=== PATIENT | male | born 1950 | race African-American/Black ===

== ENCOUNTER 2019-01-26 19:21 | Inpatient (IN) | payer MEDICARE, OTHER ==
[2019-01-26 19:41] LABS: #Lymphocytes 1.1 thou/uL (1.20-3.40); #Monocytes 0.4 thou/uL (0.11-0.59); %Basophils 0.1 % (0.0-1.0); %Eosinophils 0.3 % (0.0-10.0); %Lymphocytes 16.3 % (21.0-51.0); %Monocytes 6.5 % (0.0-10.0); %Neutrophils 76.8 % (42.0-75.0); Hemoglobin 11.3 g/dL (14.0-18.0); Mean Corpuscular HGB CONC 32.3 g/dL (32.0-36.0); Mean Corpuscular Hemoglobin 29.1 pg (27.0-31.0); Mean Corpuscular Volume 89.9 fL (78.0-98.0); Mean Platelet Volume 6.9 fL (7.4-10.4); Platelet Count 237 thou/uL (130-400); RBC Distribution Width 13.8 % (11.5-14.5); Red Blood Cell (RBC) Count 3.88 mill/uL (4.70-6.10); White Blood Cell (WBC) Count 6.4 thou/uL (4.8-10.8)
[2019-01-26 20:02] LABS: ALT (SGPT) 7 U/L (8-55); AST (SGOT) 16 U/L (5-34); Albumin 4.1 g/dL (3.4-4.8); Alkaline Phosphatase 545 U/L (40-150); Anion Gap 16 mmol/L (10-20); BUN (Urea Nitrogen) 41 mg/dL (8.4-25.7); Bilirubin, Total 0.5 mg/dL (0.2-1.2); Calc. Creatinine Clearance 0 mL/min (70-130); Calcium 9.9 mg/dL (7.8-10.44); Carbon Dioxide 22 mmol/L (23-31); Chloride 104 mmol/L (98-107); Estimated GFR-MDRD 33; Globulin 3.9 g/dL (2.4-3.5); Glucose 192 mg/dL (80-115); Phosphorus 4.8 mg/dL (2.3-4.7); Potassium 5.5 mmol/L (3.5-5.1); Sodium 136 mmol/L (136-145)
--- NOTE | 2019-01-26 20:30 | CT ---
NONCONTRAST ENHANCED CT CHEST: 01/26/19 HISTORY: Weakness. Nausea and vomiting. Noncontrast enhanced CT images of the brain obtained. There is ossification seen along the falx. The brain is unremarkable. No evidence of intracranial mas ses, hemorrhages, strokes, or contusions seen. Ventricles are of normal size. IMPRESSION: Normal CT brain. POS: [facility]
[2019-01-26 22:27] LABS: Troponin I Less than 0.010 ng/mL (< 0.028)
[2019-01-26 22:32] LABS: Bilirubin Negative (Negative); Blood, Urine Small (Negative); Clarity CLEAR (Clear); Glucose, Urine (Dipstick) 100 mg/dL (Negative); Leukocyte Negative (Negative); Nitrite Negative (Negative); Protein, Urine (Dipstick) 300 mg/dL (Neg-Trace); Specific Gravity, Urine 1.014 (1.002-1.036)
[2019-01-26] MEDS ORDERED: Sodium Chloride 0.9% 1,000 ML IV SCH (23:59)
[2019-01-27] MEDS ORDERED: cloNIDine 0.1 MG TAB PO PRN (00:09)
[2019-01-27] MEDS ORDERED: Sodium Chloride 0.9% 1,000 ML IV SCH (00:15)
[2019-01-27] MEDS ORDERED: Amlodipine 5 MG TAB PO SCH (00:45)
[2019-01-27] MEDS ORDERED: Tamsulosin HCl 0.4 MG CAP PO SCH (00:45)
[2019-01-27] MEDS: Sodium Chloride 0.9% 1,000 ML IV SCH ×2 (00:56→15:46)
[2019-01-27] MEDS ORDERED: Dextrose 5% in Water 1,000 ML IV PRN (01:07)
[2019-01-27] MEDS ORDERED: Dextrose 50% Abboject 50 ML SYRINGE SLOW IVP PRN (01:07)
[2019-01-27] MEDS ORDERED: Calcium Carbonate 500 MG ChewTAB PO PRN (01:07)
[2019-01-27] MEDS ORDERED: Insulin Regular 300 UNITS/3 ML VIAL SC PRN (01:07)
[2019-01-27] MEDS ORDERED: Ondansetron ODT 4 MG TAB PO PRN (01:07)
[2019-01-27] MEDS ORDERED: Ondansetron PF 4 MG/2 ML Vial IVP PRN (01:07)
--- NOTE | 2019-01-27 01:27 | HP ---
The patient was seen and examined on 01/26/2019. PRIMARY CARE PHYSICIAN: Dr. Bojorquez at [facility]. CHIEF COMPLAINT: Generalized weakness. HISTORY OF PRESENT ILLNESS: The patient is a 68-year-old male with recently diagnosed diabetes mellitus type 2, presented to the emergency room with generalized weakness. Over the last 1 week or so, the patient has not been eating or drinking well. He feels generally weak and fatigued. He has chronic visual issues and is followed by his adjunct psychology faculty member and has an appointment with the retina specialist next week. He denies any abdominal pain, chest pain, palpitations, lightheadedness, dizziness, fever, or chills. He denies urinary issues. However, at times, he has frequency and mild urgency. No dysuria, hematuria, or flank pain reported. In the emergency room, his workup was consistent with acute kidney injury with creatinine of 2.4 with potassium of 5.5. He received IV fluids in the emergency room. PAST MEDICAL HISTORY: 1. Diabetes mellitus type 2 with recent A1c of 8.9. 2. Hyperlipidemia. 3. Chronic visual issues, followed by his adjunct psychology faculty member. PAST SURGICAL HISTORY: Reviewed with the patient and none. ALLERGIES: NO KNOWN DRUG ALLERGIES. CURRENT HOME MEDICATIONS: Reviewed with the patient and none. SOCIAL HISTORY: The patient currently lives at home with his family. The daughter, Cayla is at the bedside and is a DPOA. No smoking, alcohol, or drug use reported. He is independent of activities of daily living. FAMILY HISTORY: Positive for diabetes mellitus type 2. REVIEW OF SYSTEMS: All other review of systems were reviewed and were found negative. PHYSICAL EXAMINATION: VITAL SIGNS: In the emergency room showed temperature 98.8, respirations of 18, pulse rate of 130 with a blood pressure of 166/93 on ER arrival. His current pulse rate is 118 with a blood pressure of 185/110. GENERAL: A 68-year-old male, thin built, frail appearing, in no apparent distress. HEENT: Head; atraumatic, normocephalic. Sclerae anicteric. Dry mucous membranes. No oral lesion. NECK: Supple. No JVD. No carotid bruit. LUNGS: Clear to auscultation bilaterally. No wheezing, rales, or rhonchi. HEART: S1, S2 present. Regular rate and rhythm. No rubs or gallops appreciated. 2/6 systolic murmur over the mitral area. ABDOMEN: Soft, nontender. Bowel sounds present. EXTREMITIES: No edema or calf tenderness. NEUROLOGIC: Exam was limited due to chronic hearing issues as well as visual difficulty. Power was 5/5 in all extremities. PSYCHIATRY: Alert, awake, oriented x3. SKIN: Warm and dry. LYMPH NODE: No palpable lymph nodes in the neck. PERIPHERAL VASCULAR: Radial pulses palpable bilaterally. MUSCULOSKELETAL: No joint swelling or tenderness. LABORATORY DATA: EKG by my review showed sinus tachycardia with left axis deviation. Alkaline phosphatase 545 with normal total bilirubin and AST, ALT. Troponins were negative. Lipase was 12. Creatinine 2.4 with BUN 41, potassium 5.5. WBC 6.4 with hemoglobin 11.3. Urinalysis was negative for wbc or bacteria. Ketones 0.5. CT scan of the brain by my review was negative for acute findings. EKG by my review as discussed above. IMPRESSION: 1. Acute kidney injury with hyperkalemia secondary to dehydration. 2. Suspected chronic kidney disease. Baseline creatinine unavailable. 3. Diabetes mellitus type 2, recently diagnosed with A1c of 8.9 earlier this month. 4. Elevated ketones, probably secondary to starvation ketosis. 5. Chronic anemia. 6. Elevated alkaline phosphatase of unclear etiology. 7. Suspected benign prostatic hypertrophy. 8. Hypertension. PLAN: The patient will be monitored on the telemetry unit. Continue IV hydration. We will add Flomax as well as low dose of amlodipine. We will get a renal ultrasound. For elevated alkaline phosphatase, we will check a GGT to rule out hepatic source. We will recheck labs in a.m. Insulin sliding scale. Plan of care was discussed with the patient and the family at the bedside. They stated understanding. DISPOSITION: The patient may benefit from home health care. Job ID: [id number]
[2019-01-27 05:33] LABS: #Lymphocytes 0.8 thou/uL (1.20-3.40); #Monocytes 0.6 thou/uL (0.11-0.59); #Neutrophils 4.6 thou/uL (1.40-6.50); %Basophils 0.1 % (0.0-1.0); %Eosinophils 0.6 % (0.0-10.0); %Monocytes 9.3 % (0.0-10.0); %Neutrophils 76.9 % (42.0-75.0); Hemoglobin 10.1 g/dL (14.0-18.0); INR-International Normal Ratio 1.1; Mean Corpuscular HGB CONC 32.8 g/dL (32.0-36.0); Mean Corpuscular Hemoglobin 29.2 pg (27.0-31.0); Mean Corpuscular Volume 89.1 fL (78.0-98.0); Mean Platelet Volume 7.3 fL (7.4-10.4); PTT 24.6 SEC (22.9-36.1); Platelet Count 213 thou/uL (130-400); Prothrombin Time 14.4 SEC (12.0-14.7); RBC Distribution Width 13.7 % (11.5-14.5); Red Blood Cell (RBC) Count 3.47 mill/uL (4.70-6.10)
[2019-01-27 06:02] LABS: ALT (SGPT) Less than 7 U/L (8-55); AST (SGOT) 16 U/L (5-34); Albumin 3.5 g/dL (3.4-4.8); Alkaline Phosphatase 460 U/L (40-150); Anion Gap 13 mmol/L (10-20); BUN (Urea Nitrogen) 35 mg/dL (8.4-25.7); Bilirubin, Total 0.4 mg/dL (0.2-1.2); Calc. Creatinine Clearance 26 mL/min (70-130); Calcium 9.1 mg/dL (7.8-10.44); Carbon Dioxide 19 mmol/L (23-31); Chloride 108 mmol/L (98-107); Estimated GFR-MDRD 46; Globulin 3.3 g/dL (2.4-3.5); Glucose 142 mg/dL (80-115); Protein, Total 6.8 g/dL (5.8-8.1); Sodium 135 mmol/L (136-145)
[2019-01-27] MEDS: Acetaminophen 325 MG TAB PO PRN ×2 (06:17→23:28)
[2019-01-27] MEDS: Multivit, Therapeutic 1 TAB PO SCH (09:32)
[2019-01-27] MEDS: Senokot S 8.6-50 MG TAB PO SCH ×2 (09:32→20:54)
[2019-01-27] MEDS: Cyanocobalamin (Vitamin B-12) 1,000 MCG TAB PO SCH (09:33)
[2019-01-27] MEDS: Amlodipine 5 MG TAB PO SCH ×2 (09:33→20:54)
[2019-01-27] MEDS: Folic Acid 1 MG TAB PO SCH (09:34)
[2019-01-27] MEDS: Heparin 5,000 UNITS/ML VIAL SC SCH ×2 (09:34→20:55)
--- NOTE | 2019-01-27 10:51 | ULT ---
BILATERAL RENAL ULTRASOUND: Date: 01/27/19 HISTORY: Acute kidney insufficiency. FINDINGS: Both kidneys measure approximately 10.0 cm in length. There is no evidence of hydronephrosis. There i s mild increased cortical echogenicity consistent with history of medical renal disease. No evidence of mass. The urinary bladder is mildly distended. There is evidence of urinary bladder wall thickening. There may be a small amount of fluid in Morison's pouch. The prostate appears enlarged and indents the floor of the bladder. IMPRESSION: 1. Mild increased cortical echogenicity consistent with medical renal disease. 2. Prostatic hypertrophy. Mild bladder wall thickening. 3. Small amount of free fluid in Morison's pouch. POS: [facility]
[2019-01-27] MEDS: Insulin Regular 300 UNITS/3 ML VIAL SC PRN (15:45)
--- NOTE | 2019-01-27 18:38 | PRG ---
DATE OF SERVICE: 01/27/2019 SUBJECTIVE: Mr. Erich Wren is a pleasant 68-year-old male with past medical history significant for type 2 diabetes mellitus, diabetic retinopathy, and recent bout of nausea and vomiting, who presented to the emergency room with complaints of overall generalized weakness. He has been admitted with an acute kidney injury and dehydration. The patient' s family is at bedside. The patient and the family state that he was actually diagnosed with diabetes mellitus many years ago, however, quit taking his medications on his own. He did see his primary care physician recently, and had some blood work with a recent A1c of 8.9%. The patient today states that he remains very weak. He is unable to ambulate very well. He has no complaints of chest pain or shortness of breath. No N/V or abdominal pain at this time. He does remain significantly orthostatic, with supine blood pressure of 162/91, and standing 113/69. The patient reported dizziness with standing. Otherwise, he has no specific complaints at this time. OBJECTIVE: VITAL SIGNS: Blood pressure 143/76, O2 saturation 98% on room air, pulse is 106, temperature is afebrile at 98.3. GENERAL: The patient is a thin male, resting comfortably in bed, eating his lunch. HEENT: Atraumatic and normocephalic. Mucous membranes do appear moist. NECK: Supple. No lymphadenopathy. No JVD. Trachea is midline. RESPIRATORY: Regular respiratory rate and pattern. Clear to auscultation bilaterally. No rhonchi, wheezes, or rales. CARDIOVASCULAR: S1 and S2. Regular rate and rhythm. No appreciable murmurs, rubs, or gallops, mildly tachycardic. GI: Soft and nontender. Positive bowel sounds. PERIPHERAL VASCULAR: He has no edema. +2 DP pulses bilaterally. MUSCULOSKELETAL: No joint effusion or swelling. NEUROLOGIC: He is awake and alert. Cranial nerves 2 through 12 grossly intact. No focal deficit. LABORATORY DATA: Hemoglobin 10.1, hematocrit 30.9. PT 14.4, INR 1.1. APTT 24.6. Sodium 135, potassium is trending down to at 5, previously was 5.5, chloride 108 , creatinine 1.79, previously was 2.4, alkaline phosphatase is elevated at 460, however, this is down from 545. ASSESSMENT: 1. Generalized weakness and electrolyte abnormalities in the setting of dehydration. 2. Acute kidney injury, improving. Creatinine 1.79. 3. Orthostatic hypotension, symptomatic, likely secondary to volume depletion with reactive tachycardia 4. Type 2 diabetes mellitus, uncontrolled. 5. Chronic kidney disease, likely secondary to diabetic nephropathy. 6. Diabetic retinopathy. 7. Elevated alkaline phosphatase with recent episode of N/V prior to admission. 8. HTN PLAN: The patient will need to continue IV fluid resuscitation, as he remains significantly orthostatic. He will need PT as well. The patient has an elev ALP, and will obtain a RUQ ultrasound to assess gallbladder / cholelithiasis. He shows no Joshi sign, but did have vomiting several days ago, which likely precipitated his dehydration. Renal ultrasound does show a small amount of free fluid in Morison pouch. The patient will need continued supportive care and physical therapy. We will also consult dietitian. We will need to continue to monitor his electrolytes closely. Continue sliding scale insulin. Regarding BP, will continue to monitor and if remains elev, consider adding CCB/amlodipine. Further recommendations based on hospital course. Care discussed with Dr. Palomares. Job ID: [id number] [facility]
[2019-01-27] MEDS: Tamsulosin HCl 0.4 MG CAP PO SCH (20:53)
[2019-01-28] MEDS: Sodium Chloride 0.9% 1,000 ML IV SCH ×2 (00:57→16:40)
[2019-01-28 06:00] LABS: #Eosinphils 0.1 thou/uL (0.0-0.7); #Lymphocytes 1.2 thou/uL (1.20-3.40); #Monocytes 0.5 thou/uL (0.11-0.59); #Neutrophils 5.1 thou/uL (1.40-6.50); %Basophils 0.2 % (0.0-1.0); %Eosinophils 0.9 % (0.0-10.0); %Monocytes 6.8 % (0.0-10.0); Hemoglobin 9.8 g/dL (14.0-18.0); Mean Corpuscular HGB CONC 32.7 g/dL (32.0-36.0); Mean Corpuscular Hemoglobin 29.7 pg (27.0-31.0); Mean Corpuscular Volume 90.8 fL (78.0-98.0); Mean Platelet Volume 7.5 fL (7.4-10.4); Platelet Count 199 thou/uL (130-400); RBC Distribution Width 13.6 % (11.5-14.5); Red Blood Cell (RBC) Count 3.32 mill/uL (4.70-6.10); White Blood Cell (WBC) Count 6.9 thou/uL (4.8-10.8)
[2019-01-28 06:19] LABS: ALT (SGPT) Less than 7 U/L (8-55); AST (SGOT) 18 U/L (5-34); Albumin 3.4 g/dL (3.4-4.8); Alkaline Phosphatase 426 U/L (40-150); Anion Gap 13 mmol/L (10-20); BUN (Urea Nitrogen) 30 mg/dL (8.4-25.7); Bilirubin, Direct 0.2 mg/dL (0.1-0.3); Bilirubin, Total 0.4 mg/dL (0.2-1.2); Calc. Creatinine Clearance 27 mL/min (70-130); Calcium 8.9 mg/dL (7.8-10.44); Carbon Dioxide 18 mmol/L (23-31); Chloride 109 mmol/L (98-107); Estimated GFR-MDRD 50; Glucose 139 mg/dL (80-115); Potassium 4.5 mmol/L (3.5-5.1); Protein, Total 6.6 g/dL (5.8-8.1); Sodium 135 mmol/L (136-145)
--- NOTE | 2019-01-28 08:11 | ULT ---
GALLBLADDER ULTRASOUND: HISTORY: Increased liver function tests. FINDINGS: The gallbladder has an unremarkable sonographic appearance. No evidence of gallstones identified. T he common duct is normal caliber. Pancreas is partially imaged and appears unremarkable as visualize d. The right kidney appears unremarkable. The liver is unremarkable. IMPRESSION: Unremarkable gallbladder ultrasound. POS: [facility]
[2019-01-28] MEDS ORDERED: Iopamidol 370 76% 100 ML VIAL ONE (08:14)
[2019-01-28] MEDS: Cyanocobalamin (Vitamin B-12) 1,000 MCG TAB PO SCH (10:28)
[2019-01-28] MEDS: Amlodipine 5 MG TAB PO SCH ×2 (10:28→20:20)
[2019-01-28] MEDS: Folic Acid 1 MG TAB PO SCH (10:29)
[2019-01-28] MEDS: Senokot S 8.6-50 MG TAB PO SCH ×2 (10:29→20:20)
[2019-01-28] MEDS: Multivit, Therapeutic 1 TAB PO SCH (10:29)
[2019-01-28] MEDS: Heparin 5,000 UNITS/ML VIAL SC SCH ×2 (10:31→20:20)
--- NOTE | 2019-01-28 12:20 | PDOC.PN ---
- Subjective Encounter Start Date: 01/28/19 Encounter Start Time: 11:48 Subjective: Patient complaining of left eye pain and loss of vision. Started 2 days ago -: with irritation. He has been rubbing his eye. Was having blurred vision and -: now loss of vision in left eye with constant watering of eye. Reports throbbing discomfort but unable to gauge who severe. No purulent discharge. Denies any headache or dizziness. Otherwise reports feeling much stronger than when he came in. - Objective Resuscitation Status - Order Detail: 01/27/19 01:07 Resuscitation Status Routine Resuscitation Status: FULL: Full Resuscitation Vital Signs & Weight: Vital Signs (12 hours) Temp Pulse Resp BP BP Pulse Ox 01/28/19 11:25 98.3 F 112 H 16 139/77 100 01/28/19 10:28 119 H 01/28/19 08:00 97.9 F 119 H 15 179/100 H 99 01/28/19 04:15 99 18 163/95 H 99 Weight Weight 101 lb 3.2 oz I&O: 01/27/19 01/28/19 01/29/19 06:59 06:59 06:59 Intake Total 1430 Output Total 175 675 Balance -175 755 Result Diagrams: 01/28/19 04:56 01/28/19 04:56 Additional Labs: Accuchecks 01/28/19 01/27/19 01/27/19 10:39 20:38 16:17 POC Glucose 149 H 140 H 204 H Phys Exam - Physical Examination Constitutional: NAD HEENT: moist MMs, oral pharynx no lesions Left conjunctivitis (erythema with clear discharge) Loss of vision in left eye Neck: supple, full ROM Respiratory: clear to auscultation bilateral Cardiovascular: RRR Gastrointestinal: soft, non-tender, no distention, positive bowel sounds Musculoskeletal: no edema, pulses present Neurological: normal sensation, moves all 4 limbs Psychiatric: normal affect, A&O x 3 Skin: no rash Dx/Plan (1) Weakness generalized Code(s): R53.1 - WEAKNESS Status: Acute (2) Dehydration Code(s): E86.0 - DEHYDRATION Status: Acute (3) KASSIDY (acute kidney injury) Code(s): N17.9 - ACUTE KIDNEY FAILURE, UNSPECIFIED Status: Acute (4) Hypertension Code(s): I10 - ESSENTIAL (PRIMARY) HYPERTENSION Status: Chronic (5) Conjunctivitis, left eye Code(s): H10.9 - UNSPECIFIED CONJUNCTIVITIS Status: Acute (6) Tachycardia Code(s): R00.0 - TACHYCARDIA, UNSPECIFIED Status: Acute - Plan cont current plan of care, PT/OT, social media analyst Continue IVF, renal function improving. Continue to trend. Repeat Ortho BPs -: Remains tachycardic. Check Mg+, TSH, and d-dimer. No CP at present. CXR. -: Concern for self-neglect and lack of support at home. -: Would benefit from placement given inability to care for himself. -: Conjunctivitis, loss of vision perhaps due to corneal ulcer. Opthalmology consult. Cipro drops to left eye q2 hrs x 2 days, then q4h x 5 days. Further management as per Opthalmology. Discussed with Dr. Palomares who agrees with plan as above. Review of Systems - Review of Systems Constitutional: weakness (improving. ). negative: fever, chills, sweats, malaise Eyes: Pain (left eye), Vision Change, Redness (left eye) ENT: negative: Ear Pain, Ear Discharge, Nose Pain, Nose Discharge, Nose Congestion, Mouth Pain, Mouth Swelling, Throat Pain, Throat Swelling, Other Respiratory: negative: Cough, Dry, Shortness of Breath, Hemoptysis, SOB with Excertion, Pleuritic Pain, Sputum, Wheezing Cardiovascular: negative: chest pain, palpitations, orthopnea, paroxysmal nocturnal dyspnea, edema, light headedness, other Gastrointestinal: negative: Nausea, Vomiting, Abdominal Pain, Diarrhea, Constipation, Melena, Hematochezia Genitourinary: negative: Dysuria, Frequency, Incontinence, Hematuria, Retention Musculoskeletal: negative: Neck Pain, Shoulder Pain, Arm Pain, Back Pain, Hand Pain, Leg Pain, Foot Pain Skin: negative: Rash, Lesions, Kennedy, Bruising Neurological: Weakness (generalized weakness, improving. ). negative: Numbness , Incoordination, Change in Speech, Confusion, Seizures, Other - Medications/Allergies Allergies/Adverse Reactions: Allergies Allergy/AdvReac Type Severity Reaction Status Date / Time No Known Drug Allergies Allergy Verified 01/27/19 00:09 Medications: Current Medications Acetaminophen (Tylenol) 650 mg PO Q4H PRN PRN Reason: Headache/Fever/Mild Pain (1-3) Last Admin: 01/27/19 23:28 Dose: 650 mg Amlodipine Besylate (Norvasc) 2.5 mg PO BID PENDING SALE TO [facility] Last Admin: 01/28/19 10:28 Dose: 2.5 mg Calcium Carbonate (Tums) 1,000 mg PO Q4H PRN PRN Reason: Heartburn or Indigestion Ciprofloxacin (Ciloxan 0.3% Ophth Soln) 1 drop L EYE Q2HR PENDING SALE TO [facility] Clonidine (Catapres) 0.1 mg PO Q4H PRN PRN Reason: Systolic BP > 180 Cyanocobalamin (Vitamin B-12) 1,000 mcg PO DAILY PENDING SALE TO [facility] Last Admin: 01/28/19 10:28 Dose: 1,000 mcg Dextrose/Water (Dextrose 50%) 25 gm SLOW IVP PRN PRN PRN Reason: Hypoglycemia Folic Acid (Folvite) 1 mg PO DAILY PENDING SALE TO [facility] Last Admin: 01/28/19 10:29 Dose: 1 mg Glucagon (Glucagon) 1 mg IM PRN PRN PRN Reason: Hypoglycemia Heparin Sodium (Porcine) (Heparin) 5,000 units SC BID PENDING SALE TO [facility] Last Admin: 01/28/19 10:31 Dose: 5,000 units Sodium Chloride (Normal Saline 0.9%) 1,000 mls @ 100 mls/hr IV .Q10H PENDING SALE TO [facility] Last Admin: 01/28/19 00:57 Dose: 1,000 mls Dextrose/Water (D5w) 1,000 mls @ 0 mls/hr IV .Q0M PRN PRN Reason: Hypoglycemia Insulin Human Regular (Humulin R) 0 units SC .MILD SLIDING SCALE PRN PRN Reason: Mild Correctional Scale Last Admin: 01/27/19 15:45 Dose: 3 unit Insulin Human Regular (Humulin R) 0 units SC .BEDTIME SLIDING SC PRN PRN Reason: Bedtime Correctional Scale Multivitamins (Theragran) 1 tab PO DAILY PENDING SALE TO [facility] Last Admin: 01/28/19 10:29 Dose: 1 tab Ondansetron HCl (Zofran Odt) 4 mg PO Q6H PRN PRN Reason: Nausea/Vomiting Ondansetron HCl (Zofran) 4 mg IVP Q6H PRN PRN Reason: Nausea/Vomiting Senna/Docusate Sodium (Senokot S) 1 tab PO BID PENDING SALE TO [facility] Last Admin: 01/28/19 10:29 Dose: 1 tab Tamsulosin HCl (Flomax) 0.[address] [facility] Last Admin: 01/27/19 20:53 Dose: 0.4 mg
--- NOTE | 2019-01-28 14:55 | RAD ---
CHEST TWO VIEWS: 01/28/2019 HISTORY: Shortness of breath. Tachycardia. FINDINGS: There is reticulonodular density in both upper lobes and in the bilateral perihilar regions. There i s no pneumothorax or lobar consolidation. There are numerous areas of abnormal increased sclerotic density within the osseous structures, suspi cious for possible underlying metastatic disease. This includes a conspicuous area of sclerosis with in T12, on the lateral view. IMPRESSION: Reticulonodular densities in the perihilar regions and upper lobes, which may signify infectious pneu monitis, chronic change, granulomatous disease, and/or metastatic disease. There is also suggestion of numerous sclerotic osseous lesions, which may signify osseous metastatic disease. Recommend further assessment via CT examination of the chest. CODE T POS: [facility]
[2019-01-28] MEDS: Ciprofloxacin 0.3% Ophth Drops 2.5 ml Bottle L EYE SCH ×4 (16:41→22:30)
--- NOTE | 2019-01-28 16:46 | CT ---
CT CHEST WITH CONTRAST WITH 3D VOLUME RENDERING: Date: 01/28/19 CLINICAL HISTORY: Tachycardia, shortness of breath. Elevation of D-Dimer. FINDINGS: There is limited evaluation of the pulmonary arteries due to reduced contrast density. There is also surrounding opacification of each perihilar region which limits assessment. There are numerous ground -glass and noncalcified bilateral pulmonary nodules. There is tortuosity of the aorta. Soft tissue de nsity of the mediastinum with associated calcifications is present, nonspecific. There is interstitia l prominence of each lung, as well as bronchiectasis. Extensive blastic osseous metastasis is present . Within the visualized upper abdomen, there is nonspecific fullness of the adrenal glands. IMPRESSION: 1. Diffuse osseous metastatic disease. 2. Abnormal reticulonodular opacities of the lungs bilaterally, predominantly in a perihilar distrib ution, which may be related to atypical infection versus infiltrating neoplasm, given additional ill- defined mediastinal soft tissue density. 3. Limited evaluation of the pulmonary arterial system. No definite large central pulmonary embolus identified. 4. Numerous, multifocal bilateral noncalcified pulmonary nodules, compatible with metastatic disease . POS: [facility]
[2019-01-28] MEDS: Tamsulosin HCl 0.4 MG CAP PO SCH (20:22)
[2019-01-29] MEDS: Ciprofloxacin 0.3% Ophth Drops 2.5 ml Bottle L EYE SCH ×5 (00:23→08:46)
[2019-01-29] MEDS: Sodium Chloride 0.9% 1,000 ML IV SCH ×3 (01:58→16:46)
[2019-01-29] MEDS ORDERED: ISOVUE-370 76%-LOCM 1 ML ONE (08:00)
[2019-01-29 08:10] LABS: #Eosinphils 0.1 thou/uL (0.0-0.7); #Lymphocytes 0.9 thou/uL (1.20-3.40); #Monocytes 0.4 thou/uL (0.11-0.59); #Neutrophils 3.6 thou/uL (1.40-6.50); %Basophils 0.4 % (0.0-1.0); %Eosinophils 1.2 % (0.0-10.0); %Lymphocytes 17.3 % (21.0-51.0); %Monocytes 8.7 % (0.0-10.0); %Neutrophils 72.4 % (42.0-75.0); Hemoglobin 8.6 g/dL (14.0-18.0); Mean Corpuscular HGB CONC 33.2 g/dL (32.0-36.0); Mean Corpuscular Hemoglobin 29.6 pg (27.0-31.0); Mean Corpuscular Volume 89.2 fL (78.0-98.0); Mean Platelet Volume 6.9 fL (7.4-10.4); Platelet Count 183 thou/uL (130-400); RBC Distribution Width 13.3 % (11.5-14.5); Red Blood Cell (RBC) Count 2.89 mill/uL (4.70-6.10); White Blood Cell (WBC) Count 4.9 thou/uL (4.8-10.8)
[2019-01-29] MEDS: Folic Acid 1 MG TAB PO SCH (08:33)
[2019-01-29] MEDS: Amlodipine 5 MG TAB PO SCH ×2 (08:34→21:18)
[2019-01-29] MEDS: Heparin 5,000 UNITS/ML VIAL SC SCH ×2 (08:35→21:20)
[2019-01-29] MEDS: Multivit, Therapeutic 1 TAB PO SCH (08:35)
[2019-01-29] MEDS: Cyanocobalamin (Vitamin B-12) 1,000 MCG TAB PO SCH (08:36)
[2019-01-29] MEDS: Senokot S 8.6-50 MG TAB PO SCH ×2 (08:36→21:20)
[2019-01-29 08:39] LABS: Anion Gap 11 mmol/L (10-20); BUN (Urea Nitrogen) 22 mg/dL (8.4-25.7); Calc. Creatinine Clearance 32 mL/min (70-130); Calcium 8.6 mg/dL (7.8-10.44); Carbon Dioxide 17 mmol/L (23-31); Chloride 110 mmol/L (98-107); Estimated GFR-MDRD 57; Glucose 112 mg/dL (80-115); Sodium 134 mmol/L (136-145)
--- NOTE | 2019-01-29 09:36 | PDOC.PN ---
- Subjective Encounter Start Date: 01/29/19 Encounter Start Time: 09:33 Subjective: Patient has felt well overnight, improved discomfort in left eye with less -: clear discharge. Tolerating oral intake. Has remained afebrile. -: No chest pain, SOB. No n/v or abdo pain. Loose stools last pm. Senna held. He denies having any changes with his bowels or noting any melena or bright red blood in his stools. Denies any abdominal pain. No back pain. No headaches or dizziness. States he was only feeling weak on his feet. Has been up and to the bathroom but still slightly unsteady on his feet. Additional investigations obtained due to persistent tachycardia despite symptomatic improvement and improved renal function. D-Dimer elevated. CXR done showing abnormal findings: bone and lung lesions concerning for metastasis. CTA: Diffuse osseous mets with multiple lung nodules. No definite evidence of PE. Soft tissue mediastinal density seen. I have explained above findings to patient, and daughter. They are understandably emotional at this present time but they do not have any questions at the moment. They are agreeable to be seen by palliative care for support in coping issues. They are aware of plans for further imaging with CT A/P and Oncology consult. - Objective Resuscitation Status - Order Detail: 01/27/19 01:07 Resuscitation Status Routine Resuscitation Status: FULL: Full Resuscitation Vital Signs & Weight: Vital Signs (12 hours) Temp Pulse Resp BP BP BP BP 01/29/19 08:34 107 H 01/29/19 07:49 98.6 F 107 H 16 01/29/19 07:48 110/56 L 83/51 L 135/74 01/29/19 04:30 98.9 F 108 H 19 131/77 01/29/19 03:26 01/29/19 00:19 98.7 F 103 H 12 141/84 H Pulse Ox 01/29/19 08:34 01/29/19 07:49 98 01/29/19 07:48 01/29/19 04:30 100 01/29/19 03:26 98 01/29/19 00:19 98 Weight Admit Weight 101 lb 3.2 oz Weight 105 lb 1.6 oz I&O: 01/28/19 01/29/19 01/30/19 06:59 06:59 06:59 Intake Total 1430 1320 Output Total 675 Balance 755 1320 Result Diagrams: 01/29/19 07:37 01/29/19 07:37 Additional Labs: Accuchecks 01/29/19 01/28/19 01/28/19 06:01 21:33 16:59 POC Glucose 126 H 204 H 180 H 01/28/19 10:39 POC Glucose 149 H Phys Exam - Physical Examination Constitutional: NAD Well-developed but very thin HEENT: moist MMs, oral pharynx no lesions Slight improvement in left eye erythema, less drainage Neck: full ROM Respiratory: clear to auscultation bilateral Cardiovascular: RRR Gastrointestinal: soft, non-tender, no distention, positive bowel sounds Musculoskeletal: no edema, pulses present Neurological: normal sensation, moves all 4 limbs Psychiatric: normal affect, A&O x 3 Skin: no rash Dx/Plan (1) Weakness generalized Code(s): R53.1 - WEAKNESS Status: Acute (2) Dehydration Code(s): E86.0 - DEHYDRATION Status: Resolved (3) KASSIDY (acute kidney injury) Code(s): N17.9 - ACUTE KIDNEY FAILURE, UNSPECIFIED Status: Acute (4) Hypertension Code(s): I10 - ESSENTIAL (PRIMARY) HYPERTENSION Status: Chronic (5) Conjunctivitis, left eye Code(s): H10.9 - UNSPECIFIED CONJUNCTIVITIS Status: Acute (6) Tachycardia Code(s): R00.0 - TACHYCARDIA, UNSPECIFIED Status: Acute - Plan cont current plan of care Awaiting Oncology review. -: CT A/P this afternoon. -: Awaiting Opthalmology. -: Lorazepam 0.25 mg PO x 1 now. -: Palliative Care consult requested. Discussed with Dr. Palomares who agrees with plan of care as above. Discussed clinical situation with Thuy and the likelihood of diffuse metastatic process given osseous and pulmonary lesions. Consult Oncology service regarding disposition and outpt planning and strategy for obtaining tissue dx. Palliative care consult placed for custodial planning and goals of care discussion.
[2019-01-29] MEDS: Lorazepam 0.5 MG TAB PO PRN (10:30)
--- NOTE | 2019-01-29 16:56 | CT ---
ABDOMEN CT WITH CONTRAST PELVIC CT WITH CONTRAST: HISTORY: Possible metastatic disease noted on CT angiogram of the chest. COMPARISON: None. CORRELATION: CT angiogram of the chest 01/28/2019. FINDINGS: ABDOMEN CT: Lung bases are clear. Heart size is within normal limits. No significant pericardial fluid. Portal vein is patent. Liver , spleen, pancreas have appropriate enhancement and attenuation. There is mild dilatation of the parrish creatic duct with a diameter of 0.2 cm. No masses in the head of the pancreas. Symmetric attenuatio n of the adrenal glands. Limited evaluation for masses and lymphadenopathy due to decreased intraabdominal fat. No gastrohepa tic, retrocrural, or periportal lymphadenopathy. No mesenteric mass, lymphadenopathy, free air, or free fluid. Symmetric enhancement of the kidneys. No obstructive uropathy. Moderately distended stomach with contrast and ingested material. No evidence of small bowel obstruc tion. Ileocecal junction is normal. Possible normal-caliber appendix. Limited evaluation of the co noy due to the lack of oral contrast opacification. There is mucosal thickening of the left hemicolo n which is presumed to be due to inadequate distention. There does appear to be intraluminal soft ti ssue mass in the sigmoid colon measuring 3.7 x 2.9 cm with associated intussusception. The mass is f elt to be a lead point. No associated obstruction. CT PELVIS: Enlarged heterogeneous prostate gland, worrisome for prostate metastases. There is also evidence of mucosal thickening and irregularity involving the distal sigmoid colon and rectum. Diffuse osseous sclerotic metastatic deposits. IMPRESSION: 1. Diffuse osseous metastases. 2. Abnormal mucosa involving the distal sigmoid colon and rectum with possible intraluminal polypoid mass at the level of the mid sigmoid colon with associated intussusception. Colonoscopy is recommen ded. 3. Heterogeneously enlarged prostate gland. Correlate for prostate specific antigen level to assess for possible prostate cancer. CODE T POS: [facility]
--- NOTE | 2019-01-29 19:49 | CON ---
DATE OF CONSULTATION: REASON FOR CONSULT: Bone lesions. HISTORY OF PRESENT ILLNESS: Mr. Wren is a pleasant 68-year-old gentleman, who was recently diagnosed with diabetes mellitus type 2. Over the weekend, he began to feel poorly and out of sorts. He had mild shortness of breath with weakness. His daughter brought him to the emergency room for evaluation. Brain CT was negative. CBC showed hemoglobin of 11.3. His creatinine was elevated at 1.79 with potassium of 5. He underwent an abdominal ultrasound, which was unremarkable. D-dimer was checked, which was slightly elevated. He underwent a CT angio of the chest, which showed diffuse osseous metastatic disease. There were abnormal reticulonodular opacities of the lungs bilaterally. Numerous multifocal bilateral noncalcified pulmonary nodules are worrisome for metastatic disease. There was no pulmonary emboli. He had a CEA that was normal at 0.68. The patient has no history of smoking or drinking. No history of liver disease. No difficulty with urination. No new bone pain. He has been given IV fluids and states he is feeling better since arrival. We were helped to assist with diagnosis of the bone lesions. PAST MEDICAL HISTORY: 1. Newly diagnosed diabetes mellitus 2. 2. Hypertension. 3. Chronic visual changes. PAST SURGICAL HISTORY: None. ALLERGIES: NO KNOWN DRUG ALLERGIES. HOME MEDICATIONS: None. FAMILY HISTORY: Denies any history of prostate or multiple myeloma. SOCIAL HISTORY: , lives alone. Has 2 daughters. No alcohol, tobacco, or illicit drug use. REVIEW OF SYSTEMS: A 10-point review of systems is negative except for noted in HPI. PHYSICAL EXAMINATION: VITAL SIGNS: Temperature is 99.3, pulse is 107, respiratory rate is 12, and BP is 148/81. He is 100% on room air. GENERAL: This is a thin male, in no acute distress. HEENT: Normocephalic and atraumatic. Pupils are equal and reactive to light. NECK: Supple. CV: Regular rate and rhythm. LUNGS: Clear. ABDOMEN: Soft and nontender. Bowel sounds are positive. There is no organomegaly. EXTREMITIES: No clubbing, cyanosis, or edema. SKIN: No rash. HEMATOLOGIC: No petechiae or purpura. NEUROLOGIC: Nonfocal. PSYCH: The patient is alert, oriented, and appropriate. PERTINENT LABS AND X-RAYS: Current WBCs 4.9, hemoglobin 8.6, hematocrit 25.8, platelet count 183,000, 73% neutrophils, and 17% lymphocytes. Sodium 134, potassium 4.0, chloride 110, CO2 of 17, BUN is 22, creatinine 1.49, lipase is 12, total bilirubin is 0.4, AST is 24, ALT is 18, and his alkaline phosphatase is 426. Troponin is negative. Serum total protein 6.6, albumin 3.4, and globulin 3.3. Urine shows protein with trace ketones. ASSESSMENT: Diffuse osseous lesions on CT scan. DISCUSSION: The patient is having a CT of his abdomen and pelvis today. His CEA is negative and his PSA is currently pending, although his protein is normal. He does have protein in his urine. We will check a serum protein electrophoresis and quantitative immunoglobulins to rule out multiple myeloma. If his CT scan shows no obvious primary mass, we will perform a skeletal survey and have a biopsy of 1 of his bone lesions. Further recommendations will be based on those results. Thank you for the consult. Job ID: [id number] [facility]ITALRaymon
[2019-01-29] MEDS: Tamsulosin HCl 0.4 MG CAP PO SCH (21:20)
[2019-01-29] MEDS: Acetaminophen 325 MG TAB PO PRN (21:22)
--- NOTE | 2019-01-30 02:00 | CON ---
DATE OF CONSULTATION: 01/29/2019 REASON FOR CONSULT: Abnormal CAT scan with questionable mass in the sigmoid colon. HISTORY OF PRESENT ILLNESS: Mr. Wren is a 68-year-old -[place] male, who came in, brought in by his family on the for basically failure of thrive, poor p.o. intake, weight loss, and general weakness. He thought that possibly his diabetes was flaring up. He had not been eating or drinking well for the past week or two. His daughter in the past three or four weeks. Here, he had a dehydration with creatinine of 2.4 and potassium 5.5. Apparently, he started seeing Dr. Bojorquez at [facility] recently, his new physician and had a hemoglobin A1c of 8.9. He had CAT scan of brain, which was negative. He was found to have mild anemia and elevated alkaline phosphatase of unclear etiology. He was brought in for IV fluids and evaluation. He had a renal ultrasound that was normal. Normal gallbladder. He had normal GGT as well. Ultimately, he had a chest x-ray performed today around noon that showed reticulonodular densities in the perihilar regions of upper lung lobes. There are numerous sclerotic osseous lesions in the bone. A CAT scan was then performed on 01/28/2019. There was diffuse osseous metastatic disease. On the CAT scan, there was perihilar reticulonodular adenopathy and he had numerous noncalcified pulmonary nodules consistent with metastatic disease. There was a limited evaluation of pulmonary artery system, but no central large embolus was seen. Today, the patient had a CAT scan of the abdomen and pelvis and that showed possible mass in the sigmoid colon. No evidence of liver metastasis. Patent portal vein. No overt adenopathy. Mildly distended stomach with contrast material, but no evidence of bowel obstruction. In the sigmoid colon, I felt there was a mass, 3.7 x 2.9 cm with associated intussusception. The prostate gland was enlarged. Presently, the patient denies any overt abdominal pain, shortness of breath, or chest pain. The shortness of breath he had yesterday is now resolved. PAST MEDICAL HISTORY: Notable for diabetes. PAST SURGICAL HISTORY: Negative. ALLERGIES: NONE KNOWN. HOME MEDICATIONS: None. SOCIAL HISTORY: The patient lives with family members. He does not smoke, drink, or use drugs. He does have history of type 2 diabetes. PRESENT MEDICATIONS: 1. Tylenol. 2. Norvasc. 3. Cipro. 4. Vitamin B12. 5. Heparin subcu b.i.d. 5000 units. 6. Ativan p.r.n. 7. Theragran-M. 8. Zofran. 9. Normal saline. PHYSICAL EXAMINATION: GENERAL: He is resting comfortably in bed. He is in no distress. VITAL SIGNS: Pulse 107, temperature 98, blood pressure 165/83, respiratory rate 16, and O2 saturation 97%. LUNGS: Clear. HEART: Regular rate and rhythm. No clicks or murmurs. ABDOMEN: Soft and nontender. There is no palpable hepatosplenomegaly. There is no evidence of adenopathy in the supraclavicular, axillary, inguinal, or umbilical areas. MUSCULOSKELETAL: He has diffuse muscle wasting. SKIN: There are no skin rashes or lesions. He has mild erythema of the left conjunctiva. LABORATORY STUDIES: White count 9.4, hemoglobin 8.6, and platelet count 183. INR 1.1. BUN and creatinine of 22 and 1.4. Sodium 134, chloride 110, and bicarb 17. CEA is 0.68. Alpha-fetoprotein is 2. PSA is pending. ASSESSMENT: This is a 68-year-old gentleman, who came with failure to thrive and weight loss. He has osseous bone lesions and some lung lesions, which were concerning for either infectious or neoplastic etiology. He also has a sigmoid colon mass without obstruction with some signs of intussusception but no symptoms of pain or change in bowel function. His really only GI symptom is that he has no appetite and he is not able to eat. I have been asked to see him with regard to his colonoscopy. At this time, I do not think he can undergo a colonoscopy as he cannot drink bowel prep. He was unable to drink two cups of his oral contrast but I think we can perform a sigmoidoscopy with some enemas and evaluate the finding on the CAT scan and see if he has a malignancy in the sigmoid colon. I have offered this to the patient and family, and they wished to proceed with that. We will arrange for that for tomorrow. Job ID: [id number]
[2019-01-30] MEDS: Sodium Chloride 0.9% 1,000 ML IV SCH ×3 (02:20→18:16)
[2019-01-30] MEDS ORDERED: Fleet Enema 133 ML BOT FS SCH ×2 (07:00→08:00)
[2019-01-30] MEDS: Amlodipine 5 MG TAB PO SCH ×2 (09:20→21:24)
[2019-01-30 09:23] LABS: % Free PSA Greater than 9.2 % (.); Total PSA 545.6 ng/mL (0.0-4.0)
[2019-01-30] MEDS ORDERED: PROPOFOL 200 MG/20 ML VIAL ONE (10:37)
[2019-01-30] MEDS: Folic Acid 1 MG TAB PO SCH (11:26)
[2019-01-30] MEDS: Cyanocobalamin (Vitamin B-12) 1,000 MCG TAB PO SCH (11:26)
[2019-01-30] MEDS: Multivit, Therapeutic 1 TAB PO SCH (11:27)
[2019-01-30] MEDS: Heparin 5,000 UNITS/ML VIAL SC SCH ×2 (11:27→21:27)
[2019-01-30] MEDS: Senokot S 8.6-50 MG TAB PO SCH ×2 (11:28→21:27)
--- NOTE | 2019-01-30 12:19 | OP ---
DATE OF PROCEDURE: 01/30/2019 PROCEDURE PERFORMED: Flexible sigmoidoscopy. PREMEDICATION: Given by Anesthesiology Department. PREPROCEDURE DIAGNOSIS: Abnormal CT suggestive of sigmoid lesion. POSTPROCEDURE DIAGNOSIS: One large 20 cm plus sigmoid polyp, pedunculated, not amenable to endoscopic removal. DESCRIPTION OF PROCEDURE: Written consents were obtained prior to procedure. After adequate sedation, rectal exam was performed and was normal. The endoscope was advanced into the rectum, advanced to approximately 40 cm. At 25 cm from the anal verge, a large pedunculated polyp with villous appearing surface was encountered. The polyp was large, multilobulated, pedunculated fillings in most of the entire lumen. There was no feature of malignancy usually. A total of 7 mL of epinephrine solution was injected into the stalk in the hope to shrink the polyp, however, this was unsuccessful. The polyp was too large for endoscopic removal given the lack of good position to place a snare. The instruments were then fully removed. The patient tolerated the procedure well. ASSESSMENT: 1. Large 20 cm plus pedunculated sigmoid polyp, unable to shrink with epinephrine injection to the stalk. RECOMMENDATION: Proceed with further evaluation and treatment for his metastatic prostate cancer. Job ID: [id number]
[2019-01-30 13:00] LABS: #Lymphocytes 0.6 thou/uL (1.20-3.40); #Monocytes 0.3 thou/uL (0.11-0.59); #Neutrophils 4.5 thou/uL (1.40-6.50); %Basophils 0.3 % (0.0-1.0); %Eosinophils 0.5 % (0.0-10.0); %Lymphocytes 11.6 % (21.0-51.0); %Monocytes 4.9 % (0.0-10.0); %Neutrophils 82.7 % (42.0-75.0); Hemoglobin 9.1 g/dL (14.0-18.0); Mean Corpuscular HGB CONC 32.8 g/dL (32.0-36.0); Mean Corpuscular Hemoglobin 29.6 pg (27.0-31.0); Mean Platelet Volume 6.8 fL (7.4-10.4); Platelet Count 189 thou/uL (130-400); RBC Distribution Width 13.6 % (11.5-14.5); Red Blood Cell (RBC) Count 3.07 mill/uL (4.70-6.10); White Blood Cell (WBC) Count 5.4 thou/uL (4.8-10.8)
[2019-01-30 13:08] LABS: Anion Gap 11 mmol/L (10-20); BUN (Urea Nitrogen) 19 mg/dL (8.4-25.7); Calc. Creatinine Clearance 33 mL/min (70-130); Calcium 8.6 mg/dL (7.8-10.44); Carbon Dioxide 19 mmol/L (23-31); Chloride 109 mmol/L (98-107); Estimated GFR-MDRD 56; Glucose 185 mg/dL (80-115); Potassium 3.5 mmol/L (3.5-5.1); Sodium 135 mmol/L (136-145)
[2019-01-30] MEDS: Insulin Regular 300 UNITS/3 ML VIAL SC PRN (18:15)
--- NOTE | 2019-01-30 18:22 | PDOC.PN ---
- Subjective Encounter Start Date: 01/30/19 Encounter Start Time: 18:20 Subjective: Patient is feeling well and in good spirits today. -: Denies having any issues overnight. No complaints of pain. -: Tolerating oral intake. No n/v. No cp or sob. No headaches/dizziness. Status post flex sig notable for large sigmoid colon polyp, too large to be removed. - Objective Resuscitation Status - Order Detail: 01/27/19 01:07 Resuscitation Status Routine Resuscitation Status: FULL: Full Resuscitation Vital Signs & Weight: Vital Signs (12 hours) Temp Pulse Resp BP Pulse Ox 01/30/19 15:53 98.3 F 103 H 16 162/84 H 100 01/30/19 11:47 97.7 F 112 H 14 146/71 H 100 01/30/19 09:20 117 H 01/30/19 07:45 97.8 F 117 H 14 157/87 H 99 Weight Admit Weight 101 lb 3.2 oz Weight 108 lb 4.8 oz I&O: 01/29/19 01/30/19 01/31/19 06:59 06:59 06:59 Intake Total 1320 1240 Output Total 400 Balance 1320 840 Result Diagrams: 01/30/19 12:36 01/30/19 12:36 Additional Labs: Accuchecks 01/30/19 01/30/19 01/30/19 16:57 12:19 06:06 POC Glucose 202 H 198 H 136 H 01/29/19 21:09 POC Glucose 217 H Phys Exam - Physical Examination Constitutional: NAD HEENT: PERRLA, sclera anicteric, oral pharynx no lesions continued improved with redness to left eye. Neck: full ROM Respiratory: no wheezing, no rales, no rhonchi, clear to auscultation bilateral Cardiovascular: RRR Gastrointestinal: soft, non-tender, no distention, positive bowel sounds Musculoskeletal: no edema Neurological: normal sensation, moves all 4 limbs Psychiatric: normal affect, A&O x 3 Skin: no rash Dx/Plan (1) Weakness generalized Code(s): R53.1 - WEAKNESS Status: Acute Plan: Improving. PT/OT eval. (2) KASSIDY (acute kidney injury) Code(s): N17.9 - ACUTE KIDNEY FAILURE, UNSPECIFIED Status: Resolved (3) Hypertension Code(s): I10 - ESSENTIAL (PRIMARY) HYPERTENSION Status: Chronic Qualifiers: Hypertension type: essential hypertension Qualified Code(s): I10 - Essential (primary) hypertension Plan: Continue to monitor BP. Continue meds. (4) Conjunctivitis, left eye Code(s): H10.9 - UNSPECIFIED CONJUNCTIVITIS Status: Acute Plan: continue topical abx. Will need follow-up with Opthalmology, was scheduled to see Retina specialist as outpatient. (5) Tachycardia Code(s): R00.0 - TACHYCARDIA, UNSPECIFIED Status: Acute Plan: Improving. Continue to monitor. - Plan cont current plan of care Elevated PSA, felt to have metastatic prostate cancer. -: Further management as per Oncology service. -: Patient for PT/OT, likely to be discharged to SNF. * .
[2019-01-30] MEDS: Tamsulosin HCl 0.4 MG CAP PO SCH (21:26)
[2019-01-30] MEDS: Acetaminophen 325 MG TAB PO PRN (21:26)
[2019-01-31] MEDS: Sodium Chloride 0.9% 1,000 ML IV SCH (03:52)
[2019-01-31 05:42] LABS: #Eosinphils 0.1 thou/uL (0.0-0.7); #Lymphocytes 0.8 thou/uL (1.20-3.40); #Monocytes 0.3 thou/uL (0.11-0.59); #Neutrophils 3.1 thou/uL (1.40-6.50); %Basophils 0.2 % (0.0-1.0); %Eosinophils 2.1 % (0.0-10.0); %Lymphocytes 18.2 % (21.0-51.0); %Monocytes 7.7 % (0.0-10.0); %Neutrophils 71.8 % (42.0-75.0); Hemoglobin 8.4 g/dL (14.0-18.0); Mean Corpuscular HGB CONC 33.7 g/dL (32.0-36.0); Mean Corpuscular Hemoglobin 29.8 pg (27.0-31.0); Mean Corpuscular Volume 88.5 fL (78.0-98.0); Platelet Count 186 thou/uL (130-400); RBC Distribution Width 13.4 % (11.5-14.5); White Blood Cell (WBC) Count 4.3 thou/uL (4.8-10.8)
[2019-01-31 05:54] LABS: Anion Gap 10 mmol/L (10-20); BUN (Urea Nitrogen) 15 mg/dL (8.4-25.7); Calc. Creatinine Clearance 35 mL/min (70-130); Calcium 8.4 mg/dL (7.8-10.44); Carbon Dioxide 20 mmol/L (23-31); Chloride 111 mmol/L (98-107); Estimated GFR-MDRD 62; Glucose 114 mg/dL (80-115); Potassium 3.8 mmol/L (3.5-5.1); Sodium 137 mmol/L (136-145)
[2019-01-31 06:21] LABS: Beta-2-Microglobulin 2.3 mg/L (0.6-2.4)
--- NOTE | 2019-01-31 08:14 | PDOC.PN ---
- Subjective Encounter Start Date: 01/31/19 Encounter Start Time: 08:13 Subjective: alert, cheerful - Objective Resuscitation Status - Order Detail: 01/27/19 01:07 Resuscitation Status Routine Resuscitation Status: FULL: Full Resuscitation MAR Reviewed: Yes Vital Signs & Weight: Vital Signs (12 hours) Temp Pulse Resp BP BP Pulse Ox 01/31/19 03:58 99.2 F 100 17 159/80 H 99 01/30/19 21:24 104 H 187/87 H Weight Admit Weight 101 lb 3.2 oz Weight 107 lb 6.4 oz I&O: 01/30/19 01/31/19 02/01/19 06:59 06:59 06:59 Intake Total 1240 3160 Output Total 400 1100 Balance 840 2060 Result Diagrams: 01/31/19 05:00 01/31/19 05:00 Additional Labs: Accuchecks 01/31/19 01/30/19 01/30/19 05:37 21:25 16:57 POC Glucose 132 H 129 H 202 H 01/30/19 12:19 POC Glucose 198 H Phys Exam - Physical Examination Neck: no JVD Respiratory: clear to auscultation bilateral Cardiovascular: RRR, no significant murmur Gastrointestinal: soft, positive bowel sounds Musculoskeletal: no edema Dx/Plan (1) CKD (chronic kidney disease) stage 3, GFR 30-59 ml/min Code(s): N18.3 - CHRONIC KIDNEY DISEASE, STAGE 3 (MODERATE) Status: Chronic (2) DM type 2 causing CKD stage 3 Code(s): E11.22 - TYPE 2 DIABETES MELLITUS W DIABETIC CHRONIC KIDNEY DISEASE; N18.3 - CHRONIC KIDNEY DISEASE, STAGE 3 (MODERATE) Status: Chronic Qualifiers: Diabetes mellitus oil heaterman insulin use: without oil heaterman use Qualified Code(s): E11.22 - Type 2 diabetes mellitus with diabetic chronic kidney disease ; N18.3 - Chronic kidney disease, stage 3 (moderate) (3) Conjunctivitis, left eye Code(s): H10.9 - UNSPECIFIED CONJUNCTIVITIS Status: Acute Qualifiers: Conjunctivitis type: acute Acute conjunctivitis type: bacterial Qualified Code(s): H10.32 - Unspecified acute conjunctivitis, left eye (4) Metastatic adenocarcinoma to prostate Code(s): C79.82 - SECONDARY MALIGNANT NEOPLASM OF GENITAL ORGANS Status: Acute (5) Hypertension Code(s): I10 - ESSENTIAL (PRIMARY) HYPERTENSION Status: Chronic Qualifiers: Hypertension type: essential hypertension Qualified Code(s): I10 - Essential (primary) hypertension (6) Dehydration Code(s): E86.0 - DEHYDRATION Status: Resolved - Plan DC iv fluids -: cont accu/ss, start po glipizide -: cont amlodipine * .
[2019-01-31] MEDS: Multivit, Therapeutic 1 TAB PO SCH (08:33)
[2019-01-31] MEDS: Cyanocobalamin (Vitamin B-12) 1,000 MCG TAB PO SCH (08:33)
[2019-01-31] MEDS: Folic Acid 1 MG TAB PO SCH (08:33)
[2019-01-31] MEDS: Amlodipine 5 MG TAB PO SCH ×2 (08:33→21:11)
[2019-01-31] MEDS: Heparin 5,000 UNITS/ML VIAL SC SCH ×2 (08:34→21:12)
[2019-01-31] MEDS: Senokot S 8.6-50 MG TAB PO SCH ×2 (08:34→21:11)
[2019-01-31] MEDS: Insulin Regular 300 UNITS/3 ML VIAL SC PRN (13:35)
--- NOTE | 2019-01-31 13:54 | PRG ---
DATE OF SERVICE: 01/31/2019 SUBJECTIVE: Mr. Wren is resting in bed. He is eating. He has been seen by Oncology. He is going to start treatment for his metastatic prostate cancer. OBJECTIVE: VITAL SIGNS: Temperature 98, pulse 108, blood pressure 167/89. ABDOMEN: Nontender. LABORATORY DATA: His hemoglobin is 8.4, platelets 189, white count 4.3. Chemistries are notable for BUN and creatinine of 15 and 1.38. PSA came back at 545. ASSESSMENT AND PLAN: 1. Metastatic prostate cancer to the bone. 2. He has a large polyp in the lower sigmoid colon noted on flexible sigmoidoscopy yesterday. The patient could not do a full prep. The polyp was noted to be over 20 mm in size, pedunculated, and it was unable to be shrunk with epinephrine to the point that it was felt to be high risk to remove endoscopically at this time, and with his metastatic cancer, decision was made to let that get treated first, get a response, and then consider bringing him back at a later date for removal of the polyp endoscopically or surgically. I talked with him and his family about these issues, and they will need to follow up with us within a couple of months in the office. He is apparently going to go to rehab soon. Job ID: [id number]
[2019-01-31 14:18] VITALS: BMI 19.6
[2019-01-31] MEDS: Lorazepam 0.5 MG TAB PO PRN (21:10)
[2019-01-31] MEDS: Tamsulosin HCl 0.4 MG CAP PO SCH (21:11)
[2019-01-31] MEDS: Acetaminophen 325 MG TAB PO PRN (21:12)
[2019-02-01] MEDS: Heparin 5,000 UNITS/ML VIAL SC SCH (08:26)
[2019-02-01] MEDS: Multivit, Therapeutic 1 TAB PO SCH (08:27)
[2019-02-01] MEDS: Cyanocobalamin (Vitamin B-12) 1,000 MCG TAB PO SCH (08:27)
[2019-02-01] MEDS: Senokot S 8.6-50 MG TAB PO SCH (08:27)
[2019-02-01] MEDS: Amlodipine 5 MG TAB PO SCH (08:27)
[2019-02-01] MEDS: Folic Acid 1 MG TAB PO SCH (08:30)
[2019-02-01] MEDS ORDERED: Bicalutamide 50 MG TAB PO SCH (09:00)
[2019-02-01 12:14] LABS: Albumin 2.9 g/dL (2.9-4.4); Alpha 1 0.2 g/dL (0.0-0.4); Alpha 2 1.1 g/dL (0.4-1.0); Beta 0.6 g/dL (0.7-1.3); M-Spike Not Observed g/dL (Not Observed)
[2019-02-01] MEDS: Insulin Regular 300 UNITS/3 ML VIAL SC PRN (12:39)
--- NOTE | 2019-02-01 14:11 | NM ---
WHOLE BODY BONE SCAN: HISTORY: Prostate cancer. RADIOPHARMACEUTICAL: Technetium 99m MDP 32 millicuries injected intravenously. COMPARISON: None. FINDINGS: There is intense uptake in the vertebral body of T12, left 7th rib, right sacral ala, and left ischia l bone. Foci of mildly increased uptake are also seen in the posteromedial aspects of the right 4th and 6th ribs. Tracer excretion through the kidneys is within normal limits. Degenerative changes ar e present in the shoulders, elbows, wrists, knees, ankles, and feet. IMPRESSION: Osseous metastatic disease. POS: C
--- NOTE | 2019-02-01 16:30 | PDOC.PN ---
- Subjective Encounter Start Date: 02/01/19 Encounter Start Time: 16:29 Mr. Wren was seen today in follow-up of generalized weakness and prostate cancer. He does not have any complaints today . He denies back pain, he denies any focal leg weakness. - Objective Resuscitation Status - Order Detail: 01/27/19 01:07 Resuscitation Status Routine Resuscitation Status: FULL: Full Resuscitation MAR Reviewed: Yes Vital Signs & Weight: Vital Signs (12 hours) Temp Pulse Pulse Resp BP BP BP 02/01/19 14:51 106 H 154/85 H 02/01/19 12:00 98.2 F 96 16 167/88 H 02/01/19 08:27 108 H 157/84 H 02/01/19 08:00 02/01/19 07:39 98.4 F 115 H 16 159/77 H Pulse Ox 02/01/19 14:51 02/01/19 12:00 100 02/01/19 08:27 02/01/19 08:00 98 02/01/19 07:39 98 Weight Admit Weight 101 lb 3.2 oz Weight 107 lb 2 oz I&O: 01/31/19 02/01/19 02/02/19 06:59 06:59 06:59 Intake Total 3160 120 Output Total 1100 80 Balance 2060 40 Result Diagrams: 01/31/19 05:00 01/31/19 05:00 Additional Labs: Accuchecks 02/01/19 02/01/19 01/31/19 10:54 05:46 19:20 POC Glucose 204 H 152 H 184 H 01/31/19 16:48 POC Glucose 146 H Phys Exam - Physical Examination HEENT: PERRLA Respiratory: no wheezing, no rales, no rhonchi, clear to auscultation bilateral Cardiovascular: RRR, no significant murmur, no rub Gastrointestinal: soft, non-tender, no distention, positive bowel sounds Musculoskeletal: no edema, pulses present Neurological: non-focal muscle strength is intact in both lower extremities good doriflexion ankle, and large toe bilaterally Dx/Plan (1) Metastatic adenocarcinoma to prostate Code(s): C79.82 - SECONDARY MALIGNANT NEOPLASM OF GENITAL ORGANS Status: Acute (2) CKD (chronic kidney disease) stage 3, GFR 30-59 ml/min Code(s): N18.3 - CHRONIC KIDNEY DISEASE, STAGE 3 (MODERATE) Status: Chronic (3) DM type 2 causing CKD stage 3 Code(s): E11.22 - TYPE 2 DIABETES MELLITUS W DIABETIC CHRONIC KIDNEY DISEASE; N18.3 - CHRONIC KIDNEY DISEASE, STAGE 3 (MODERATE) Status: Chronic Qualifiers: Diabetes mellitus nursing home insulin use: without nursing home use Qualified Code(s): E11.22 - Type 2 diabetes mellitus with diabetic chronic kidney disease ; N18.3 - Chronic kidney disease, stage 3 (moderate) (4) Hypertension Code(s): I10 - ESSENTIAL (PRIMARY) HYPERTENSION Status: Chronic Qualifiers: Hypertension type: essential hypertension Qualified Code(s): I10 - Essential (primary) hypertension - Plan * Metastatic Prostate cancer with generalized weakness * Bone scan results noted- Discussed with Oncology- he does not have any alarming findings such as lower extremity weakness, back pain, or bowel or bladder dysfunction. Will send him to Rehab with Spinal precautions, and warning signs were discussed with the patient and family ( and daughter ) who were at bedside * HTN- blood pressure is borderline elevated- will continue the current dose of Amlodipine, consider titrating if this continues * DM- blood glucose is a bit elevated- continue glypizide with a sliding scale * Continue PT/OT
[2019-02-01 20:20] VITALS: BP 145/73; TEMP 97.4
--- NOTE | 2019-02-01 21:46 | DIS ---
DATE OF ADMISSION: 01/28/2019 DATE OF DISCHARGE: 02/01/2019 PRIMARY CARE PHYSICIAN: Dr. Maximilian Bojorquez. DISCHARGE DIAGNOSES: 1. Metastatic prostate cancer. 2. Generalized weakness likely secondary to #1. 3. Diabetes mellitus type 2. 4. Hyperlipidemia. DISCHARGE MEDICATIONS: 1. Amlodipine 2.5 mg twice daily. 2. Casodex 50 mg daily. 3. Vitamin B12 1000 mcg p.o. daily. 4. Glipizide 2.5 mg daily. 5. Flomax 0.4 mg at bedtime. 6. Multivitamin once a day. PROCEDURES DONE DURING THE ADMISSION: The patient had a CT scan of the brain, which was negative for any acute intracranial process. The patient also had a CT angiogram of the chest showing diffuse osseous metastatic disease. There was an abnormal reticulonodular opacities of the lungs bilaterally. There was limited evaluation of the pulmonary artery system and numerous bilateral calcified pulmonary nodules consistent with metastatic disease. The patient had a CT scan of the abdomen and pelvis. The major findings were diffuse osseous metastasis. There was abnormal mucosa involving the sigmoid colon and rectum with intraluminal polypoid mass at the level of the sigmoid colon associated with some intussusception. There was an enlarged prostate gland and the patient also had a nuclear bone scan, in which there was diffuse metastatic disease. There was some intense uptake in the T12 vertebra as well as the left 7th rib in the sacral ala in the left ischial bone. CODE STATUS: Full code. ALLERGIES: NO KNOWN DRUG ALLERGIES. HOSPITAL COURSE: Mr. Wren is a 68-year-old gentleman who presented to the emergency room complaining of generalized weakness and essentially failure to thrive. He was chronically fatigued and having difficulty with ambulation. When he was evaluated in the ER, he was initially found to have acute kidney injury with a creatinine of 2.4, which improved with hydration. In the course of his evaluation, he was found to have metastatic prostate cancer. The initial findings were discovered on a CT scan of the chest. It was originally thought to possibly be due to colon cancer; however, he did undergo a flexible sigmoidoscopy, in which it was demonstrated that he had a large polyp; however, the cancer is actually thought to be originating from the prostate. He had an elevated PSA and an enlarged prostate seen on CT scan. He was seen by Oncology and was placed on Casodex. Bone scan was done for further staging. It was noted that he had an intense lesion on the T10 vertebra. However, he did not have any alarming symptoms like lower extremity weakness. There was no bowel or bladder dysfunction and no significant back pain. For this reason, it was felt he was still able to go to inpatient rehab with spinal precautions. He also was started on medication for blood pressure and diabetes during this hospital stay. Job ID: [id number]
--- NOTE | 2019-02-02 17:14 | EKG ---
Test Reason : WEAKNESS Blood Pressure : / mmHG Vent. Rate : 130 BPM Atrial Rate : 130 BPM P-R Int : 150 ms QRS Dur : 076 ms QT Int : 300 ms P-R-T Axes : 092 -67 079 degrees QTc Int : 441 ms Sinus tachycardia Right atrial enlargement Left axis deviation Pulmonary disease pattern Abnormal ECG Confirmed by LOLY CALLES ([id number]), news videotape editor GBARIEL CAMPOS ([id number]) on 02/02/2019 5:14:42 PM Referred By: Confirmed By:LOLY CALLES
--- NOTE | 2019-02-04 04:23 | PQF ---
SAP Roller Engraver Crystal Reports Winform Viewer TRISTIN COURTNEY CHARLES DO [id number] [id number] CLINICAL DOCUMENTATION CLARIFICATION FORM: POST DISCHARGE Please direct the query to either Azul Brice as they saw this patient during the hospital stay. Thanks, Dr. Palomares Addendum to original discharge summary date: ____ Late entry note date: __ Date: 02/04/2019 ATTN: Dr. Palomares Please exercise your independent, professional judgment in responding to the clarification form. Clinical indicators are provided on the bottom of this form for your review Can the patient's nutritional status be further specify as? Please check appropriate box(s): [ ] Protein Calorie Malnutrition: [ ] Mild [ ] Moderate [ ] Severe [ ] Other Malnutrition (please specify) __ [ ] Underweight without malnutrition [ ] Cachexia [ ] Other diagnosis [ ] Unable to determine In addition, please specify: Present on Admission (POA): [ ] Yes [ ] No [ ] Unable to determine CLINICAL INDICATORS - BMI of 19.6 Admit Weight: 101 lb 3.2 oz Hospitalist Progress note 02/01 H and P pg. 1, 01/26 by - "Patient has not been eating or drinking for the past 1 week" Consult pg.2 01/26 - "found to have mild anemia and elevated alkaline phosphatase of unclear etiology" Consult pg.2 01/[address] Bryant - "He has diffuse muscle wasting." DS 02/01/[address] Christian- "Discharge diagnosis: Generalize Weakness secondary to Metastatic Prostate Cancer" DS 02/01/[address] Gino-Presented in emergency room complaining of generalized weakness and essentially failure to thrive. He was chronically fatigued and having difficulty ambulation. RISK FACTORS No appetite and cannot able to eat- Consult pg.2-3, 01/[address] Bryant failure to thrive, poor p.o. intake- Consult pg.1,01/[address] Bryant Metastatic Prostate Cancer to the bone - PN 01/[address] Bryant DM in fdc use of Insulin - DS 02/01/[address] Christian Hypertension -DS 02/01/[address] Christian CKD 3 - Hospitalist PN 02/[address] Christian Chronic Anemia- H&P by Dr. Liang TREATMENT: Medication: Cyanocobalamin 1000mg PO Daily Medication: Folic Acid 1mg PO daily Medication: : Theragran 1 Tab PO Daily Moderate Malnutrition (in acute illness) Energy Intake: <75% of estimated energy requirement for > 7 days Weight Loss: 1-2%/1 week; 5%/ 1 month; 7.5%/3 months Other: mild body fat loss; mild muscle mass loss; mild fluid accumulation; Severe Malnutrition (in acute illness) Energy Intake: < 50% of estimated energy requirement for > 5 days Weight Loss: >1-2%/1 week; >5%/1 month; >7.5%/3 months Other: moderate body fat loss; moderate muscle mass loss; moderate- severe fluid accumulation; measurably reduced brownfield redevelopment site manager strength Moderate Malnutrition (in chronic illness) Energy Intake: <75% of estimated energy requirement for >1 month Weight Loss: 5%/1 month; 7.5%/3 months; 10%/6 months; 20%/1 year Other: mild body fat loss; mild muscle mass loss; mild fluid accumulation Severe Malnutrition (in chronic illness) Energy Intake: <75% of estimated energy requirement for >1 month Weight Loss: >5%/1 month; >7.5%/3 months; >10%/6 months; >20%/1 year Other: severe body fat loss; severe muscle mass loss; severe fluid accumulation ; measurably reduced brownfield redevelopment site manager strength (This form is maintained as a part of the permanent medical record) 2014 [employer]. All Rights Reserved Anthony [email or web address] [not provided] MTDD
--- NOTE | 2019-02-07 21:16 | PQF ---
SAP Senior Manager Mmcoe Crystal Reports Winform ViewerWIMERYL,DONOVAN BARROSO MD [id number] [address] [place] [address] [id number] CLINICAL DOCUMENTATION CLARIFICATION FORM: POST DISCHARGE Addendum to original discharge summary date: ____ Late entry note date: __ Date: 02/08/2019 ATTN: Donovan Brice Please exercise your independent, professional judgment in responding to the clarification form. Clinical indicators are provided on the bottom of this form for your review Please check appropriate box(s): [X ] Protein Calorie Malnutrition: [ ] Mild [ X ] Moderate [ ] Severe [ ] Other Malnutrition (please specify) __ [ ] Underweight without malnutrition [ ] Cachexia [ ] Other diagnosis [ ] Unable to determine In addition, please specify: Present on Admission (POA): [ X] Yes [ ] No [ ] Unable to determine CLINICAL INDICATORS - SIGNS / SYMPTOMS / LABS BMI of 19.6 H and P pg. 1, 01/26 by - "CC: Generalized Weakness" H and P pg.2, 01/26 by - "68yo male, thin build, frail appearing" H and P pg.2, 01/26 by -"elevated ketones, probably 2/2 starvation ketosis" H and P pg.2, 01/26 by - " acute kidney injury with hyperkalemia 2/2 dehydration" H and P pg. 1, 01/26 by - "Patient has not been eating or drinking for the past 1 week" Consult pg.2 01/26 - "found to have mild anemia and elevated alkaline phosphatase of unclear etiology" Consult pg.2 01/26 by : "He has diffuse muscle wasting." DS 02/01/[address] Christian- "CT angiogram shows diffuse osseous metastatic disease" RISK FACTORS No appetite and cannot able to eat- Consult pg.2-3, 01/[address] Bryant failure to thrive, poor p.o. intake and weight loss- Consult pg.1,01/[address] Bryant Metastatic Prostate - DS 02/01/[address] Christian TREATMENT: Medication: Cyanocobalamin 1000mg PO Daily Medication: Folic Acid 1mg PO daily Medication: : Theragran 1 Tab PO Daily SAP Senior Manager Mmcoe Crystal Reports Winform ViewerModerate Malnutrition (in acute illness) Energy Intake: <75% of estimated energy requirement for > 7 days Weight Loss: 1-2%/1 week; 5%/ 1 month; 7.5%/3 months Other: mild body fat loss; mild muscle mass loss; mild fluid accumulation; Severe Malnutrition (in acute illness) Energy Intake: < 50% of estimated energy requirement for > 5 days Weight Loss: >1-2%/1 week; >5%/1 month; >7.5%/3 months Other: moderate body fat loss; moderate muscle mass loss; moderate- severe fluid accumulation; measurably reduced wheelman strength Moderate Malnutrition (in chronic illness) Energy Intake: <75% of estimated energy requirement for >1 month Weight Loss: 5%/1 month; 7.5%/3 months; 10%/6 months; 20%/1 year Other: mild body fat loss; mild muscle mass loss; mild fluid accumulation Severe Malnutrition (in chronic illness) Energy Intake: <75% of estimated energy requirement for >1 month Weight Loss: >5%/1 month; >7.5%/3 months; >10%/6 months; >20%/1 year Other: severe body fat loss; severe muscle mass loss; severe fluid accumulation ; measurably reduced wheelman strength (This form is maintained as a part of the permanent medical record) 2014 [employer]. All Rights Reserved Anthony [email or web address] [not provided] MTDD
== END 2019-02-01 20:45 | DRG 723 ==
LOC: ERS 19:21 → 2SW 21:07 → OBSVTOIN 01-28 15:13 → 2SE 01-31 14:57
PROVIDERS: ADMIT Family Medicine; ATTEND Family Medicine
PROC: 0DJD8ZZ Inspection of Lower Intestinal Tract, Via Natural or Artificial Opening Endoscopic (ICD-10-PCS; principal; 2019-01-30)
DX: C61 Malignant neoplasm of prostate (principal); N17.9 Acute kidney failure, unspecified; C79.51 Secondary malignant neoplasm of bone; K56.1 Intussusception; E44.0 Moderate protein-calorie malnutrition; Z68.1 Body mass index [BMI] 19.9 or less, adult; E11.22 Type 2 diabetes mellitus with diabetic chronic kidney disease; N18.3 Chronic kidney disease, stage 3 (moderate); I12.9 Hypertensive chronic kidney disease with stage 1 through stage 4 chronic kidney disease, or unspecified chronic kidney disease; E78.5 Hyperlipidemia, unspecified; E87.5 Hyperkalemia; E86.0 Dehydration; D63.1 Anemia in chronic kidney disease; E11.319 Type 2 diabetes mellitus with unspecified diabetic retinopathy without macular edema; R00.0 Tachycardia, unspecified; H10.32 Unspecified acute conjunctivitis, left eye; I95.1 Orthostatic hypotension; K63.5 Polyp of colon
CPT/HCPCS: 36415; 36416; 70450; 71046; 71275; 74177; 76705; 76770; 78306; 80048; 80053; 80076; 81003; 81015; 82010; 82105; 82232; 82378; 82977; 83615; 83690; 83735; 83880; 84100; 84153; 84154; 84165; 84443; 84484; 85025; 85379; 85610; 85730; 93005; 96360; 96361; A9503; J1644; J1815; J2405; J2704; Q0162; Q9966; Q9967

== ENCOUNTER 2019-02-14 11:57 | Outpatient (CLI) | payer MEDICARE ==
--- NOTE | 2019-02-14 13:50 | MRI ---
FExam: Brain MRI with and without contrast HISTORY: Prostate cancer COMPARISON: None FINDINGS: Gradient echo sequence: No hemorrhage. Calvarium: Appropriate T1 marrow signal intensity Heterogeneous T1 marrow signal intensity in the upp er cervical spine. Correlate for osseous metastasis Midline brain parenchyma: Unremarkable Cerebrum:No parenchymal mass, mass effect or midline shift. Age-appropriate brain volume. Cortical gr ay-white matter differentiation is preserved. T2 and FLAIR white matter hyperintensities, compatible with chronic small vessel ischemic change. Ventricles: No evidence of hydrocephalus. Sinuses and mastoid air cells: Minimal mucosal thickening of the paranasal sinuses Diffusion: Central arterial flow is maintained. Absent restricted diffusion. Postcontrast images: No pathologic enhancement of the brain parenchyma. Right parafalcine dural based areas of enhancement compatible with en plaque meningiomas. No significant associated mass effect. IMPRESSION: 1. Probable metastases involving the upper cervical spine. 2. No pathologic enhancement in the brain parenchyma. 3. Absent restricted diffusion. No acute infarct.
== END 2019-02-14 11:58 | disposition home or self-care (01) ==
LOC: BICMRI 11:57
PROVIDERS: ATTEND Internal Medicine Hematology & Oncology
DX: C61 Malignant neoplasm of prostate (principal); C79.51 Secondary malignant neoplasm of bone; R51 Headache
CPT/HCPCS: 36415; 70553; 80053; 82248; 82607; 82728; 82746; 83540; 83550; 83615; 84100; 84153; 84443; 84550

== ENCOUNTER 2019-03-25 10:58 | Day surgery (SDC) | payer MEDICARE ==
[2019-03-25 12:12] VITALS: BP 183/94; TEMP 97.8
== END 2019-03-25 12:13 | disposition home or self-care (01) ==
LOC: ONC/OP 10:58
PROVIDERS: ATTEND Internal Medicine Hematology & Oncology
DX: Z51.11 Encounter for antineoplastic chemotherapy (principal); C61 Malignant neoplasm of prostate; C79.51 Secondary malignant neoplasm of bone
CPT/HCPCS: 36415; 80053; 82248; 83615; 84100; 84153; 84550; 96372; J0897

== ENCOUNTER 2019-04-22 09:51 | Day surgery (SDC) | payer MEDICARE ==
[2019-04-22 12:55] VITALS: BP 174/88; TEMP 97.4
== END 2019-04-22 12:57 | disposition home or self-care (01) ==
LOC: ONC/OP 09:51
PROVIDERS: ATTEND Internal Medicine Hematology & Oncology
DX: Z51.11 Encounter for antineoplastic chemotherapy (principal); C61 Malignant neoplasm of prostate
CPT/HCPCS: 36415; 80053; 82248; 83615; 84100; 84153; 84550; 96372; J0897

== ENCOUNTER → 2019-05-01 | Emergency (ER) | payer MEDICARE ==
[~2019-05-01] MED LIST: cloNIDine 0.1 MG TAB ONE
[2019-05-01 19:30] LABS: #Lymphocytes 0.8 thou/uL (1.20-3.40); #Monocytes 0.4 thou/uL (0.11-0.59); #Neutrophils 4.6 thou/uL (1.40-6.50); %Eosinophils 0.4 % (0.0-10.0); %Lymphocytes 13.6 % (21.0-51.0); %Monocytes 6.2 % (0.0-10.0); %Neutrophils 79.7 % (42.0-75.0); Hemoglobin 9.5 g/dL (14.0-18.0); Mean Corpuscular Hemoglobin 31.2 pg (27.0-31.0); Mean Corpuscular Volume 94.4 fL (78.0-98.0); Mean Platelet Volume 7.1 fL (7.4-10.4); Platelet Count 197 thou/uL (130-400); RBC Distribution Width 13.8 % (11.5-14.5); Red Blood Cell (RBC) Count 3.05 mill/uL (4.70-6.10); White Blood Cell (WBC) Count 5.7 thou/uL (4.8-10.8)
[2019-05-01 19:51] LABS: ALT (SGPT) 10 U/L (8-55); AST (SGOT) 13 U/L (5-34); Albumin 3.6 g/dL (3.4-4.8); Alkaline Phosphatase 180 U/L (40-150); Anion Gap 13 mmol/L (10-20); BUN (Urea Nitrogen) 45 mg/dL (8.4-25.7); Bilirubin, Total 0.4 mg/dL (0.2-1.2); CK (CPK) 97 U/L (30-200); Calc. Creatinine Clearance 0 mL/min (70-130); Calcium 9.5 mg/dL (7.8-10.44); Carbon Dioxide 24 mmol/L (23-31); Chloride 99 mmol/L (98-107); Estimated GFR-MDRD 36; Globulin 2.8 g/dL (2.4-3.5); Glucose 536 mg/dL (80-115); Potassium 5.5 mmol/L (3.5-5.1); Protein, Total 6.4 g/dL (5.8-8.1); Sodium 130 mmol/L (136-145)
--- NOTE | 2019-05-01 20:28 | RAD ---
PORTABLE AP CHEST X-RAY: 05/01/19 HISTORY: Elevated blood pressure. COMPARISON: 01/28/19. FINDINGS: Reticulonodular densities are again seen in the upper lung zones bilaterally, similar to the prior ex am. The findings may be related to persistent atypical infectious or inflammatory process. There is a more discrete nodular density now seen overlying the left mid lung zone measuring 14 mm. No consolid ation or pleural fluid is seen. There is evidence of prior granulomatous disease with calcified mediastinal and hilar lymph nodes aga in seen. Prior CTA chest on 01/28/19 demonstrated multifocal bilateral noncalcified pulmonary nodules suggestin g metastatic disease. There are innumerable subcentimeter sclerotic densities involving the scapula bilaterally as well as bilateral ribs. There is also increased density within multiple thoracic vertebral bodies. Findings are most compatible with osseous metastatic disease. IMPRESSION: 1. Diffuse osseous blastic metastatic disease. 2. Persistent reticulonodular densities within the lungs bilaterally with additional scattered n odular densities which could be related to metastatic disease. Reticulonodular densities could be rel ated to superimposed chronic infectious or inflammatory process. POS: JOHNNY
[2019-05-02 16:38] LABS: Bilirubin Negative (Negative); Blood, Urine Small (Negative); Clarity Clear (Clear); Glucose, Urine (Dipstick) >=1000 mg/dL (Negative); Leukocyte Negative (Negative); Nitrite Negative (Negative); Protein, Urine (Dipstick) 300 mg/dL (Neg-Trace); Urobilinogen 0.2 mg/dL (0.2-1.0)
[2019-05-02 16:39] LABS: Bacteria/HPF None Seen HPF (None Seen); RBC/HPF 0-3 HPF (0-3); Squamous Epithelial 0-3 HPF (0-3); WBC/HPF 0-3 HPF (0-3)
--- NOTE | 2019-05-04 09:35 | EKG ---
Test Reason : Blood Pressure : / mmHG Vent. Rate : 093 BPM Atrial Rate : 093 BPM P-R Int : 168 ms QRS Dur : 090 ms QT Int : 364 ms P-R-T Axes : 091 -52 053 degrees QTc Int : 452 ms Normal sinus rhythm Left anterior fascicular block Abnormal ECG Confirmed by FABIOLA RENDON D.O. ([id number]), associate editor CORAL GONG ([id number]) on 05/04/2019 9:35:01 AM Referred By: Confirmed By:FABIOLA RENDON D.O.
[2019-05-06 11:26] LABS: Hyaline Casts/LPF 0-3 HYALINE CAST LPF (0-3 Hyaline)
== END ==
LOC: ERS 18:31
DX: E11.22 Type 2 diabetes mellitus with diabetic chronic kidney disease (principal); I12.9 Hypertensive chronic kidney disease with stage 1 through stage 4 chronic kidney disease, or unspecified chronic kidney disease; N18.3 Chronic kidney disease, stage 3 (moderate); Z79.52 Long term (current) use of systemic steroids; Z79.899 Other long term (current) drug therapy; Z79.84 Long term (current) use of oral hypoglycemic drugs
CPT/HCPCS: 36415; 71045; 80053; 81003; 81015; 82550; 84484; 85025; 93005

== ENCOUNTER 2019-05-02 12:49 | Emergency (ER) | payer MEDICARE ==
[2019-05-02] MEDS ORDERED: cloNIDine 0.1 MG TAB ONE (13:37)
== END 2019-05-02 15:49 | disposition home or self-care (01) ==
LOC: ERS 12:49
DX: I12.9 Hypertensive chronic kidney disease with stage 1 through stage 4 chronic kidney disease, or unspecified chronic kidney disease (principal); N18.3 Chronic kidney disease, stage 3 (moderate); E11.22 Type 2 diabetes mellitus with diabetic chronic kidney disease; Z85.46 Personal history of malignant neoplasm of prostate; Z85.830 Personal history of malignant neoplasm of bone; Z85.118 Personal history of other malignant neoplasm of bronchus and lung; Z79.899 Other long term (current) drug therapy
CPT/HCPCS: 99282

== ENCOUNTER 2019-05-08 10:40 | Outpatient (CLI) | payer MEDICARE ==
--- NOTE | 2019-05-08 11:15 | ULT ---
ULTRASOUND RENAL: DATE: 05/08/2019 HISTORY: 69-year-old male with chronic kidney disease. FINDINGS: Right kidney: 10.5 x 5 x 4.5 cm. Left kidney: 10.5 x 5 x 4.5 cm. No hydronephrosis bilaterally. Bilateral renal parenchymal echogenicity is diffusely mildly increased, consistent with medical renal disease. No moderate sized or large renal cystic or solid mass. Bladder volume 55 mL at time of scan. IMPRESSION: 1) no hydronephrosis. 2) evidence for medical renal disease.
== END 2019-05-08 10:41 | disposition home or self-care (01) ==
LOC: ULT 10:40
PROVIDERS: ATTEND Internal Medicine Nephrology
DX: N18.3 Chronic kidney disease, stage 3 (moderate) (principal)
CPT/HCPCS: 36415; 76770; 80069; 82570; 84156

== ENCOUNTER 2019-05-09 11:00 | Inpatient (IN) | payer MEDICARE ==
[2019-05-09 12:16] LABS: #Lymphocytes 0.6 thou/uL (1.20-3.40); #Monocytes 0.2 thou/uL (0.11-0.59); #Neutrophils 4.4 thou/uL (1.40-6.50); %Eosinophils 0.2 % (0.0-10.0); %Monocytes 4.6 % (0.0-10.0); %Neutrophils 83.3 % (42.0-75.0); Hemoglobin 9.2 g/dL (14.0-18.0); Mean Corpuscular HGB CONC 34.5 g/dL (32.0-36.0); Mean Corpuscular Hemoglobin 31.9 pg (27.0-31.0); Mean Corpuscular Volume 92.4 fL (78.0-98.0); Mean Platelet Volume 7.9 fL (7.4-10.4); Platelet Count 184 thou/uL (130-400); RBC Distribution Width 13.4 % (11.5-14.5); Red Blood Cell (RBC) Count 2.89 mill/uL (4.70-6.10); White Blood Cell (WBC) Count 5.3 thou/uL (4.8-10.8)
[2019-05-09 12:42] LABS: CK (CPK) 85 U/L (30-200); Lipase 42 U/L (8-78)
[2019-05-09 12:43] LABS: ALT (SGPT) 11 U/L (8-55); AST (SGOT) 12 U/L (5-34); Albumin 3.3 g/dL (3.4-4.8); Alkaline Phosphatase 176 U/L (40-150); Anion Gap 15 mmol/L (10-20); BUN (Urea Nitrogen) 50 mg/dL (8.4-25.7); Bilirubin, Total 0.4 mg/dL (0.2-1.2); Calc. Creatinine Clearance 0 mL/min (70-130); Calcium 8.6 mg/dL (7.8-10.44); Carbon Dioxide 16 mmol/L (23-31); Chloride 99 mmol/L (98-107); Estimated GFR-MDRD 30; Globulin 3.1 g/dL (2.4-3.5); Protein, Total 6.4 g/dL (5.8-8.1); Sodium 125 mmol/L (136-145)
[2019-05-09 12:48] LABS: Glucose 737 mg/dL (80-115)
--- NOTE | 2019-05-09 12:53 | RAD ---
EXAM: CHEST ONE VIEW HISTORY: Dyspnea. COMPARISON: 05/01/2019 . FINDINGS: The cardiac silhouette and pulmonary vasculature is within normal limits. Again noted are persistent reticulonodular densities within the upper lung zones bilaterally not significantly changed from prior study with a more dominant nodular density again seen in the left midlung zone. No consolidatio n or pleural fluid is seen. There are diffuse increased sclerotic density seen throughout the thoracic spine as well as involving bilateral shoulders and ribs likely due to extensive osseous meta static disease. IMPRESSION: 1. Extensive osseous sclerotic metastatic disease. 2. Reticulonodularand scattered nodular densities within the upper lung zones bilaterally similar to prior study. Findings could be related to metastatic disease or possibly atypical infectious process.
[2019-05-09 13:08] LABS: Base Excess-Venous -4.8 mmol/L (-2.0 to 3.0); Bicarbonate (HCO3v) 19.7 mmol/L (22.0-28.0); Calcium, Ionized 1.13 mmol/L (See Comments:); Chloride 102 mmol/L (98-107); Hemoglobin - Calc 8.5 g/dL (14.0-18.0); Potassium 5.1 mmol/L (3.5-5.1); Sodium 131 mmol/L (138-145); T. Carbon Dioxide 20.7 mmol/L (22.0-28.0); vO2 Saturation-calc 92.1 % (60.0-85.0)
[2019-05-09] MEDS ORDERED: Insulin Regular 300 UNITS/3 ML VIAL ONE (13:11)
[2019-05-09] MEDS ORDERED: Acetaminophen 325 MG TAB PO PRN (14:13)
[2019-05-09] MEDS ORDERED: Dextrose 5% in Water 1,000 ML IV PRN (14:13)
[2019-05-09] MEDS ORDERED: Guaifenesin DM 100-10/5 ML UDCUP PO PRN (14:13)
[2019-05-09] MEDS ORDERED: HYDROcodone/Acetaminophen 5/325 mg Tablet PO PRN (14:13)
[2019-05-09] MEDS ORDERED: Senokot S 8.6-50 MG TAB PO PRN (14:13)
[2019-05-09] MEDS ORDERED: Dextrose 50% Abboject 50 ML SYRINGE SLOW IVP PRN (14:13)
[2019-05-09] MEDS ORDERED: Ondansetron PF 4 MG/2 ML Vial IVP PRN (14:13)
[2019-05-09] MEDS ORDERED: Bisacodyl 10 MG SUPP PR PRN (14:13)
[2019-05-09] MEDS ORDERED: HYDROcodone/Acetaminophen 10/325 mg Tablet PO PRN (14:13)
[2019-05-09] MEDS ORDERED: Sodium Chloride 0.9% 1,000 ML IV SCH (14:15)
--- NOTE | 2019-05-09 17:10 | HP ---
REASON FOR ADMISSION: Acute kidney injury, severe hyperglycemia with serum sugars of 737, and metabolic acidosis. HISTORY OF PRESENTING ILLNESS: Please note majority of this history is obtained by talking to the patient's power of securities attorney, . Cayla Hutchinson and the patient 's girlfriend at bedside as the patient is not fully oriented. They apparently had gone to see Dr. Schaeffer this morning. His potassium was elevated yesterday and Dr. Santiago, his barrel finisher, had told him to start on a potassium restricted diet. The patient is a new patient for Dr. Schaeffer and had gone there to establish care. He was found to have had a fingerstick more than 600 at the clinic. The patient was referred to the emergency room for hospitalization. Mr. Wren has known history of stage 4 prostate cancer with widespread metastasis. He sees Dr. Maximilian Dumont, oncologist. No complaints of cough or expectoration. No complaints of urinary urgency, but has had increased frequency from yesterday. PAST MEDICAL AND SURGICAL HISTORY: History of prostate cancer stage 4 with widespread metastasis, CKD stage 3, colon polyp, diabetes mellitus type 2, dyslipidemia, and history of weight loss likely due to cancer. CURRENT MEDICATIONS: The patient is on; 1. Lupron shots. 2. He is also on Zytiga 500 mg two tablets daily. 3. The patient also gets the infusion likely chemotherapy infusion for his widespread stage 4 prostate cancer. 4. Flomax 0.4 mg daily. 5. Coreg 6.25 mg twice daily. 6. Prednisone 5 mg twice daily, which was started two months back to help with his depression and to stimulate appetite per the patient. 7. Glipizide extended release 2.5 mg daily. 8. Bicalutamide 50 mg p.o. daily. 9. Vitamin B12 of 1000 mcg p.o. daily. 10. Calcium 600 mg p.o. twice daily. 11. The patient was taken off metformin 1 g twice daily, p.o. glipizide, and glimepiride were discontinued along with Vytorin. ALLERGIES: NO KNOWN DRUG ALLERGIES. PERSONAL HISTORY: Does not abuse alcohol or drugs. No history of smoking. FAMILY HISTORY: Both parents are . Mother lived up to 92 years and has had history of diabetes. Father had history of diabetes and of unknown cause. He has four brothers and two daughters. CODE STATUS: Do not attempt to resuscitate. This was confirmed with the patient and his power of securities attorney and daughter, Ms. Cayla Hutchinson, number to reach her is [phone]. REVIEW OF SYSTEMS: CONSTITUTIONAL: Negative for weight loss or gain, ability to conduct usual activities. SKIN: Negative for rash, itching. EYES: Negative for double vision, pain. ENT/MOUTH: Negative for nose bleeding, neck stiffness, pain, tenderness. CARDIOVASCULAR: Negative for palpitations, dyspnea on exertion, orthopnea. RESPIRATORY: Negative for shortness of breath, wheezing, cough, hemoptysis, fever or night sweats. GASTROINTESTINAL: Negative for poor appetite, abdominal pain, heartburn, nausea , vomiting, constipation, or diarrhea. GENITOURINARY: Negative for urgency, frequency, dysuria, nocturia. MUSCULOSKELETAL: Negative for pain, swelling. NEUROLOGIC/PSYCHIATRIC: Negative for anxiety, depression. ALLERGY/IMMUNOLOGIC: Negative for skin rash, bleeding tendency. PHYSICAL EXAMINATION: GENERAL: The patient is a 69-year-old male, who is currently not in any acute distress. VITAL SIGNS: Blood pressure 160/76, pulse 90 per minute, respiratory rate 16 per minute, temperature 97.8 degrees Fahrenheit, and saturating 100% on room air. NECK: Supple. No elevated JVD. HEENT: Eyes, extraocular muscles intact. Pupils are reacting to light. Oral cavity, mucous membranes are dry. No exudates or congestion. CARDIOVASCULAR SYSTEM: S1 and S2 heard. Regular rhythm. RESPIRATORY SYSTEM: Air entry 1+ bilateral. Scattered rhonchi plus bilateral. ABDOMEN: Soft. Bowel sounds heard. No tenderness, rigidity, or guarding. EXTREMITIES: There is mild pedal edema in the lower extremities. Peripheral pulses are 1+ bilateral. No ischemic ulcerations or gangrene. CENTRAL NERVOUS SYSTEM: No gross focal deficits noted. The patient is not fully oriented, but responds to verbal questions. PSYCHIATRIC SYSTEM: No obvious hallucinations or delusions. LABORATORY DATA: Chest x-ray done shows extensive osseous sclerotic metastatic disease. There is a reticulonodular scattered nodular densities within both upper lung zones. Serum glucose was 737, BUN 50, creatinine 2.6, serum bicarb 16, alkaline phosphatase is 176, and AST and ALT within normal limits. First set of cardiac enzymes are negative. CK level is 85 and BNP 96. Albumin is 3.3 and lipase is 42. H and H 9 and 26, platelet count is 184, white count of 5.3, and MCV is 92. EKG done shows normal sinus rhythm at 95 beats per minute. CLINICAL IMPRESSION AND PLAN: The patient will be admitted to medical floor for diabetes mellitus type 2, uncontrolled with severe hyperglycemia, acute kidney injury, and metabolic acidosis. The plan is to gently hydrate him with normal saline. He has received 2 L of normal saline in the ER and will continue at a lower dose at 50 mL per hour in view of the patient being cachectic and not to volume overload. He will be placed on Lantus 10 units subcu twice daily and will continue glipizide extended release 2.5 mg daily. Please note, the patient is on prednisone twice daily 5 mg apparently to stimulate his appetite and to help with his depression , he has been on it for last 2 months. We will try to bring the dose of prednisone to 5 mg daily in view of uncontrolled and severe hyperglycemia at present. We will continue his Flomax at home dose along with folic acid, Coreg, Casodex, and B12 as before. He will be on [place] p.r.n. for pain. The patient has advanced directives, which clearly mentioned that if he has advanced incurable disease, he would not like to be resuscitated. This was confirmed with the patient and his daughter and power of securities attorney, Ms. Cayla Hutchinson. The number to reach her is [phone]. We will closely monitor his fingerstick glucose before meals and at bedtime. The patient normally ambulates with a rolling walker and we will obtain PT evaluation to keep him mobilized during his stay here. Job ID: [id number] [facility]
[2019-05-09 17:56] VITALS: BMI 16.8
[2019-05-09] MEDS: HumaLOG 300 UNITS/3 ML VIAL SC PRN ×2 (18:30→22:08)
[2019-05-09] MEDS: Carvedilol 6.25 MG TAB PO SCH (18:31)
[2019-05-09] MEDS: Famotidine 20 MG TAB PO SCH (20:41)
[2019-05-09] MEDS: cloNIDine 0.1 MG TAB PO PRN (20:41)
[2019-05-09] MEDS ORDERED: Tamsulosin HCl 0.4 MG CAP PO SCH (21:00)
[2019-05-09] MEDS: Insulin Glargine 10 UNITS in Pre-Filled Syringe 1 EACH SC SCH (22:08)
[2019-05-10 04:52] LABS: #Eosinphils 0.1 thou/uL (0.0-0.7); #Monocytes 0.4 thou/uL (0.11-0.59); #Neutrophils 3.7 thou/uL (1.40-6.50); %Basophils 0.2 % (0.0-1.0); %Eosinophils 2.2 % (0.0-10.0); %Lymphocytes 18.6 % (21.0-51.0); %Monocytes 7.6 % (0.0-10.0); %Neutrophils 71.4 % (42.0-75.0); Hemoglobin 7.7 g/dL (14.0-18.0); Mean Corpuscular HGB CONC 34.7 g/dL (32.0-36.0); Mean Corpuscular Hemoglobin 32.8 pg (27.0-31.0); Mean Corpuscular Volume 94.5 fL (78.0-98.0); Mean Platelet Volume 7.6 fL (7.4-10.4); Platelet Count 160 thou/uL (130-400); RBC Distribution Width 13.4 % (11.5-14.5); Red Blood Cell (RBC) Count 2.33 mill/uL (4.70-6.10); White Blood Cell (WBC) Count 5.1 thou/uL (4.8-10.8)
[2019-05-10 05:14] LABS: Anion Gap 9 mmol/L (10-20); BUN (Urea Nitrogen) 44 mg/dL (8.4-25.7); Calc. Creatinine Clearance 25 mL/min (70-130); Calcium 7.8 mg/dL (7.8-10.44); Carbon Dioxide 20 mmol/L (23-31); Chloride 111 mmol/L (98-107); Estimated GFR-MDRD 42; Glucose 151 mg/dL (80-115); Potassium 4.1 mmol/L (3.5-5.1); Sodium 136 mmol/L (136-145)
[2019-05-10] MEDS: HumaLOG 300 UNITS/3 ML VIAL SC PRN (05:50)
[2019-05-10] MEDS: Carvedilol 6.25 MG TAB PO SCH ×2 (08:04→16:32)
[2019-05-10] MEDS: predniSONE 5 MG TAB PO SCH (08:05)
[2019-05-10] MEDS: Folic Acid 1 MG TAB PO SCH (08:06)
[2019-05-10] MEDS: Multivit, Therapeutic 1 TAB PO SCH (08:06)
[2019-05-10] MEDS: Enoxaparin Sodium 30 MG/0.3 ML SYRINGE SC SCH (08:06)
[2019-05-10] MEDS: Famotidine 20 MG TAB PO SCH (08:06)
[2019-05-10] MEDS ORDERED: Tamsulosin HCl 0.4 MG CAP PO SCH (09:00)
[2019-05-10] MEDS ORDERED: Cyanocobalamin (Vitamin B-12) 1,000 MCG TAB PO SCH (09:00)
[2019-05-10] MEDS: Bicalutamide 50 MG TAB PO SCH (09:14)
[2019-05-10] MEDS: Insulin Glargine 10 UNITS in Pre-Filled Syringe 1 EACH SC SCH (09:15)
[2019-05-10] MEDS: ZYTIGA 1000 MG PO SCH (10:23)
--- NOTE | 2019-05-10 12:56 | EKG ---
Test Reason : Blood Pressure : / mmHG Vent. Rate : 095 BPM Atrial Rate : 095 BPM P-R Int : 196 ms QRS Dur : 086 ms QT Int : 362 ms P-R-T Axes : 080 -60 065 degrees QTc Int : 454 ms Normal sinus rhythm Pulmonary disease pattern Left anterior fascicular block Abnormal ECG Confirmed by PENNY ALFREDO, YOLIE ([id number]), multimedia editor CORAL GONG ([id number]) on 05/10/2019 12:56:22 PM Referred By: Confirmed By:YOLIE FRANCIS MD
--- NOTE | 2019-05-10 13:48 | PDOC.PN ---
- Subjective Encounter Start Date: 05/10/19 Encounter Start Time: 13:47 Subjective: feels slightly better -: no CP/SOB/Abd pain or difficulty urination - Objective Resuscitation Status - Order Detail: 05/09/19 14:08 Resuscitation Status Routine Resuscitation Status: DNAR: NO Resuscitation Discussed with: d/w patient and POA: Cayla Hutchinson [id number] MAR Reviewed: Yes Vital Signs & Weight: Vital Signs (12 hours) Temp Pulse Resp BP BP BP Pulse Ox 05/10/19 11:18 98.1 F 84 18 148/76 H 98 05/10/19 08:04 115/62 05/10/19 08:00 100 05/10/19 07:33 98.4 F 86 16 115/62 100 05/10/19 07:07 98.4 F 86 16 115/62 100 05/10/19 04:22 99.1 F 84 16 121/68 100 Weight Admit Weight 107 lb 9.6 oz Weight 107 lb 9.6 oz I&O: 05/09/19 05/10/19 05/11/19 06:59 06:59 06:59 Intake Total 860 Balance 860 Result Diagrams: 05/10/19 04:22 05/10/19 04:22 Additional Labs: Accuchecks 05/10/19 05/10/19 05/09/19 11:18 05:45 21:55 POC Glucose 97 152 H 212 H 05/09/19 05/09/19 05/09/19 19:35 17:46 15:15 POC Glucose 305 H 369 H 376 H Laboratory Tests 04/22/19 05/01/19 05/08/19 10:15 19:13 11:26 Sodium Chloride Carbon Dioxide 25 Creatinine 2.08 H 2.23 H 2.25 H 05/09/19 05/10/19 12:00 04:22 Sodium 125 L 136 Chloride 99 111 H Carbon Dioxide 16 L 20 L Creatinine 2.60 H 1.94 H Phys Exam - Physical Examination Constitutional: NAD HEENT: PERRLA, moist MMs, sclera anicteric, oral pharynx no lesions, 2+ tonsils Neck: no nodes, no JVD, supple, full ROM Respiratory: no wheezing, no rales, no rhonchi, clear to auscultation bilateral Cardiovascular: RRR, no significant murmur, no rub Gastrointestinal: soft, non-tender, no distention, positive bowel sounds Musculoskeletal: no edema, pulses present Neurological: non-focal, normal sensation, moves all 4 limbs Psychiatric: normal affect, A&O x 3 Skin: no rash Dx/Plan (1) KASSIDY (acute kidney injury) Code(s): N17.9 - ACUTE KIDNEY FAILURE, UNSPECIFIED Status: Acute (2) Hyperglycemia Code(s): R73.9 - HYPERGLYCEMIA, UNSPECIFIED Status: Acute (3) Metabolic acidosis Code(s): E87.2 - ACIDOSIS Status: Acute Comment: Due to KASSIDY.Improving (4) Hyperosmolality Code(s): E87.0 - HYPEROSMOLALITY AND HYPERNATREMIA Status: Acute Comment: Due to hyperglycemia (5) Metastatic adenocarcinoma to prostate Code(s): C79.82 - SECONDARY MALIGNANT NEOPLASM OF GENITAL ORGANS Status: Chronic Comment: on PO [email or web address] Casodex (6) CKD (chronic kidney disease) stage 3, GFR 30-59 ml/min Code(s): N18.3 - CHRONIC KIDNEY DISEASE, STAGE 3 (MODERATE) Status: Chronic (7) DM type 2 causing CKD stage 3 Code(s): E11.22 - TYPE 2 DIABETES MELLITUS W DIABETIC CHRONIC KIDNEY DISEASE; N18.3 - CHRONIC KIDNEY DISEASE, STAGE 3 (MODERATE) Status: Chronic Qualifiers: Diabetes mellitus superintendent marine oil terminal insulin use: without residential use Qualified Code(s): E11.22 - Type 2 diabetes mellitus with diabetic chronic kidney disease ; N18.3 - Chronic kidney disease, stage 3 (moderate) Comment: Uncontrolled. Pt will benefit from starting Once a day long acting Insulin (8) Hypertension Code(s): I10 - ESSENTIAL (PRIMARY) HYPERTENSION Status: Chronic Qualifiers: Hypertension type: essential hypertension Qualified Code(s): I10 - Essential (primary) hypertension - Plan plan discussed w/ family, out of bed/ambulate, DVT proph w/SCDs Hold NS for now given hyperosmolality.renal Fx improving -: will consult his school examiner.may need more IVF without NaCl -: Lantus for DC.change to OD for administration ease and monitor Overnight -: am labs. -: restart sanchez emeds except Lisinopril-held due to KASSIDY * . Review of Systems - Review of Systems Constitutional: weakness, malaise. negative: fever, chills, sweats, other ENT: negative: Ear Pain, Ear Discharge, Nose Pain, Nose Discharge, Nose Congestion, Mouth Pain, Mouth Swelling, Throat Pain, Throat Swelling, Other Respiratory: negative: Cough, Dry, Shortness of Breath, Hemoptysis, SOB with Excertion, Pleuritic Pain, Sputum, Wheezing Cardiovascular: negative: chest pain, palpitations, orthopnea, paroxysmal nocturnal dyspnea, edema, light headedness, other Gastrointestinal: negative: Nausea, Vomiting, Abdominal Pain, Diarrhea, Constipation, Melena, Hematochezia, Other Genitourinary: negative: Dysuria, Frequency, Incontinence, Hematuria, Retention , Other Musculoskeletal: negative: Neck Pain, Shoulder Pain, Arm Pain, Back Pain, Hand Pain, Leg Pain, Foot Pain, Other Neurological: negative: Weakness, Numbness, Incoordination, Change in Speech, Confusion, Seizures, Other - Medications/Allergies Allergies/Adverse Reactions: Allergies Allergy/AdvReac Type Severity Reaction Status Date / Time No Known Drug Allergies Allergy Verified 01/27/19 00:09 Medications: Current Medications Acetaminophen (Tylenol) 650 mg PO Q4H PRN PRN Reason: Headache/Fever/Mild Pain (1-3) Hydrocodone Bitart/Acetaminophen (Quilcene 10/325) 1 tab PO Q4H PRN PRN Reason: Moderate Pain (4-6) Hydrocodone Bitart/Acetaminophen (Quilcene 5/325) 1 tab PO Q4H PRN PRN Reason: Mild Pain (1-3) Bicalutamide (Casodex) 50 mg PO DAILY [facility] Last Admin: 05/10/19 09:14 Dose: 50 mg Bisacodyl (Dulcolax) 10 mg [place] DAILYPRN PRN PRN Reason: Constipation Carvedilol (Coreg) 6.25 mg PO BID-[facility] Last Admin: 05/10/19 08:04 Dose: 6.25 mg Clonidine (Catapres) 0.1 mg PO Q4H PRN PRN Reason: SBP Greater Than 170 Last Admin: 05/09/19 20:41 Dose: 0.1 mg Cyanocobalamin (Vitamin B-12) 1,000 mcg PO DAILY [facility] Last Admin: 05/10/19 08:05 Dose: 1,000 mcg Dextrose/Water (Dextrose 50%) 25 gm SLOW IVP PRN PRN PRN Reason: Hypoglycemia Enoxaparin Sodium (Lovenox) 30 mg SC 0900 [facility] Last Admin: 05/10/19 08:06 Dose: 30 mg Famotidine (Pepcid) 20 mg PO BID [facility] Last Admin: 05/10/19 08:06 Dose: 20 mg Folic Acid (Folvite) 1 mg PO DAILY [facility] Last Admin: 05/10/19 08:06 Dose: 1 mg Glipizide (Glucotrol Xl) 2.5 mg PO QAM-[facility] Last Admin: 05/10/19 08:04 Dose: 2.5 mg Glucagon (Glucagon) 1 mg IM PRN PRN PRN Reason: Hypoglycemia Guaifenesin/Dextromethorphan (Robitussin Dm) 15 ml PO Q4H PRN PRN Reason: Cough Dextrose/Water (D5w) 1,000 mls @ 0 mls/hr IV .Q0M PRN PRN Reason: Hypoglycemia Insulin Glargine 10 units/ (Miscellaneous Medication) 0.1 mls @ 0 mls/hr SC BID [facility] Last Admin: 05/10/19 09:15 Dose: 0.1 mls Insulin Human Lispro (Humalog) 0 units SC .MODERATE SLIDING SC PRN PRN Reason: Moderate Correctional Scale Last Admin: 05/10/19 05:50 Dose: 2 unit Insulin Human Lispro (Humalog) 0 units SC .BEDTIME SLIDING SC PRN PRN Reason: Bedtime Correctional Scale Last Admin: 05/09/19 22:08 Dose: 2 unit Multivitamins (Theragran) 1 tab PO DAILY [facility] Last Admin: 05/10/19 08:06 Dose: 1 tab Non-Formulary Medication (Calcium Carbonate/Vitamin D3 [Calcium 600 + Vitamin D] ) 1 tab PO DAILY [facility] Non-Formulary Medication (Cyanocobalamin (Vitamin B-12) [Vitamin B-12]) 500 mcg PO DAILY [facility] Ondansetron HCl (Zofran) 4 mg IVP Q6H PRN PRN Reason: Nausea/Vomiting Zytiga 1000 Mg 0 each PO DAILY-AC [facility] Last Admin: 05/10/19 10:23 Dose: 1 each Pneumococcal 13-Valent Conj Vacc (Prevnar) 0.5 ml IM .ONCE ONE Stop: 05/10/19 18:16 Prednisone (Prednisone) 5 mg PO QAM-WM [facility] Last Admin: 05/10/19 08:05 Dose: 5 mg Senna/Docusate Sodium (Senokot S) 2 tab PO BID PRN PRN Reason: Constipation Sodium Chloride (Flush - Normal Saline) 10 ml IVF Q12HR [facility] Last Admin: 05/10/19 09:15 Dose: 10 ml Sodium Chloride (Flush - Normal Saline) 10 ml IVF PRN PRN PRN Reason: Saline Flush Tamsulosin HCl (Flomax) 0.4 mg PO DAILY [facility] Last Admin: 05/10/19 09:14 Dose: 0.4 mg Tamsulosin HCl (Flomax) 0.4 mg PO DAILY [facility]
[2019-05-10] MEDS: Calcium Carbonate + Vit D 1 TAB PO SCH ×2 (14:20→14:26)
[2019-05-10] MEDS ORDERED: Prevnar 13-Val Conj/PF 0.5 ML SYRINGE IM ONE (18:15)
[2019-05-10] MEDS: cloNIDine 0.1 MG TAB PO PRN (20:13)
[2019-05-10] MEDS: Insulin Glargine 10 UNITS in Pre-Filled Syringe SC SCH (20:14)
--- NOTE | 2019-05-10 21:05 | CON ---
DATE OF CONSULTATION: 05/10/2019 CONSULTING PHYSICIAN: REASON FOR CONSULT: Elevated osmolality. REASON FOR ADMISSION: Acute kidney injury. HISTORY OF PRESENT ILLNESS: This is a 69-year-old male with history of prostate cancer, CKD disease, stage 3, type 2 diabetes, came to the hospital with above complaints and was found to have elevated serum osmolality and nephrology was consulted. The patient was having hyperglycemia. No chest pain or palpitation. No nausea, vomiting. PAST MEDICAL HISTORY: Positive for prostate cancer, CKD stage 3, colon polyp with type 2 diabetes, hyperlipidemia. HOME MEDICATIONS: Reviewed. ALLERGIES: NO KNOWN DRUG ALLERGIES. SOCIAL HISTORY: No smoking, alcohol or illicit drug abuse. FAMILY HISTORY: Positive for diabetes. REVIEW OF SYSTEMS: CONSTITUTIONAL: Negative for weight loss or gain, ability to conduct usual activities. SKIN: Negative for rash, itching. EYES: Negative for double vision, pain. ENT/MOUTH: Negative for nose bleeding, neck stiffness, pain, tenderness. CARDIOVASCULAR: Negative for palpitations, dyspnea on exertion, orthopnea. RESPIRATORY: Negative for shortness of breath, wheezing, cough, hemoptysis, fever or night sweats. GASTROINTESTINAL: Negative for poor appetite, abdominal pain, heartburn, nausea, vomiting, constipation, or diarrhea. GENITOURINARY: Negative for urgency, frequency, dysuria, nocturia. MUSCULOSKELETAL: Negative for pain, swelling. NEUROLOGIC/PSYCHIATRIC: Negative for anxiety, depression. ALLERGY/IMMUNOLOGIC: Negative for skin rash, bleeding tendency. Rest are negative review of systems. PHYSICAL EXAMINATION: GENERAL: This is a well-built male, in no apparent distress. VITAL SIGNS: Temperature 97.9, pulse 83, respiratory rate 18, blood pressure 170/90. HEENT: Atraumatic, normocephalic. Oral mucosa is moist. NECK: Supple. CV: S1, S2 heard. Rate and rhythm regular. RESPIRATORY: Clear. GASTROINTESTINAL: Abdomen is soft. MUSCULOSKELETAL: 1+ edema. DERMATOLOGIC: No skin rash. LABORATORY DATA: Potassium 4.1, BUN is 44, creatinine is 1.9 from 2.6 and also osmolality was 327, down to 300. ASSESSMENT AND PLAN: 1. Acute kidney injury, getting better. 2. Hyperglycemia, better. 3. Hyperosmolality, most likely from hyperglycemia and azotemia. We will monitor. 4. Anemia. Rule out any bleed. 5. Hypertension, stable. Titrate medication. We will monitor labs, avoid nephrotoxins, continue hydration as tolerated. Job ID: [id number]
[2019-05-11 04:22] LABS: %Basophils 0.2 % (0.0-1.0); %Eosinophils 0.8 % (0.0-10.0); %Lymphocytes 16.8 % (21.0-51.0); %Monocytes 7.9 % (0.0-10.0); %Neutrophils 74.2 % (42.0-75.0); Hemoglobin 7.4 g/dL (14.0-18.0); Mean Corpuscular HGB CONC 34.1 g/dL (32.0-36.0); Mean Corpuscular Hemoglobin 32.1 pg (27.0-31.0); Mean Corpuscular Volume 94.2 fL (78.0-98.0); Mean Platelet Volume 7.3 fL (7.4-10.4); Platelet Count 156 thou/uL (130-400); RBC Distribution Width 13.7 % (11.5-14.5); White Blood Cell (WBC) Count 5.8 thou/uL (4.8-10.8)
[2019-05-11 04:23] LABS: #Monocytes 0.5 thou/uL (0.11-0.59); #Neutrophils 4.3 thou/uL (1.40-6.50)
[2019-05-11 04:44] LABS: ALT (SGPT) 9 U/L (8-55); AST (SGOT) 15 U/L (5-34); Albumin 2.5 g/dL (3.4-4.8); Alkaline Phosphatase 121 U/L (40-150); Anion Gap 10 mmol/L (10-20); BUN (Urea Nitrogen) 39 mg/dL (8.4-25.7); Bilirubin, Total 0.2 mg/dL (0.2-1.2); Calc. Creatinine Clearance 25 mL/min (70-130); Carbon Dioxide 20 mmol/L (23-31); Chloride 112 mmol/L (98-107); Estimated GFR-MDRD 42; Globulin 2.4 g/dL (2.4-3.5); Glucose 117 mg/dL (80-115); Potassium 3.9 mmol/L (3.5-5.1); Protein, Total 4.9 g/dL (5.8-8.1); Sodium 138 mmol/L (136-145)
[2019-05-11] MEDS: Calcium Carbonate + Vit D 1 TAB PO SCH (08:19)
[2019-05-11] MEDS: Cyanocobalamin (Vitamin B-12) 1,000 MCG TAB PO SCH (08:19)
[2019-05-11] MEDS: Multivit, Therapeutic 1 TAB PO SCH (08:19)
[2019-05-11] MEDS: predniSONE 5 MG TAB PO SCH (08:19)
[2019-05-11] MEDS: Famotidine 20 MG TAB PO SCH (08:20)
[2019-05-11] MEDS: Carvedilol 6.25 MG TAB PO SCH ×2 (08:20→17:39)
[2019-05-11] MEDS: Tamsulosin HCl 0.4 MG CAP PO SCH (08:20)
[2019-05-11] MEDS: Enoxaparin Sodium 30 MG/0.3 ML SYRINGE SC SCH (08:20)
[2019-05-11] MEDS: Folic Acid 1 MG TAB PO SCH (08:20)
[2019-05-11] MEDS: ZYTIGA 1000 MG PO SCH (08:22)
--- NOTE | 2019-05-11 08:38 | PDOC.PN ---
- Subjective Encounter Start Date: 05/11/19 Encounter Start Time: 08:37 Patient seen and examined - Objective Resuscitation Status - Order Detail: 05/09/19 14:08 Resuscitation Status Routine Resuscitation Status: DNAR: NO Resuscitation Discussed with: d/w patient and POA: Cayla Hutchinson [phone] Vital Signs & Weight: Vital Signs (12 hours) Temp Pulse Resp BP BP Pulse Ox 05/11/19 08:20 132/75 05/11/19 08:00 98.5 F 91 16 132/75 100 05/11/19 04:20 98.2 F 83 16 132/76 100 05/11/19 00:00 98.7 F 88 16 168/88 H 100 Weight Admit Weight 107 lb 9.6 oz Weight 107 lb 9.6 oz I&O: 05/10/19 05/11/19 05/12/19 06:59 06:59 06:59 Intake Total 860 812 Balance 860 812 Result Diagrams: 05/11/19 04:08 05/11/19 04:08 Additional Labs: Accuchecks 05/10/19 05/10/19 05/10/19 19:19 16:29 11:18 POC Glucose 200 H 116 H 97 Phys Exam - Physical Examination Constitutional: NAD HEENT: PERRLA, moist MMs Neck: no nodes, no JVD, supple Respiratory: no wheezing, no rales, no rhonchi Cardiovascular: RRR, no significant murmur, no rub Gastrointestinal: soft, non-tender, no distention Musculoskeletal: no edema, pulses present Dx/Plan (1) Anemia Code(s): D64.9 - ANEMIA, UNSPECIFIED Status: Acute (2) KASSIDY (acute kidney injury) Code(s): N17.9 - ACUTE KIDNEY FAILURE, UNSPECIFIED Status: Acute (3) CKD (chronic kidney disease) stage 3, GFR 30-59 ml/min Code(s): N18.3 - CHRONIC KIDNEY DISEASE, STAGE 3 (MODERATE) Status: Chronic (4) DM type 2 causing CKD stage 3 Code(s): E11.22 - TYPE 2 DIABETES MELLITUS W DIABETIC CHRONIC KIDNEY DISEASE; N18.3 - CHRONIC KIDNEY DISEASE, STAGE 3 (MODERATE) Status: Chronic Qualifiers: Diabetes mellitus equipment operator intermodal yard insulin use: without equipment operator intermodal yard use Qualified Code(s): E11.22 - Type 2 diabetes mellitus with diabetic chronic kidney disease ; N18.3 - Chronic kidney disease, stage 3 (moderate) Comment: Uncontrolled. Pt will benefit from starting Once a day long acting Insulin (5) Hypertension Code(s): I10 - ESSENTIAL (PRIMARY) HYPERTENSION Status: Chronic Qualifiers: Hypertension type: essential hypertension Qualified Code(s): I10 - Essential (primary) hypertension (6) Metastatic adenocarcinoma to prostate Code(s): C79.82 - SECONDARY MALIGNANT NEOPLASM OF GENITAL ORGANS Status: Chronic Comment: on PO [email or web address].cont Casodex - Plan * Hgb trending down, will check hemoccult * will also check iron/ferritin, repeat CBC in AM * if iron low will likely need IV iron prior to discharge, if iron normal and guiac negative patient may need some EPO prior to discharge * will decide once lab resutls available * no other changes in plan of care for now
[2019-05-11] MEDS ORDERED: Tamsulosin HCl 0.4 MG CAP PO SCH (09:00)
[2019-05-11] MEDS: Bicalutamide 50 MG TAB PO SCH (10:11)
--- NOTE | 2019-05-11 11:41 | PRG ---
DATE OF SERVICE: 05/11/2019 SUBJECTIVE: Patient was seen and examined at bedside and overnight events noted. Patient denies any shortness of breath or chest pain or palpitation. No history of nausea or vomiting or diarrhea or fever or chills or cramps. OBJECTIVE: GENERAL: This is a well-built male, in no apparent distress. VITAL SIGNS: Temperature 98.5. Heart rate 91. Respiratory rate 16. Blood pressure 132/75. HEENT: Atraumatic, normocephalic. Oral mucosa is moist NECK: Supple. CARDIOVASCULAR: S1, S2 heard. Rate and rhythm regular. RESPIRATORY: Clear to auscultation. GASTROINTESTINAL: Abdomen is soft. MUSCULOSKELETAL: No tenderness. No edema. DERMATOLOGIC: No skin rash. NEUROLOGIC: Alert and awake and oriented X3. No focal neurologic deficits. Moving all the extremities. PSYCHIATRIC: Mood and affect normal. LABORATORY DATA: Potassium 3.9, BUN is 39, creatinine is 1.9. ASSESSMENT AND PLAN: 1. Acute kidney injury, stable. 2. Edema, controlled. 3. Hyperosmolality, repeat labs. 4. Hypertension. 5. Anemia, of chronic disease most likely. Renal function is stable. Avoid nephrotoxins. We will follow. Job ID: [id number]
[2019-05-11] MEDS: Insulin Glargine 10 UNITS in Pre-Filled Syringe SC SCH (20:11)
[2019-05-11] MEDS: cloNIDine 0.1 MG TAB PO PRN (20:11)
[2019-05-11] MEDS: HumaLOG 300 UNITS/3 ML VIAL SC PRN (20:12)
[2019-05-12 08:11] LABS: #Eosinphils 0.1 thou/uL (0.0-0.7); #Lymphocytes 1.2 thou/uL (1.20-3.40); #Monocytes 0.6 thou/uL (0.11-0.59); %Basophils 0.2 % (0.0-1.0); %Eosinophils 1.9 % (0.0-10.0); %Lymphocytes 19.6 % (21.0-51.0); %Monocytes 9.7 % (0.0-10.0); %Neutrophils 68.7 % (42.0-75.0); Mean Corpuscular HGB CONC 34.5 g/dL (32.0-36.0); Mean Corpuscular Hemoglobin 32.7 pg (27.0-31.0); Mean Corpuscular Volume 94.7 fL (78.0-98.0); Mean Platelet Volume 8.1 fL (7.4-10.4); Platelet Count 160 thou/uL (130-400); RBC Distribution Width 13.8 % (11.5-14.5); Red Blood Cell (RBC) Count 2.44 mill/uL (4.70-6.10); White Blood Cell (WBC) Count 5.9 thou/uL (4.8-10.8)
[2019-05-12] MEDS: ZYTIGA 1000 MG PO SCH (08:34)
[2019-05-12] MEDS: Calcium Carbonate + Vit D 1 TAB PO SCH (08:38)
[2019-05-12] MEDS: predniSONE 5 MG TAB PO SCH (08:39)
[2019-05-12] MEDS: Famotidine 20 MG TAB PO SCH (08:39)
[2019-05-12] MEDS: Carvedilol 6.25 MG TAB PO SCH ×2 (08:41→16:36)
[2019-05-12] MEDS: Folic Acid 1 MG TAB PO SCH (08:41)
[2019-05-12] MEDS: Tamsulosin HCl 0.4 MG CAP PO SCH (08:41)
[2019-05-12] MEDS: Multivit, Therapeutic 1 TAB PO SCH (08:41)
[2019-05-12] MEDS: Bicalutamide 50 MG TAB PO SCH (08:43)
[2019-05-12] MEDS: Cyanocobalamin (Vitamin B-12) 1,000 MCG TAB PO SCH (08:43)
[2019-05-12] MEDS: Enoxaparin Sodium 30 MG/0.3 ML SYRINGE SC SCH (08:44)
[2019-05-12 08:48] LABS: Anion Gap 10 mmol/L (10-20); BUN (Urea Nitrogen) 43 mg/dL (8.4-25.7); Calc. Creatinine Clearance 24 mL/min (70-130); Calcium 7.7 mg/dL (7.8-10.44); Carbon Dioxide 20 mmol/L (23-31); Chloride 110 mmol/L (98-107); Estimated GFR-MDRD 40; Glucose 77 mg/dL (80-115); Iron 36 ug/dL (65-175); Iron Binding Capacity, Total 218 mcg/dL (261-462); Potassium 4.5 mmol/L (3.5-5.1); Sodium 135 mmol/L (136-145)
--- NOTE | 2019-05-12 11:42 | PRG ---
DATE OF SERVICE: 05/12/2019 SUBJECTIVE: Patient was seen and examined at bedside and overnight events noted. Patient denies any shortness of breath or chest pain or palpitation. No history of nausea or vomiting or diarrhea or fever or chills or cramps. OBJECTIVE: GENERAL: This is a well-built male in no apparent distress. VITAL SIGNS: Temperature 98.6. Heart rate 80. Respiratory rate 18. Blood pressure 132/78. HEENT: Atraumatic, normocephalic. Oral mucosa is moist NECK: Supple. CARDIOVASCULAR: S1, S2 heard. Rate and rhythm regular. RESPIRATORY: Clear to auscultation. GASTROINTESTINAL: Abdomen is soft. MUSCULOSKELETAL: No tenderness. No edema. DERMATOLOGIC: No skin rash. NEUROLOGIC: Alert and awake and oriented X3. No focal neurologic deficits. Moving all the extremities. PSYCHIATRIC: Mood and affect normal. LABORATORY DATA: Potassium 4.5, BUN is 43, creatinine is 2.7. ASSESSMENT AND PLAN: 1. Acute kidney injury on chronic kidney disease stage 3, stable labs. 2. Edema, controlled. 3. Hyperosmolality, better. 4. Hypertension. 5. Anemia. Labs are stable. Job ID: [id number]
[2019-05-12] MEDS ORDERED: IRON SUCROSE COMPLEX 100 MG/5 ML SLOW IVP SCH (12:30)
[2019-05-12] MEDS ORDERED: Bisacodyl 5 MG TAB PO PRN (12:41)
[2019-05-12] MEDS ORDERED: Iron, Sodium Ferric Gluconate 125 MG in Sodium Chloride 0.9% 100 ML IVPB SCH (13:00)
[2019-05-12 13:02] LABS: #Eosinphils 0.1 thou/uL (0.0-0.7); #Lymphocytes 0.9 thou/uL (1.20-3.40); #Monocytes 0.5 thou/uL (0.11-0.59); #Neutrophils 5.2 thou/uL (1.40-6.50); %Basophils 0.1 % (0.0-1.0); %Eosinophils 1.5 % (0.0-10.0); %Monocytes 6.9 % (0.0-10.0); %Neutrophils 78.5 % (42.0-75.0); Hemoglobin 9.3 g/dL (14.0-18.0); Mean Corpuscular HGB CONC 33.9 g/dL (32.0-36.0); Mean Corpuscular Hemoglobin 32.3 pg (27.0-31.0); Mean Corpuscular Volume 95.2 fL (78.0-98.0); Mean Platelet Volume 7.5 fL (7.4-10.4); Platelet Count 176 thou/uL (130-400); RBC Distribution Width 13.9 % (11.5-14.5); Red Blood Cell (RBC) Count 2.86 mill/uL (4.70-6.10); White Blood Cell (WBC) Count 6.7 thou/uL (4.8-10.8)
--- NOTE | 2019-05-12 13:19 | PRG ---
DATE OF SERVICE: 05/12/2019 SUBJECTIVE: The patient is seen and examined at the bedside. There were 2 family members in the room during my visit, his and his daughter. The patient is eating his lunch. He does not have much complaints to offer. He feels better. OBJECTIVE: VITAL SIGNS: Blood pressure is 132/71, pulse is 80, temperature is 98.6, respirations 18, O2 saturation is 100% on room air. HEENT: His eyes are PERRLA. Sclerae are nonicteric. Oral mucosa is moist. NECK: Supple. LUNGS: Slightly diminished breath sounds at both bases. HEART: S1 and S2 normal. No S3. No S4. ABDOMEN: Soft, nontender. EXTREMITIES: No clubbing, cyanosis, or edema. NEUROLOGIC: He follows my commands. He moves his all 4 extremities. There are no any motor deficits. LABORATORY DATA: None today. IMPRESSION: 1. Acute renal failure. 2. Chronic renal failure, stage 3. 3. Diabetes mellitus type 2, uncontrolled, better. 4. Uncontrolled hypertension, better. 5. Anemia. CBC and comp ordered for today. The patient is going to have Dulcolax to move bowels to check his stool for fecal occult blood test. Also, he will have dose of Venofer, IV iron today. 6. Hypertension. 7. Metastatic adenocarcinoma of the prostate. PLAN: As mentioned above. I had a long discussion with the patient's family. Apparently, his blood sugar and blood pressure are not well controlled at home, but now in the hospital, we controlled environment and his glucose and blood pressure are running fine. They will review some other possible causes of different nutritional factors he is exposed to at home. We will transfuse him with iron IV and check his guaiac stool today. He should be able to go home within next 24 hours most likely. Job ID: [id number]
[2019-05-12 13:22] LABS: ALT (SGPT) 11 U/L (8-55); AST (SGOT) 17 U/L (5-34); Albumin 3.1 g/dL (3.4-4.8); Alkaline Phosphatase 132 U/L (40-150); Anion Gap 11 mmol/L (10-20); BUN (Urea Nitrogen) 41 mg/dL (8.4-25.7); Bilirubin, Total 0.3 mg/dL (0.2-1.2); Calc. Creatinine Clearance 23 mL/min (70-130); Calcium 8.2 mg/dL (7.8-10.44); Carbon Dioxide 20 mmol/L (23-31); Chloride 108 mmol/L (98-107); Estimated GFR-MDRD 38; Glucose 140 mg/dL (80-115); Potassium 4.1 mmol/L (3.5-5.1); Protein, Total 6.1 g/dL (5.8-8.1); Sodium 135 mmol/L (136-145)
[2019-05-12] MEDS: HumaLOG 300 UNITS/3 ML VIAL SC PRN ×2 (13:36→20:42)
[2019-05-12] MEDS: cloNIDine 0.1 MG TAB PO PRN (16:36)
[2019-05-12] MEDS: Insulin Glargine 10 UNITS in Pre-Filled Syringe SC SCH (20:39)
[2019-05-13] MEDS: HumaLOG 300 UNITS/3 ML VIAL SC PRN ×2 (05:42→21:18)
[2019-05-13] MEDS: Carvedilol 6.25 MG TAB PO SCH ×2 (08:15→17:03)
[2019-05-13] MEDS: Cyanocobalamin (Vitamin B-12) 1,000 MCG TAB PO SCH (08:15)
[2019-05-13] MEDS: Famotidine 20 MG TAB PO SCH (08:15)
[2019-05-13] MEDS: Tamsulosin HCl 0.4 MG CAP PO SCH (08:15)
[2019-05-13] MEDS: predniSONE 5 MG TAB PO SCH (08:15)
[2019-05-13] MEDS: Calcium Carbonate + Vit D 1 TAB PO SCH (08:15)
[2019-05-13] MEDS: ZYTIGA 1000 MG PO SCH (08:16)
[2019-05-13] MEDS: Multivit, Therapeutic 1 TAB PO SCH (08:16)
[2019-05-13] MEDS: Enoxaparin Sodium 30 MG/0.3 ML SYRINGE SC SCH (08:16)
[2019-05-13] MEDS: Folic Acid 1 MG TAB PO SCH (08:16)
[2019-05-13] MEDS: Bicalutamide 50 MG TAB PO SCH (10:04)
--- NOTE | 2019-05-13 12:22 | PRG ---
DATE OF SERVICE: 05/13/2019 SUBJECTIVE: A 69-year-old gentleman, being seen for acute kidney injury. The patient denied any nausea, vomiting, or chest pain. PHYSICAL EXAMINATION: CONSTITUTIONAL: The patient is awake, alert. VITAL SIGNS: Pulse 98, breathing 16, blood pressure 120/60. GENERAL APPEARANCE AND MENTAL STATUS: Fair. HEAD/NECK: Normocephalic. Atraumatic. EYES: EOMI. No deformity. EARS: Clear. No ulcers. NOSE: Intact. No lesions. MOUTH: Clear. No discharge. THROAT: Clear. No exudate. LUNGS: Clear. No crackles. CARDIAC: S1, S2. No rub. ABDOMEN: Benign. Bowel sounds positive. GENITALIA/RECTUM: Dean absent. BACK/EXTREMITIES: Edema 0+. NEUROLOGICAL: Alert and motor intact. SKIN: LYMPHATICS: LABORATORY DATA: Labs reviewed. ASSESSMENT AND PLAN: 1. Acute kidney injury with chronic kidney disease stage 3, stable. 2. Hypertension, stable. 3. Anemia, stable. 4. Medication based on GFR appropriate. Job ID: [id number]
--- NOTE | 2019-05-13 12:24 | PQF ---
TRISTIN COURTNEY ZBIGNIEW A MD [id number] CLINICAL DOCUMENTATION IMPROVEMENT CLARIFICATION FORM: ICD-10 Updated PLEASE DO AN ADDENDUM TO THE PROGRESS NOTE WITH ANY DOCUMENTATION UPDATES OR ADDITIONS AND CARRY THROUGH TO DC SUMMARY. THANK YOU. Date: 05/13 ATTN: DR. Jewell BAZAN Please exercise your independent, professional judgment in responding to the clarification form. Clinical indicators are provided on the bottom of this form for your review. Please check appropriate box(s): [ ] Protein Calorie Malnutrition: [ ] Mild [ ] Moderate [ ] Severe [ ] Other Malnutrition (please specify) __ [ x ] Underweight without malnutrition [ ] Cachexia [ ] Other diagnosis [ ] Unable to determine In addition, please specify: Present on Admission (POA): [ ] Yes [ ] No [ ] Unable to determine CLINICAL INDICATORS - SIGNS / SYMPTOMS / LABS BMI: 16.8 H&P DOCUMENTATION 05/10 (GUADALUPE): ...WE WILL CONTINUE NS AT A LOWER DOSE OF 50 ML PER HR IN VIEW OF THE PATIENT BEING CACHECTIC & NOT TO VOLUME OVERLOAD. ...PLEASE NOTE THE PT IS ON PREDNISONE TWICE DAILY 5 MG APPARENTLY TO STIMULATE HIS APPETITE DIETARY ASSESSMENT 05/10: TRIGGERED FOR LOW BMI (16.8). SUBJECTIVE ASSESSMENT: FAMILY AT REPORT HE WEIGHED 114 LB 2 WEEKS AGO AND IS NOW 107 LBS. 5.6% WEIGHT CHANGE IN PAST 2 WKS NUTRITION DIAGNOSIS: UNDERWEIGHT R/T PROSTATE CX W/WIDESPREAD METS, EVIDENCED BY BMI 16.8, RECENT BMI OF 15.4, 3 MONTHS AGO RISK: STAGE IV METASTATIC PROSTATE CANCER TO BONES & LUNGS TREATMENT: NUTRITION SUPPLEMENT (GLUCERNA SHAKE BID, 05/10-PRESENT) NUTRITION ASSESSMENT (05/10) Moderate Malnutrition (in acute illness) Energy Intake: <75% of estimated energy requirement for > 7 days Weight Loss: 1-2%/1 week; 5%/ 1 month; 7.5%/3 months Other: mild body fat loss; mild muscle mass loss; mild fluid accumulation; Severe Malnutrition (in acute illness) Energy Intake: < 50% of estimated energy requirement for > 5 days Weight Loss: >1-2%/1 week; >5%/1 month; >7.5%/3 months Other: moderate body fat loss; moderate muscle mass loss; moderate- severe fluid accumulation; 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 Taisha (This form is maintained as a part of the permanent medical record) 2014 [employer]. All Rights Reserved Taisha Peres RN, BSN [email or web address] Office: [phone] [facility] MEM[facility]IAL HOSPITALRaymon
--- NOTE | 2019-05-13 12:26 | PRG ---
DATE OF SERVICE: 05/13/2019 SUBJECTIVE: The patient is seen and examined at the bedside. He is feeling better. He does not have much complaints to offer. His and his daughter are present in the room during my visit. They would like me to send him to intermediate, where he can get more care regarding his blood pressure and blood sugar issues. OBJECTIVE: VITAL SIGNS: Blood pressure is 160/72, pulse is 98, temperature is 98.5, respirations 16, and O2 saturation is 98% on room air. HEENT: His head is atraumatic and normocephalic. Eyes are PERRLA. Sclerae are nonicteric. Oral mucosa is moist. NECK: Supple. LUNGS: Clear. HEART: S1 and S2 normal. ABDOMEN: Soft and nontender. EXTREMITIES: No clubbing, cyanosis, or edema. NEUROLOGIC: He is alert and oriented x3. There are no any motor deficits. SKIN: No breakdowns. LABORATORY DATA: Showed glycemia is up to 302. IMPRESSION: 1. Acute renal failure. 2. Chronic renal failure, stage 3. 3. Diabetes mellitus, not well controlled yet. 4. Uncontrolled hypertension, labile. 5. Anemia with fecal occult blood test negative, status post iron IV transfusion x1. 6. Hypertension. 7. Metastatic adenocarcinoma of the prostate. DISCUSSION: The case was discussed with Dr. Bright, his tung nut grower, who recommends to use a small dose of an antidiabetic agents instead of using insulin and close followup on his GFR and creatinine levels, so the patient is started on sitagliptin 25 mg once a day and metformin 500 mg at bedtime along with his glipizide 5 mg every morning. Also, we are going to double the dose on his Coreg to 12.5 mg twice a day and I hope that this is going to be enough to control his blood pressure and blood glucose. The patient will continue to stay in the hospital until we have more stable condition with his diabetes and hypertension. Job ID: [id number]
[2019-05-13] MEDS ORDERED: glipiZIDE 5 MG TAB PO SCH (16:30)
[2019-05-13] MEDS: metFORMIN 500 MG TAB PO SCH (20:04)
[2019-05-14] MEDS: Carvedilol 6.25 MG TAB PO SCH ×2 (08:11→16:49)
[2019-05-14] MEDS: Tamsulosin HCl 0.4 MG CAP PO SCH (08:11)
[2019-05-14] MEDS: Famotidine 20 MG TAB PO SCH (08:11)
[2019-05-14] MEDS: Calcium Carbonate + Vit D 1 TAB PO SCH (08:11)
[2019-05-14] MEDS: Multivit, Therapeutic 1 TAB PO SCH (08:11)
[2019-05-14] MEDS: predniSONE 5 MG TAB PO SCH (08:11)
[2019-05-14] MEDS: Folic Acid 1 MG TAB PO SCH (08:11)
[2019-05-14] MEDS: Enoxaparin Sodium 30 MG/0.3 ML SYRINGE SC SCH (08:12)
[2019-05-14] MEDS: glipiZIDE 5 MG TAB PO SCH (08:12)
[2019-05-14] MEDS: Cyanocobalamin (Vitamin B-12) 1,000 MCG TAB PO SCH (08:12)
[2019-05-14] MEDS: ZYTIGA 1000 MG PO SCH (08:13)
[2019-05-14 10:30] LABS: Hemoglobin 7.3 g/dL (14.0-18.0)
[2019-05-14 10:42] LABS: Anion Gap 11 mmol/L (10-20); BUN (Urea Nitrogen) 38 mg/dL (8.4-25.7); Calc. Creatinine Clearance 25 mL/min (70-130); Calcium 8.1 mg/dL (7.8-10.44); Carbon Dioxide 20 mmol/L (23-31); Chloride 110 mmol/L (98-107); Estimated GFR-MDRD 42; Glucose 198 mg/dL (80-115); Potassium 4.4 mmol/L (3.5-5.1); Sodium 137 mmol/L (136-145)
--- NOTE | 2019-05-14 11:11 | PRG ---
DATE OF SERVICE: 05/14/2019 SUBJECTIVE: A 69-year-old gentleman, being seen for acute kidney injury. The patient denied nausea, vomiting, or chest pain. OBJECTIVE: CONSTITUTIONAL: The patient awake and alert. VITAL SIGNS: Afebrile. Pulse 89, breathing 16, blood pressure 173/86. GENERAL APPEARANCE AND MENTAL STATUS: Fair. HEAD/NECK: Normocephalic. Atraumatic. EYES: EOMI. No deformity. EARS: Clear. No ulcers. NOSE: Intact. No lesions. MOUTH: Clear. No discharge. THROAT: Clear. No exudate. LUNGS: Clear. No crackles. CARDIAC: S1, S2. No rub. ABDOMEN: Benign. Bowel sounds positive. GENITALIA/RECTUM: Dean absent. BACK/EXTREMITIES: Edema 0+. NEUROLOGICAL: Alert and motor intact. SKIN: LYMPHATICS: LABORATORY DATA: Labs show hemoglobin 7.3, creatinine 1.9. ASSESSMENT AND PLAN: 1. Acute kidney injury, improved. 2. Metabolic acidosis, stable. 3. Hypertension, stable. 4. Anemia. We would recommend transfusion as well as Epogen therapy. 5. Medications based on GFR are appropriate. Job ID: [id number]
[2019-05-14] MEDS: Bicalutamide 50 MG TAB PO SCH (11:35)
[2019-05-14] MEDS: Alogliptin 6.25 MG TAB PO SCH (11:35)
[2019-05-14] MEDS: HumaLOG 300 UNITS/3 ML VIAL SC PRN ×2 (11:44→16:43)
--- NOTE | 2019-05-14 13:25 | ULT ---
RENAL ULTRASOUND: DATE: 05/14/2019. PROVIDED CLINICAL HISTORY: Acute kidney injury. FINDINGS: Comparison 05/08/2019. The right kidney measures about 10.3 x 5.4 x 4.8 cm and demonstrates no evidence for hydronephrosis o r mass. The left kidney measures about 10.7 x 4.8 x 4.5 cm and demonstrates no evidence for hydronephrosis or mass. The urinary bladder appears sonographically unremarkable. The prostate gland appears enlarged. IMPRESSION: No evidence for hydronephrosis. POS: OFF
--- NOTE | 2019-05-14 14:18 | PRG ---
DATE OF SERVICE: 05/14/2019 SUBJECTIVE: The patient is seen and examined at bedside. He is able to ambulate in the hallway with a walker. His appetite is fair. OBJECTIVE: VITAL SIGNS: Blood pressure is 178/90, pulse is 92, temperature is 98.3, respiratory rate is 16, and O2 saturation is 99% on room air. HEENT: His head is atraumatic and normocephalic. Sclerae are nonicteric. Oral mucosa is moist. Conjunctivae are palish. NECK: Supple. LUNGS: Clear. HEART: S1, S2 normal. No S3. No S4. ABDOMEN: Soft, nontender. Bowel sounds present. EXTREMITIES: No clubbing, cyanosis, or edema. NEUROLOGICAL EXAMINATION: He follows my commands. He moves his all 4 extremities. There are no any motor or sensory deficits. LABORATORY DATA: Showed hemoglobin of 7.3, hematocrit 21.5. Sodium of 137, potassium 4.4, chloride 110, CO2 of 20, BUN 38, creatinine 1.95. Glycemia is ranging from 118 to 313, and calcium is 8.1. Ultrasound of the kidneys showed no evidence of hydronephrosis. Otherwise, ultrasound is unremarkable. IMPRESSION: 1. Acute renal failure, improving. 2. Chronic renal failure, stage 3. 3. Diabetes mellitus, not controlled. The patient was started on three different antidiabetic agents and the insulin was stopped yesterday. We will still wait until we have more idea whether this regimen is going to work on not. 4. Uncontrolled hypertension. I will again increase the dose on his Coreg. 5. Anemia with negative fecal occult blood test, status post iron IV transfusion x1. His hemoglobin dropped by 2 g since yesterday, so we will obtain H and H x2 today. We do not see any signs of bleeding at this point. 6. Hypertension. 7. Metastatic adenocarcinoma of the prostate. Job ID: [id number]
[2019-05-14 16:41] LABS: Hemoglobin 8.1 g/dL (14.0-18.0)
[2019-05-14] MEDS: metFORMIN 500 MG TAB PO SCH (21:11)
[2019-05-14] MEDS ORDERED: Lorazepam 0.5 MG TAB PO PRN (21:41)
[2019-05-14 22:13] LABS: Hemoglobin 7.4 g/dL (14.0-18.0)
[2019-05-15 07:20] VITALS: TEMP 98.6
[2019-05-15] MEDS: ZYTIGA 1000 MG PO SCH (10:39)
[2019-05-15] MEDS: Alogliptin 6.25 MG TAB PO SCH (10:40)
[2019-05-15] MEDS: Carvedilol 6.25 MG TAB PO SCH (10:41)
[2019-05-15] MEDS: Famotidine 20 MG TAB PO SCH (10:42)
[2019-05-15] MEDS: Folic Acid 1 MG TAB PO SCH (10:42)
[2019-05-15] MEDS: Bicalutamide 50 MG TAB PO SCH (10:42)
[2019-05-15] MEDS: Cyanocobalamin (Vitamin B-12) 1,000 MCG TAB PO SCH (10:43)
[2019-05-15] MEDS: Enoxaparin Sodium 30 MG/0.3 ML SYRINGE SC SCH (10:45)
[2019-05-15] MEDS: predniSONE 5 MG TAB PO SCH (10:45)
[2019-05-15] MEDS: Calcium Carbonate + Vit D 1 TAB PO SCH (10:45)
[2019-05-15] MEDS: Multivit, Therapeutic 1 TAB PO SCH (10:45)
[2019-05-15 10:46] VITALS: BP 159/79
[2019-05-15] MEDS: Tamsulosin HCl 0.4 MG CAP PO SCH (10:47)
[2019-05-15] MEDS: glipiZIDE 5 MG TAB PO SCH (10:52)
[2019-05-15] MEDS ORDERED: Epoetin (ESRD) 10,000 UNITS/ML VIAL SC SCH (11:15)
--- NOTE | 2019-05-15 11:25 | PRG ---
DATE OF SERVICE: 05/15/2019 SUBJECTIVE: A 69-year-old gentleman, being seen for acute kidney injury. The patient denies nausea, vomiting, or chest pain. OBJECTIVE: See above. CONSTITUTIONAL: The patient is awake, alert. VITAL SIGNS: Pulse 75, breathing 16, and blood pressure 125/65. GENERAL APPEARANCE AND MENTAL STATUS: Fair. HEAD/NECK: Normocephalic. Atraumatic. EYES: EOMI. No deformity. EARS: Clear. No ulcers. NOSE: Intact. No lesions. MOUTH: Clear. No discharge. THROAT: Clear. No exudate. LUNGS: Clear. No crackles. CARDIAC: S1, S2. No rub. ABDOMEN: Benign. Bowel sounds positive. GENITALIA/RECTUM: Dean absent. BACK/EXTREMITIES: Edema 0+. NEUROLOGICAL: Alert and motor intact. SKIN: LYMPHATICS: LABORATORY DATA: Labs today show creatinine 1.95 yesterday. ASSESSMENT AND PLAN: 1. Chronic kidney disease. Continue hemodialysis. 2. Hypertension, stable. 3. Anemia, stable. 4. Medication based on GFR. I would avoid metformin. We will give Epogen 10,000 units. The patient will need 1 unit of packed red blood cell transfusion. Job ID: [id number]
[2019-05-15] MEDS: HumaLOG 300 UNITS/3 ML VIAL SC PRN (12:40)
[2019-05-15] MEDS ORDERED: EPOETIN ALFA-EPBX (ESRD) 10,000 UNIT/ML VIAL SC SCH (12:45)
--- NOTE | 2019-05-15 13:54 | DIS ---
DATE OF ADMISSION: 05/09/2019 DATE OF DISCHARGE: 05/15/2019 CONSULTANTS: Dr. Santiago, Nephrology Service. FINAL DIAGNOSES: 1. Acute on chronic renal failure, improved. 2. Diabetes mellitus, non-controlled, improved. 3. Uncontrolled hypertension, improved. 4. Anemia with fecal occult blood test negative, status post one dose of IV iron transfusion. 5. Hypertension. 6. Metastatic adenocarcinoma of the prostate. IMAGES: 1. Chest x-ray showed extensive osseous sclerotic metastatic disease. Also, there is some chronic appearing reticulonodular densities within the upper lung zones bilaterally similar to prior studies. 2. Ultrasound of the kidneys. No evidence for hydronephrosis. HOSPITAL COURSE: The patient is a 69-year-old male, who was admitted to the hospital with acute kidney injury, severe hyperglycemia with severe sugars of 737, and metabolic acidosis. Apparently, he went to see his doctor and his Accu-Chek fingerstick showed blood glucose more than 600 and he was sent to the emergency room for further evaluation and possible admission. He has established with Dr. Maximilian Dumont for his metastatic prostate cancer. He did not have any complaints of cough or expectoration. There was no urinary urgency or increased frequency. At the time of emergency room visit, his glucose was 737 as stated above, BUN was 50, creatinine 2.6, serum bicarb was 16, alkaline phosphatase was 176. Liver function tests were within normal limits. First set of cardiac enzymes came back negative. BNP was 96, lipase was 42. Hemoglobin was 9, hematocrit 26, white cell count was 5.3. EKG showed normal sinus rhythm with 95 beats per minute of ventricular rate. The patient was in metabolic acidosis. He was given IV fluids in the emergency room. He was given 10 units of insulin Lantus and he got admitted to the Oncology floor. He was continued on his glipizide by die attacher, Dr. Bright, who was covering for Dr. Santiago, who recommended to continue hydration on his hyperosmolality and hyperglycemia and azotemia gradually improved. He was giving insulin. Subsequently, his regimen was switched to oral medications plus sliding scale, trying to avoid long-acting insulin use at home. The family was not very comfortable with using this regimen, so after discussion with die attacher, the patient was placed on small doses of metformin and sitagliptin. He did well. His glycemia is ranging from 148 to 252. It is too early to receive full effect of this regimen, so this needs to be followed and adjusted on outpatient basis. His creatinine is down to 1.95. He is able to ambulate with walker. He is doing significantly better. He is seen and examined before he was discharged. PHYSICAL EXAMINATION: VITAL SIGNS: His blood pressure is 159/79, pulse is 99, temperature is 98.6, respirations 18, O2 saturation is 99% on room air. DISPOSITION: Home. ACTIVITIES: As tolerated. DIET: 2000 calories ADA. HOME MEDICATIONS: 1. Zytiga 1000 mg daily. 2. Vitamin B12 of 500 mcg daily. 3. Flomax 0.4 mg daily. 4. Calcium carbonate one tablet once a day with vitamin D3. 5. Prednisone 5 mg twice a day. 6. Glipizide 5 mg daily. 7. Casodex 50 mg daily. 8. Glucophage 500 mg q.p.m. 9. Multivitamin one tablet once a day. 10. Carvedilol 12.5 mg twice a day. 11. Alogliptin 6.25 mg once a day, so his carvedilol dose was doubled and that this will need some adjustment later. He was advised to check his blood pressure twice a day and check his Accu-Cheks twice a day and bring the documents to his primary care physician for further management of his diabetes and hypertension. Also, he needs to follow up with Dr. Santiago his die attacher to close monitor his kidney function. TIME SPENT: Time spent on this discharge is less than 30 minutes. Job ID: [id number]
== END 2019-05-15 14:55 | disposition home health service (06) | DRG 683 ==
LOC: ERS 11:00 → ONC 13:26
PROVIDERS: ADMIT Internal Medicine; ATTEND Internal Medicine
DX: N17.9 Acute kidney failure, unspecified (principal); E87.2 Acidosis; C79.51 Secondary malignant neoplasm of bone; C78.00 Secondary malignant neoplasm of unspecified lung; E87.0 Hyperosmolality and hypernatremia; Z68.1 Body mass index [BMI] 19.9 or less, adult; E11.65 Type 2 diabetes mellitus with hyperglycemia; D64.9 Anemia, unspecified; C61 Malignant neoplasm of prostate; N18.3 Chronic kidney disease, stage 3 (moderate); I12.9 Hypertensive chronic kidney disease with stage 1 through stage 4 chronic kidney disease, or unspecified chronic kidney disease; D63.1 Anemia in chronic kidney disease; R63.6 Underweight; E11.22 Type 2 diabetes mellitus with diabetic chronic kidney disease; K63.5 Polyp of colon; Z79.4 Long term (current) use of insulin
CPT/HCPCS: 36415; 36416; 71045; 76770; 80048; 80053; 80069; 82274; 82330; 82550; 82570; 82728; 82803; 83540; 83550; 83690; 83880; 83930; 84156; 84484; 85014; 85018; 85025; 90471; 90670; 93005; 96374; G0009; J1650; J1815; J2405; J2916; J3490; J7512

== ENCOUNTER 2019-05-18 00:13 | Emergency (ER) | payer MEDICARE ==
[2019-05-18 00:36] LABS: #Eosinphils 0.1 thou/uL (0.0-0.7); #Lymphocytes 0.8 thou/uL (1.20-3.40); #Monocytes 0.5 thou/uL (0.11-0.59); #Neutrophils 5.1 thou/uL (1.40-6.50); %Basophils 0.3 % (0.0-1.0); %Eosinophils 0.9 % (0.0-10.0); %Lymphocytes 12.8 % (21.0-51.0); Hemoglobin 8.6 g/dL (14.0-18.0); Mean Corpuscular HGB CONC 33.6 g/dL (32.0-36.0); Mean Corpuscular Hemoglobin 32.3 pg (27.0-31.0); Mean Corpuscular Volume 96.1 fL (78.0-98.0); Mean Platelet Volume 7.1 fL (7.4-10.4); Platelet Count 201 thou/uL (130-400); RBC Distribution Width 14.1 % (11.5-14.5); Red Blood Cell (RBC) Count 2.65 mill/uL (4.70-6.10); White Blood Cell (WBC) Count 6.5 thou/uL (4.8-10.8)
[2019-05-18 00:48] LABS: Phosphorus 2.1 mg/dL (2.3-4.7)
[2019-05-18 00:59] LABS: Albumin 3.1 g/dL (3.4-4.8)
[2019-05-18 01:00] LABS: Chloride 106 mmol/L (98-107); Potassium 5.3 mmol/L (3.5-5.1); Sodium 134 mmol/L (136-145)
[2019-05-18 01:01] LABS: Calcium 8.5 mg/dL (7.8-10.44); Magnesium 2.1 mg/dL (1.6-2.6)
[2019-05-18 01:02] LABS: Globulin 2.6 g/dL (2.4-3.5); Glucose 361 mg/dL (80-115); Protein, Total 5.7 g/dL (5.8-8.1)
[2019-05-18 01:03] LABS: Carbon Dioxide 23 mmol/L (23-31)
[2019-05-18 01:04] LABS: Bilirubin, Total 0.3 mg/dL (0.2-1.2)
[2019-05-18 01:05] LABS: Alkaline Phosphatase 130 U/L (40-150); Calc. Creatinine Clearance 0 mL/min (70-130); Estimated GFR-MDRD 39
[2019-05-18 01:06] LABS: BUN (Urea Nitrogen) 44 mg/dL (8.4-25.7)
[2019-05-18 01:07] LABS: AST (SGOT) 34 U/L (5-34)
[2019-05-18 01:08] LABS: ALT (SGPT) 23 U/L (8-55)
[2019-05-18 01:35] LABS: Anion Gap 10 mmol/L (10-20)
== END 2019-05-18 04:41 | disposition home or self-care (01) ==
LOC: ERS 00:13
DX: E11.65 Type 2 diabetes mellitus with hyperglycemia (principal); E11.22 Type 2 diabetes mellitus with diabetic chronic kidney disease; I12.9 Hypertensive chronic kidney disease with stage 1 through stage 4 chronic kidney disease, or unspecified chronic kidney disease; Z79.84 Long term (current) use of oral hypoglycemic drugs; Z79.891 Long term (current) use of opiate analgesic; Z79.899 Other long term (current) drug therapy
CPT/HCPCS: 36415; 36416; 80053; 82010; 83735; 84100; 85025; 96360; 96361

== ENCOUNTER 2019-05-20 11:14 | Day surgery (SDC) | payer MEDICARE ==
[2019-05-20 13:02] VITALS: BP 108/62; TEMP 98.1
== END 2019-05-20 13:11 | disposition home or self-care (01) ==
LOC: ONC/OP 11:14
PROVIDERS: ATTEND Internal Medicine Hematology & Oncology
DX: Z51.12 Encounter for antineoplastic immunotherapy (principal); C61 Malignant neoplasm of prostate; C79.51 Secondary malignant neoplasm of bone
CPT/HCPCS: 80053; 82248; 83615; 84100; 84153; 84550; 96372; J0897

== ENCOUNTER 2019-05-21 14:46 | Outpatient (CLI) | payer MEDICARE ==
--- NOTE | 2019-05-21 15:13 | ULT ---
ULTRASOUND DOPPLER DUPLEX VENOUS LEFT LOWER EXTREMITY: DATE: 05/21/2019 HISTORY: 69-year-old male with recurrent left lower extremity edema. TECHNIQUE: Grayscale, color-flow, and spectral analysis, of major veins of left lower extremity. FINDINGS: There is demonstration of blood flow with normal compressibility, of the left common femoral, profund a femoral, greater saphenous, femoral, popliteal, and posterior tibial, veins. IMPRESSION: Negative. No deep venous thrombosis of left lower extremity.
== END 2019-05-21 14:47 | disposition home or self-care (01) ==
LOC: SCSULT 14:46
PROVIDERS: ATTEND Family Medicine
DX: R60.9 Edema, unspecified (principal)
CPT/HCPCS: 36415; 80053; 85025; 85362

== ENCOUNTER 2019-05-22 18:56 | Emergency (ER) | payer MEDICARE ==
[2019-05-22 20:08] LABS: Anion Gap 11 mmol/L (10-20); BUN (Urea Nitrogen) 37 mg/dL (8.4-25.7); Calc. Creatinine Clearance 0 mL/min (70-130); Carbon Dioxide 22 mmol/L (23-31); Chloride 103 mmol/L (98-107); Estimated GFR-MDRD 41; Glucose 466 mg/dL (80-115); Potassium 5.3 mmol/L (3.5-5.1); Sodium 131 mmol/L (136-145)
--- NOTE | 2019-05-25 13:30 | EKG ---
Test Reason : Blood Pressure : / mmHG Vent. Rate : 088 BPM Atrial Rate : 088 BPM P-R Int : 186 ms QRS Dur : 086 ms QT Int : 360 ms P-R-T Axes : 063 -53 012 degrees QTc Int : 435 ms Normal sinus rhythm Left axis deviation Abnormal ECG Confirmed by AUBREY TELLES DO ([id number]), publication editor CORAL GONG ([id number]) on 05/25/2019 1:30:06 PM Referred By: Confirmed By:AUBREY TELLES DO
--- NOTE | 2019-05-25 13:30 | EKG ---
Test Reason : Blood Pressure : / mmHG Vent. Rate : 093 BPM Atrial Rate : 093 BPM P-R Int : 162 ms QRS Dur : 086 ms QT Int : 346 ms P-R-T Axes : 148 -29 -46 degrees QTc Int : 430 ms Unusual P axis, possible ectopic atrial rhythm Nonspecific T wave abnormality Abnormal ECG Confirmed by AUBREY TELLES DO ([id number]), supervising editor trailer CORAL GONG ([id number]) on 05/25/2019 1:30:05 PM Referred By: Confirmed By:AUBREY TELLES DO
== END 2019-05-22 22:22 | disposition home or self-care (01) ==
LOC: ERS 18:56
DX: E11.65 Type 2 diabetes mellitus with hyperglycemia (principal); E87.5 Hyperkalemia; I12.0 Hypertensive chronic kidney disease with stage 5 chronic kidney disease or end stage renal disease; N18.3 Chronic kidney disease, stage 3 (moderate); E11.22 Type 2 diabetes mellitus with diabetic chronic kidney disease; Z79.899 Other long term (current) drug therapy; Z79.82 Long term (current) use of aspirin; Z79.84 Long term (current) use of oral hypoglycemic drugs
CPT/HCPCS: 36415; 36416; 80048; 82010; 93005

== ENCOUNTER 2019-06-13 08:30 | Outpatient (CLI) | payer MEDICARE ==
--- NOTE | 2019-06-13 11:12 | CT ---
Exam: Chest, abdomen, and pelvic CT scan without IV contrast: HISTORY: Neoplasm of prostate gland. COMPARISON: 01/28/2019 and 01/29/2019 FINDINGS: Very extensive but overall stable bone metastasis throughout the visualized bony skeleton. Extensive bilateral perihilar linear and nodular parenchymal changes with extensive old granulomatous calcification changes and some associated bilateral upper lobe volume loss, stable. No evidence for n ew pulmonary metastasis. Very small left pleural effusion. Small hiatal hernia. No evidence for liver metastasis. Visualized pancreas spleen adrenal glands are unremarkable. Probable very tiny nono bstructing left lower pole renal calculus. Moderate solid fecal material throughout the colon and rectum. No evidence for overt adenopathy. Small fat-containing right inguinal hernia. IMPRESSION: Very extensive but overall stable bone metastasis. Extensive parenchymal changes in the perihilar regions and upper lung zones with some volume loss, st able. Very tiny nonobstructing left renal calculus. No evidence for adenopathy within the abdomen or pelvis or other evidence for new metastasis.
--- NOTE | 2019-06-13 12:17 | NM ---
Exam: Nuclear medicine bone scan: HISTORY: Malignant neoplasm of prostate gland COMPARISON: 02/01/2019 FINDINGS: Previous noted areas of abnormal increased activity involving the left seventh rib, T12 vertebral bod y, right SI joint, and left pubis are all again redemonstrated but much less intense in abnormal activity than on the prior study. Bilateral renal and bladder activity. No scan evidence for new focu s of increased activity. IMPRESSION: Evidence for bone metastasis with amount of abnormal activity appearing to be definitely less than on the prior study. No evidence for new metastasis.
== END 2019-06-13 08:31 | disposition home or self-care (01) ==
LOC: CT 08:30
PROVIDERS: ATTEND Internal Medicine Hematology & Oncology
DX: C61 Malignant neoplasm of prostate (principal); C79.51 Secondary malignant neoplasm of bone; N20.0 Calculus of kidney
CPT/HCPCS: 71250; 74177; 78306; A9503

== ENCOUNTER 2019-06-17 11:35 | Emergency (ER) | payer MEDICARE ==
--- NOTE | 2019-06-17 12:56 | RAD ---
Left knee 4 views HISTORY: Fall. Knee injury. FINDINGS: Joint spaces are preserved. Very mild osteophytosis. No acute fracture or dislocation. Subt le curvilinear calcification inferior to the patella may be related to the synovium. No fluid distention of the suprapatellar bursa. IMPRESSION: No acute osseous abnormalities are demonstrated.
--- NOTE | 2019-06-17 12:57 | RAD ---
Right knee 4 views HISTORY: Fall. Knee injury. FINDINGS: Joint spaces are preserved. No acute fracture, dislocation, or fluid distention of the supr apatellar bursa. Calcification within small vascular structures. IMPRESSION: No acute osseous abnormalities are demonstrated.
== END 2019-06-17 13:24 | disposition home or self-care (01) ==
LOC: ERS 11:35
DX: M25.562 Pain in left knee (principal); M25.561 Pain in right knee; I12.9 Hypertensive chronic kidney disease with stage 1 through stage 4 chronic kidney disease, or unspecified chronic kidney disease; E11.22 Type 2 diabetes mellitus with diabetic chronic kidney disease; N18.3 Chronic kidney disease, stage 3 (moderate); Z79.899 Other long term (current) drug therapy; Z79.82 Long term (current) use of aspirin; Z85.46 Personal history of malignant neoplasm of prostate; Z79.84 Long term (current) use of oral hypoglycemic drugs; W01.0XXA Fall on same level from slipping, tripping and stumbling without subsequent striking against object, initial encounter

== ENCOUNTER 2019-06-17 13:30 | Day surgery (SDC) | payer MEDICARE | END 2019-06-17 15:05 | disposition home or self-care (01) | LOC: ONC/OP 13:30 | PROVIDERS: ATTEND Internal Medicine Hematology & Oncology | DX: Z51.12 Encounter for antineoplastic immunotherapy (principal); C79.51 Secondary malignant neoplasm of bone; C61 Malignant neoplasm of prostate; D50.0 Iron deficiency anemia secondary to blood loss (chronic) | CPT/HCPCS: 36415; 80053; 82248; 83615; 84100; 84153; 84550; 96372; J0897 ==

== ENCOUNTER 2019-06-21 18:49 | Emergency (ER) | payer MEDICARE ==
[2019-06-21] MEDS ORDERED: Dextrose 50% Abboject 50 ML SYRINGE ONE ×2 (19:51→19:52)
[2019-06-21 20:07] LABS: Anion Gap 12 mmol/L (10-20); BUN (Urea Nitrogen) 62 mg/dL (8.4-25.7); Calc. Creatinine Clearance 0 mL/min (70-130); Calcium 9.3 mg/dL (7.8-10.44); Carbon Dioxide 18 mmol/L (23-31); Chloride 110 mmol/L (98-107); Estimated GFR-MDRD 35; Potassium 5.2 mmol/L (3.5-5.1); Sodium 135 mmol/L (136-145)
[2019-06-21 20:18] LABS: Glucose 52 mg/dL (80-115)
[2019-06-21 20:40] LABS: Potassium 5.1 mmol/L (3.5-5.1)
== END 2019-06-21 21:42 | disposition home or self-care (01) ==
LOC: ERS 18:49
DX: E87.5 Hyperkalemia (principal); E11.22 Type 2 diabetes mellitus with diabetic chronic kidney disease; N18.3 Chronic kidney disease, stage 3 (moderate); D50.9 Iron deficiency anemia, unspecified; Z85.46 Personal history of malignant neoplasm of prostate; Z85.118 Personal history of other malignant neoplasm of bronchus and lung; Z79.899 Other long term (current) drug therapy; Z79.82 Long term (current) use of aspirin; Z79.84 Long term (current) use of oral hypoglycemic drugs; Z79.52 Long term (current) use of systemic steroids
CPT/HCPCS: 36415; 36416; 80053; 83036; 85025; 93005; 96361; 96374

== ENCOUNTER 2019-07-04 07:40 | Day surgery (SDC) | payer MEDICARE ==
[2019-07-03 14:27] VITALS: BMI 21.4
--- NOTE | 2019-07-04 14:48 | OP ---
DATE OF PROCEDURE: 07/04/2019 PROCEDURE PERFORMED: Colonoscopy with piecemeal resection of 5 cm pedunculated polyp with hemoclip placement, tattooing, and epinephrine injection in the stalk to prevent bleeding. RECOMMENDATIONS: Await his pathology. If this is benign, we would follow up a flex sig in 3 to 6 months to ensure it is completely removed. If there is malignancy near the stalk, he will have to have a sigmoid resection. ANESTHESIA: TIVA. PROCEDURE IN DETAIL: The patient was informed of the risks, benefits, and possible complications of endoscopy including perforation, reaction to medication, aspiration as well as the risk to may not be able to remove the polyp endoscopically and that he could have complications of bleeding or perforation. Informed consent was obtained. The patient was brought to the endoscopy suite, where he was sedated in a gradual fashion. Once he was comfortable, rectal exam was performed. The endoscope was inserted into the anal canal through the colon. The cecum was identified by the ileocecal valve and appendiceal orifice. The scope was then brought back. There was a large pedunculated polyp obscuring the lumen of the colon in the sigmoid colon at about 40 cm. This appeared to have a long stalk, which appeared benign. This polyp was soft with no malignant features. To take this large polyp off first, the stalk was injected with about 7 mL of epinephrine and the polyp itself was injected with epinephrine to shrink it. A large hexagonal snare was then used to start removing the polyp piecemeal. About six large pieces were taken from the surface, which were about a centimeter to two in size a piece and submitted as superficial aspect of the polyp. As we got down to the base, the polyp stalk was injected again and then a hemoclip was placed over one-half of the base. The remainder of the base was taken off in three segments and submitted to pathology in its own jar. There was mild bleeding, which was controlled with injection of epinephrine 1:10,000 and a 10-Sami heater probe, and then a second clip was placed over the area. Finally, a tattoo was placed about 3 cm proximal to the site. There was good hemostasis. No signs of residual polyp and no evidence of bleeding or perforation. The scope was removed. The patient tolerated the procedure well. No complications. Job ID: [id number]
== END 2019-07-04 14:00 | disposition home or self-care (01) ==
LOC: SDC 07:40
PROVIDERS: ATTEND Internal Medicine Gastroenterology
PROC: 3E0H8GC Introduction of Other Therapeutic Substance into Lower GI, Via Natural or Artificial Opening Endoscopic (ICD-10-PCS; principal; 2019-07-04)
PROC: 0DBN8ZX Excision of Sigmoid Colon, Via Natural or Artificial Opening Endoscopic, Diagnostic (ICD-10-PCS; 2019-07-04)
DX: D12.5 Benign neoplasm of sigmoid colon (principal); C61 Malignant neoplasm of prostate; C79.51 Secondary malignant neoplasm of bone; C78.00 Secondary malignant neoplasm of unspecified lung; E78.00 Pure hypercholesterolemia, unspecified; E11.22 Type 2 diabetes mellitus with diabetic chronic kidney disease; N18.9 Chronic kidney disease, unspecified; Z79.4 Long term (current) use of insulin; Z79.899 Other long term (current) drug therapy
CPT/HCPCS: 88305

== ENCOUNTER 2019-07-16 10:48 | Day surgery (SDC) | payer MEDICARE ==
[2019-07-16 10:56] VITALS: BP 123/96; TEMP 97.7
== END 2019-07-16 12:51 | disposition home or self-care (01) ==
LOC: ONC/OP 10:48
PROVIDERS: ATTEND Internal Medicine Hematology & Oncology
DX: Z51.12 Encounter for antineoplastic immunotherapy (principal); C61 Malignant neoplasm of prostate; C79.51 Secondary malignant neoplasm of bone; D50.0 Iron deficiency anemia secondary to blood loss (chronic)
CPT/HCPCS: 36415; 80053; 82248; 83615; 84100; 84153; 84550; 96372; J0897

== ENCOUNTER 2019-08-19 10:47 | Day surgery (SDC) | payer MEDICARE ==
[2019-08-19 11:03] VITALS: BP 182/92; TEMP 97.7
== END 2019-08-19 11:07 | disposition home or self-care (01) ==
LOC: ONC/OP 10:47
PROVIDERS: ATTEND Internal Medicine Hematology & Oncology
DX: Z51.11 Encounter for antineoplastic chemotherapy (principal); C61 Malignant neoplasm of prostate; C79.51 Secondary malignant neoplasm of bone; D50.0 Iron deficiency anemia secondary to blood loss (chronic)
CPT/HCPCS: 36415; 80053; 82248; 82668; 82728; 83540; 83550; 83615; 84100; 84153; 84550; 96372; J0897

== ENCOUNTER 2019-08-30 13:06 | Day surgery (SDC) | payer MEDICARE ==
[2019-08-30] MEDS ORDERED: EPOETIN ALFA-EPBX (ESRD) 40,000 UNIT/ML VIAL ONE (13:17)
[2019-08-30 13:21] VITALS: BP 174/84; TEMP 97.5
[2019-08-30] MEDS ORDERED: EPOETIN ALFA-EPBX (ESRD) 40,000 UNIT/ML VIAL SC SCH (13:30)
== END 2019-08-30 13:31 | disposition home or self-care (01) ==
LOC: ONC/OP 13:06
PROVIDERS: ATTEND Internal Medicine Hematology & Oncology
DX: N18.4 Chronic kidney disease, stage 4 (severe) (principal); D63.1 Anemia in chronic kidney disease; D50.0 Iron deficiency anemia secondary to blood loss (chronic); C61 Malignant neoplasm of prostate; C79.51 Secondary malignant neoplasm of bone
CPT/HCPCS: 96372; Q5105

== ENCOUNTER 2019-09-12 14:52 | Emergency (ER) | payer MEDICARE ==
[2019-09-12 16:24] LABS: Anion Gap 14 mmol/L (10-20); BUN (Urea Nitrogen) 43 mg/dL (8.4-25.7); Calc. Creatinine Clearance 0 mL/min (70-130); Calcium 9.4 mg/dL (7.8-10.44); Carbon Dioxide 21 mmol/L (23-31); Chloride 109 mmol/L (98-107); Estimated GFR-MDRD 37; Glucose 140 mg/dL (80-115); Potassium 4.7 mmol/L (3.5-5.1); Sodium 139 mmol/L (136-145)
[2019-09-12] MEDS ORDERED: Carvedilol 25 MG TAB PO SCH (17:00)
== END 2019-09-12 18:53 | disposition home or self-care (01) ==
LOC: ERS 14:52
DX: I10 Essential (primary) hypertension (principal); E11.9 Type 2 diabetes mellitus without complications; E11.22 Type 2 diabetes mellitus with diabetic chronic kidney disease; N18.3 Chronic kidney disease, stage 3 (moderate); D50.9 Iron deficiency anemia, unspecified; Z79.82 Long term (current) use of aspirin; Z79.84 Long term (current) use of oral hypoglycemic drugs; Z79.52 Long term (current) use of systemic steroids; Z79.899 Other long term (current) drug therapy
CPT/HCPCS: 36415; 80048; 93005

== ENCOUNTER 2019-09-16 11:08 | Day surgery (SDC) | payer MEDICARE ==
[~2019-09-16 11:08] MED LIST changes: +EPOETIN ALFA-EPBX (ESRD) 40,000 UNIT/ML VIAL SC SCH; -cloNIDine 0.1 MG TAB ONE
[2019-09-16 11:47] VITALS: BP 190/100; TEMP 98.1
== END 2019-09-16 15:19 | disposition home or self-care (01) ==
LOC: ONC/OP 11:08
PROVIDERS: ATTEND Internal Medicine Hematology & Oncology
DX: C61 Malignant neoplasm of prostate (principal); C79.51 Secondary malignant neoplasm of bone; D50.0 Iron deficiency anemia secondary to blood loss (chronic); D63.1 Anemia in chronic kidney disease; N18.4 Chronic kidney disease, stage 4 (severe)
CPT/HCPCS: 36415; 80053; 82248; 83615; 84100; 84153; 84550; 96372; 96402; J0897; Q5105

== ENCOUNTER 2019-10-11 18:50 | Emergency (ER) | payer MEDICARE ==
[2019-10-11] MEDS ORDERED: Insulin Regular 300 UNITS/3 ML VIAL ONE (19:20)
[2019-10-11] MEDS ORDERED: Labetalol HCl 100 MG/20 ML VIAL ONE (19:27)
[2019-10-11 19:34] LABS: #Lymphocytes 0.7 thou/uL (1.20-3.40); #Monocytes 0.4 thou/uL (0.11-0.59); #Neutrophils 3.9 thou/uL (1.40-6.50); %Eosinophils 0.8 % (0.0-10.0); %Lymphocytes 14.4 % (21.0-51.0); %Monocytes 7.9 % (0.0-10.0); Hemoglobin 13.1 g/dL (14.0-18.0); Mean Corpuscular HGB CONC 33.3 g/dL (32.0-36.0); Mean Corpuscular Hemoglobin 34.3 pg (27.0-31.0); Mean Platelet Volume 8.2 fL (7.4-10.4); Platelet Count 132 thou/uL (130-400); RBC Distribution Width 16.3 % (11.5-14.5); Red Blood Cell (RBC) Count 3.82 mill/uL (4.70-6.10); White Blood Cell (WBC) Count 5.1 thou/uL (4.8-10.8)
[2019-10-11 19:53] LABS: ALT (SGPT) 15 U/L (8-55); AST (SGOT) 21 U/L (5-34); Albumin 3.4 g/dL (3.4-4.8); Alkaline Phosphatase 87 U/L (40-110); Anion Gap 12 mmol/L (10-20); BUN (Urea Nitrogen) 52 mg/dL (8.4-25.7); Bilirubin, Total 0.5 mg/dL (0.2-1.2); Calc. Creatinine Clearance 0 mL/min (70-130); Calcium 9.1 mg/dL (7.8-10.44); Carbon Dioxide 21 mmol/L (23-31); Chloride 107 mmol/L (98-107); Estimated GFR-MDRD 25; Globulin 2.9 g/dL (2.4-3.5); Glucose 344 mg/dL (80-115); Protein, Total 6.3 g/dL (5.8-8.1); Sodium 135 mmol/L (136-145)
--- NOTE | 2019-10-11 20:23 | RAD ---
RADIOGRAPH CHEST 1 VIEW: DATE: 10/11/2019 HISTORY: 69-year-old male with hypertension and hyperglycemia. FINDINGS: There are no airspace densities, pulmonary edema, pneumothorax, or cardiomegaly. The lateral costophr enic angles are sharp. Large number of osteoblastic skeletal lesions at bilateral ribs, scapula, and thoracic spine. Irregularly-shaped right hilar lesion, unchanged since 05/09/2019. IMPRESSION: 1. No acute cardiopulmonary findings. 2. Diffuse diffuse osteoblastic skeletal metastatic disease from prostate cancer. 3. Chronic right hilar lesion.
[2019-10-11 20:43] LABS: Bacteria/HPF None Seen HPF (None Seen); Bilirubin Negative (Negative); Blood, Urine 2+ (Negative); Clarity Clear (Clear); Glucose, Urine (Dipstick) Greater than 1000 mg/dL (Negative); Leukocyte Negative Leu/uL (Negative); Nitrite Negative (Negative); Protein, Urine (Dipstick) 300 mg/dL (Neg-Trace); Squamous Epithelial None Seen HPF (0-3); Urobilinogen Normal mg/dL (Less than 2); WBC/HPF 0-3 HPF (0-3)
== END 2019-10-11 21:08 | disposition home or self-care (01) ==
LOC: ERS 18:50
DX: E11.65 Type 2 diabetes mellitus with hyperglycemia (principal); I12.9 Hypertensive chronic kidney disease with stage 1 through stage 4 chronic kidney disease, or unspecified chronic kidney disease; N18.3 Chronic kidney disease, stage 3 (moderate); E11.22 Type 2 diabetes mellitus with diabetic chronic kidney disease; D50.9 Iron deficiency anemia, unspecified; Z79.4 Long term (current) use of insulin; Z79.82 Long term (current) use of aspirin; Z79.899 Other long term (current) drug therapy
CPT/HCPCS: 36415; 36416; 71045; 80053; 81003; 81015; 82010; 85025; 96374; J1815

== ENCOUNTER 2019-10-14 11:12 | Day surgery (SDC) | payer MEDICARE ==
[2019-10-14 11:24] VITALS: BP 164/92; TEMP 97.4
== END 2019-10-14 12:31 | disposition home or self-care (01) ==
LOC: ONC/OP 11:12
PROVIDERS: ATTEND Internal Medicine Hematology & Oncology
DX: Z51.12 Encounter for antineoplastic immunotherapy (principal); C79.51 Secondary malignant neoplasm of bone; C61 Malignant neoplasm of prostate; N18.4 Chronic kidney disease, stage 4 (severe); D63.1 Anemia in chronic kidney disease
CPT/HCPCS: 80053; 82043; 82248; 83615; 84100; 84153; 84550; 96372; J0897

== ENCOUNTER 2019-11-01 06:41 | Inpatient (IN) | payer MEDICARE ==
--- NOTE | 2019-11-01 07:42 | RAD ---
XR Chest 1 View Portable History: Cough Comparison: Radiograph October 11, 2019 Findings: Diffuse osteoblastic metastasis is seen. Small left effusion is new. Left lower lobe parenc hymal opacity is new. No pneumothorax. Impression: New left lower lobe opacity and small effusion concerning for infection. Follow-up after treatment recommended.
--- NOTE | 2019-11-01 07:47 | CT ---
CT Brain WO Con History: Left-sided weakness Comparison: MRI brain February 2019. CT brain January 26, 2019. Findings: No acute hemorrhage or infarct. No midline shift or mass effect. Ventricular size and extra axial CSF spaces are normal. 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 Metastatic disease of the foramen magnum and clivus has increased. There are also metastatic foci of the occipital condyles. Impression: 1. No acute intracranial abnormality. 2. Osseous metastatic disease has progressed.
[2019-11-01 08:25] LABS: #Eosinphils 0.1 thou/uL (0.0-0.7); #Lymphocytes 0.6 thou/uL (1.20-3.40); #Monocytes 0.6 thou/uL (0.11-0.59); #Neutrophils 6.3 thou/uL (1.40-6.50); %Basophils 0.1 % (0.0-1.0); %Eosinophils 1.4 % (0.0-10.0); %Lymphocytes 8.4 % (21.0-51.0); %Monocytes 7.7 % (0.0-10.0); %Neutrophils 82.4 % (42.0-75.0); Hemoglobin 13.3 g/dL (14.0-18.0); Mean Corpuscular HGB CONC 33.6 g/dL (32.0-36.0); Mean Corpuscular Hemoglobin 33.5 pg (27.0-31.0); Mean Corpuscular Volume 99.8 fL (78.0-98.0); Mean Platelet Volume 8.4 fL (7.4-10.4); Platelet Count 161 thou/uL (130-400); RBC Distribution Width 14.8 % (11.5-14.5); Red Blood Cell (RBC) Count 3.97 mill/uL (4.70-6.10); White Blood Cell (WBC) Count 7.7 thou/uL (4.8-10.8)
[2019-11-01 08:35] LABS: ALT (SGPT) 15 U/L (8-55); AST (SGOT) 29 U/L (5-34); Albumin 3.2 g/dL (3.4-4.8); Alkaline Phosphatase 72 U/L (40-110); Anion Gap 12 mmol/L (10-20); BUN (Urea Nitrogen) 49 mg/dL (8.4-25.7); Bilirubin, Total 0.4 mg/dL (0.2-1.2); Calc. Creatinine Clearance 0 mL/min (70-130); Calcium 8.9 mg/dL (7.8-10.44); Carbon Dioxide 20 mmol/L (23-31); Chloride 113 mmol/L (98-107); Estimated GFR-MDRD 27; Globulin 2.6 g/dL (2.4-3.5); Glucose 92 mg/dL (80-115); Potassium 4.6 mmol/L (3.5-5.1); Protein, Total 5.8 g/dL (5.8-8.1); Sodium 140 mmol/L (136-145)
[2019-11-01] MEDS ORDERED: cefTRIAXone\\ROCEPHIN 2 GM VIAL ONE (09:00)
[2019-11-01] MEDS ORDERED: Sodium Chloride 0.9% 100 ML ONE (09:00)
[2019-11-01] MEDS ORDERED: Azithromycin 500 MG VIAL ONE (09:43)
[2019-11-01] MEDS ORDERED: Aspirin Chewable 81 MG TAB ONE (11:18)
[2019-11-01] MEDS ORDERED: Calcium Carbonate 500 MG ChewTAB PO PRN (11:19)
[2019-11-01] MEDS ORDERED: Loperamide HCl 2 MG CAP PO PRN (11:19)
[2019-11-01] MEDS ORDERED: hydrALAZINE 20 MG/ML VIAL SLOW IVP PRN ×2 (11:19)
[2019-11-01] MEDS ORDERED: Diabetic Tussin 200 MG/10 ML UDCUP PO PRN (11:19)
[2019-11-01] MEDS ORDERED: Ondansetron ODT 4 MG TAB PO PRN (11:19)
[2019-11-01] MEDS ORDERED: Bisacodyl 10 MG SUPP PR PRN (11:19)
[2019-11-01] MEDS ORDERED: Zolpidem Tartrate 5 MG TAB PO PRN (11:19)
[2019-11-01] MEDS ORDERED: Ondansetron PF 4 MG/2 ML Vial IVP PRN (11:19)
[2019-11-01] MEDS ORDERED: Loratadine 10 MG TAB PO PRN (11:19)
[2019-11-01] MEDS ORDERED: Sodium Chloride 0.65% Nasal 44 ML BOT EA NARE PRN (11:19)
[2019-11-01] MEDS ORDERED: Artificial Tears 18 DROP/0.9 ML EA EYE PRN (11:19)
[2019-11-01] MEDS ORDERED: Cepastat Lozenges 1 LOZ PO PRN (11:19)
[2019-11-01] MEDS ORDERED: Senokot S 8.6-50 MG TAB PO PRN (11:19)
[2019-11-01] MEDS ORDERED: Dextrose 50% Abboject 50 ML SYRINGE SLOW IVP PRN (11:20)
[2019-11-01] MEDS ORDERED: Dextrose 5% in Water 1,000 ML IV PRN (11:20)
[2019-11-01 12:41] VITALS: BMI 21.2
--- NOTE | 2019-11-01 15:33 | HP ---
PRIMARY CARE PHYSICIAN: Dr. Hernán Schaeffer. REASON FOR ADMISSION: Hypoglycemia, left-sided motor weakness, pneumonia. HISTORY OF PRESENT ILLNESS: A 69-year-old male, who has underlying history of metastatic prostate cancer with metastasis to bone and he is following Dr. Dumont and getting outpatient chemotherapy. The patient was brought to emergency room by Paramedics. This morning, the patient woke up around 5 o'clock and his who woke up around 5:15 a.m. The patient was found in his living room and he was disoriented and not responsive well and that is why patient's daughter was called and subsequently paramedics was also called and paramedics brought him to emergency room. When paramedics reached to his house at that time, the patient's blood sugar was 28. The patient was given D50 and after that his blood sugar improved, but on the way to the ER, the patient's blood sugar dropped to again in 60s and that is why the patient was given oral food and the patient's blood sugar was in 90s and it was still fluctuating. The patient was also found with left lower extremity weakness and his left hand health management consultant was also weak and that is why CT brain was done which was unremarkable other than osseous metastasis. The patient does have chronic low back pain. The patient's family member was not aware of this motor weakness. When I told them he has skull metastasis, family member was not aware of skull metastasis as well. Family member reported that he had recently bone scan which per family member was okay. The patient does not have any incontinence of urine or stool. The patient does not have any sensory symptoms. He did not have any headache. For last one week, the patient was having increasing cough, but no fever, no chills, no upper respiratory symptoms. In the emergency room, the patient was evaluated and found with left lower lobe pneumonia and skull metastasis as well as bony metastasis. The patient is being admitted for further evaluation and treatment. PAST MEDICAL HISTORY: Metastatic prostate cancer, diabetes type 2, chronic kidney disease stage 3, history of large colon polyp, iron deficiency anemia. PAST SURGICAL HISTORY: Polyp removal. PAST PSYCHIATRIC HISTORY: Reviewed and negative. SOCIAL HISTORY: The patient lives at home with family. No history of tobacco, alcohol, or illicit drug abuse. FAMILY HISTORY: No strong family history of premature coronary artery disease, stroke, or cancer. ALLERGIES: NO KNOWN DRUG ALLERGY. CURRENT HOME MEDICATIONS: 1. Lantus subcu daily. 2. Bicalutamide 50 mg daily. 3. Glipizide 2.5 mg daily. 4. Flomax 0.4 mg daily. 5. Prednisone 5 mg twice daily. 6. Aspirin 81 mg daily. 7. Coreg 25 mg twice daily. 8. Zytiga 500 mg p.o. daily. 9. Calcium 1 tablet daily. 10. Vitamin B12 one tablet daily. 11. Amlodipine 2.5 mg daily. 12. Hydralazine 10 mg twice daily. EMERGENCY ROOM COURSE: The patient received aspirin, Rocephin, azithromycin. REVIEW OF SYSTEMS: CONSTITUTIONAL: Negative for weight loss or gain, ability to conduct usual activities. SKIN: Negative for rash, itching. EYES: Negative for double vision, pain. ENT/MOUTH: Negative for nose bleeding, neck stiffness, pain, tenderness. CARDIOVASCULAR: Negative for palpitations, dyspnea on exertion, orthopnea. RESPIRATORY: Negative for shortness of breath, wheezing, cough, hemoptysis, fever or night sweats. GASTROINTESTINAL: Negative for poor appetite, abdominal pain, heartburn, nausea, vomiting, constipation, or diarrhea. GENITOURINARY: Negative for urgency, frequency, dysuria, nocturia. MUSCULOSKELETAL: Negative for pain, swelling. NEUROLOGIC/PSYCHIATRIC: Negative for anxiety, depression. ALLERGY/IMMUNOLOGIC: Negative for skin rash, bleeding tendency. Please see my HPI for pertinent positives and negatives. All other review of systems reviewed and negative except as mentioned in HPI. PHYSICAL EXAMINATION: VITAL SIGNS: Currently, blood pressure 146/92, pulse 99, respiratory rate 20, temperature 97.6, saturation 99% on room air. Weight 54.4 kg. GENERAL: The patient is currently alert and awake, no obvious acute distress. HEENT: Head; normocephalic, atraumatic. Eyes; pupils round, reactive to light. Extraocular muscle intact. ENT, oropharynx within normal limits. Moist mucous membranes. No oral lesion. No pharyngeal erythema. No exudate. NECK: Supple. No JVD. No meningeal signs of irritation. LUNGS: Clear to auscultation without any rhonchi or rales. CARDIAC: S1 and S2 regular without any murmur. No gallop. No rub. ABDOMEN: Soft. Bowel sounds present. Nontender. Nondistended. No organomegaly. No mass. EXTREMITIES: No edema. Good distal pulsation. NEUROLOGIC: The patient is alert and oriented x3. Cranial nerves 2 through 12 intact. The patient does have motor weakness on the left arm with health management consultant power is decreased on the left side. Motor power on the left lower extremity is more reduced than left upper extremity. No cerebellar sign. Speech normal. Sensation intact. SKIN: No skin rash. HEMATOLOGIC: No lymphadenopathy. PSYCHIATRIC: Normal affect. SIGNIFICANT LABORATORY DATA: EKG showing left axis deviation, nonspecific ST-T changes. CT brain reported as no acute intracranial process. Osseous metastasis. Chest x-ray reported as left lower lobe infiltration, small effusion, metastasis. CBC; WBC 7.7, hemoglobin 13.3, MCV 99.8, platelet 161. Sodium 140, potassium 4.6, chloride 113, carbon dioxide 20, BUN 49, creatinine 2.85, glucose 92, calcium 8.9. LFT; AST 29, ALT 15, alkaline phosphatase 72, albumin 3.2. Troponin 0.010. ASSESSMENT: 1. Hypoglycemia associated with type 2 diabetes. 2. Left-sided upper and lower extremity weakness, predominantly left lower extremity, rule out cerebrovascular accident. 3. Left lower lobe community-acquired pneumonia. 4. Metastatic adenocarcinoma of prostate with bone, lung metastasis. 5. Chronic kidney disease, stage 4. 6. Macrocytic anemia. 7. Diabetes type 2. 8. Hypertension. PLAN: Admission to stroke floor. MRI brain. Neurology consultation. Start aspirin 81 mg daily, Lipitor 40 mg p.o. at bedtime. Resume patient's home medication after confirming dose. We will hold on insulin and oral diabetic medication to prevent recurrent hypoglycemia. We will continue with the Rocephin and azithromycin antibiotic while in the hospital for pneumonia. Hypoglycemia precautions. The patient's left lower extremity weakness could be related with spine metastasis, but we will defer further investigation to Neurology. Lovenox 30 mg subcu daily for DVT prophylaxis. Pepcid 20 mg p.o. daily for GI prophylaxis. Code status discussed with the family member and patient is chemical code only. The patient's daughter is surrogate decision maker. Plan of care extensively discussed with the family member at bedside in the emergency room. Job ID: [id number]
--- NOTE | 2019-11-01 16:53 | MRI ---
EXAM: MRI Brain WO Con PROVIDED CLINICAL HISTORY: Left-sided weakness COMPARISON: Brain CT 11/01/2019 FINDINGS: The ventricular system appears normal in size and morphology. There is no evidence for intracranial h emorrhage or mass effect. There is no evidence for restricted diffusion to suggest recent infarction. Chronic microvascular ischemic changes are seen involving the periventricular white matte r and centrum semiovale. The extracranial soft tissues and calvarial marrow signal appear normal. There is preservation of the normal flow voids within the major intracranial vessels. IMPRESSION: No evidence for an acute intracranial abnormality.
[2019-11-01] MEDS: Famotidine 20 MG TAB PO SCH (21:13)
[2019-11-01] MEDS: Atorvastatin Calcium 40 MG TAB PO SCH (21:13)
[2019-11-02] MEDS: Acetaminophen 325 MG TAB PO PRN (03:03)
[2019-11-02 04:50] LABS: #Eosinphils 0.1 thou/uL (0.0-0.7); #Lymphocytes 0.8 thou/uL (1.20-3.40); #Monocytes 0.8 thou/uL (0.11-0.59); %Basophils 0.2 % (0.0-1.0); %Eosinophils 1.4 % (0.0-10.0); %Lymphocytes 12.4 % (21.0-51.0); %Monocytes 11.3 % (0.0-10.0); %Neutrophils 74.8 % (42.0-75.0); Mean Corpuscular HGB CONC 33.7 g/dL (32.0-36.0); Mean Corpuscular Hemoglobin 33.4 pg (27.0-31.0); Mean Corpuscular Volume 99.2 fL (78.0-98.0); Mean Platelet Volume 8.1 fL (7.4-10.4); Platelet Count 136 thou/uL (130-400); RBC Distribution Width 14.8 % (11.5-14.5); White Blood Cell (WBC) Count 6.7 thou/uL (4.8-10.8)
[2019-11-02 05:24] LABS: Anion Gap 11 mmol/L (10-20); BUN (Urea Nitrogen) 50 mg/dL (8.4-25.7); Calc. Creatinine Clearance 23 mL/min (70-130); Calcium 8.1 mg/dL (7.8-10.44); Carbon Dioxide 20 mmol/L (23-31); Cardiac Risk 8.4 (Less than 4.5); Chloride 114 mmol/L (98-107); Cholesterol 295 mg/dl (< 200 Desired); Estimated GFR-MDRD 29; Glucose 66 mg/dL (80-115); HDL Cholesterol 35 mg/dL (>60 Neg Risk); LDL Cholesterol, Calculated 221 mg/dL; Potassium 4.2 mmol/L (3.5-5.1); Sodium 141 mmol/L (136-145); Triglycerides 197 mg/dL (Less than 150)
[2019-11-02] MEDS: Dextrose 5 % And 0.9 % NaCl 1,000 ML IV SCH ×2 (06:13→20:35)
[2019-11-02] MEDS: Enoxaparin Sodium 30 MG/0.3 ML SYRINGE SC SCH (08:42)
[2019-11-02] MEDS: Cyanocobalamin (Vitamin B-12) 1,000 MCG TAB PO SCH (08:42)
[2019-11-02] MEDS: cefTRIAXone\\ROCEPHIN 1 GM in Sodium Chloride 0.9% 100 ML IVPB SCH (08:42)
[2019-11-02] MEDS: Aspirin 81 mg Enteric Coated Tablet PO SCH (08:43)
[2019-11-02] MEDS: Folic Acid 1 MG TAB PO SCH (08:43)
--- NOTE | 2019-11-02 10:02 | MRI ---
EXAM: MRI Lumbar Spine WO Con PROVIDED CLINICAL HISTORY: Left lower extremity weakness, history of prostate cancer COMPARISON: None FINDINGS: Evaluation is limited by patient motion. 5 lumbar vertebral bodies are assumed. Lumbar alignment appe ars normal. Vertebral body heights appear preserved. Widespread foci of diminished T1 and T2 signal are noted throughout the visualized marrow, compatible with metastatic disease. The conus medullaris is normal in signal and terminates at an appropriate level. At L1-2, there is no significant central canal or foraminal narrowing apparent. At L2-3, there is no significant central canal stenosis apparent. There is mild right foraminal narro wing on the basis of an eccentric disc bulge. At L3-4, there is a broad-based disc bulge and bilateral facet arthritis. No significant central temo l stenosis apparent. There is moderate-severe left foraminal narrowing. This is likely on the basis of a combination of disc bulge and facet arthritis. Lack of IV contrast material limits assessment fo r neoplastic causes. At L4-5, there is a broad-based disc bulge and bilateral facet arthritis. There is mild effacement of the left lateral thecal sac due to facet arthritis with mild displacement of the traversing left L5 nerve root. There is moderate-severe left foraminal narrowing on the basis of the centrum semioval e of the disc bulge. At L5-S1, there is a broad-based disc bulge with a superimposed small central disc protrusion. There is mild central canal stenosis. There is moderate bilateral foraminal narrowing. IMPRESSION: 1. Diffuse osseous metastatic disease. 2. Multilevel lumbar disc and facet degenerative change with canal and foraminal narrowing as describ ed
--- NOTE | 2019-11-02 10:02 | CON ---
DATE OF CONSULTATION: 11/02/2019 CONSULTING PHYSICIAN: Hospitalist Service. IMPRESSION: 1. Hypoglycemia with transient left upper extremity weakness. 2. History of prostate cancer with ongoing left leg pain suggestive of a possible metastatic-related radiculopathy. PLAN: 1. Continue aspirin. 2. Glucose management. 3. Review MRI of the lumbar spine. 4. Consider radiation therapy or neurosurgical consultation depending on the findings. HISTORY OF PRESENT ILLNESS: Mr. Wren is a 69-year-old male with a past history of prostate cancer, diabetes, and hypertension. He was at home when he suddenly became unresponsive. EMS was called. He was found to have a blood sugar of 28. He was administered D50. He seemed to regain consciousness after that. He had a CT of the brain done that was unremarkable. In the emergency room, he was thought to have a bit of left hand phy therapist weakness as well as left leg weakness. His family reports he had been complaining of radicular pain in the left leg for the last few days. He is usually very stoic and does not relay information to the family very accurately. They had not noted any significant problems with his gait despite these complaints. He has been followed by Dr. Dumont for his cancer. He has no metastasis to the spine. He had an MRI of the brain since admission, which was normal. His echocardiogram shows a normal ejection fraction of 55% to 60%. His lab work was unremarkable other than a poor lipid ratio of 8.2. PAST MEDICAL HISTORY: As listed above. PAST SURGICAL HISTORY: Polyp removal. ALLERGIES: NONE REPORTED. SOCIAL HISTORY: No tobacco or alcohol use. FAMILY HISTORY: Coronary artery disease, stroke, and cancer. MEDICATIONS: Medication list was reviewed. REVIEW OF SYSTEMS: Ten-system review of systems is otherwise negative. PHYSICAL EXAMINATION: GENERAL: He is a well-nourished elderly man, in no distress. VITAL SIGNS: Blood pressure 146/92, pulse 99, respirations 20, temperature 97.6, and saturations 99%. HEENT: Pupils are equal and reactive. Oropharynx is clear. NECK: Supple. EXTREMITIES: No edema. NEUROLOGIC: He is alert and oriented x3. His cranial nerves are intact. Motor exam was unremarkable. Sensation was intact. There is no tremor or dysmetria. The patient had a hypoglycemic event that resulted in some increased weakness on the left side, hypoglycemic hemiparesis is the likely underlying etiology. We are awaiting his MRI of the lumbar spine to see if there is any evidence of lumbar radiculopathy secondary to his cancer. I agree with your current management of aspirin and starting a statin. Job ID: [id number]
[2019-11-02] MEDS: ZYTIGA 500 MG PO SCH (10:30)
[2019-11-02] MEDS: Azithromycin 500 MG in Sodium Chloride 0.9% 250 ML 250 ML IVPB SCH (11:28)
--- NOTE | 2019-11-02 11:52 | PDOC.HOSPP ---
- Subjective Encounter Date: 11/02/19 Encounter Time: 12:10 Subjective: Patient seen and examined. No new complaints. No overnight events - Objective Vital Signs & Weight: Vital Signs (12 hours) Temp Pulse Resp BP Pulse Ox 11/02/19 11:43 99.6 F 99 16 176/88 H 95 11/02/19 07:53 98.7 F 98 18 144/73 H 95 11/02/19 04:00 99.5 F 99 16 134/77 97 11/02/19 00:00 100.7 F H 103 H 16 156/86 H 96 Weight Weight 135 lb 5.76 oz I&O: 11/01/19 11/02/19 11/03/19 06:59 06:59 06:59 Intake Total 940 Output Total 100 Balance 840 Result Diagrams: 11/02/19 04:26 11/02/19 04:26 Additional Labs: Accuchecks 11/02/19 11/02/19 11/02/19 10:26 05:59 05:33 POC Glucose 151 H 123 H 92 11/02/19 11/02/19 11/01/19 05:20 05:05 17:12 POC Glucose 68 L 59 L* 162 H Radiology Reviewed by me: Yes EKG Reviewed by me: Yes Hospitalist ROS - Review of Systems ENT: denies: ear pain, ear discharge, nose pain, nose discharge, nose congestion , mouth pain, mouth swelling, throat pain, throat swelling, other Respiratory: denies: cough, dry, shortness of breath, hemoptysis, SOB with excertion, pleuritic pain, sputum, wheezing, other Cardiovascular: denies: chest pain, palpitations, orthopnea, paroxysmal noc. dyspnea, edema, light headedness, other Gastrointestinal: denies: nausea, vomiting, abdominal pain, diarrhea, constipation, melena, hematochezia, other Genitourinary: denies: dysuria, frequency, incontinence, hematuria, retention, other Musculoskeletal: denies: neck pain, shoulder pain, arm pain, back pain, hand pain, leg pain, foot pain, other - Medication Medications: Active Medications Generic Name Dose Route Start Last Admin Trade Name Freq PRN Reason Stop Dose Admin Acetaminophen 650 mg 11/01/19 11:19 11/02/19 03:03 Tylenol PO 650 mg Q4H PRN Administration Headache/Fever/Mild Pain (1-3) Aspirin 81 mg 11/02/19 09:00 11/02/19 08:43 Ecotrin PO 81 mg DAILY NEMO Administration Atorvastatin Calcium 40 mg 11/01/19 21:00 11/01/19 21:13 Lipitor PO 40 mg HS NEMO Administration Cyanocobalamin 1,000 mcg 11/02/19 09:00 11/02/19 08:42 Vitamin B-12 PO 1,000 mcg DAILY NEMO Administration Enoxaparin Sodium 30 mg 11/02/19 09:00 11/02/19 08:42 Lovenox SC 30 mg 0900 NEMO Administration Famotidine 20 mg 11/01/19 21:00 11/01/19 21:13 Pepcid PO 20 mg 2100 NEMO Administration Folic Acid 1 mg 11/02/19 09:00 11/02/19 08:43 Folvite PO 1 mg DAILY NEMO Administration Azithromycin 500 mg/ Sodium 250 mls @ 250 mls/hr 11/02/19 10:00 11/02/19 11: 28 Chloride IVPB 250 mls 1000 NEMO Administration Ceftriaxone Sodium 1 gm/ 100 mls @ 200 mls/hr 11/02/19 09:00 11/02/19 08:42 Sodium Chloride IVPB 100 mls 0900 NEMO Administration Dextrose/Sodium Chloride 1,000 mls @ 75 mls/hr 11/02/19 06:00 11/02/19 06:13 D5 0.9% Ns IV 1,000 mls .[id number] NEMO Administration Zytiga (Abiraterone) 2 each 11/02/19 07:30 11/02/19 10:30 500 Mg Tab PO 2 each DAILY-AC NEMO Administration - Exam General Appearance: NAD, awake alert Eye: PERRL, anicteric sclera ENT: normocephalic atraumatic, no oropharyngeal lesions Neck: supple, symmetric, no JVD Heart: RRR, no murmur, no gallops Respiratory: CTAB, no wheezes, no rales Gastrointestinal: soft, non-tender, non-distended Extremities: no clubbing Skin: normal turgor, no lesions Musculoskeletal: normal tone, normal strength Psychiatric: normal affect, normal behavior Hosp A/P (1) Hypoglycemia associated with type 2 diabetes mellitus Code(s): E11.649 - TYPE 2 DIABETES MELLITUS WITH HYPOGLYCEMIA WITHOUT COMA Status: Acute (2) Pneumonia Code(s): J18.9 - PNEUMONIA, UNSPECIFIED ORGANISM Status: Acute (3) Left-sided weakness Code(s): R53.1 - WEAKNESS Status: Acute (4) Weakness generalized Code(s): R53.1 - WEAKNESS Status: Acute (5) CKD (chronic kidney disease) stage 3, GFR 30-59 ml/min Code(s): N18.3 - CHRONIC KIDNEY DISEASE, STAGE 3 (MODERATE) Status: Chronic (6) DM type 2 causing CKD stage 3 Code(s): E11.22 - TYPE 2 DIABETES MELLITUS W DIABETIC CHRONIC KIDNEY DISEASE; N18.3 - CHRONIC KIDNEY DISEASE, STAGE 3 (MODERATE) Status: Chronic Qualifiers: (7) Hypertension Code(s): I10 - ESSENTIAL (PRIMARY) HYPERTENSION Status: Chronic Qualifiers: (8) Metastatic adenocarcinoma to prostate Code(s): C79.82 - SECONDARY MALIGNANT NEOPLASM OF GENITAL ORGANS Status: Chronic - Plan old records reviewed/req, continue antibiotics, PT/OT, marriage and family social worker 11/02/19- mri BRAIN AND ls SPINE REVIEWED, continue empiric antibiotic, PT/.OT, monitor, add solumderol, test result discussed with family
[2019-11-02] MEDS: Atorvastatin Calcium 40 MG TAB PO SCH (20:35)
[2019-11-02] MEDS: Famotidine 20 MG TAB PO SCH (20:35)
[2019-11-03] MEDS: Dextrose 5 % And 0.9 % NaCl 1,000 ML IV SCH ×2 (00:45→21:09)
[2019-11-03] MEDS: Acetaminophen 325 MG TAB PO PRN ×2 (02:48→12:23)
[2019-11-03] MEDS: Aspirin 81 mg Enteric Coated Tablet PO SCH (09:20)
[2019-11-03] MEDS: Folic Acid 1 MG TAB PO SCH (09:20)
[2019-11-03] MEDS: Enoxaparin Sodium 30 MG/0.3 ML SYRINGE SC SCH (09:20)
[2019-11-03] MEDS: cefTRIAXone\\ROCEPHIN 1 GM in Sodium Chloride 0.9% 100 ML IVPB SCH (09:20)
[2019-11-03] MEDS: Cyanocobalamin (Vitamin B-12) 1,000 MCG TAB PO SCH (09:20)
--- NOTE | 2019-11-03 10:19 | PDOC.HOSPP ---
- Subjective Encounter Date: 11/03/19 Encounter Time: 07:40 Subjective: pt had fever last night, still has left leg weakness - Objective Vital Signs & Weight: Vital Signs (12 hours) Temp Pulse Resp BP Pulse Ox 11/03/19 07:00 99 F 104 H 16 157/87 H 93 L 11/03/19 04:15 98.9 F 107 H 18 136/77 93 L 11/02/19 23:33 101.5 F H 108 H 18 158/84 H 97 Weight Weight 135 lb 5.76 oz I&O: 11/02/19 11/03/19 11/04/19 06:59 06:59 06:59 Intake Total 940 1130 Output Total 100 412 Balance 840 718 Result Diagrams: 11/02/19 04:26 11/02/19 04:26 Additional Labs: Accuchecks 11/03/19 11/03/19 11/03/19 05:57 02:41 00:58 POC Glucose 98 138 H 171 H 11/02/19 11/02/19 11/02/19 20:35 16:43 10:26 POC Glucose 127 H 106 151 H Hospitalist ROS - Review of Systems Constitutional: reports: fever, weakness. denies: chills, sweats, malaise, other Respiratory: denies: cough, dry, shortness of breath, hemoptysis, SOB with excertion, pleuritic pain, sputum, wheezing, other Cardiovascular: denies: chest pain, palpitations, orthopnea, paroxysmal noc. dyspnea, edema, light headedness, other Gastrointestinal: denies: nausea, vomiting, abdominal pain, diarrhea, constipation, melena, hematochezia, other Genitourinary: denies: dysuria, frequency, incontinence, hematuria, retention, other Musculoskeletal: denies: neck pain, shoulder pain, arm pain, back pain, hand pain, leg pain, foot pain, other - Medication Medications: Active Medications Generic Name Dose Route Start Last Admin Trade Name Freq PRN Reason Stop Dose Admin Acetaminophen 650 mg 11/01/19 11:19 11/03/19 02:48 Tylenol PO 650 mg Q4H PRN Administration Headache/Fever/Mild Pain (1-3) Aspirin 81 mg 11/02/19 09:00 11/03/19 09:20 Ecotrin PO 81 mg DAILY NEMO Administration Atorvastatin Calcium 40 mg 11/01/19 21:00 11/02/19 20:35 Lipitor PO 40 mg HS NEMO Administration Cyanocobalamin 1,000 mcg 11/02/19 09:00 11/03/19 09:20 Vitamin B-12 PO 1,000 mcg DAILY NEMO Administration Enoxaparin Sodium 30 mg 11/02/19 09:00 11/03/19 09:20 Lovenox SC 30 mg 0900 NEMO Administration Famotidine 20 mg 11/01/19 21:00 11/02/19 20:35 Pepcid PO 20 mg 2100 NEMO Administration Folic Acid 1 mg 11/02/19 09:00 11/03/19 09:20 Folvite PO 1 mg DAILY NEMO Administration Azithromycin 500 mg/ Sodium 250 mls @ 250 mls/hr 11/02/19 10:00 11/02/19 11: 28 Chloride IVPB 250 mls 1000 NEMO Administration Ceftriaxone Sodium 1 gm/ 100 mls @ 200 mls/hr 11/02/19 09:00 11/03/19 09:20 Sodium Chloride IVPB 100 mls 0900 NEMO Administration Dextrose/Sodium Chloride 1,000 mls @ 75 mls/hr 11/02/19 06:00 11/03/19 00:45 D5 0.9% Ns IV 1,000 mls .[id number] NEMO Administration Zytiga (Abiraterone) 2 each 11/02/19 07:30 11/02/19 10:30 500 Mg Tab PO 2 each DAILY-AC NEMO Administration - Exam General Appearance: NAD, awake alert Eye: PERRL, anicteric sclera ENT: normocephalic atraumatic, no oropharyngeal lesions Neck: supple, symmetric, no JVD Heart: RRR, no murmur, no gallops Respiratory: CTAB, no wheezes, no rales Gastrointestinal: soft, non-tender, non-distended Extremities: no cyanosis, no clubbing Skin: normal turgor, no lesions Neurological - other findings: left leg weakness Musculoskeletal: normal tone, normal strength Psychiatric: normal affect, normal behavior Hosp A/P (1) Hypoglycemia associated with type 2 diabetes mellitus Code(s): E11.649 - TYPE 2 DIABETES MELLITUS WITH HYPOGLYCEMIA WITHOUT COMA Status: Acute (2) Pneumonia Code(s): J18.9 - PNEUMONIA, UNSPECIFIED ORGANISM Status: Acute (3) Left-sided weakness Code(s): R53.1 - WEAKNESS Status: Acute (4) Weakness generalized Code(s): R53.1 - WEAKNESS Status: Acute (5) CKD (chronic kidney disease) stage 3, GFR 30-59 ml/min Code(s): N18.3 - CHRONIC KIDNEY DISEASE, STAGE 3 (MODERATE) Status: Chronic (6) DM type 2 causing CKD stage 3 Code(s): E11.22 - TYPE 2 DIABETES MELLITUS W DIABETIC CHRONIC KIDNEY DISEASE; N18.3 - CHRONIC KIDNEY DISEASE, STAGE 3 (MODERATE) Status: Chronic Qualifiers: (7) Hypertension Code(s): I10 - ESSENTIAL (PRIMARY) HYPERTENSION Status: Chronic Qualifiers: (8) Metastatic adenocarcinoma to prostate Code(s): C79.82 - SECONDARY MALIGNANT NEOPLASM OF GENITAL ORGANS Status: Chronic - Plan old records reviewed/req, plan discussed w/ family, continue antibiotics, PT/OT 11/02/19- mri BRAIN AND ls SPINE REVIEWED, continue empiric antibiotic, PT/.OT, monitor, add solumderol, test result discussed with family 11/03/19- oncology consult for weakness and prostate cancer, continue antibiotics, add solumedrol, medication reviewed and continue to provide symptomatic treatment
[2019-11-03] MEDS: Azithromycin 500 MG in Sodium Chloride 0.9% 250 ML 250 ML IVPB SCH (11:20)
[2019-11-03] MEDS: ZYTIGA 500 MG PO SCH (11:20)
[2019-11-03 12:48] LABS: Bacteria/HPF None Seen HPF (None Seen); Squamous Epithelial None Seen HPF (0-3); WBC/HPF 0-3 HPF (0-3)
--- NOTE | 2019-11-03 14:48 | PRG ---
DATE OF SERVICE: 11/03/2019 Mr. Wren still reports some left lower extremity weakness. His MRI of the lumbar spine shows some bony abnormalities, but no evidence of malignant invasion of the nerve roots. He does have a bulging disk at L4-L5 level with secondary foraminal stenosis. This would appear clinically consistent with his complaints of left leg pain and weakness. He appears stable. Otherwise, I think he has had some transient fever and will likely need neurosurgical consultation as an outpatient. Job ID: [id number]
[2019-11-03] MEDS: methylPREDNISolone Sod Succ 40 MG VIAL IVP SCH ×2 (14:58→22:07)
[2019-11-03] MEDS: Famotidine 20 MG TAB PO SCH (21:06)
[2019-11-03] MEDS: Atorvastatin Calcium 40 MG TAB PO SCH (21:06)
[2019-11-04] MEDS: methylPREDNISolone Sod Succ 40 MG VIAL IVP SCH (06:38)
[2019-11-04] MEDS: cefTRIAXone\\ROCEPHIN 1 GM in Sodium Chloride 0.9% 100 ML IVPB SCH (09:09)
[2019-11-04] MEDS: Enoxaparin Sodium 30 MG/0.3 ML SYRINGE SC SCH (09:09)
[2019-11-04] MEDS: Cyanocobalamin (Vitamin B-12) 1,000 MCG TAB PO SCH (09:09)
[2019-11-04] MEDS: Folic Acid 1 MG TAB PO SCH (09:09)
[2019-11-04] MEDS: Aspirin 81 mg Enteric Coated Tablet PO SCH (09:09)
[2019-11-04] MEDS: ZYTIGA 500 MG PO SCH (10:34)
[2019-11-04] MEDS: HumaLOG 300 UNITS/3 ML VIAL SC PRN ×2 (11:07→17:00)
[2019-11-04] MEDS: Azithromycin 500 MG in Sodium Chloride 0.9% 250 ML 250 ML IVPB SCH (11:11)
[2019-11-04] MEDS ORDERED: Acetaminophen/Codeine 30-300mg Tablet PO PRN (11:19)
--- NOTE | 2019-11-04 11:22 | PDOC.HOSPP ---
- Subjective Encounter Date: 11/04/19 Encounter Time: 07:10 Subjective: Patient seen and examined. No new complaints. No overnight events - Objective Vital Signs & Weight: Vital Signs (12 hours) Temp Pulse Resp BP Pulse Ox 11/04/19 07:36 99.9 F H 97 16 165/89 H 97 11/04/19 03:12 97.9 F 106 H 20 176/102 H 98 11/03/19 23:38 98.7 F 97 20 152/86 H 93 L Weight Weight 135 lb 5.76 oz I&O: 11/03/19 11/04/19 11/05/19 06:59 06:59 06:59 Intake Total 1130 420 Output Total 412 120 Balance 718 300 Result Diagrams: 11/02/19 04:26 11/02/19 04:26 Additional Labs: Accuchecks 11/04/19 11/04/19 11/03/19 10:19 05:35 20:19 POC Glucose 328 H 259 H 160 H 11/03/19 17:02 POC Glucose 95 EKG Reviewed by me: Yes Hospitalist ROS - Review of Systems ENT: denies: ear pain, ear discharge, nose pain, nose discharge, nose congestion , mouth pain, mouth swelling, throat pain, throat swelling, other Respiratory: denies: cough, dry, shortness of breath, hemoptysis, SOB with excertion, pleuritic pain, sputum, wheezing, other Cardiovascular: denies: chest pain, palpitations, orthopnea, paroxysmal noc. dyspnea, edema, light headedness, other Gastrointestinal: denies: nausea, vomiting, abdominal pain, diarrhea, constipation, melena, hematochezia, other Genitourinary: denies: dysuria, frequency, incontinence, hematuria, retention, other Musculoskeletal: denies: neck pain, shoulder pain, arm pain, back pain, hand pain, leg pain, foot pain, other - Medication Medications: Active Medications Generic Name Dose Route Start Last Admin Trade Name Freq PRN Reason Stop Dose Admin Acetaminophen 650 mg 11/01/19 11:19 11/03/19 12:23 Tylenol PO 650 mg Q4H PRN Administration Headache/Fever/Mild Pain (1-3) Aspirin 81 mg 11/02/19 09:00 11/04/19 09:09 Ecotrin PO 81 mg DAILY NEMO Administration Atorvastatin Calcium 40 mg 11/01/19 21:00 11/03/19 21:06 Lipitor PO 40 mg HS NEMO Administration Cyanocobalamin 1,000 mcg 11/02/19 09:00 11/04/19 09:09 Vitamin B-12 PO 1,000 mcg DAILY NEMO Administration Enoxaparin Sodium 30 mg 11/02/19 09:00 11/04/19 09:09 Lovenox SC 30 mg 0900 NEMO Administration Famotidine 20 mg 11/01/19 21:00 11/03/19 21:06 Pepcid PO 20 mg 2100 NEMO Administration Folic Acid 1 mg 11/02/19 09:00 11/04/19 09:09 Folvite PO 1 mg DAILY NEMO Administration Azithromycin 500 mg/ Sodium 250 mls @ 250 mls/hr 11/02/19 10:00 11/04/19 11: 11 Chloride IVPB 250 mls 1000 NEMO Administration Ceftriaxone Sodium 1 gm/ 100 mls @ 200 mls/hr 11/02/19 09:00 11/04/19 09:09 Sodium Chloride IVPB 100 mls 0900 NEMO Administration Dextrose/Sodium Chloride 1,000 mls @ 75 mls/hr 11/02/19 06:00 11/03/19 21:09 D5 0.9% Ns IV 1,000 mls .[id number] NEMO Administration Insulin Human Lispro 0 units 11/01/19 11:20 11/04/19 11:07 Humalog SC 5 unit .MILD SLIDING SCALE PRN Administration Mild Correctional Scale Methylprednisolone Sodium Succinate 20 mg 11/03/19 14:00 11/04/19 06:38 Solu-Medrol IVP 20 mg Q8HR NEMO Administration Zytiga (Abiraterone) 2 each 11/02/19 07:30 11/04/19 10:34 500 Mg Tab PO 2 each DAILY-AC NEMO Administration - Exam General Appearance: NAD, awake alert Eye: PERRL, anicteric sclera ENT: normocephalic atraumatic, no oropharyngeal lesions Neck: supple, symmetric, no JVD, no thyromegaly Heart: RRR, no murmur, no gallops, no rubs Respiratory: CTAB, no wheezes, no rales, no ronchi Gastrointestinal: soft, non-tender, non-distended, normal bowel sounds Extremities: no cyanosis, no clubbing Skin: normal turgor, no lesions Neurological - other findings: left side weakness Musculoskeletal: normal tone, normal strength Psychiatric: normal affect, normal behavior, A&O x 3 Hosp A/P (1) Hypoglycemia associated with type 2 diabetes mellitus Code(s): E11.649 - TYPE 2 DIABETES MELLITUS WITH HYPOGLYCEMIA WITHOUT COMA Status: Acute (2) Pneumonia Code(s): J18.9 - PNEUMONIA, UNSPECIFIED ORGANISM Status: Acute (3) Left-sided weakness Code(s): R53.1 - WEAKNESS Status: Acute (4) Weakness generalized Code(s): R53.1 - WEAKNESS Status: Acute (5) CKD (chronic kidney disease) stage 3, GFR 30-59 ml/min Code(s): N18.3 - CHRONIC KIDNEY DISEASE, STAGE 3 (MODERATE) Status: Chronic (6) DM type 2 causing CKD stage 3 Code(s): E11.22 - TYPE 2 DIABETES MELLITUS W DIABETIC CHRONIC KIDNEY DISEASE; N18.3 - CHRONIC KIDNEY DISEASE, STAGE 3 (MODERATE) Status: Chronic Qualifiers: (7) Hypertension Code(s): I10 - ESSENTIAL (PRIMARY) HYPERTENSION Status: Chronic Qualifiers: (8) Metastatic adenocarcinoma to prostate Code(s): C79.82 - SECONDARY MALIGNANT NEOPLASM OF GENITAL ORGANS Status: Chronic - Plan old records reviewed/req, plan discussed w/ family, PT/OT, bilingual social worker 11/02/19- mri BRAIN AND ls SPINE REVIEWED, continue empiric antibiotic, PT/.OT, monitor, add solumderol, test result discussed with family 11/03/19- oncology consult for weakness and prostate cancer, continue antibiotics, add solumedrol, medication reviewed and continue to provide symptomatic treatment 11/04/19- family requesting SNU, consult neurosurgeon as per oncology, continue antibiotics, DC IVF and DC solumedrol, resume home medication,medication reviewed and continue to provide symptomatic treatment
[2019-11-04] MEDS ORDERED: LEUPROLIDE ACETATE IM SCH (11:30)
--- NOTE | 2019-11-04 12:36 | PQF ---
TRISTIN COURTNEY SALIM NOORJIBHAI MD [phone] [facility] [id number] [id number] CLINICAL DOCUMENTATION IMPROVEMENT CLARIFICATION FORM: ICD-10 Updated PLEASE DO AN ADDENDUM TO THE PROGRESS NOTE WITH ANY DOCUMENTATION UPDATES OR ADDITIONS AND CARRY THROUGH TO DC SUMMARY. THANK YOU. DATE: 11/04/2019 ATTN:DR. Cornelio AG Please exercise your independent, professional judgment in responding to the clarification form. Clinical indicators are provided on the bottom of this form for your review. Please check appropriate box(s): [ x ] Encephalopathy: Type: [ ] Acute [ ] Subacute [ ] Chronic Etiology: [ ] Hypertensive [ x ] Metabolic [ ] Toxic [ ] Hepatic with Coma [ ] Hepatic w/o Coma [ ] Hypoxic [ ] Septic [ ] Wernickes [ ] Drug induced: [ ] Unspecified [ ] in the setting of underlying dementia [ ] Other (please specify) [ ] Other diagnosis [ ] Unable to determine In addition, please specify: Present on Admission (POA): [x ] Yes [ ] No [ ] Unable to determine For continuity of documentation, please document condition throughout progress notes and discharge summary. Thank You. CLINICAL INDICATORS - SIGNS / SYMPTOMS / LABS / RESULTS AND LOCATION IN EMR 11/01 GLUCOSE 28 11/02 GLUCOSE 59 11/01 ED REPORT LETHARGIC THIS MORNING WHEN FAMILY WENT TO [place] PT, INITIAL GLUCOSE, (28). PT'S STATES HE WAS "MORE LETHARGIC" THIS MORNING AND WAS NOT RESPONSIVE. FINAL ED PHYSICIAN DX: HYPOGLYCEMIA, LT SIDED WEAKNESS, PNA 11/01 BRAIN MRI IMPRESSION: NO EVIDENCE OF ACUTE INTRACRANIAL ABNORMALITY 11/01 H &P ( [facility]BER[facility]) THE PT WAS FOUND IN HIS LIVING ROOM AND HE WAS DISORIENTED AND NOT RESPONSIVE. RISK: PROSTATE CA W/ SKULL METASTASIS , HYPOGLYCEMIA (KIMBERLI/H&P) 11/02 TREATMENTS: BRAIN MRI 11/01 NEUROLOGY CONSULT 11/02 THANK YOU! JYOTI (This form is maintained as a part of the permanent medical record) 2014 [employer]. All Rights Reserved [email or web address] [phone] [facility]ALTH[facility]
--- NOTE | 2019-11-04 13:36 | PRG ---
DATE OF SERVICE: 11/04/2019 I provided no cost opinion and did not charge the patient for my visit. The reason I did so was that he does not need spine surgery nor is he a candidate for it now or in the future. Briefly, Erich Wren is a 69-year-old gentleman with metastatic prostate cancer. He came in with weakness in the left lower extremity. Imaging of the brain and lumbar spine has been done. On examination, there is proximal more than distal weakness of the left lower extremity. This is in the hip flexors, more so than the anterior tib or the EHL. The MRI scan shows a spine riddled with metastatic disease. A previous bone scan shows some of the skeletal abnormality is metabolically active, which is a bit unusual for prostate cancer and demonstrates its aggressiveness. The burden of disease is so high that he is not a spinal surgery candidate. He is not a brain operation candidate. I recommend physical therapy to treat his weakness, injections in the spine for pain control and a thorough search for any pelvic lesions that could be affecting the peripheral portion of the lumbar nerve roots of the hip flexors or perhaps even some remodeling of the bone around the acetabulum that makes hip flexion difficult. Mr. Wren does not need now nor in the future any neurosurgical consultation. Job ID: [id number]
[2019-11-04] MEDS: hydrALAZINE 10 MG TAB PO SCH (16:42)
[2019-11-04] MEDS: Famotidine 20 MG TAB PO SCH (20:22)
[2019-11-04] MEDS: Carvedilol 6.25 MG TAB PO SCH (20:22)
[2019-11-04] MEDS: predniSONE 5 MG TAB PO SCH (20:22)
[2019-11-04] MEDS: Atorvastatin Calcium 40 MG TAB PO SCH (20:22)
--- NOTE | 2019-11-04 23:10 | CON ---
DATE OF CONSULTATION: REASON FOR CONSULTATION: Metastatic prostate cancer. HISTORY OF PRESENT ILLNESS: A 69-year-old male with metastatic prostate cancer with multiple bone mets, presenting to the hospital with left-sided weakness, altered mental status, and severe hypoglycemia. The patient had been weak and wobbly on walking in the last few days prior to admission and on the day of admission, his found him very altered with limited consciousness and he was found have a blood sugar of 28. He was given D50 and blood sugar improved and dropped again into the 60s while in transit to the ER. He was found to have decreased ergonomics consultant strength in the left hand and weakness in his lower extremity, and had a CT that was negative for any involvement of his brain, any bleeds or strokes, but did show osseous metastatic disease. The patient does not have any incontinence of urine or stool. In regard to his prostate cancer, he was started on treatment in January of this year and is currently on Lupron, Zytiga, and Xgeva with a tremendous response in his PSA from an initial 545 to less than 3 currently. The patient had been started on steroids in the hospital and had an MRI of the lumbar spine, showed diffuse osseous metastatic disease along with multilevel arthritis with moderate to severe left foraminal narrowing at L3-L4 with a broad-based disk bulge with similar findings at L4-L5. The patient was evaluated by Dr. Villarreal in the hospital. Dr. Villarreal mentioned potential Neurosurgery consult. REVIEW OF SYSTEMS: Ten-point review of systems negative except as per HPI. PAST MEDICAL HISTORY: 1. Metastatic prostate cancer. 2. CKD. 3. Anemia. 4. Type 2 diabetes. PAST SURGICAL HISTORY: Polyp removal. SOCIAL HISTORY: Lives at home with his family. No tobacco or alcohol. FAMILY HISTORY: No cancer. ALLERGIES: NO KNOWN DRUG ALLERGIES. CURRENT MEDICATIONS: Reviewed. PHYSICAL EXAMINATION: VITAL SIGNS: Temperature 98.5, pulse 100, saturating 95% on room air, blood pressure 183/106, respirations 16. GENERAL APPEARANCE: The patient is lying in bed, in no acute distress. Respirations are nonlabored and clear. CARDIOVASCULAR: Regular rhythm and rate. MUSCULOSKELETAL: Moves all extremities. NEUROLOGIC: Cranial nerves 2 through 12 are grossly intact. Upper extremity strength is 5/5. Lower extremity strength is 5/5 in the right leg, 5/5 distally in the left leg with approximately 3 to 4/5 proximal strength, mostly decreased strength in the hip flexors. LABORATORY DATA: White blood cells 6.7, hemoglobin 11.0, platelets 136. Sodium 141, potassium 4.2, BUN 50, creatinine 2.67. ASSESSMENT AND PLAN: A 69-year-old male with metastatic prostate cancer, currently on Lupron and Zytiga with good response to treatment. The patient is now presenting with lower extremity weakness, which is mostly proximal on exam with some difficulty walking. His symptoms have improved since starting steroids and his MRI is suggestive of arthritis with some disk bulging and potential need for nerve surgery as per Dr. Villarreal. He requested neurosurgical evaluation and Dr. Prieto reviewed the scans and talked to the family and said no intervention is necessary, though he may require some injections for pain in the future with pain management, but nothing is indicated surgically at this time or likely in the future given extensive metastatic disease to the bone. Recommend continuing the patient's Zytiga in the hospital and can likely titrate down his high-dose steroids and he can continue on his regular dose of prednisone when he is discharged home. He may require outpatient physical therapy at home versus inpatient rehab. We will follow along with you. Job ID: [id number]
[2019-11-05] MEDS: HumaLOG 300 UNITS/3 ML VIAL SC PRN ×4 (01:07→17:52)
[2019-11-05] MEDS ORDERED: Cyanocobalamin (Vitamin B-12) 1,000 MCG TAB PO SCH (09:00)
[2019-11-05] MEDS: hydrALAZINE 10 MG TAB PO SCH ×2 (09:04→17:52)
[2019-11-05] MEDS: Tamsulosin HCl 0.4 MG CAP PO SCH (09:04)
[2019-11-05] MEDS: Enoxaparin Sodium 30 MG/0.3 ML SYRINGE SC SCH (09:04)
[2019-11-05] MEDS: Carvedilol 6.25 MG TAB PO SCH ×2 (09:05→20:20)
[2019-11-05] MEDS: Aspirin 81 mg Enteric Coated Tablet PO SCH (09:05)
[2019-11-05] MEDS: Cyanocobalamin (Vitamin B-12) 1,000 MCG TAB PO SCH (09:05)
[2019-11-05] MEDS: Calcium Carbonate 600 MG TAB PO SCH (09:05)
[2019-11-05] MEDS: predniSONE 5 MG TAB PO SCH ×2 (09:06→20:20)
[2019-11-05] MEDS: cefTRIAXone\\ROCEPHIN 1 GM in Sodium Chloride 0.9% 100 ML IVPB SCH (09:06)
[2019-11-05] MEDS: Folic Acid 1 MG TAB PO SCH (09:06)
[2019-11-05] MEDS: Bicalutamide 50 MG TAB PO SCH (09:06)
[2019-11-05] MEDS: ZYTIGA 500 MG PO SCH (10:27)
[2019-11-05] MEDS: Azithromycin 500 MG in Sodium Chloride 0.9% 250 ML 250 ML IVPB SCH (10:34)
--- NOTE | 2019-11-05 10:35 | PDOC.HOSPP ---
- Subjective Encounter Date: 11/05/19 Encounter Time: 07:00 Subjective: pt is doing well overall, no new complaints, no fever, - Objective Vital Signs & Weight: Vital Signs (12 hours) Temp Pulse Resp BP Pulse Ox 11/05/19 09:04 95 11/05/19 07:47 98.9 F 95 18 147/85 H 93 L 11/05/19 04:20 98.6 F 64 14 134/76 96 11/05/19 00:00 98.3 F 89 14 123/74 98 Weight Weight 135 lb 5.76 oz I&O: 11/04/19 11/05/19 11/06/19 06:59 06:59 06:59 Intake Total 420 Output Total 120 Balance 300 Result Diagrams: 11/02/19 04:26 11/02/19 04:26 Additional Labs: Accuchecks 11/05/19 11/05/19 11/04/19 05:12 01:10 21:04 POC Glucose 190 H 274 H 323 H 11/04/19 11/04/19 16:37 10:19 POC Glucose 309 H 328 H EKG Reviewed by me: Yes Hospitalist ROS - Review of Systems Constitutional: denies: fever, chills, sweats, weakness, malaise, other ENT: denies: ear pain, ear discharge, nose pain, nose discharge, nose congestion , mouth pain, mouth swelling, throat pain, throat swelling, other Respiratory: denies: cough, dry, shortness of breath, hemoptysis, SOB with excertion, pleuritic pain, sputum, wheezing, other Cardiovascular: denies: chest pain, palpitations, orthopnea, paroxysmal noc. dyspnea, edema, light headedness, other Gastrointestinal: denies: nausea, vomiting, abdominal pain, diarrhea, constipation, melena, hematochezia, other Genitourinary: denies: dysuria, frequency, incontinence, hematuria, retention, other Musculoskeletal: denies: neck pain, shoulder pain, arm pain, back pain, hand pain, leg pain, foot pain, other - Medication Medications: Active Medications Generic Name Dose Route Start Last Admin Trade Name Freq PRN Reason Stop Dose Admin Acetaminophen 650 mg 11/01/19 11:19 11/03/19 12:23 Tylenol PO 650 mg Q4H PRN Administration Headache/Fever/Mild Pain (1-3) Aspirin 81 mg 12/21/19 09:00 11/05/19 09:05 Ecotrin PO 81 mg DAILY NEMO Administration Atorvastatin Calcium 40 mg 11/01/19 21:00 11/04/19 20:22 Lipitor PO 40 mg HS NEMO Administration Bicalutamide 50 mg 11/05/19 09:00 11/05/19 09:06 Casodex PO 50 mg DAILY NEMO Administration Calcium Carbonate 1,200 mg 11/05/19 09:00 11/05/19 09:05 Caltrate PO 1,200 mg DAILY NEMO Administration Carvedilol 25 mg 11/04/19 21:00 11/05/19 09:05 Coreg PO 25 mg BID NEMO Administration Cyanocobalamin 1,000 mcg 11/02/19 09:00 11/05/19 09:05 Vitamin B-12 PO 1,000 mcg DAILY NEMO Administration Cyanocobalamin 1,000 mcg 11/05/19 09:00 11/05/19 09:07 Vitamin B-12 PO Not Given DAILY [facility] Enoxaparin Sodium 30 mg 11/02/19 09:00 11/05/19 09:04 Lovenox SC 30 mg 0900 NEMO Administration Famotidine 20 mg 11/01/19 21:00 11/04/19 20:22 Pepcid PO 20 mg 2100 NEMO Administration Folic Acid 1 mg 11/02/19 09:00 11/05/19 09:06 Folvite PO 1 mg DAILY NEMO Administration Hydralazine HCl 10 mg 11/01/19 11:19 11/04/19 13:51 Apresoline SLOW IVP 10 mg Q4H PRN Administration SBP > 180 and HR < 70 Hydralazine HCl 10 mg 11/04/19 17:00 11/05/19 09:04 Apresoline PO 10 mg BID-WM NEMO Administration Azithromycin 500 mg/ Sodium 250 mls @ 250 mls/hr 11/02/19 10:00 11/04/19 11: 11 Chloride IVPB 250 mls 1000 NEMO Administration Ceftriaxone Sodium 1 gm/ 100 mls @ 200 mls/hr 11/02/19 09:00 11/05/19 09:06 Sodium Chloride IVPB 100 mls 0900 NEMO Administration Insulin Human Lispro 0 units 11/01/19 11:20 11/05/19 05:31 Humalog SC 2 unit .MILD SLIDING SCALE PRN Administration Mild Correctional Scale Insulin Human Lispro 0 units 11/01/19 11:20 11/05/19 01:07 Humalog SC 3 unit .BEDTIME SLIDING SC PRN Administration Bedtime Correctional Scale Zytiga (Abiraterone) 2 each 11/02/19 07:30 11/04/19 10:34 500 Mg Tab PO 2 each DAILY-AC NEMO Administration Prednisone 5 mg 11/04/19 21:00 11/05/19 09:06 Prednisone PO 5 mg BID NEMO Administration Tamsulosin HCl 0.4 mg 11/05/19 09:00 11/05/19 09:04 Flomax PO 0.4 mg DAILY NEMO Administration - Exam General Appearance: NAD, awake alert Eye: PERRL, anicteric sclera ENT: normocephalic atraumatic, no oropharyngeal lesions Neck: supple, symmetric, no JVD, no thyromegaly Heart: RRR, no murmur, no gallops, no rubs Respiratory: CTAB, no wheezes, no rales, no ronchi Gastrointestinal: soft, non-tender, non-distended, normal bowel sounds Extremities: no cyanosis, no clubbing, no edema Skin: normal turgor, no lesions Neurological - other findings: mild left leg weakness Musculoskeletal: normal tone, normal strength Psychiatric: normal affect, normal behavior Hosp A/P (1) Hypoglycemia associated with type 2 diabetes mellitus Code(s): E11.649 - TYPE 2 DIABETES MELLITUS WITH HYPOGLYCEMIA WITHOUT COMA Status: Resolved (2) Pneumonia Code(s): J18.9 - PNEUMONIA, UNSPECIFIED ORGANISM Status: Acute (3) Left-sided weakness Code(s): R53.1 - WEAKNESS Status: Acute (4) Weakness generalized Code(s): R53.1 - WEAKNESS Status: Acute (5) CKD (chronic kidney disease) stage 3, GFR 30-59 ml/min Code(s): N18.3 - CHRONIC KIDNEY DISEASE, STAGE 3 (MODERATE) Status: Chronic (6) DM type 2 causing CKD stage 3 Code(s): E11.22 - TYPE 2 DIABETES MELLITUS W DIABETIC CHRONIC KIDNEY DISEASE; N18.3 - CHRONIC KIDNEY DISEASE, STAGE 3 (MODERATE) Status: Chronic Qualifiers: (7) Hypertension Code(s): I10 - ESSENTIAL (PRIMARY) HYPERTENSION Status: Chronic Qualifiers: (8) Metastatic adenocarcinoma to prostate Code(s): C79.82 - SECONDARY MALIGNANT NEOPLASM OF GENITAL ORGANS Status: Chronic - Plan old records reviewed/req, plan discussed w/ family, continue antibiotics, PT/OT , psychiatric social worker supervisor 11/02/19- mri BRAIN AND ls SPINE REVIEWED, continue empiric antibiotic, PT/.OT, monitor, add solumderol, test result discussed with family 11/03/19- oncology consult for weakness and prostate cancer, continue antibiotics, add solumedrol, medication reviewed and continue to provide symptomatic treatment 11/04/19- family requesting SNU, consult neurosurgeon as per oncology, continue antibiotics, DC IVF and DC solumedrol, resume home medication,medication reviewed and continue to provide symptomatic treatment 11/05/19- today pt and family to decide about snu or home with home health, family inclined toward snu, but chemotherapy is problem, if pt can take his own chemo pills at snu, then possible ok to go to snu if bed available, holidays may delay this, otherwise pt is stable for discharge on oral meds, oncology and neurosurgery recommendation noted, discussed with family bedside.
--- NOTE | 2019-11-05 14:28 | EKG ---
Test Reason : Blood Pressure : / mmHG Vent. Rate : 095 BPM Atrial Rate : 095 BPM P-R Int : 154 ms QRS Dur : 076 ms QT Int : 374 ms P-R-T Axes : 070 -62 063 degrees QTc Int : 469 ms Normal sinus rhythm Possible Left atrial enlargement Left axis deviation Possible Lateral infarct , age undetermined Inferior infarct , age undetermined Abnormal ECG Confirmed by ELIZABETH WINTERS MD ([id number]), mapping editor CORAL GONG ([id number]) on 11/05/2019 2:28:40 PM Referred By: Confirmed By:ELIZABETH WINTERS MD
[2019-11-05] MEDS: Famotidine 20 MG TAB PO SCH (20:20)
[2019-11-05] MEDS: Atorvastatin Calcium 40 MG TAB PO SCH (20:20)
[2019-11-06] MEDS: Abiraterone Acetate [Zytiga] 1,000 MG PO SCH ×2 (04:00→10:31)
--- NOTE | 2019-11-06 08:44 | PDOC.HOSPP ---
- Subjective Encounter Date: 11/06/19 Encounter Time: 08:42 Subjective: Patient reports feeling well. No cough, wheezing, CP, SOB. Reports pain is well controlled. He had a BM this morning. No N/V/D/C. No lightheadedness. - Objective Vital Signs & Weight: Vital Signs (12 hours) Temp Pulse Resp BP Pulse Ox 11/06/19 07:46 98.9 F 97 16 179/95 H 94 L 11/06/19 04:05 98.8 F 95 16 157/87 H 97 11/06/19 00:22 99.5 F 94 18 146/81 H 95 Weight Weight 135 lb 5.76 oz I&O: 11/05/19 11/06/19 11/07/19 06:59 06:59 06:59 Intake Total 1800 Output Total 450 Balance 1350 Result Diagrams: 11/02/19 04:26 11/02/19 04:26 Additional Labs: Accuchecks 11/06/19 11/05/19 11/05/19 06:13 21:20 16:56 POC Glucose 153 H 161 H 182 H 11/05/19 10:39 POC Glucose 161 H Hospitalist ROS - Medication Medications: Active Medications Generic Name Dose Route Start Last Admin Trade Name Freq PRN Reason Stop Dose Admin Acetaminophen 650 mg 11/01/19 11:19 11/03/19 12:23 Tylenol PO 650 mg Q4H PRN Administration Headache/Fever/Mild Pain (1-3) Aspirin 81 mg 11/02/19 09:00 11/05/19 09:05 Ecotrin PO 81 mg DAILY NEMO Administration Atorvastatin Calcium 40 mg 11/01/19 21:00 11/05/19 20:20 Lipitor PO 40 mg HS NEMO Administration Bicalutamide 50 mg 11/05/19 09:00 11/05/19 09:06 Casodex PO 50 mg DAILY NEMO Administration Calcium Carbonate 1,200 mg 11/05/19 09:00 11/05/19 09:05 Caltrate PO 1,200 mg DAILY NEMO Administration Carvedilol 25 mg 11/04/19 21:00 11/05/19 20:20 Coreg PO 25 mg BID NEMO Administration Cyanocobalamin 1,000 mcg 11/02/19 09:00 11/05/19 09:05 Vitamin B-12 PO 1,000 mcg DAILY NEMO Administration Famotidine 20 mg 11/01/19 21:00 11/05/19 20:20 Pepcid PO 20 mg 2100 NEMO Administration Folic Acid 1 mg 11/02/19 09:00 11/05/19 09:06 Folvite PO 1 mg DAILY NEMO Administration Hydralazine HCl 10 mg 11/04/19 17:00 11/05/19 17:52 Apresoline PO 10 mg BID-WM NEMO Administration Ceftriaxone Sodium 1 gm/ 100 mls @ 200 mls/hr 11/02/19 09:00 11/05/19 09:06 Sodium Chloride IVPB 100 mls 0900 NEMO Administration Insulin Human Lispro 0 units 11/01/19 11:20 11/05/19 17:52 Humalog SC 2 unit .MILD SLIDING SCALE PRN Administration Mild Correctional Scale Insulin Human Lispro 0 units 11/01/19 11:20 11/05/19 01:07 Humalog SC 3 unit .BEDTIME SLIDING SC PRN Administration Bedtime Correctional Scale Abiraterone Acetate 1 each 11/05/19 09:00 11/06/19 04:00 [Zytiga] 1,000 Mg PO Not Given QAM NEMO Prednisone 5 mg 11/04/19 21:00 11/05/19 20:20 Prednisone PO 5 mg BID NEMO Administration Tamsulosin HCl 0.4 mg 11/05/19 09:00 11/05/19 09:04 Flomax PO 0.4 mg DAILY NEMO Administration - Exam General Appearance: NAD, awake alert ENT: normocephalic atraumatic, no oropharyngeal lesions, moist mucosa Heart: RRR, no murmur, no gallops, no rubs, normal peripheral pulses Respiratory: CTAB, no wheezes, no rales, no ronchi, normal chest expansion, no tachypnea, normal percussion Respiratory - other findings: not using accessory muscles of respiration Gastrointestinal: soft, non-tender, non-distended, normal bowel sounds, no palpable masses Hosp A/P (1) Pneumonia Code(s): J18.9 - PNEUMONIA, UNSPECIFIED ORGANISM Status: Acute Qualifiers: Pneumonia type: due to unspecified organism Laterality: left Lung location: lower lobe of lung Qualified Code(s): J18.9 - Pneumonia, unspecified organism Plan: Continue ceftriaxone Switch azithromycin to PO route Moderate risk due to need for SNF for rehab and risk of falls due to left leg weakness from spinal stenosis and foramen narrowing DC telemetry (2) Spinal stenosis of lumbar region at multiple levels Code(s): M48.061 - SPINAL STENOSIS, LUMBAR REGION WITHOUT NEUROGENIC MARCELO Status: Chronic Plan: Seen by neurology and neurosurgery No surgical intervention SNF for rehab Out patient Neurosurgery follow up (3) DM type 2 causing CKD stage 3 Code(s): E11.22 - TYPE 2 DIABETES MELLITUS W DIABETIC CHRONIC KIDNEY DISEASE; N18.3 - CHRONIC KIDNEY DISEASE, STAGE 3 (MODERATE) Status: Chronic Qualifiers: Diabetes mellitus assisted insulin use: with assisted use Qualified Code( s): E11.22 - Type 2 diabetes mellitus with diabetic chronic kidney disease; N18.3 - Chronic kidney disease, stage 3 (moderate); Z79.4 - computer terminal operator (current) use of insulin Plan: Resume basal insulin at a lower dose Diabetic diet and SSI Renal function stable and at baseline Check RFTs Avoid nephrotoxic meds and hypotension (4) Hypertension Code(s): I10 - ESSENTIAL (PRIMARY) HYPERTENSION Status: Chronic Qualifiers: Hypertension type: essential hypertension Plan: Elevated BP On hydralazine BID Add nifedipine XL today (5) Metastatic adenocarcinoma to prostate Code(s): C79.82 - SECONDARY MALIGNANT NEOPLASM OF GENITAL ORGANS Status: Chronic Plan: Oncology on board - Plan continue antibiotics, out of bed/ambulate, DVT proph w/heparin, dc tele
[2019-11-06 09:08] LABS: #Eosinphils 0.1 thou/uL (0.0-0.7); #Lymphocytes 0.6 thou/uL (1.20-3.40); #Monocytes 0.6 thou/uL (0.11-0.59); #Neutrophils 6.4 thou/uL (1.40-6.50); %Basophils 0.2 % (0.0-1.0); %Lymphocytes 8.2 % (21.0-51.0); %Monocytes 7.6 % (0.0-10.0); %Neutrophils 82.9 % (42.0-75.0); Hemoglobin 11.8 g/dL (14.0-18.0); Mean Corpuscular HGB CONC 33.5 g/dL (32.0-36.0); Mean Corpuscular Hemoglobin 32.9 pg (27.0-31.0); Mean Corpuscular Volume 98.4 fL (78.0-98.0); Mean Platelet Volume 8.3 fL (7.4-10.4); Platelet Count 152 thou/uL (130-400); RBC Distribution Width 14.7 % (11.5-14.5); Red Blood Cell (RBC) Count 3.58 mill/uL (4.70-6.10); White Blood Cell (WBC) Count 7.7 thou/uL (4.8-10.8)
[2019-11-06] MEDS: Calcium Carbonate 600 MG TAB PO SCH (09:15)
[2019-11-06] MEDS: hydrALAZINE 10 MG TAB PO SCH ×2 (09:15→17:49)
[2019-11-06] MEDS: predniSONE 5 MG TAB PO SCH ×2 (09:15→22:03)
[2019-11-06] MEDS: Aspirin 81 mg Enteric Coated Tablet PO SCH (09:15)
[2019-11-06] MEDS: Folic Acid 1 MG TAB PO SCH (09:16)
[2019-11-06] MEDS: Tamsulosin HCl 0.4 MG CAP PO SCH (09:16)
[2019-11-06] MEDS: Cyanocobalamin (Vitamin B-12) 1,000 MCG TAB PO SCH (09:16)
[2019-11-06] MEDS: Carvedilol 6.25 MG TAB PO SCH ×2 (09:16→22:02)
[2019-11-06 09:21] LABS: ALT (SGPT) 15 U/L (8-55); AST (SGOT) 36 U/L (5-34); Albumin 2.8 g/dL (3.4-4.8); Alkaline Phosphatase 80 U/L (40-110); Anion Gap 14 mmol/L (10-20); BUN (Urea Nitrogen) 49 mg/dL (8.4-25.7); Bilirubin, Total 0.5 mg/dL (0.2-1.2); Calc. Creatinine Clearance 19 mL/min (70-130); Calcium 7.4 mg/dL (7.8-10.44); Carbon Dioxide 16 mmol/L (23-31); Chloride 114 mmol/L (98-107); Estimated GFR-MDRD 24; Globulin 2.7 g/dL (2.4-3.5); Glucose 150 mg/dL (80-115); Potassium 4.3 mmol/L (3.5-5.1); Protein, Total 5.5 g/dL (5.8-8.1); Sodium 140 mmol/L (136-145)
[2019-11-06] MEDS: Heparin 5,000 UNITS/ML VIAL SC SCH ×2 (10:28→22:03)
[2019-11-06] MEDS: cefTRIAXone\\ROCEPHIN 1 GM in Sodium Chloride 0.9% 100 ML IVPB SCH (10:28)
[2019-11-06] MEDS: NIFEdipine XL 30 MG TAB PO SCH (10:28)
[2019-11-06] MEDS: Azithromycin 250 MG TAB PO SCH (10:30)
[2019-11-06] MEDS: HumaLOG 300 UNITS/3 ML VIAL SC PRN ×3 (11:49→22:04)
[2019-11-06] MEDS: Bicalutamide 50 MG TAB PO SCH (11:49)
[2019-11-06] MEDS: Famotidine 20 MG TAB PO SCH (22:03)
[2019-11-06] MEDS: Atorvastatin Calcium 40 MG TAB PO SCH (22:03)
[2019-11-07 05:18] LABS: #Lymphocytes 0.5 thou/uL (1.20-3.40); #Monocytes 0.4 thou/uL (0.11-0.59); #Neutrophils 5.5 thou/uL (1.40-6.50); %Basophils 0.1 % (0.0-1.0); %Eosinophils 0.7 % (0.0-10.0); %Lymphocytes 7.6 % (21.0-51.0); %Neutrophils 85.6 % (42.0-75.0); Hemoglobin 10.8 g/dL (14.0-18.0); Mean Corpuscular HGB CONC 33.6 g/dL (32.0-36.0); Mean Corpuscular Volume 98.4 fL (78.0-98.0); Mean Platelet Volume 8.4 fL (7.4-10.4); Platelet Count 152 thou/uL (130-400); RBC Distribution Width 14.7 % (11.5-14.5); Red Blood Cell (RBC) Count 3.28 mill/uL (4.70-6.10); White Blood Cell (WBC) Count 6.4 thou/uL (4.8-10.8)
[2019-11-07 05:45] LABS: Anion Gap 11 mmol/L (10-20); BUN (Urea Nitrogen) 52 mg/dL (8.4-25.7); Calc. Creatinine Clearance 19 mL/min (70-130); Calcium 6.9 mg/dL (7.8-10.44); Carbon Dioxide 17 mmol/L (23-31); Chloride 115 mmol/L (98-107); Estimated GFR-MDRD 23; Glucose 154 mg/dL (80-115); Potassium 4.2 mmol/L (3.5-5.1); Sodium 139 mmol/L (136-145)
[2019-11-07] MEDS ORDERED: Sodium Bicarbonate Tab 325 MG TAB PO SCH (09:00)
[2019-11-07] MEDS: NIFEdipine XL 30 MG TAB PO SCH (09:03)
[2019-11-07] MEDS: Aspirin 81 mg Enteric Coated Tablet PO SCH (09:03)
[2019-11-07] MEDS: Azithromycin 250 MG TAB PO SCH (09:04)
[2019-11-07] MEDS: Calcium Carbonate 600 MG TAB PO SCH (09:04)
[2019-11-07] MEDS: Tamsulosin HCl 0.4 MG CAP PO SCH (09:04)
[2019-11-07] MEDS: Cyanocobalamin (Vitamin B-12) 1,000 MCG TAB PO SCH (09:05)
[2019-11-07] MEDS: hydrALAZINE 10 MG TAB PO SCH ×2 (09:05→16:57)
[2019-11-07] MEDS: Folic Acid 1 MG TAB PO SCH (09:05)
[2019-11-07] MEDS: Carvedilol 6.25 MG TAB PO SCH ×2 (09:05→20:50)
[2019-11-07] MEDS: Bicalutamide 50 MG TAB PO SCH (09:06)
[2019-11-07] MEDS: Heparin 5,000 UNITS/ML VIAL SC SCH ×2 (09:06→20:51)
[2019-11-07] MEDS: predniSONE 5 MG TAB PO SCH ×2 (09:06→21:06)
--- NOTE | 2019-11-07 09:30 | PDOC.HOSPP ---
- Subjective Encounter Date: 11/07/19 Encounter Time: 09:30 Subjective: Patient accompanied by family at bedside. Reports diarrhea with loose bowel movements but no watery diarrhea. No N/V or abdominal pain. No CP, SOB. No fever , chills. Reports pain in back and leg is better. He is ambulating to bathroom with assistance. - Objective Vital Signs & Weight: Vital Signs (12 hours) Temp Pulse Resp BP BP Pulse Ox 11/07/19 09:05 86 143/79 H 11/07/19 09:03 86 143/79 H 11/07/19 08:09 96 11/07/19 08:00 98.8 F 86 16 143/79 H 96 11/07/19 04:00 99.5 F 85 16 139/79 96 11/06/19 23:58 98.9 F 94 20 127/76 93 L 11/06/19 22:02 117/72 Weight Weight 135 lb 5.76 oz I&O: 11/06/19 11/07/19 11/08/19 06:59 06:59 06:59 Intake Total 1800 480 Output Total 450 350 Balance 1350 130 Result Diagrams: 11/07/19 04:52 11/07/19 04:52 Additional Labs: Accuchecks 11/07/19 11/06/19 11/06/19 06:11 21:33 16:59 POC Glucose 154 H 214 H 169 H 11/06/19 10:51 POC Glucose 225 H Hospitalist ROS - Medication Medications: Active Medications Generic Name Dose Route Start Last Admin Trade Name Freq PRN Reason Stop Dose Admin Acetaminophen 650 mg 11/01/19 11:19 11/03/19 12:23 Tylenol PO 650 mg Q4H PRN Administration Headache/Fever/Mild Pain (1-3) Aspirin 81 mg 11/02/19 09:00 11/07/19 09:03 Ecotrin PO 81 mg DAILY NEMO Administration Atorvastatin Calcium 40 mg 11/01/19 21:00 11/06/19 22:03 Lipitor PO 40 mg HS NEMO Administration Azithromycin 500 mg 11/06/19 09:00 11/07/19 09:04 Zithromax PO 500 mg DAILY NEMO Administration Bicalutamide 50 mg 11/05/19 09:00 11/07/19 09:06 Casodex PO 50 mg DAILY NEMO Administration Calcium Carbonate 1,200 mg 11/05/19 09:00 11/07/19 09:04 Caltrate PO 1,200 mg DAILY NEMO Administration Carvedilol 25 mg 11/04/19 21:00 11/07/19 09:05 Coreg PO 25 mg BID NEMO Administration Cyanocobalamin 1,000 mcg 11/02/19 09:00 11/07/19 09:05 Vitamin B-12 PO 1,000 mcg DAILY NEMO Administration Folic Acid 1 mg 11/02/19 09:00 11/07/19 09:05 Folvite PO 1 mg DAILY NEMO Administration Heparin Sodium (Porcine) 5,000 units 11/06/19 09:00 11/07/19 09:06 Heparin SC 5,000 units BID NEMO Administration Hydralazine HCl 10 mg 11/04/19 17:00 11/07/19 09:05 Apresoline PO 10 mg BID-WM NEMO Administration Ceftriaxone Sodium 1 gm/ 100 mls @ 200 mls/hr 11/02/19 09:00 11/06/19 10:28 Sodium Chloride IVPB 100 mls 0900 NEMO Administration Insulin Human Lispro 0 units 11/01/19 11:20 11/06/19 17:49 Humalog SC 2 unit .MILD SLIDING SCALE PRN Administration Mild Correctional Scale Insulin Human Lispro 0 units 11/01/19 11:20 11/06/19 22:04 Humalog SC 2 unit .BEDTIME SLIDING SC PRN Administration Bedtime Correctional Scale Nifedipine 30 mg 11/06/19 09:00 11/07/19 09:03 Procardia Xl PO 30 mg DAILY NEMO Administration Abiraterone Acetate 1 each 11/05/19 09:00 11/06/19 10:31 [Zytiga] 1,000 Mg PO 1 each QAM NEMO Administration Prednisone 5 mg 11/04/19 21:00 11/07/19 09:06 Prednisone PO 5 mg BID NEMO Administration Sodium Chloride 10 ml 11/01/19 11:19 11/06/19 09:18 Flush - Normal Saline IVF 10 ml PRN PRN Administration Saline Flush Tamsulosin HCl 0.4 mg 11/05/19 09:00 11/07/19 09:04 Flomax PO 0.4 mg DAILY NEMO Administration - Exam General Appearance: NAD, awake alert ENT: normocephalic atraumatic, no oropharyngeal lesions Neck: supple, no thyromegaly Heart: RRR, no murmur, no rubs Respiratory: CTAB, no wheezes, normal chest expansion Gastrointestinal: soft, non-tender, non-distended, normal bowel sounds Hosp A/P (1) Pneumonia Code(s): J18.9 - PNEUMONIA, UNSPECIFIED ORGANISM Status: Acute Qualifiers: Pneumonia type: due to unspecified organism Laterality: left Lung location: lower lobe of lung Qualified Code(s): J18.9 - Pneumonia, unspecified organism (2) Spinal stenosis of lumbar region at multiple levels Code(s): M48.061 - SPINAL STENOSIS, LUMBAR REGION WITHOUT NEUROGENIC MARCELO Status: Chronic (3) DM type 2 causing CKD stage 3 Code(s): E11.22 - TYPE 2 DIABETES MELLITUS W DIABETIC CHRONIC KIDNEY DISEASE; N18.3 - CHRONIC KIDNEY DISEASE, STAGE 3 (MODERATE) Status: Chronic Qualifiers: Diabetes mellitus intermediate project manager insulin use: with mcc use Qualified Code( s): E11.22 - Type 2 diabetes mellitus with diabetic chronic kidney disease; N18.3 - Chronic kidney disease, stage 3 (moderate); Z79.4 - intermediate project manager (current) use of insulin (4) Hypertension Code(s): I10 - ESSENTIAL (PRIMARY) HYPERTENSION Status: Chronic Qualifiers: Hypertension type: essential hypertension Qualified Code(s): I10 - Essential (primary) hypertension (5) Metastatic adenocarcinoma to prostate Code(s): C79.82 - SECONDARY MALIGNANT NEOPLASM OF GENITAL ORGANS Status: Chronic - Plan plan discussed w/ family, DVT proph w/heparin Hosp A/P (1) Pneumonia Code(s): J18.9 - PNEUMONIA, UNSPECIFIED ORGANISM Status: Acute Qualifiers: Pneumonia type: due to unspecified organism Laterality: left Lung location: lower lobe of lung Qualified Code(s): J18.9 - Pneumonia, unspecified organism Plan: Continue ceftriaxone and azithromycin Moderate risk due to need for SNF for rehab and risk of falls due to left leg weakness from spinal stenosis and foramen narrowing Awaiting clarification on whether he can get chemo meds at SNF/rehab (2) Spinal stenosis of lumbar region at multiple levels Code(s): M48.061 - SPINAL STENOSIS, LUMBAR REGION WITHOUT NEUROGENIC MARCELO Status: Chronic Plan: Seen by neurology and neurosurgery No surgical intervention SNF for rehab Out patient Neurosurgery follow up after discharge (3) DM type 2 causing CKD stage 4 Code(s): E11.22 - TYPE 2 DIABETES MELLITUS W DIABETIC CHRONIC KIDNEY DISEASE; N18.3 - CHRONIC KIDNEY DISEASE, STAGE 3 (MODERATE) Status: Chronic Qualifiers: Diabetes mellitus intermediate project manager insulin use: with mcc use Qualified Code( s): E11.22 - Type 2 diabetes mellitus with diabetic chronic kidney disease; N18.3 - Chronic kidney disease, stage 3 (moderate); Z79.4 - intermediate project manager (current) use of insulin Plan: Continue basal insulin, Diabetic diet and SSI Renal function stable and at baseline Renal consulted. Case DW Dr. Bright. Patient has some acidosis I've started bicarbonate supplementation Will await further recommendations from nephrology Avoid nephrotoxic meds and hypotension (4) Hypertension Code(s): I10 - ESSENTIAL (PRIMARY) HYPERTENSION Status: Chronic Qualifiers: Hypertension type: essential hypertension Plan: Elevated BP On hydralazine BID Continue nifedipine XL Monitor BP and adjust meds as needed (5) Metastatic adenocarcinoma to prostate Code(s): C79.82 - SECONDARY MALIGNANT NEOPLASM OF GENITAL ORGANS Status: Chronic Plan: Oncology on board Continue current meds
[2019-11-07] MEDS: cefTRIAXone\\ROCEPHIN 1 GM in Sodium Chloride 0.9% 100 ML IVPB SCH (10:47)
[2019-11-07] MEDS: Abiraterone Acetate [Zytiga] 1,000 MG PO SCH (10:48)
[2019-11-07] MEDS: HumaLOG 300 UNITS/3 ML VIAL SC PRN ×3 (10:50→20:52)
[2019-11-07] MEDS ORDERED: Sodium Chloride 0.9% 500 ML IV SCH (13:15)
--- NOTE | 2019-11-07 13:37 | CON ---
DATE OF CONSULTATION: 11/07/2019 CONSULTING PHYSICIAN: Dr. Betts. REASON FOR CONSULTATION: Acute kidney injury, chronic kidney disease, and acidosis. REASON FOR ADMISSION: Hypoglycemia, weakness. HISTORY OF PRESENT ILLNESS: A 69-year-old male with history of prostate cancer, type 2 diabetes, CKD, came to the hospital with above complaints and was found to have acute kidney injury. His creatinine is slowly rising up. His baseline creatinine is around 2.4 and was found to be 3.2 today. The patient denies any nausea or vomiting. No chest pain or palpitation. PAST MEDICAL HISTORY: Positive for metastatic prostate cancer, type 2 diabetes, CKD, colon cancer, and iron-deficiency anemia. PAST SURGICAL HISTORY: Polyp removal. HOME MEDICATIONS: 1. Lantus. 2. Bicalutamide. 3. Glipizide. 4. Flomax. 5. Prednisone. 6. Aspirin. 7. Coreg. 8. Zytiga. 9. Calcium. 10. Vitamin B12. 11. Amlodipine. 12. Hydralazine. ALLERGIES: NO KNOWN DRUG ALLERGIES. SOCIAL HISTORY: No smoking, alcohol, or drugs. FAMILY HISTORY: No history of any kidney disease. REVIEW OF SYSTEMS: CONSTITUTIONAL: Negative for weight loss or gain, ability to conduct usual activities. SKIN: Negative for rash, itching. EYES: Negative for double vision, pain. ENT/MOUTH: Negative for nose bleeding, neck stiffness, pain, tenderness. CARDIOVASCULAR: Negative for palpitations, dyspnea on exertion, orthopnea. RESPIRATORY: Negative for shortness of breath, wheezing, cough, hemoptysis, fever or night sweats. GASTROINTESTINAL: Negative for poor appetite, abdominal pain, heartburn, nausea, vomiting, constipation, or diarrhea. GENITOURINARY: Negative for urgency, frequency, dysuria, nocturia. MUSCULOSKELETAL: Negative for pain, swelling. NEUROLOGIC/PSYCHIATRIC: Negative for anxiety, depression. ALLERGY/IMMUNOLOGIC: Negative for skin rash, bleeding tendency. Rest all negative review of systems. PHYSICAL EXAMINATION: GENERAL: This is a well-built male, in no apparent distress. VITAL SIGNS: Temperature 99.4, pulse 89, respiratory rate 16, and blood pressure 146/80. LABORATORY DATA: Potassium 4.2, BUN is 52, and creatinine is 3.2. ASSESSMENT AND PLAN: 1. Acute kidney injury on chronic kidney disease stage 3. We will check renal ultrasound. Medication list reviewed. No nephrotoxins identified. Avoid nephrotoxins. Renally dose the medications. We will follow. 2. Acidosis. We will increase sodium bicarb. 3. Anemia. 4. Edema, controlled. 5. History of hypertension, stable. 6. Hypocalcemia, on calcium supplements. We will check renal ultrasound and monitor the renal function. Job ID: [id number]
--- NOTE | 2019-11-07 14:33 | ULT ---
Renal ultrasound: 11/07/2019 COMPARISON: None HISTORY: Acute renal insufficiency, evaluate for hydronephrosis TECHNIQUE: Multiplanar grayscale sonographic imaging of the kidneys and urinary bladder obtained. FINDINGS: Right kidney measures 10.2 x 4.1 x 5.4 cm. Left kidney measures 11.4 x 5.3 x 5.8 cm. No renal mass, hydronephrosis, or renal stone noted on either side. Imaging of the urinary bladder appears grossly unremarkable. Incidental note is made of a incompletel y imaged right pleural effusion. IMPRESSION: No hydronephrosis.
[2019-11-07] MEDS: Sodium Bicarbonate Tab 325 MG TAB PO SCH ×2 (15:39→20:50)
[2019-11-07] MEDS: Atorvastatin Calcium 40 MG TAB PO SCH (20:50)
[2019-11-07] MEDS: HYDROcodone/Acetaminophen 5/325 mg Tablet PO PRN (23:17)
[2019-11-08 05:22] LABS: #Basophils 0.1 thou/uL (0.0-0.2); #Eosinphils 0.2 thou/uL (0.0-0.7); #Lymphocytes 0.8 thou/uL (1.20-3.40); #Monocytes 0.5 thou/uL (0.11-0.59); #Neutrophils 4.2 thou/uL (1.40-6.50); %Basophils 0.9 % (0.0-1.0); %Eosinophils 2.7 % (0.0-10.0); %Lymphocytes 14.1 % (21.0-51.0); %Monocytes 9.4 % (0.0-10.0); %Neutrophils 72.9 % (42.0-75.0); Hemoglobin 10.7 g/dL (14.0-18.0); Mean Corpuscular HGB CONC 34.5 g/dL (32.0-36.0); Mean Corpuscular Hemoglobin 33.8 pg (27.0-31.0); Mean Corpuscular Volume 98.1 fL (78.0-98.0); Mean Platelet Volume 8.7 fL (7.4-10.4); Platelet Count 155 thou/uL (130-400); RBC Distribution Width 14.6 % (11.5-14.5); Red Blood Cell (RBC) Count 3.18 mill/uL (4.70-6.10); White Blood Cell (WBC) Count 5.7 thou/uL (4.8-10.8)
[2019-11-08 05:44] LABS: Anion Gap 10 mmol/L (10-20); BUN (Urea Nitrogen) 47 mg/dL (8.4-25.7); Calc. Creatinine Clearance 18 mL/min (70-130); Calcium 6.8 mg/dL (7.8-10.44); Carbon Dioxide 19 mmol/L (23-31); Chloride 115 mmol/L (98-107); Estimated GFR-MDRD 22; Glucose 139 mg/dL (80-115); Potassium 3.7 mmol/L (3.5-5.1); Sodium 140 mmol/L (136-145)
[2019-11-08] MEDS: cefTRIAXone\\ROCEPHIN 1 GM in Sodium Chloride 0.9% 100 ML IVPB SCH (08:12)
[2019-11-08] MEDS: Cyanocobalamin (Vitamin B-12) 1,000 MCG TAB PO SCH (08:13)
[2019-11-08] MEDS: Sodium Bicarbonate Tab 325 MG TAB PO SCH ×3 (08:13→20:16)
[2019-11-08] MEDS: Carvedilol 6.25 MG TAB PO SCH ×2 (08:13→20:16)
[2019-11-08] MEDS: Azithromycin 250 MG TAB PO SCH (08:13)
[2019-11-08] MEDS: Aspirin 81 mg Enteric Coated Tablet PO SCH (08:13)
[2019-11-08] MEDS: NIFEdipine XL 30 MG TAB PO SCH (08:13)
[2019-11-08] MEDS: Folic Acid 1 MG TAB PO SCH (08:14)
[2019-11-08] MEDS: Tamsulosin HCl 0.4 MG CAP PO SCH (08:14)
[2019-11-08] MEDS: Heparin 5,000 UNITS/ML VIAL SC SCH ×2 (08:14→20:17)
[2019-11-08] MEDS: hydrALAZINE 10 MG TAB PO SCH (08:15)
[2019-11-08] MEDS: Bicalutamide 50 MG TAB PO SCH (08:15)
[2019-11-08] MEDS: Calcium Carbonate 600 MG TAB PO SCH (08:15)
[2019-11-08] MEDS: Abiraterone Acetate [Zytiga] 1,000 MG PO SCH (08:16)
[2019-11-08] MEDS: predniSONE 5 MG TAB PO SCH ×2 (08:35→21:31)
--- NOTE | 2019-11-08 11:04 | PDOC.HOSPP ---
- Subjective Encounter Date: 11/08/19 Encounter Time: 10:40 Subjective: Patient continues to report loose bowel movements but denies watery diarrhea. No abdominal pain, nausea or vomiting. No fever, chills, CP, SOB. - Objective Vital Signs & Weight: Vital Signs (12 hours) Temp Pulse Resp BP BP Pulse Ox 11/08/19 08:15 85 11/08/19 08:13 85 127/71 11/08/19 07:24 98.6 F 85 18 151/82 H 98 11/08/19 04:31 98.6 F 82 16 129/69 94 L 11/07/19 23:58 98.5 F 85 16 127/73 94 L Weight Weight 135 lb 5.76 oz I&O: 11/07/19 11/08/19 11/09/19 06:59 06:59 06:59 Intake Total 480 1300 Output Total 350 375 Balance 130 925 Result Diagrams: 11/08/19 04:39 11/08/19 04:39 Additional Labs: Accuchecks 11/08/19 11/08/19 11/07/19 10:49 05:27 20:20 POC Glucose 229 H 142 H 249 H 11/07/19 11/07/19 16:08 10:53 POC Glucose 240 H 243 H Hospitalist ROS - Medication Medications: Active Medications Generic Name Dose Route Start Last Admin Trade Name Freq PRN Reason Stop Dose Admin Acetaminophen 650 mg 11/01/19 11:19 11/03/19 12:23 Tylenol PO 650 mg Q4H PRN Administration Headache/Fever/Mild Pain (1-3) Hydrocodone Bitart/Acetaminophen 1 tab 11/01/19 11:19 11/07/19 23:17 [place] 5/325 PO 1 tab Q4H PRN Administration Moderate Pain (4-6) Aspirin 81 mg 11/02/19 09:00 11/08/19 08:13 Ecotrin PO 81 mg DAILY NEMO Administration Atorvastatin Calcium 40 mg 11/01/19 21:00 11/07/19 20:50 Lipitor PO 40 mg HS NEMO Administration Bicalutamide 50 mg 11/05/19 09:00 11/08/19 08:15 Casodex PO 50 mg DAILY NEMO Administration Calcium Carbonate 1,200 mg 11/05/19 09:00 11/08/19 08:15 Caltrate PO 1,200 mg DAILY NEMO Administration Carvedilol 25 mg 11/04/19 21:00 11/08/19 08:13 Coreg PO 25 mg BID NEMO Administration Cyanocobalamin 1,000 mcg 11/02/19 09:00 11/08/19 08:13 Vitamin B-12 PO 1,000 mcg DAILY NEMO Administration Folic Acid 1 mg 11/02/19 09:00 11/08/19 08:14 Folvite PO 1 mg DAILY NEMO Administration Heparin Sodium (Porcine) 5,000 units 11/06/19 09:00 11/08/19 08:14 Heparin SC 5,000 units BID NEMO Administration Insulin Human Lispro 0 units 11/01/19 11:20 11/07/19 16:35 Humalog SC 3 unit .MILD SLIDING SCALE PRN Administration Mild Correctional Scale Insulin Human Lispro 0 units 11/01/19 11:20 11/07/19 20:52 Humalog SC 2 unit .BEDTIME SLIDING SC PRN Administration Bedtime Correctional Scale Nifedipine 30 mg 11/06/19 09:00 11/08/19 08:13 Procardia Xl PO 30 mg DAILY NEMO Administration Abiraterone Acetate 1 each 11/05/19 09:00 11/08/19 08:16 [Zytiga] 1,000 Mg PO 1 each QAM NEMO Administration Prednisone 5 mg 11/04/19 21:00 11/08/19 08:35 Prednisone PO 5 mg BID NEMO Administration Sodium Bicarbonate 650 mg 11/07/19 15:00 11/08/19 08:13 Bicarbonate, Sodium PO 650 mg TID NEMO Administration Sodium Chloride 10 ml 11/01/19 11:19 11/06/19 09:18 Flush - Normal Saline IVF 10 ml PRN PRN Administration Saline Flush Tamsulosin HCl 0.4 mg 11/05/19 09:00 11/08/19 08:14 Flomax PO 0.4 mg DAILY NEMO Administration - Exam General Appearance: awake alert, ill appearing ENT: normocephalic atraumatic, moist mucosa Neck: supple, symmetric, no thyromegaly, no lymphadenopathy Heart: RRR, no murmur, no gallops, normal peripheral pulses Respiratory: CTAB, no wheezes, no rales, no ronchi, normal chest expansion Gastrointestinal: soft, non-tender, non-distended, normal bowel sounds Hosp A/P (1) Pneumonia Code(s): J18.9 - PNEUMONIA, UNSPECIFIED ORGANISM Status: Acute Qualifiers: Pneumonia type: due to unspecified organism Laterality: left Lung location: lower lobe of lung Qualified Code(s): J18.9 - Pneumonia, unspecified organism (2) Spinal stenosis of lumbar region at multiple levels Code(s): M48.061 - SPINAL STENOSIS, LUMBAR REGION WITHOUT NEUROGENIC MARCELO Status: Chronic (3) DM type 2 causing CKD stage 3 Code(s): E11.22 - TYPE 2 DIABETES MELLITUS W DIABETIC CHRONIC KIDNEY DISEASE; N18.3 - CHRONIC KIDNEY DISEASE, STAGE 3 (MODERATE) Status: Chronic Qualifiers: Diabetes mellitus intermediate insulin use: with breast trimmer use Qualified Code( s): E11.22 - Type 2 diabetes mellitus with diabetic chronic kidney disease; N18.3 - Chronic kidney disease, stage 3 (moderate); Z79.4 - MCFP (current) use of insulin (4) Hypertension Code(s): I10 - ESSENTIAL (PRIMARY) HYPERTENSION Status: Chronic Qualifiers: Hypertension type: essential hypertension Qualified Code(s): I10 - Essential (primary) hypertension (5) Metastatic adenocarcinoma to prostate Code(s): C79.82 - SECONDARY MALIGNANT NEOPLASM OF GENITAL ORGANS Status: Chronic - Plan Hosp A/P (1) Pneumonia Code(s): J18.9 - PNEUMONIA, UNSPECIFIED ORGANISM Status: Acute Qualifiers: Pneumonia type: due to unspecified organism Laterality: left Lung location: lower lobe of lung Qualified Code(s): J18.9 - Pneumonia, unspecified organism Plan: s/p 7 days of abx DC ABX today Awaiting clarification on whether he can get chemo meds at SNF/rehab (2) Spinal stenosis of lumbar region at multiple levels Code(s): M48.061 - SPINAL STENOSIS, LUMBAR REGION WITHOUT NEUROGENIC MARCELO Status: Chronic Plan: Seen by neurology and neurosurgery No surgical intervention SNF for rehab Out patient Neurosurgery follow up after discharge (3) DM type 2 causing CKD stage 4 Code(s): E11.22 - TYPE 2 DIABETES MELLITUS W DIABETIC CHRONIC KIDNEY DISEASE; N18.3 - CHRONIC KIDNEY DISEASE, STAGE 3 (MODERATE) Status: Chronic Qualifiers: Diabetes mellitus breast trimmer insulin use: with intermediate use Qualified Code( s): E11.22 - Type 2 diabetes mellitus with diabetic chronic kidney disease; N18.3 - Chronic kidney disease, stage 3 (moderate); Z79.4 - activity therapy specialist (current) use of insulin Plan: Continue basal insulin, Diabetic diet and SSI HA1C of 6.8 Monitor sugars Complicated by KASSIDY on CKD-4 Renal on board. Pt. started on IVF for KASSIDY Patient has acidosis. Bicarb dose increased by nephrology Avoid nephrotoxic meds and hypotension (4) Hypertension Code(s): I10 - ESSENTIAL (PRIMARY) HYPERTENSION Status: Chronic Qualifiers: Hypertension type: essential hypertension Plan: BP well controlled DC hydralazine BID Continue nifedipine XL Monitor BP and adjust meds as needed (5) Metastatic adenocarcinoma to prostate Code(s): C79.82 - SECONDARY MALIGNANT NEOPLASM OF GENITAL ORGANS Status: Chronic Plan: Oncology on board Continue current meds Palliative care consulted
[2019-11-08] MEDS: HumaLOG 300 UNITS/3 ML VIAL SC PRN ×3 (12:05→20:29)
--- NOTE | 2019-11-08 14:13 | PRG ---
DATE OF SERVICE: 11/08/2019 SUBJECTIVE: Patient was seen and examined at bedside and overnight events noted. Patient denies any shortness of breath or chest pain or palpitation. No history of nausea or vomiting or diarrhea or fever or chills or cramps. OBJECTIVE: GENERAL: This is a well-built male, in no apparent distress. VITAL SIGNS: Temperature 98.1. Heart rate 92. Respiratory rate 18. Blood pressure 105/65. HEENT: Atraumatic, normocephalic. Oral mucosa is moist NECK: Supple. CARDIOVASCULAR: S1, S2 heard. Rate and rhythm regular. RESPIRATORY: Clear to auscultation. GASTROINTESTINAL: Abdomen is soft. MUSCULOSKELETAL: No tenderness. No edema. DERMATOLOGIC: No skin rash. NEUROLOGIC: Alert and awake and oriented X3. No focal neurologic deficits. Moving all the extremities. PSYCHIATRIC: Mood and affect normal. LABORATORY DATA: Potassium 3.7, BUN is 47, and creatinine is 3.3. ASSESSMENT AND PLAN: 1. Acute kidney injury on chronic kidney disease, stage 4. Ultrasound was unremarkable. We will plan to have IV fluids. The patient is complaining of diarrhea. 2. Acidosis, most likely from diarrhea. 3. Anemia. 4. Edema, controlled. 5. Hypertension. 6. Hypocalcemia, on supplements. We will discuss to start on IV fluids and monitor. Job ID: [id number]
[2019-11-08] MEDS: Sodium Chloride 0.9% 1,000 ML IV SCH ×3 (15:12→23:15)
[2019-11-08] MEDS: Atorvastatin Calcium 40 MG TAB PO SCH (20:17)
[2019-11-08] MEDS: HYDROcodone/Acetaminophen 5/325 mg Tablet PO PRN (20:27)
[2019-11-09] MEDS: Sodium Chloride 0.9% 1,000 ML IV SCH ×3 (06:14→22:45)
[2019-11-09 06:51] LABS: #Eosinphils 0.1 thou/uL (0.0-0.7); #Lymphocytes 0.5 thou/uL (1.20-3.40); #Monocytes 0.4 thou/uL (0.11-0.59); #Neutrophils 6.7 thou/uL (1.40-6.50); %Basophils 0.6 % (0.0-1.0); %Eosinophils 0.7 % (0.0-10.0); %Lymphocytes 6.1 % (21.0-51.0); %Monocytes 5.7 % (0.0-10.0); Hemoglobin 11.5 g/dL (14.0-18.0); Mean Corpuscular HGB CONC 33.6 g/dL (32.0-36.0); Mean Corpuscular Volume 98.3 fL (78.0-98.0); Mean Platelet Volume 7.9 fL (7.4-10.4); Platelet Count 174 thou/uL (130-400); RBC Distribution Width 14.6 % (11.5-14.5); Red Blood Cell (RBC) Count 3.49 mill/uL (4.70-6.10); White Blood Cell (WBC) Count 7.7 thou/uL (4.8-10.8)
[2019-11-09 07:11] LABS: Anion Gap 12 mmol/L (10-20); BUN (Urea Nitrogen) 44 mg/dL (8.4-25.7); Calc. Creatinine Clearance 18 mL/min (70-130); Calcium 6.7 mg/dL (7.8-10.44); Carbon Dioxide 17 mmol/L (23-31); Chloride 114 mmol/L (98-107); Estimated GFR-MDRD 22; Glucose 210 mg/dL (80-115); Potassium 4.1 mmol/L (3.5-5.1); Sodium 139 mmol/L (136-145)
[2019-11-09] MEDS: Sodium Bicarbonate Tab 325 MG TAB PO SCH ×3 (09:29→21:41)
[2019-11-09] MEDS: Cyanocobalamin (Vitamin B-12) 1,000 MCG TAB PO SCH (09:31)
[2019-11-09] MEDS: Carvedilol 6.25 MG TAB PO SCH ×2 (09:31→21:39)
[2019-11-09] MEDS: NIFEdipine XL 30 MG TAB PO SCH (09:31)
[2019-11-09] MEDS: Aspirin 81 mg Enteric Coated Tablet PO SCH (09:31)
[2019-11-09] MEDS: Tamsulosin HCl 0.4 MG CAP PO SCH (09:32)
[2019-11-09] MEDS: Heparin 5,000 UNITS/ML VIAL SC SCH ×2 (09:32→21:41)
[2019-11-09] MEDS: Abiraterone Acetate [Zytiga] 1,000 MG PO SCH (09:32)
[2019-11-09] MEDS: Folic Acid 1 MG TAB PO SCH (09:32)
[2019-11-09] MEDS: predniSONE 5 MG TAB PO SCH ×2 (09:33→21:41)
[2019-11-09] MEDS: Bicalutamide 50 MG TAB PO SCH (09:34)
[2019-11-09] MEDS: HumaLOG 300 UNITS/3 ML VIAL SC PRN ×3 (11:35→21:48)
--- NOTE | 2019-11-09 11:36 | PDOC.HOSPP ---
- Subjective Encounter Date: 11/09/19 Encounter Time: 11:31 Subjective: Patient reports loose bowel movement this morning. He had 2-3 BMs yesterday. He reports incontinence of stool. No watery stools, abdominal pain, fever, chills. - Objective Vital Signs & Weight: Vital Signs (12 hours) Temp Pulse Resp BP BP Pulse Ox 11/09/19 09:31 95 127/71 11/09/19 07:49 98.3 F 95 18 167/88 H 98 Weight Weight 135 lb 5.76 oz I&O: 11/08/19 11/09/19 11/10/19 06:59 06:59 06:59 Intake Total 1300 1175 Output Total 375 550 Balance 925 625 Result Diagrams: 11/09/19 06:42 11/09/19 06:42 Additional Labs: Accuchecks 11/08/19 11/08/19 20:20 16:02 POC Glucose 241 H 255 H Hospitalist ROS - Medication Medications: Active Medications Generic Name Dose Route Start Last Admin Trade Name Freq PRN Reason Stop Dose Admin Acetaminophen 650 mg 11/01/19 11:19 11/03/19 12:23 Tylenol PO 650 mg Q4H PRN Administration Headache/Fever/Mild Pain (1-3) Hydrocodone Bitart/Acetaminophen 1 tab 11/01/19 11:19 11/08/19 20:27 [place] 5/325 PO 1 tab Q4H PRN Administration Moderate Pain (4-6) Aspirin 81 mg 11/02/19 09:00 11/09/19 09:31 Ecotrin PO 81 mg DAILY NEMO Administration Atorvastatin Calcium 40 mg 11/01/19 21:00 11/08/19 20:17 Lipitor PO 40 mg HS NEMO Administration Bicalutamide 50 mg 11/05/19 09:00 11/09/19 09:34 Casodex PO 50 mg DAILY NEMO Administration Carvedilol 25 mg 11/04/19 21:00 11/09/19 09:31 Coreg PO 25 mg BID NEMO Administration Cyanocobalamin 1,000 mcg 11/02/19 09:00 11/09/19 09:31 Vitamin B-12 PO 1,000 mcg DAILY NEMO Administration Folic Acid 1 mg 11/02/19 09:00 11/09/19 09:32 Folvite PO 1 mg DAILY NEMO Administration Heparin Sodium (Porcine) 5,000 units 11/06/19 09:00 11/09/19 09:32 Heparin SC 5,000 units BID NEMO Administration Sodium Chloride 1,000 mls @ 100 mls/hr 11/08/19 13:15 11/09/19 06:14 Normal Saline 0.9% IV 1,000 mls .Q10H NEMO Administration Insulin Human Lispro 0 units 11/01/19 11:20 11/08/19 16:13 Humalog SC 3 unit .MILD SLIDING SCALE PRN Administration Mild Correctional Scale Insulin Human Lispro 0 units 11/01/19 11:20 11/08/19 20:29 Humalog SC 2 unit .BEDTIME SLIDING SC PRN Administration Bedtime Correctional Scale Nifedipine 30 mg 11/06/19 09:00 11/09/19 09:31 Procardia Xl PO 30 mg DAILY NEMO Administration Abiraterone Acetate 1 each 11/05/19 09:00 11/09/19 09:32 [Zytiga] 1,000 Mg PO 1 each QAM NEMO Administration Prednisone 5 mg 11/04/19 21:00 11/09/19 09:33 Prednisone PO 5 mg BID NEMO Administration Sodium Bicarbonate 650 mg 11/07/19 15:00 11/09/19 09:29 Bicarbonate, Sodium PO 650 mg TID NEMO Administration Sodium Chloride 10 ml 11/01/19 11:19 11/06/19 09:18 Flush - Normal Saline IVF 10 ml PRN PRN Administration Saline Flush Tamsulosin HCl 0.4 mg 11/05/19 09:00 11/09/19 09:32 Flomax PO 0.4 mg DAILY NEMO Administration - Exam General Appearance: awake alert, ill appearing ENT: normocephalic atraumatic, no oropharyngeal lesions, moist mucosa Neck: supple, symmetric, no thyromegaly, no lymphadenopathy Heart: RRR, no murmur, no rubs, normal peripheral pulses Respiratory: CTAB, no wheezes, no ronchi Gastrointestinal: soft, non-tender, non-distended, normal bowel sounds, no palpable masses Hosp A/P (1) KASSIDY (acute kidney injury) Code(s): N17.9 - ACUTE KIDNEY FAILURE, UNSPECIFIED Status: Acute (2) Pneumonia Code(s): J18.9 - PNEUMONIA, UNSPECIFIED ORGANISM Status: Resolved Qualifiers: Pneumonia type: due to unspecified organism Laterality: left Lung location: lower lobe of lung Qualified Code(s): J18.9 - Pneumonia, unspecified organism (3) Spinal stenosis of lumbar region at multiple levels Code(s): M48.061 - SPINAL STENOSIS, LUMBAR REGION WITHOUT NEUROGENIC MARCELO Status: Chronic (4) DM type 2 causing CKD stage 3 Code(s): E11.22 - TYPE 2 DIABETES MELLITUS W DIABETIC CHRONIC KIDNEY DISEASE; N18.3 - CHRONIC KIDNEY DISEASE, STAGE 3 (MODERATE) Status: Chronic Qualifiers: Diabetes mellitus terminal clerk insulin use: with group home use Qualified Code( s): E11.22 - Type 2 diabetes mellitus with diabetic chronic kidney disease; N18.3 - Chronic kidney disease, stage 3 (moderate); Z79.4 - custodial (current) use of insulin (5) Hypertension Code(s): I10 - ESSENTIAL (PRIMARY) HYPERTENSION Status: Chronic Qualifiers: Hypertension type: essential hypertension Qualified Code(s): I10 - Essential (primary) hypertension (6) Metastatic adenocarcinoma to prostate Code(s): C79.82 - SECONDARY MALIGNANT NEOPLASM OF GENITAL ORGANS Status: Chronic (7) Metabolic acidosis Code(s): E87.2 - ACIDOSIS Status: Chronic - Plan PT/OT, DVT proph w/heparin Hosp A/P # KASSIDY On IV fluids Nephrology on board Maybe related to diarrhea Moderate risk due to risk of worsening renal function and need for IVF Also, at risk of falls # Pneumonia Code(s): J18.9 - PNEUMONIA, UNSPECIFIED ORGANISM Status: Acute Qualifiers: Pneumonia type: due to unspecified organism Laterality: left Lung location: lower lobe of lung Qualified Code(s): J18.9 - Pneumonia, unspecified organism Plan: s/p 7 days of abx # Spinal stenosis of lumbar region at multiple levels Code(s): M48.061 - SPINAL STENOSIS, LUMBAR REGION WITHOUT NEUROGENIC MARCELO Status: Chronic Plan: Seen by neurology and neurosurgery earlier this admission No surgical intervention SNF for rehab Out patient Neurosurgery follow up after discharge # DM type 2 causing CKD stage 4 Code(s): E11.22 - TYPE 2 DIABETES MELLITUS W DIABETIC CHRONIC KIDNEY DISEASE; N18.3 - CHRONIC KIDNEY DISEASE, STAGE 3 (MODERATE) Status: Chronic Qualifiers: Diabetes mellitus group home insulin use: with terminal clerk use Qualified Code( s): E11.22 - Type 2 diabetes mellitus with diabetic chronic kidney disease; N18.3 - Chronic kidney disease, stage 3 (moderate); Z79.4 - terminal press operator (current) use of insulin Plan: Continue current regimen, Diabetic diet and SSI HA1C of 6.8 Monitor sugars Patient has acidosis. On sodium bicarb. As per nephrology. Monitor urine output and renal function Avoid nephrotoxic meds and hypotension # Hypertension Code(s): I10 - ESSENTIAL (PRIMARY) HYPERTENSION Status: Chronic Qualifiers: Hypertension type: essential hypertension Plan: BP well controlled Continue nifedipine XL Monitor BP and adjust meds as needed # Metastatic adenocarcinoma to prostate Code(s): C79.82 - SECONDARY MALIGNANT NEOPLASM OF GENITAL ORGANS Status: Chronic Plan: Oncology on board Continue current meds Palliative care consulted Awaiting clarification on SNF/rehab and chemotherapy to determine next site of care and discharge
--- NOTE | 2019-11-09 12:13 | RAD ---
ABDOMEN 1 VIEW: HISTORY: Diarrhea. COMPARISON: None. FINDINGS: Relative paucity of bowel gas in the rectum and sigmoid colon. Severe osteoblastic metastatic diseas e. No dilated air-filled loops of large or small bowel. IMPRESSION: 1. No evidence for bowel obstruction. 2. Severe osteoblastic metastatic disease. POS: CET
--- NOTE | 2019-11-09 13:54 | PRG ---
DATE OF SERVICE: 11/09/2019 SUBJECTIVE: The patient was seen and examined at bedside and overnight events noted. The patient denies any shortness of breath or chest pain or palpitation. No history of nausea or vomiting or diarrhea or fever or chills or cramps. OBJECTIVE: GENERAL: This is a well-built male, in no apparent distress. VITAL SIGNS: Temperature 98.3, pulse 75, respiratory rate 18, and blood pressure 167/88. HEENT: Atraumatic, normocephalic. Oral mucosa is moist NECK: Supple. CARDIOVASCULAR: S1, S2 heard. Rate and rhythm regular. RESPIRATORY: Clear to auscultation. GASTROINTESTINAL: Abdomen is soft. MUSCULOSKELETAL: No tenderness. No edema. DERMATOLOGIC: No skin rash. NEUROLOGIC: Alert and awake and oriented X3. No focal neurologic deficits. Moving all the extremities. PSYCHIATRIC: Mood and affect normal. LABORATORY DATA: Potassium 4.9, BUN is 44, and creatinine is 3.3. ASSESSMENT AND PLAN: 1. Acute kidney injury on chronic kidney disease stage 4, stable. 2. Edema, controlled. 3. Acidosis, stable. 4. History of hypertension. 5. Hypercalcemia. Continue supplements. We will continue to monitor. Continue on IV fluids as tolerated. Job ID: [id number]
[2019-11-09] MEDS: Calcium Carbonate 600 MG TAB PO SCH ×3 (16:32→21:40)
[2019-11-09] MEDS: Atorvastatin Calcium 40 MG TAB PO SCH (21:39)
[2019-11-09] MEDS: HYDROcodone/Acetaminophen 5/325 mg Tablet PO PRN (21:40)
[2019-11-10] MEDS: Sodium Chloride 0.9% 1,000 ML IV SCH ×4 (02:44→21:04)
[2019-11-10 04:56] LABS: #Lymphocytes 0.5 thou/uL (1.20-3.40); #Monocytes 0.4 thou/uL (0.11-0.59); #Neutrophils 6.1 thou/uL (1.40-6.50); %Basophils 0.4 % (0.0-1.0); %Eosinophils 0.5 % (0.0-10.0); %Lymphocytes 6.4 % (21.0-51.0); %Monocytes 5.9 % (0.0-10.0); %Neutrophils 86.8 % (42.0-75.0); Hemoglobin 10.3 g/dL (14.0-18.0); Mean Corpuscular HGB CONC 33.8 g/dL (32.0-36.0); Mean Corpuscular Hemoglobin 33.1 pg (27.0-31.0); Mean Platelet Volume 8.4 fL (7.4-10.4); Platelet Count 173 thou/uL (130-400); RBC Distribution Width 14.5 % (11.5-14.5); Red Blood Cell (RBC) Count 3.12 mill/uL (4.70-6.10)
[2019-11-10 05:13] LABS: Anion Gap 12 mmol/L (10-20); BUN (Urea Nitrogen) 42 mg/dL (8.4-25.7); Calc. Creatinine Clearance 18 mL/min (70-130); Calcium 6.4 mg/dL (7.8-10.44); Carbon Dioxide 17 mmol/L (23-31); Chloride 117 mmol/L (98-107); Estimated GFR-MDRD 23; Glucose 194 mg/dL (80-115); Potassium 4.1 mmol/L (3.5-5.1); Sodium 142 mmol/L (136-145)
[2019-11-10] MEDS: HumaLOG 300 UNITS/3 ML VIAL SC PRN ×3 (05:48→21:17)
[2019-11-10] MEDS: Calcium Carbonate 600 MG TAB PO SCH ×3 (09:00→20:08)
[2019-11-10] MEDS: Cyanocobalamin (Vitamin B-12) 1,000 MCG TAB PO SCH (09:11)
[2019-11-10] MEDS: Sodium Bicarbonate Tab 325 MG TAB PO SCH ×3 (09:11→20:08)
[2019-11-10] MEDS: Aspirin 81 mg Enteric Coated Tablet PO SCH (09:11)
[2019-11-10] MEDS: predniSONE 5 MG TAB PO SCH ×2 (09:11→20:09)
[2019-11-10] MEDS: Carvedilol 6.25 MG TAB PO SCH ×2 (09:12→20:08)
[2019-11-10] MEDS: Folic Acid 1 MG TAB PO SCH (09:13)
[2019-11-10] MEDS: Heparin 5,000 UNITS/ML VIAL SC SCH ×2 (09:13→20:09)
[2019-11-10] MEDS: Tamsulosin HCl 0.4 MG CAP PO SCH (09:13)
[2019-11-10] MEDS: Abiraterone Acetate [Zytiga] 1,000 MG PO SCH (11:51)
[2019-11-10] MEDS: Bicalutamide 50 MG TAB PO SCH (11:56)
[2019-11-10] MEDS ORDERED: Loperamide HCl 1 MG/7.5 ML UDCUP PO PRN (15:16)
--- NOTE | 2019-11-10 15:18 | PDOC.HOSPP ---
- Subjective Encounter Date: 11/10/19 Encounter Time: 13:40 Subjective: Reports continued diarrhea. No abd. pain, N/V. No fever, chills. - Objective Vital Signs & Weight: Vital Signs (12 hours) Temp Pulse Resp BP BP Pulse Ox 11/10/19 09:12 151/79 H 11/10/19 07:57 98.3 F 88 18 151/79 H 95 11/10/19 07:50 95 Weight Weight 135 lb 5.76 oz I&O: 11/09/19 11/10/19 11/11/19 06:59 06:59 06:59 Intake Total 1175 3320 Output Total 550 1000 Balance 625 2320 Result Diagrams: 11/10/19 04:14 11/10/19 04:14 Additional Labs: Accuchecks 11/10/19 11/09/19 11/09/19 12:48 20:13 16:24 POC Glucose 164 H 294 H 271 H Hospitalist ROS - Medication Medications: Active Medications Generic Name Dose Route Start Last Admin Trade Name Freq PRN Reason Stop Dose Admin Acetaminophen 650 mg 11/01/19 11:19 11/03/19 12:23 Tylenol PO 650 mg Q4H PRN Administration Headache/Fever/Mild Pain (1-3) Hydrocodone Bitart/Acetaminophen 1 tab 11/01/19 11:19 11/09/19 21:40 [place] 5/325 PO 1 tab Q4H PRN Administration Moderate Pain (4-6) Aspirin 81 mg 11/02/19 09:00 11/10/19 09:11 Ecotrin PO 81 mg DAILY NEMO Administration Atorvastatin Calcium 40 mg 11/01/19 21:00 11/09/19 21:39 Lipitor PO 40 mg HS NEMO Administration Bicalutamide 50 mg 11/05/19 09:00 11/10/19 11:56 Casodex PO 50 mg DAILY NEMO Administration Calcium Carbonate 600 mg 11/09/19 15:00 11/10/19 14:21 Caltrate PO 600 mg TID NEMO Administration Carvedilol 25 mg 11/04/19 21:00 11/10/19 09:12 Coreg PO 25 mg BID NEMO Administration Cyanocobalamin 1,000 mcg 11/02/19 09:00 11/10/19 09:11 Vitamin B-12 PO 1,000 mcg DAILY NEMO Administration Folic Acid 1 mg 11/02/19 09:00 11/10/19 09:13 Folvite PO 1 mg DAILY NEMO Administration Heparin Sodium (Porcine) 5,000 units 11/06/19 09:00 11/10/19 09:13 Heparin SC 5,000 units BID NEMO Administration Sodium Chloride 1,000 mls @ 100 mls/hr 11/08/19 13:15 11/10/19 12:45 Normal Saline 0.9% IV 1,000 mls .Q10H NEMO Administration Insulin Human Lispro 0 units 11/01/19 11:20 11/10/19 05:48 Humalog SC 2 unit .MILD SLIDING SCALE PRN Administration Mild Correctional Scale Insulin Human Lispro 0 units 11/01/19 11:20 11/09/19 21:48 Humalog SC 3 unit .BEDTIME SLIDING SC PRN Administration Bedtime Correctional Scale Abiraterone Acetate 1 each 11/05/19 09:00 11/10/19 11:51 [Zytiga] 1,000 Mg PO 1 each QAM NEMO Administration Prednisone 5 mg 11/04/19 21:00 11/10/19 09:11 Prednisone PO 5 mg BID NEMO Administration Sodium Bicarbonate 650 mg 11/07/19 15:00 11/10/19 14:21 Bicarbonate, Sodium PO 650 mg TID NEMO Administration Sodium Chloride 10 ml 11/01/19 11:19 11/06/19 09:18 Flush - Normal Saline IVF 10 ml PRN PRN Administration Saline Flush Tamsulosin HCl 0.4 mg 11/05/19 09:00 11/10/19 09:13 Flomax PO 0.4 mg DAILY NEMO Administration - Exam General Appearance: awake alert, ill appearing Eye: PERRL, anicteric sclera ENT: normocephalic atraumatic, moist mucosa Neck: supple, no lymphadenopathy Heart: RRR, no rubs, normal peripheral pulses Respiratory: CTAB, no ronchi, normal chest expansion Gastrointestinal: soft, non-tender, non-distended, normal bowel sounds Hosp A/P (1) KASSIDY (acute kidney injury) Code(s): N17.9 - ACUTE KIDNEY FAILURE, UNSPECIFIED Status: Acute (2) Pneumonia Code(s): J18.9 - PNEUMONIA, UNSPECIFIED ORGANISM Status: Resolved Qualifiers: Pneumonia type: due to unspecified organism Laterality: left Lung location: lower lobe of lung Qualified Code(s): J18.9 - Pneumonia, unspecified organism (3) Spinal stenosis of lumbar region at multiple levels Code(s): M48.061 - SPINAL STENOSIS, LUMBAR REGION WITHOUT NEUROGENIC MARCELO Status: Chronic (4) DM type 2 causing CKD stage 3 Code(s): E11.22 - TYPE 2 DIABETES MELLITUS W DIABETIC CHRONIC KIDNEY DISEASE; N18.3 - CHRONIC KIDNEY DISEASE, STAGE 3 (MODERATE) Status: Chronic Qualifiers: Diabetes mellitus prison insulin use: with moth exterminator use Qualified Code( s): E11.22 - Type 2 diabetes mellitus with diabetic chronic kidney disease; N18.3 - Chronic kidney disease, stage 3 (moderate); Z79.4 - superintendent container terminal (current) use of insulin (5) Hypertension Code(s): I10 - ESSENTIAL (PRIMARY) HYPERTENSION Status: Chronic Qualifiers: Hypertension type: essential hypertension Qualified Code(s): I10 - Essential (primary) hypertension (6) Metastatic adenocarcinoma to prostate Code(s): C79.82 - SECONDARY MALIGNANT NEOPLASM OF GENITAL ORGANS Status: Chronic (7) Metabolic acidosis Code(s): E87.2 - ACIDOSIS Status: Chronic - Plan Hosp A/P # KASSIDY On IV fluids Nephrology on board Maybe related to diarrhea Moderate risk due to risk of worsening renal function and need for IVF Also, at risk of falls # Diarrhea Likely non infectious Start loperamide # Pneumonia Code(s): J18.9 - PNEUMONIA, UNSPECIFIED ORGANISM Status: Acute Qualifiers: Pneumonia type: due to unspecified organism Laterality: left Lung location: lower lobe of lung Qualified Code(s): J18.9 - Pneumonia, unspecified organism Plan: s/p 7 days of abx # Spinal stenosis of lumbar region at multiple levels Code(s): M48.061 - SPINAL STENOSIS, LUMBAR REGION WITHOUT NEUROGENIC MARCELO Status: Chronic Plan: Seen by neurology and neurosurgery earlier this admission No surgical intervention SNF for rehab Out patient Neurosurgery follow up after discharge # DM type 2 causing CKD stage 4 Code(s): E11.22 - TYPE 2 DIABETES MELLITUS W DIABETIC CHRONIC KIDNEY DISEASE; N18.3 - CHRONIC KIDNEY DISEASE, STAGE 3 (MODERATE) Status: Chronic Qualifiers: Diabetes mellitus moth exterminator insulin use: with prison use Qualified Code( s): E11.22 - Type 2 diabetes mellitus with diabetic chronic kidney disease; N18.3 - Chronic kidney disease, stage 3 (moderate); Z79.4 - superintendent container terminal (current) use of insulin Plan: Continue current regimen, Diabetic diet and SSI HA1C of 6.8 Monitor sugars Patient has acidosis. On sodium bicarb. As per nephrology. Monitor urine output and renal function Avoid nephrotoxic meds and hypotension # Hypertension Code(s): I10 - ESSENTIAL (PRIMARY) HYPERTENSION Status: Chronic Qualifiers: Hypertension type: essential hypertension Plan: BP well controlled Continue nifedipine XL Monitor BP and adjust meds as needed # Metastatic adenocarcinoma to prostate Code(s): C79.82 - SECONDARY MALIGNANT NEOPLASM OF GENITAL ORGANS Status: Chronic Plan: Oncology on board Continue current meds Palliative care consulted Awaiting clarification on SNF/rehab and chemotherapy to determine next site of care and discharge
[2019-11-10] MEDS: Labetalol HCl 100 MG/20 ML VIAL SLOW IVP PRN (20:07)
[2019-11-10] MEDS: Atorvastatin Calcium 40 MG TAB PO SCH (20:08)
[2019-11-11 04:54] LABS: ALT (SGPT) 21 U/L (8-55); AST (SGOT) 32 U/L (5-34); Albumin 2.5 g/dL (3.4-4.8); Alkaline Phosphatase 103 U/L (40-110); Anion Gap 11 mmol/L (10-20); BUN (Urea Nitrogen) 35 mg/dL (8.4-25.7); Bilirubin, Total 0.3 mg/dL (0.2-1.2); Calc. Creatinine Clearance 20 mL/min (70-130); Calcium 6.6 mg/dL (7.8-10.44); Carbon Dioxide 18 mmol/L (23-31); Chloride 116 mmol/L (98-107); Estimated GFR-MDRD 25; Globulin 2.6 g/dL (2.4-3.5); Glucose 121 mg/dL (80-115); Protein, Total 5.1 g/dL (5.8-8.1); Sodium 141 mmol/L (136-145)
[2019-11-11 04:55] LABS: Eosinophils 1 % (0-10); Hemoglobin 11.6 g/dL (14.0-18.0); Lymphocytes 9 % (21-51); MDiff Complete? YES; Mean Corpuscular HGB CONC 33.8 g/dL (32.0-36.0); Mean Corpuscular Hemoglobin 33.2 pg (27.0-31.0); Mean Corpuscular Volume 98.4 fL (78.0-98.0); Mean Platelet Volume 7.8 fL (7.4-10.4); Monocytes 3 % (0-10); Neutrophil 87 % (42-75); Platelet Count 198 thou/uL (130-400); Platelet Morphology Comment Appears Adequate; RBC Distribution Width 14.6 % (11.5-14.5); Red Blood Cell (RBC) Count 3.48 mill/uL (4.70-6.10); White Blood Cell (WBC) Count 8.1 thou/uL (4.8-10.8)
[2019-11-11] MEDS: Sodium Chloride 0.9% 1,000 ML IV SCH ×2 (06:20→10:31)
[2019-11-11] MEDS: Labetalol HCl 100 MG/20 ML VIAL SLOW IVP PRN (07:28)
--- NOTE | 2019-11-11 08:12 | PDOC.HOSPP ---
- Subjective Encounter Date: 11/11/19 Encounter Time: 08:11 Subjective: no specific complaints - Objective Vital Signs & Weight: Vital Signs (12 hours) Temp Pulse Resp BP BP BP BP 11/11/19 07:28 95 188/98 H 11/11/19 07:15 98.0 F 95 16 188/98 H 11/11/19 04:00 175/90 H 11/10/19 21:00 92 175/91 H Pulse Ox 11/11/19 07:28 11/11/19 07:15 96 11/11/19 04:00 11/10/19 21:00 Weight Weight 135 lb 5.76 oz I&O: 11/10/19 11/11/19 11/12/19 06:59 06:59 06:59 Intake Total 3320 1940 Output Total 1000 1750 Balance 2320 190 Result Diagrams: 11/11/19 04:15 11/11/19 04:15 Additional Labs: Accuchecks 11/10/19 11/10/19 11/10/19 21:18 17:12 12:48 POC Glucose 208 H 207 H 164 H Hospitalist ROS - Medication Medications: Active Medications Generic Name Dose Route Start Last Admin Trade Name Freq PRN Reason Stop Dose Admin Acetaminophen 650 mg 11/01/19 11:19 11/03/19 12:23 Tylenol PO 650 mg Q4H PRN Administration Headache/Fever/Mild Pain (1-3) Hydrocodone Bitart/Acetaminophen 1 tab 11/01/19 11:19 11/09/19 21:40 [place] 5/325 PO 1 tab Q4H PRN Administration Moderate Pain (4-6) Aspirin 81 mg 11/02/19 09:00 11/10/19 09:11 Ecotrin PO 81 mg DAILY NEMO Administration Atorvastatin Calcium 40 mg 11/01/19 21:00 11/10/19 20:08 Lipitor PO 40 mg HS NEMO Administration Bicalutamide 50 mg 11/05/19 09:00 11/10/19 11:56 Casodex PO 50 mg DAILY NEMO Administration Calcium Carbonate 600 mg 11/09/19 15:00 11/10/19 20:08 Caltrate PO 600 mg TID NEMO Administration Carvedilol 25 mg 11/04/19 21:00 11/10/19 20:08 Coreg PO 25 mg BID NEMO Administration Cyanocobalamin 1,000 mcg 11/02/19 09:00 11/10/19 09:11 Vitamin B-12 PO 1,000 mcg DAILY NEMO Administration Folic Acid 1 mg 11/02/19 09:00 11/10/19 09:13 Folvite PO 1 mg DAILY NEMO Administration Heparin Sodium (Porcine) 5,000 units 11/06/19 09:00 11/10/19 20:09 Heparin SC 5,000 units BID NEMO Administration Sodium Chloride 1,000 mls @ 100 mls/hr 11/08/19 13:15 11/11/19 06:20 Normal Saline 0.9% IV 1,000 mls .Q10H NEMO Administration Insulin Human Lispro 0 units 11/01/19 11:20 11/10/19 17:15 Humalog SC 3 unit .MILD SLIDING SCALE PRN Administration Mild Correctional Scale Insulin Human Lispro 0 units 11/01/19 11:20 11/10/19 21:17 Humalog SC 2 unit .BEDTIME SLIDING SC PRN Administration Bedtime Correctional Scale Labetalol HCl 20 mg 11/10/19 19:36 11/11/19 07:28 Normodyne SLOW IVP 20 mg Q4H PRN Administration Hypertension Abiraterone Acetate 1 each 11/05/19 09:00 11/10/19 11:51 [Zytiga] 1,000 Mg PO 1 each QAM NEMO Administration Prednisone 5 mg 11/04/19 21:00 11/10/19 20:09 Prednisone PO 5 mg BID NEMO Administration Sodium Bicarbonate 650 mg 11/07/19 15:00 11/10/19 20:08 Bicarbonate, Sodium PO 650 mg TID NEMO Administration Sodium Chloride 10 ml 11/01/19 11:19 11/06/19 09:18 Flush - Normal Saline IVF 10 ml PRN PRN Administration Saline Flush Tamsulosin HCl 0.4 mg 11/05/19 09:00 11/10/19 09:13 Flomax PO 0.4 mg DAILY NEMO Administration - Exam General Appearance: awake alert Neck: no JVD Heart: RRR, no murmur Respiratory: CTAB Gastrointestinal: soft, normal bowel sounds Extremities: no edema Hosp A/P (1) Pneumonia Code(s): J18.9 - PNEUMONIA, UNSPECIFIED ORGANISM Status: Resolved Qualifiers: Pneumonia type: due to unspecified organism Laterality: left Lung location: lower lobe of lung Qualified Code(s): J18.9 - Pneumonia, unspecified organism (2) Hypertension Code(s): I10 - ESSENTIAL (PRIMARY) HYPERTENSION Status: Chronic Qualifiers: Hypertension type: essential hypertension Qualified Code(s): I10 - Essential (primary) hypertension (3) Metastatic adenocarcinoma to prostate Code(s): C79.82 - SECONDARY MALIGNANT NEOPLASM OF GENITAL ORGANS Status: Chronic (4) DM type 2 causing CKD stage 4 Code(s): E11.22 - TYPE 2 DIABETES MELLITUS W DIABETIC CHRONIC KIDNEY DISEASE; N18.4 - CHRONIC KIDNEY DISEASE, STAGE 4 (SEVERE) Status: Acute - Plan add po apressoline for BP control FU PNA with CXR cont accu/ss/etc for DM
--- NOTE | 2019-11-11 08:23 | RAD ---
EXAM: Single view of the chest HISTORY: Pneumonia COMPARISON: 11/01/2019 FINDINGS: Single view of the chest shows a normal sized cardiomediastinal silhouette. Increased inte rstitial markings are present. There are diffuse scattered multifocal infiltrates in the lungs. These have not significant changed compared to the prior exam. The bones are unremarkable. IMPRESSION: Stable exam
[2019-11-11] MEDS: Heparin 5,000 UNITS/ML VIAL SC SCH ×2 (08:36→20:23)
[2019-11-11] MEDS: Sodium Bicarbonate Tab 325 MG TAB PO SCH (08:36)
[2019-11-11] MEDS: Carvedilol 6.25 MG TAB PO SCH ×2 (08:37→20:25)
[2019-11-11] MEDS: hydrALAZINE 25 MG TAB PO SCH ×4 (08:37→20:24)
[2019-11-11] MEDS: Folic Acid 1 MG TAB PO SCH (08:37)
[2019-11-11] MEDS: Aspirin 81 mg Enteric Coated Tablet PO SCH (08:37)
[2019-11-11] MEDS: Tamsulosin HCl 0.4 MG CAP PO SCH (08:37)
[2019-11-11] MEDS: predniSONE 5 MG TAB PO SCH ×2 (08:38→20:24)
[2019-11-11] MEDS: Calcium Carbonate 600 MG TAB PO SCH ×3 (08:54→20:24)
[2019-11-11] MEDS: Bicalutamide 50 MG TAB PO SCH (08:55)
[2019-11-11] MEDS: Cyanocobalamin (Vitamin B-12) 1,000 MCG TAB PO SCH (09:00)
[2019-11-11] MEDS: Abiraterone Acetate [Zytiga] 1,000 MG PO SCH (11:33)
[2019-11-11] MEDS: HumaLOG 300 UNITS/3 ML VIAL SC PRN ×3 (12:16→20:24)
--- NOTE | 2019-11-11 12:16 | PRG ---
DATE OF SERVICE: 11/11/2019 SUBJECTIVE: Patient was seen and examined at bedside and overnight events noted. Patient denies any shortness of breath or chest pain or palpitation. No history of nausea or vomiting or diarrhea or fever or chills or cramps. OBJECTIVE: GENERAL: This is a well-built male, in no apparent distress. VITAL SIGNS: Temperature 98.7. Heart rate 95. Respiratory rate 18. Blood pressure 188/98. HEENT: Atraumatic, normocephalic. Oral mucosa is moist NECK: Supple. CARDIOVASCULAR: S1, S2 heard. Rate and rhythm regular. RESPIRATORY: Clear to auscultation. GASTROINTESTINAL: Abdomen is soft. MUSCULOSKELETAL: No tenderness. No edema. DERMATOLOGIC: No skin rash. NEUROLOGIC: Alert and awake and oriented X3. No focal neurologic deficits. Moving all the extremities. PSYCHIATRIC: Mood and affect normal. LABORATORY DATA: Potassium 4.0, BUN is 35, creatinine is 2.9. ASSESSMENT AND PLAN: 1. Acute kidney injury on chronic kidney disease, stage 4, better. 2. History of hypertension. We will reduce IV fluids and we will adjust the medication. 3. Edema, controlled. 4. Acidosis. 5. Hypocalcemia, better. We will reduce IV fluids, given hypertension now, but renal function is stable. We will add Procardia for blood pressure as tolerated. Job ID: [id number]
[2019-11-11] MEDS: Acetaminophen 325 MG TAB PO PRN (16:56)
[2019-11-11] MEDS: Atorvastatin Calcium 40 MG TAB PO SCH (20:25)
[2019-11-11] MEDS: HYDROcodone/Acetaminophen 5/325 mg Tablet PO PRN (20:25)
[2019-11-12] MEDS: Sodium Chloride 0.9% 1,000 ML IV SCH (05:23)
[2019-11-12] MEDS: HumaLOG 300 UNITS/3 ML VIAL SC PRN ×4 (06:45→20:20)
--- NOTE | 2019-11-12 08:25 | PDOC.HOSPP ---
- Subjective Encounter Date: 11/12/19 Encounter Time: 08:19 Subjective: no specific complaints - Objective Vital Signs & Weight: Vital Signs (12 hours) Temp Pulse Resp BP BP Pulse Ox 11/12/19 07:40 98.8 F 91 18 173/87 H 95 11/12/19 00:00 99.0 F 11/11/19 20:25 125/66 11/11/19 20:24 92 125/66 Weight Weight 135 lb 5.76 oz I&O: 11/11/19 11/12/19 11/13/19 06:59 06:59 06:59 Intake Total 1940 1670 Output Total 1750 850 Balance 190 820 Result Diagrams: 11/11/19 04:15 11/11/19 04:15 Additional Labs: Accuchecks 11/12/19 11/11/19 11/11/19 05:26 19:25 16:29 POC Glucose 165 H 237 H 197 H 11/11/19 11:42 POC Glucose 174 H Hospitalist ROS - Medication Medications: Active Medications Generic Name Dose Route Start Last Admin Trade Name Freq PRN Reason Stop Dose Admin Acetaminophen 650 mg 11/01/19 11:19 11/11/19 16:56 Tylenol PO 650 mg Q4H PRN Administration Headache/Fever/Mild Pain (1-3) Hydrocodone Bitart/Acetaminophen 1 tab 11/01/19 11:19 11/11/19 20:25 [place] 5/325 PO 1 tab Q4H PRN Administration Moderate Pain (4-6) Aspirin 81 mg 11/02/19 09:00 11/11/19 08:37 Ecotrin PO 81 mg DAILY NEMO Administration Atorvastatin Calcium 40 mg 11/01/19 21:00 11/11/19 20:25 Lipitor PO 40 mg HS NEMO Administration Bicalutamide 50 mg 11/05/19 09:00 11/11/19 08:55 Casodex PO 50 mg DAILY NEMO Administration Calcium Carbonate 600 mg 11/09/19 15:00 11/11/19 20:24 Caltrate PO 600 mg TID NEMO Administration Carvedilol 25 mg 11/04/19 21:00 11/11/19 20:25 Coreg PO 25 mg BID NEMO Administration Cyanocobalamin 1,000 mcg 11/02/19 09:00 11/11/19 09:00 Vitamin B-12 PO Not Given DAILY NEMO Folic Acid 1 mg 11/02/19 09:00 11/11/19 08:37 Folvite PO 1 mg DAILY NEMO Administration Heparin Sodium (Porcine) 5,000 units 11/06/19 09:00 11/11/19 20:23 Heparin SC 5,000 units BID NEMO Administration Hydralazine HCl 25 mg 11/11/19 09:00 11/11/19 20:24 Apresoline PO 25 mg QID NEMO Administration Sodium Chloride 1,000 mls @ 50 mls/hr 11/11/19 10:31 11/12/19 05:23 Normal Saline 0.9% IV 1,000 mls .Q20H NEMO Administration Insulin Human Lispro 0 units 11/01/19 11:20 11/12/19 06:45 Humalog SC 2 unit .MILD SLIDING SCALE PRN Administration Mild Correctional Scale Insulin Human Lispro 0 units 11/01/19 11:20 11/11/19 20:24 Humalog SC 2 unit .BEDTIME SLIDING SC PRN Administration Bedtime Correctional Scale Labetalol HCl 20 mg 11/10/19 19:36 11/11/19 07:28 Normodyne SLOW IVP 20 mg Q4H PRN Administration Hypertension Abiraterone Acetate 1 each 11/05/19 09:00 11/11/19 11:33 [Zytiga] 1,000 Mg PO 1 each QAM NEMO Administration Prednisone 5 mg 11/04/19 21:00 11/11/19 20:24 Prednisone PO 5 mg BID NEMO Administration Sodium Chloride 10 ml 11/01/19 11:19 11/06/19 09:18 Flush - Normal Saline IVF 10 ml PRN PRN Administration Saline Flush Tamsulosin HCl 0.4 mg 11/05/19 09:00 11/11/19 08:37 Flomax PO 0.4 mg DAILY NEMO Administration - Exam General Appearance: awake alert Neck: no JVD Heart: RRR, no murmur Respiratory: CTAB Gastrointestinal: soft, normal bowel sounds Extremities: no edema Hosp A/P (1) Pneumonia Code(s): J18.9 - PNEUMONIA, UNSPECIFIED ORGANISM Status: Resolved Qualifiers: Pneumonia type: due to unspecified organism Laterality: left Lung location: lower lobe of lung Qualified Code(s): J18.9 - Pneumonia, unspecified organism (2) Hypertension Code(s): I10 - ESSENTIAL (PRIMARY) HYPERTENSION Status: Chronic Qualifiers: Hypertension type: essential hypertension Qualified Code(s): I10 - Essential (primary) hypertension (3) Metastatic adenocarcinoma to prostate Code(s): C79.82 - SECONDARY MALIGNANT NEOPLASM OF GENITAL ORGANS Status: Chronic (4) DM type 2 causing CKD stage 4 Code(s): E11.22 - TYPE 2 DIABETES MELLITUS W DIABETIC CHRONIC KIDNEY DISEASE; N18.4 - CHRONIC KIDNEY DISEASE, STAGE 4 (SEVERE) Status: Acute Qualifiers: Diabetes mellitus termite exterminator insulin use: with termite exterminator use Qualified Code( s): E11.22 - Type 2 diabetes mellitus with diabetic chronic kidney disease; N18.4 - Chronic kidney disease, stage 4 (severe); Z79.4 - tank terminal gauger (current) use of insulin - Plan BP < DM controlled, PNA resolved, placement in progress care delay on placement
[2019-11-12] MEDS: Aspirin 81 mg Enteric Coated Tablet PO SCH (09:16)
[2019-11-12] MEDS: Tamsulosin HCl 0.4 MG CAP PO SCH (09:16)
[2019-11-12] MEDS: Carvedilol 6.25 MG TAB PO SCH ×2 (09:17→20:21)
[2019-11-12] MEDS: NIFEdipine XL 30 MG TAB PO SCH (09:18)
[2019-11-12] MEDS: hydrALAZINE 25 MG TAB PO SCH ×4 (09:18→20:22)
[2019-11-12] MEDS: Cyanocobalamin (Vitamin B-12) 1,000 MCG TAB PO SCH (09:18)
[2019-11-12] MEDS: predniSONE 5 MG TAB PO SCH ×2 (09:19→20:21)
[2019-11-12] MEDS: Folic Acid 1 MG TAB PO SCH (09:19)
[2019-11-12] MEDS: Heparin 5,000 UNITS/ML VIAL SC SCH ×2 (09:19→20:22)
[2019-11-12] MEDS: Calcium Carbonate 600 MG TAB PO SCH ×3 (09:45→20:24)
[2019-11-12] MEDS: Bicalutamide 50 MG TAB PO SCH (09:45)
--- NOTE | 2019-11-12 11:10 | PRG ---
DATE OF SERVICE: 11/10/2019 SUBJECTIVE: Patient was seen and examined at bedside and overnight events noted. Patient denies any shortness of breath or chest pain or palpitation. No history of nausea or vomiting or diarrhea or fever or chills or cramps. OBJECTIVE: GENERAL: This is an elderly male in no apparent distress. VITAL SIGNS: Temperature heart rate . Respiratory rate . Blood pressure 151/79. HEENT: Atraumatic, normocephalic. Oral mucosa is moist NECK: Supple. CARDIOVASCULAR: S1, S2 heard. Rate and rhythm regular. RESPIRATORY: Clear to auscultation. GASTROINTESTINAL: Abdomen is soft. MUSCULOSKELETAL: No tenderness. No edema. DERMATOLOGIC: No skin rash. NEUROLOGIC: Alert and awake and oriented X3. No focal neurologic deficits. Moving all the extremities. PSYCHIATRIC: Mood and affect normal. LABORATORY DATA: Potassium 4.1, BUN is 42, and creatinine is 3.3. ASSESSMENT AND PLAN: 1. Acute kidney injury on chronic kidney stage 4, stable. 2. . 3. Hypocalcemia. Continue on calcium supplements. We will follow. 4. We will monitor renal function closely. Job ID: [id number]
[2019-11-12] MEDS: Abiraterone Acetate [Zytiga] 1,000 MG PO SCH ×2 (11:41→11:45)
--- NOTE | 2019-11-12 13:43 | PRG ---
DATE OF SERVICE: 11/12/2019 SUBJECTIVE: Patient was seen and examined at bedside and overnight events noted. Patient denies any shortness of breath or chest pain or palpitation. No history of nausea or vomiting or diarrhea or fever or chills or cramps. OBJECTIVE: GENERAL: This is a well-built male, in no apparent distress. VITAL SIGNS: Temperature 98. Heart rate 91. Respiratory rate 18. Blood pressure 173/87. HEENT: Atraumatic, normocephalic. Oral mucosa is moist NECK: Supple. CARDIOVASCULAR: S1, S2 heard. Rate and rhythm regular. RESPIRATORY: Clear to auscultation. GASTROINTESTINAL: Abdomen is soft. MUSCULOSKELETAL: No tenderness. No edema. DERMATOLOGIC: No skin rash. NEUROLOGIC: Alert and awake and oriented X3. No focal neurologic deficits. Moving all the extremities. PSYCHIATRIC: Mood and affect normal. LABORATORY DATA: Not done today. ASSESSMENT AND PLAN: 1. Acute kidney injury on chronic kidney disease stage 4. Monitor labs. 2. Hypertension, stable. 3. Edema, uncontrolled. 4. Acidosis. 5. Hypocalcemia. Monitor labs. We will follow. Job ID: [id number]
[2019-11-12] MEDS: HYDROcodone/Acetaminophen 5/325 mg Tablet PO PRN (20:20)
[2019-11-12] MEDS: Atorvastatin Calcium 40 MG TAB PO SCH (20:21)
[2019-11-13] MEDS: Sodium Chloride 0.9% 1,000 ML IV SCH (03:05)
[2019-11-13 04:30] LABS: Anion Gap 10 mmol/L (10-20); BUN (Urea Nitrogen) 40 mg/dL (8.4-25.7); Calc. Creatinine Clearance 18 mL/min (70-130); Calcium 6.7 mg/dL (7.8-10.44); Carbon Dioxide 18 mmol/L (23-31); Chloride 115 mmol/L (98-107); Estimated GFR-MDRD 22; Glucose 191 mg/dL (80-115); Potassium 4.1 mmol/L (3.5-5.1); Sodium 139 mmol/L (136-145)
[2019-11-13] MEDS: HumaLOG 300 UNITS/3 ML VIAL SC PRN ×4 (05:56→20:41)
[2019-11-13] MEDS: Aspirin 81 mg Enteric Coated Tablet PO SCH (09:29)
[2019-11-13] MEDS: Carvedilol 6.25 MG TAB PO SCH ×2 (09:29→20:41)
[2019-11-13] MEDS: hydrALAZINE 25 MG TAB PO SCH ×4 (09:31→20:41)
[2019-11-13] MEDS: NIFEdipine XL 30 MG TAB PO SCH (09:31)
[2019-11-13] MEDS: Folic Acid 1 MG TAB PO SCH (09:32)
[2019-11-13] MEDS: Tamsulosin HCl 0.4 MG CAP PO SCH (09:32)
[2019-11-13] MEDS: Cyanocobalamin (Vitamin B-12) 1,000 MCG TAB PO SCH (09:32)
[2019-11-13] MEDS: predniSONE 5 MG TAB PO SCH ×2 (09:32→20:41)
[2019-11-13] MEDS: Heparin 5,000 UNITS/ML VIAL SC SCH ×2 (09:33→20:41)
[2019-11-13] MEDS: Calcium Carbonate 600 MG TAB PO SCH ×3 (09:42→20:41)
[2019-11-13] MEDS: Bicalutamide 50 MG TAB PO SCH (09:42)
[2019-11-13] MEDS: Abiraterone Acetate [Zytiga] 1,000 MG PO SCH (10:59)
--- NOTE | 2019-11-13 14:03 | PRG ---
DATE OF SERVICE: 11/13/2019 SUBJECTIVE: Patient was seen and examined at bedside and overnight events noted. Patient denies any shortness of breath or chest pain or palpitation. No history of nausea or vomiting or diarrhea or fever or chills or cramps. OBJECTIVE: GENERAL: This is a well-built male, in no apparent distress. VITAL SIGNS: Temperature 98.4. Heart rate 90. Respiratory rate 16. Blood pressure 143/78. HEENT: Atraumatic, normocephalic. Oral mucosa is moist NECK: Supple. CARDIOVASCULAR: S1, S2 heard. Rate and rhythm regular. RESPIRATORY: Clear to auscultation. GASTROINTESTINAL: Abdomen is soft. MUSCULOSKELETAL: No tenderness. No edema. DERMATOLOGIC: No skin rash. NEUROLOGIC: Alert and awake and oriented X3. No focal neurologic deficits. Moving all the extremities. PSYCHIATRIC: Mood and affect normal. LABORATORY DATA: Potassium is 4.1, BUN is 40, and creatinine is 3.3. ASSESSMENT AND PLAN: 1. Acute kidney injury on chronic kidney disease, stage 4, stable. 2. Hypertension. 3. Edema. 4. Acidosis. 5. Hypocalcemia. Continue on calcium supplements. We will continue to monitor labs. Job ID: [id number]
--- NOTE | 2019-11-13 16:11 | PDOC.HOSPP ---
- Subjective Subjective: Seen and examined on oncology floor. Patient breathing comfortably on room air. Patient with renal insufficiency has maintained IV fluids, will discontinue at this time. Patient with worsening left lower extremity edema that is extending up to the thigh and torso. Recommend elevation, compression stockings/david wrap bandages and monitoring fluid intake. Will order an ultrasound rule out DVT. Patient on heparin for DVT prophylaxis. Pending rehab placement. All questions answered in detail. Patient happy with plan of care. - Objective Vital Signs & Weight: Vital Signs (12 hours) Temp Pulse Pulse Pulse Resp BP BP 11/13/19 14:48 101 H 99 94/56 L 11/13/19 13:57 94 122/62 11/13/19 09:31 98 143/78 H 11/13/19 09:29 143/78 H 11/13/19 08:42 98.4 F 98 16 11/13/19 08:00 BP BP Pulse Ox Pulse Ox 11/13/19 14:48 105/58 L 92 L 11/13/19 13:57 11/13/19 09:31 11/13/19 09:29 11/13/19 08:42 143/78 H 96 11/13/19 08:00 96 Weight Admit Weight 135 lb 5.76 oz Weight 135 lb 5.76 oz I&O: 11/12/19 11/13/19 11/14/19 06:59 06:59 06:59 Intake Total 1670 1440 240 Output Total 850 350 Balance 820 1090 240 Result Diagrams: 11/11/19 04:15 11/13/19 03:37 Additional Labs: Accuchecks 11/13/19 11/12/19 11/12/19 11:30 20:06 16:55 POC Glucose 166 H 294 H 239 H Radiology Reviewed by me: Yes Hospitalist ROS - Review of Systems All other systems reviewed; all pertinent +/- noted in HPI/Subj - Medication Medications: Active Medications Generic Name Dose Route Start Last Admin Trade Name Freq PRN Reason Stop Dose Admin Acetaminophen 650 mg 11/01/19 11:19 11/11/19 16:56 Tylenol PO 650 mg Q4H PRN Administration Headache/Fever/Mild Pain (1-3) Hydrocodone Bitart/Acetaminophen 1 tab 11/01/19 11:19 11/12/19 20:20 [place] 5/325 PO 1 tab Q4H PRN Administration Moderate Pain (4-6) Aspirin 81 mg 11/02/19 09:00 11/13/19 09:29 Ecotrin PO 81 mg DAILY NEMO Administration Atorvastatin Calcium 40 mg 11/01/19 21:00 11/12/19 20:21 Lipitor PO 40 mg HS NEMO Administration Bicalutamide 50 mg 11/05/19 09:00 11/13/19 09:42 Casodex PO 50 mg DAILY NEMO Administration Calcium Carbonate 600 mg 11/09/19 15:00 11/13/19 13:58 Caltrate PO 600 mg TID NEMO Administration Carvedilol 25 mg 11/04/19 21:00 11/13/19 09:29 Coreg PO 25 mg BID NEMO Administration Cyanocobalamin 1,000 mcg 11/02/19 09:00 11/13/19 09:32 Vitamin B-12 PO 1,000 mcg DAILY NEMO Administration Folic Acid 1 mg 11/02/19 09:00 11/13/19 09:32 Folvite PO 1 mg DAILY NEMO Administration Heparin Sodium (Porcine) 5,000 units 11/06/19 09:00 11/13/19 09:33 Heparin SC 5,000 units BID NEMO Administration Hydralazine HCl 25 mg 11/11/19 09:00 11/13/19 13:57 Apresoline PO 25 mg QID NEMO Administration Insulin Human Lispro 0 units 11/01/19 11:20 11/13/19 11:51 Humalog SC 2 unit .MILD SLIDING SCALE PRN Administration Mild Correctional Scale Insulin Human Lispro 0 units 11/01/19 11:20 11/12/19 20:20 Humalog SC 3 unit .BEDTIME SLIDING SC PRN Administration Bedtime Correctional Scale Labetalol HCl 20 mg 11/10/19 19:36 11/11/19 07:28 Normodyne SLOW IVP 20 mg Q4H PRN Administration Hypertension Nifedipine 30 mg 11/12/19 09:00 11/13/19 09:31 Procardia Xl PO 30 mg DAILY NEMO Administration Abiraterone Acetate 0 each 11/12/19 11:00 11/13/19 10:59 [Zytiga] 1,000 Mg PO 1 each 1100 NEMO Administration Prednisone 5 mg 11/04/19 21:00 11/13/19 09:32 Prednisone PO 5 mg BID NEMO Administration Sodium Chloride 10 ml 12/20/19 11:19 11/06/19 09:18 Flush - Normal Saline IVF 10 ml PRN PRN Administration Saline Flush Tamsulosin HCl 0.4 mg 11/05/19 09:00 11/13/19 09:32 Flomax PO 0.4 mg DAILY NEOM Administration - Exam General Appearance: NAD, awake alert Eye: PERRL ENT: no oropharyngeal lesions, moist mucosa Neck: supple, symmetric, no lymphadenopathy Heart: no murmur, no gallops, no rubs Respiratory: CTAB, no wheezes, no rales, no ronchi Gastrointestinal: soft, non-tender, non-distended, normal bowel sounds, no palpable masses, no hepatomegaly, no splenomegaly, no bruit Extremities: 2+ LE edema (left leg) Skin: no lesions, no rashes Neurological: cranial nerve grossly intact, no focal deficits Musculoskeletal: generalized weakness Psychiatric: normal affect, normal behavior, A&O x 3 Hosp A/P (1) DM type 2 causing CKD stage 4 Code(s): E11.22 - TYPE 2 DIABETES MELLITUS W DIABETIC CHRONIC KIDNEY DISEASE; N18.4 - CHRONIC KIDNEY DISEASE, STAGE 4 (SEVERE) Status: Acute Qualifiers: Diabetes mellitus fpc insulin use: with [facility] use Qualified Code( s): E11.22 - Type 2 diabetes mellitus with diabetic chronic kidney disease; N18.4 - Chronic kidney disease, stage 4 (severe); Z79.4 - termite treater (current) use of insulin (2) Left-sided weakness Code(s): R53.1 - WEAKNESS Status: Acute (3) Spinal stenosis of lumbar region at multiple levels Code(s): M48.061 - SPINAL STENOSIS, LUMBAR REGION WITHOUT NEUROGENIC MARCELO Status: Chronic (4) Hypoglycemia associated with type 2 diabetes mellitus Code(s): E11.649 - TYPE 2 DIABETES MELLITUS WITH HYPOGLYCEMIA WITHOUT COMA Status: Resolved (5) Pneumonia Code(s): J18.9 - PNEUMONIA, UNSPECIFIED ORGANISM Status: Resolved Qualifiers: Pneumonia type: due to unspecified organism Laterality: left Lung location: lower lobe of lung Qualified Code(s): J18.9 - Pneumonia, unspecified organism (6) KASSIDY (acute kidney injury) Code(s): N17.9 - ACUTE KIDNEY FAILURE, UNSPECIFIED Status: Acute (7) Hyperglycemia Code(s): R73.9 - HYPERGLYCEMIA, UNSPECIFIED Status: Acute (8) Weakness generalized Code(s): R53.1 - WEAKNESS Status: Acute (9) Hypertension Code(s): I10 - ESSENTIAL (PRIMARY) HYPERTENSION Status: Chronic Qualifiers: Hypertension type: essential hypertension Qualified Code(s): I10 - Essential (primary) hypertension (10) Metabolic acidosis Code(s): E87.2 - ACIDOSIS Status: Chronic (11) Metastatic adenocarcinoma to prostate Code(s): C79.82 - SECONDARY MALIGNANT NEOPLASM OF GENITAL ORGANS Status: Chronic - Plan Plan: oncology unit left lower extremity edema is worse discontinue IV fluids ultrasound lower extremity to rule out DVT elevate the leg, compression stockings/david wraps as tolerated late stage malignancy of the prostate, patient wishes to continue chemotherapy in the subacute setting and continue rehabilitation PT/ OT eval and treat blood pressure control blood sugar control replace electrolytes as needed continue other home medications as able G.I. prophylaxis DVT prophylaxis: SQ heparin on board
--- NOTE | 2019-11-13 17:40 | ULT ---
EXAM: Left lower extremity venous Doppler PROVIDED CLINICAL HISTORY: Evidence for DVT FINDINGS: Grayscale and color Doppler sonography with spectral analysis was performed of the left common femora l, femoral, popliteal, posterior tibial, greater saphenous and profunda femoral veins. The evaluated venous structures demonstrate a normal sonographic appearance. IMPRESSION: No sonographic evidence for left lower extremity deep venous thrombosis.
[2019-11-13] MEDS: Atorvastatin Calcium 40 MG TAB PO SCH (20:40)
[2019-11-13] MEDS: HYDROcodone/Acetaminophen 5/325 mg Tablet PO PRN (23:52)
[2019-11-14] MEDS: Bicalutamide 50 MG TAB PO SCH (08:39)
[2019-11-14] MEDS: Aspirin 81 mg Enteric Coated Tablet PO SCH (08:39)
[2019-11-14] MEDS: Tamsulosin HCl 0.4 MG CAP PO SCH (08:39)
[2019-11-14] MEDS: hydrALAZINE 25 MG TAB PO SCH ×4 (08:40→19:45)
[2019-11-14] MEDS: NIFEdipine XL 30 MG TAB PO SCH (08:40)
[2019-11-14] MEDS: Finasteride 5 MG TAB PO SCH (08:41)
[2019-11-14] MEDS: Carvedilol 6.25 MG TAB PO SCH ×2 (08:41→19:44)
[2019-11-14] MEDS: predniSONE 5 MG TAB PO SCH ×2 (08:41→19:45)
[2019-11-14] MEDS: Calcium Carbonate 600 MG TAB PO SCH ×3 (08:42→19:44)
[2019-11-14] MEDS: Cyanocobalamin (Vitamin B-12) 1,000 MCG TAB PO SCH (08:43)
[2019-11-14] MEDS: Heparin 5,000 UNITS/ML VIAL SC SCH ×2 (08:43→19:44)
[2019-11-14] MEDS: Folic Acid 1 MG TAB PO SCH (08:43)
[2019-11-14] MEDS: Abiraterone Acetate [Zytiga] 1,000 MG PO SCH (10:24)
[2019-11-14] MEDS: HumaLOG 300 UNITS/3 ML VIAL SC PRN ×3 (11:59→21:55)
--- NOTE | 2019-11-14 15:06 | PDOC.HOSPP ---
- Subjective Subjective: Seen and examined. Patient with persistent left-sided lower extremity edema extending up into the thigh and waist. Edema seems confined the left lower extremity and is not affecting the right. Patient having no pulmonary edema and breathing comfortably on room air. Patient able to urinate, though he does have some postvoid residual's. Increase Flomax and add finasteride. All questions answered in detail. Patient happy with plan of care. - Objective Vital Signs & Weight: Vital Signs (12 hours) Temp Pulse Resp BP BP BP Pulse Ox 11/14/19 12:10 122/75 11/14/19 12:00 100 125/71 11/14/19 08:41 157/88 H 11/14/19 08:40 109 H 157/88 H 11/14/19 08:29 98.8 F 109 H 18 157/88 H 96 11/14/19 08:00 96 Weight Admit Weight 135 lb 5.76 oz Weight 135 lb 5.76 oz I&O: 11/13/19 11/14/19 11/15/19 06:59 06:59 06:59 Intake Total 1440 1240 Output Total 350 275 Balance 1090 965 Result Diagrams: 11/11/19 04:15 11/13/19 03:37 Additional Labs: Accuchecks 11/14/19 11/14/19 11/13/19 11:58 05:28 20:24 POC Glucose 230 H 145 H 222 H 11/13/19 16:31 POC Glucose 215 H Radiology Reviewed by me: Yes Hospitalist ROS - Review of Systems All other systems reviewed; all pertinent +/- noted in HPI/Subj - Medication Medications: Active Medications Generic Name Dose Route Start Last Admin Trade Name Freq PRN Reason Stop Dose Admin Acetaminophen 650 mg 11/01/19 11:19 11/11/19 16:56 Tylenol PO 650 mg Q4H PRN Administration Headache/Fever/Mild Pain (1-3) Hydrocodone Bitart/Acetaminophen 1 tab 11/01/19 11:19 11/13/19 23:52 [place] 5/325 PO 1 tab Q4H PRN Administration Moderate Pain (4-6) Aspirin 81 mg 11/02/19 09:00 11/14/19 08:39 Ecotrin PO 81 mg DAILY NEMO Administration Atorvastatin Calcium 40 mg 11/01/19 21:00 11/13/19 20:40 Lipitor PO 40 mg HS NEMO Administration Bicalutamide 50 mg 11/05/19 09:00 11/14/19 08:39 Casodex PO 50 mg DAILY NEMO Administration Calcium Carbonate 600 mg 11/09/19 15:00 11/14/19 08:42 Caltrate PO 600 mg TID NEMO Administration Carvedilol 25 mg 11/04/19 21:00 11/14/19 08:41 Coreg PO 25 mg BID NEMO Administration Cyanocobalamin 1,000 mcg 11/02/19 09:00 11/14/19 08:43 Vitamin B-12 PO 1,000 mcg DAILY NEMO Administration Finasteride 5 mg 11/14/19 09:00 11/14/19 08:41 Proscar PO 5 mg DAILY NEMO Administration Folic Acid 1 mg 11/02/19 09:00 11/14/19 08:43 Folvite PO 1 mg DAILY NEMO Administration Heparin Sodium (Porcine) 5,000 units 11/06/19 09:00 11/14/19 08:43 Heparin SC 5,000 units BID NEMO Administration Hydralazine HCl 25 mg 11/11/19 09:00 11/14/19 12:00 Apresoline PO 25 mg QID NEMO Administration Insulin Human Lispro 0 units 11/01/19 11:20 11/14/19 11:59 Humalog SC 3 unit .MILD SLIDING SCALE PRN Administration Mild Correctional Scale Insulin Human Lispro 0 units 11/01/19 11:20 11/13/19 20:41 Humalog SC 2 unit .BEDTIME SLIDING SC PRN Administration Bedtime Correctional Scale Labetalol HCl 20 mg 11/10/19 19:36 11/11/19 07:28 Normodyne SLOW IVP 20 mg Q4H PRN Administration Hypertension Nifedipine 30 mg 11/12/19 09:00 11/14/19 08:40 Procardia Xl PO 30 mg DAILY NEMO Administration Abiraterone Acetate 0 each 11/12/19 11:00 11/14/19 10:24 [Zytiga] 1,000 Mg PO 1 each 1100 NEMO Administration Prednisone 5 mg 11/04/19 21:00 11/14/19 08:41 Prednisone PO 5 mg BID NEMO Administration Sodium Chloride 10 ml 11/01/19 11:19 11/06/19 09:18 Flush - Normal Saline IVF 10 ml PRN PRN Administration Saline Flush Tamsulosin HCl 0.8 mg 11/14/19 07:10 11/14/19 08:39 Flomax PO 0.8 mg DAILY NEMO Administration - Exam General Appearance: NAD, awake alert Eye: PERRL ENT: normocephalic atraumatic, moist mucosa Neck: supple, symmetric, no lymphadenopathy Heart: RRR, no murmur, normal peripheral pulses Respiratory: CTAB, no wheezes, normal chest expansion, no tachypnea Gastrointestinal: soft, non-tender, non-distended, normal bowel sounds Extremities: 2+ LE edema (Left leg only) Skin: no lesions, no rashes Neurological: cranial nerve grossly intact, no focal deficits Musculoskeletal: generalized weakness Psychiatric: normal affect, A&O x 3 Hosp A/P (1) DM type 2 causing CKD stage 4 Code(s): E11.22 - TYPE 2 DIABETES MELLITUS W DIABETIC CHRONIC KIDNEY DISEASE; N18.4 - CHRONIC KIDNEY DISEASE, STAGE 4 (SEVERE) Status: Acute Qualifiers: 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: with [facility] use Qualified Code( s): E11.22 - Type 2 diabetes mellitus with diabetic chronic kidney disease; N18.4 - Chronic kidney disease, stage 4 (severe); Z79.4 - [facility] (current) use of insulin (2) Left-sided weakness Code(s): R53.1 - WEAKNESS Status: Acute (3) Spinal stenosis of lumbar region at multiple levels Code(s): M48.061 - SPINAL STENOSIS, LUMBAR REGION WITHOUT NEUROGENIC MARCELO Status: Chronic (4) Hypoglycemia associated with type 2 diabetes mellitus Code(s): E11.649 - TYPE 2 DIABETES MELLITUS WITH HYPOGLYCEMIA WITHOUT COMA Status: Resolved (5) Pneumonia Code(s): J18.9 - PNEUMONIA, UNSPECIFIED ORGANISM Status: Resolved Qualifiers: Pneumonia type: due to unspecified organism Laterality: left Lung location: lower lobe of lung Qualified Code(s): J18.9 - Pneumonia, unspecified organism (6) KASSIDY (acute kidney injury) Code(s): N17.9 - ACUTE KIDNEY FAILURE, UNSPECIFIED Status: Acute (7) Hyperglycemia Code(s): R73.9 - HYPERGLYCEMIA, UNSPECIFIED Status: Acute (8) Weakness generalized Code(s): R53.1 - WEAKNESS Status: Acute (9) Hypertension Code(s): I10 - ESSENTIAL (PRIMARY) HYPERTENSION Status: Chronic Qualifiers: Hypertension type: essential hypertension Qualified Code(s): I10 - Essential (primary) hypertension (10) Metabolic acidosis Code(s): E87.2 - ACIDOSIS Status: Chronic (11) Metastatic adenocarcinoma to prostate Code(s): C79.82 - SECONDARY MALIGNANT NEOPLASM OF GENITAL ORGANS Status: Chronic - Plan Plan: oncology unit Nephrology consultation, recommendations appreciated Increase flomax Add Finasteride left lower extremity edema persists discontinue IV fluids ultrasound lower extremity ruled out DVT elevate the leg, compression stockings/david wraps as tolerated late stage malignancy of the prostate, patient wishes to continue chemotherapy in the subacute setting and continue rehabilitation PT/ OT eval and treat blood pressure control blood sugar control replace electrolytes as needed continue other home medications as able G.I. prophylaxis DVT prophylaxis: SQ heparin on board
--- NOTE | 2019-11-14 15:35 | PRG ---
DATE OF SERVICE: 11/14/2019 SUBJECTIVE: Patient was seen and examined at bedside and overnight events noted. Patient denies any shortness of breath or chest pain or palpitation. No history of nausea or vomiting or diarrhea or fever or chills or cramps. OBJECTIVE: GENERAL: This is a well built man, in no acute distress. VITAL SIGNS: Temperature 98, pulse 100, respiratory rate blood pressure 122/75. HEENT: Atraumatic, normocephalic. Oral mucosa is moist NECK: Supple. CARDIOVASCULAR: S1, S2 heard. Rate and rhythm regular. RESPIRATORY: Clear to auscultation. GASTROINTESTINAL: Abdomen is soft. MUSCULOSKELETAL: No tenderness. No edema. DERMATOLOGIC: No skin rash. NEUROLOGIC: Alert and awake and oriented X3. No focal neurologic deficits. Moving all the extremities. PSYCHIATRIC: Mood and affect normal. LABORATORY DATA: Not done today. ASSESSMENT AND PLAN: 1. Acute kidney injury on chronic kidney stage 4. Recheck labs. 2. Hypertension, we will monitor. 3. Edema. 4. Acidosis. 5. Hypocalcemia. Recheck labs in the morning, we will follow. Job ID: [id number]
[2019-11-14] MEDS: Atorvastatin Calcium 40 MG TAB PO SCH (19:44)
[2019-11-14] MEDS: HYDROcodone/Acetaminophen 5/325 mg Tablet PO PRN (19:45)
[2019-11-15 04:25] LABS: Anion Gap 11 mmol/L (10-20); BUN (Urea Nitrogen) 40 mg/dL (8.4-25.7); Calc. Creatinine Clearance 17 mL/min (70-130); Calcium 7.3 mg/dL (7.8-10.44); Carbon Dioxide 19 mmol/L (23-31); Chloride 115 mmol/L (98-107); Estimated GFR-MDRD 21; Glucose 164 mg/dL (80-115); Potassium 4.5 mmol/L (3.5-5.1); Sodium 140 mmol/L (136-145)
[2019-11-15] MEDS: Aspirin 81 mg Enteric Coated Tablet PO SCH (08:38)
[2019-11-15] MEDS: Carvedilol 6.25 MG TAB PO SCH ×2 (08:38→20:53)
[2019-11-15] MEDS: hydrALAZINE 25 MG TAB PO SCH ×4 (08:39→20:55)
[2019-11-15] MEDS: Cyanocobalamin (Vitamin B-12) 1,000 MCG TAB PO SCH (08:39)
[2019-11-15] MEDS: NIFEdipine XL 30 MG TAB PO SCH (08:39)
[2019-11-15] MEDS: Finasteride 5 MG TAB PO SCH (08:39)
[2019-11-15] MEDS: predniSONE 5 MG TAB PO SCH ×2 (08:40→20:53)
[2019-11-15] MEDS: Tamsulosin HCl 0.4 MG CAP PO SCH (08:40)
[2019-11-15] MEDS: Folic Acid 1 MG TAB PO SCH (08:40)
[2019-11-15] MEDS: Bicalutamide 50 MG TAB PO SCH (08:41)
[2019-11-15] MEDS: Calcium Carbonate 600 MG TAB PO SCH ×3 (08:41→20:53)
[2019-11-15] MEDS: Heparin 5,000 UNITS/ML VIAL SC SCH ×2 (08:42→20:52)
[2019-11-15] MEDS: Abiraterone Acetate [Zytiga] 1,000 MG PO SCH (10:34)
[2019-11-15] MEDS: HumaLOG 300 UNITS/3 ML VIAL SC PRN ×3 (11:09→20:52)
--- NOTE | 2019-11-15 14:18 | PDOC.HOSPP ---
- Subjective Subjective: Seen and examined. Patient remains clinically stable. Saturating well on room air. Persistent left lower extremity edema, patient has been educated again in the presence of his family to keep the leg elevated as tolerated while he is in bed. Family at bedside, many questions asked, all answered in detail. Patient and family are happy with plan of care. - Objective Vital Signs & Weight: Vital Signs (12 hours) Temp Pulse Resp BP Pulse Ox 11/15/19 12:35 96 11/15/19 08:39 96 11/15/19 07:43 99.4 F 96 18 170/72 H 96 Weight Admit Weight 135 lb 5.76 oz Weight 135 lb 5.76 oz I&O: 11/14/19 11/15/19 11/16/19 06:59 06:59 06:59 Intake Total 1240 660 Output Total 275 700 120 Balance 965 -40 -120 Result Diagrams: 11/11/19 04:15 11/15/19 03:39 Additional Labs: Accuchecks 11/14/19 11/14/19 21:51 15:58 POC Glucose 250 H 214 H Hospitalist ROS - Review of Systems All other systems reviewed; all pertinent +/- noted in HPI/Subj - Medication Medications: Active Medications Generic Name Dose Route Start Last Admin Trade Name Freq PRN Reason Stop Dose Admin Acetaminophen 650 mg 11/01/19 11:19 11/11/19 16:56 Tylenol PO 650 mg Q4H PRN Administration Headache/Fever/Mild Pain (1-3) Hydrocodone Bitart/Acetaminophen 1 tab 11/01/19 11:19 11/14/19 19:45 [place] 5/325 PO 1 tab Q4H PRN Administration Moderate Pain (4-6) Aspirin 81 mg 11/02/19 09:00 11/15/19 08:38 Ecotrin PO 81 mg DAILY NEMO Administration Atorvastatin Calcium 40 mg 11/01/19 21:00 11/14/19 19:44 Lipitor PO 40 mg HS NEMO Administration Bicalutamide 50 mg 11/05/19 09:00 11/15/19 08:41 Casodex PO 50 mg DAILY NEMO Administration Calcium Carbonate 600 mg 11/09/19 15:00 11/15/19 08:41 Caltrate PO 600 mg TID NEMO Administration Carvedilol 25 mg 11/04/19 21:00 11/15/19 08:38 Coreg PO 25 mg BID NEMO Administration Cyanocobalamin 1,000 mcg 11/02/19 09:00 11/15/19 08:39 Vitamin B-12 PO 1,000 mcg DAILY NEMO Administration Finasteride 5 mg 11/14/19 09:00 11/15/19 08:39 Proscar PO 5 mg DAILY NEMO Administration Folic Acid 1 mg 11/02/19 09:00 11/15/19 08:40 Folvite PO 1 mg DAILY NEMO Administration Heparin Sodium (Porcine) 5,000 units 11/06/19 09:00 11/15/19 08:42 Heparin SC 5,000 units BID NEMO Administration Hydralazine HCl 25 mg 11/11/19 09:00 11/15/19 12:35 Apresoline PO 25 mg QID NEMO Administration Insulin Human Lispro 0 units 11/01/19 11:20 11/15/19 11:09 Humalog SC 4 unit .MILD SLIDING SCALE PRN Administration Mild Correctional Scale Insulin Human Lispro 0 units 11/01/19 11:20 11/14/19 21:55 Humalog SC 2 unit .BEDTIME SLIDING SC PRN Administration Bedtime Correctional Scale Labetalol HCl 20 mg 11/10/19 19:36 11/11/19 07:28 Normodyne SLOW IVP 20 mg Q4H PRN Administration Hypertension Nifedipine 30 mg 11/12/19 09:00 11/15/19 08:39 Procardia Xl PO 30 mg DAILY NEMO Administration Abiraterone Acetate 0 each 11/12/19 11:00 11/15/19 10:34 [Zytiga] 1,000 Mg PO 1 each 1100 NEMO Administration Prednisone 5 mg 11/04/19 21:00 11/15/19 08:40 Prednisone PO 5 mg BID NEMO Administration Sodium Chloride 10 ml 11/01/19 11:19 11/06/19 09:18 Flush - Normal Saline IVF 10 ml PRN PRN Administration Saline Flush Tamsulosin HCl 0.8 mg 11/14/19 07:10 11/15/19 08:40 Flomax PO 0.8 mg DAILY NEMO Administration - Exam General Appearance: NAD Eye: anicteric sclera ENT: normocephalic atraumatic, moist mucosa Neck: no JVD, no thyromegaly Heart: no murmur, no gallops, normal peripheral pulses Respiratory: no wheezes, no rales, normal chest expansion, no tachypnea Gastrointestinal: soft, non-tender, non-distended, no hepatomegaly, no guarding , no rigidity Extremities: 2+ LE edema (Left leg) Skin: no rashes Neurological: cranial nerve grossly intact, no focal deficits Musculoskeletal: generalized weakness Psychiatric: normal affect, normal behavior, A&O x 3 Hosp A/P (1) DM type 2 causing CKD stage 4 Code(s): E11.22 - TYPE 2 DIABETES MELLITUS W DIABETIC CHRONIC KIDNEY DISEASE; N18.4 - CHRONIC KIDNEY DISEASE, STAGE 4 (SEVERE) Status: Acute Qualifiers: Diabetes mellitus [facility] insulin use: with senior sales representative use Qualified Code( s): E11.22 - Type 2 diabetes mellitus with diabetic chronic kidney disease; N18.4 - Chronic kidney disease, stage 4 (severe); Z79.4 - [facility] (current) use of insulin (2) Left-sided weakness Code(s): R53.1 - WEAKNESS Status: Acute (3) Spinal stenosis of lumbar region at multiple levels Code(s): M48.061 - SPINAL STENOSIS, LUMBAR REGION WITHOUT NEUROGENIC MARCELO Status: Chronic (4) Hypoglycemia associated with type 2 diabetes mellitus Code(s): E11.649 - TYPE 2 DIABETES MELLITUS WITH HYPOGLYCEMIA WITHOUT COMA Status: Resolved (5) Pneumonia Code(s): J18.9 - PNEUMONIA, UNSPECIFIED ORGANISM Status: Resolved Qualifiers: Pneumonia type: due to unspecified organism Laterality: left Lung location: lower lobe of lung Qualified Code(s): J18.9 - Pneumonia, unspecified organism (6) KASSIDY (acute kidney injury) Code(s): N17.9 - ACUTE KIDNEY FAILURE, UNSPECIFIED Status: Acute (7) Hyperglycemia Code(s): R73.9 - HYPERGLYCEMIA, UNSPECIFIED Status: Acute (8) Weakness generalized Code(s): R53.1 - WEAKNESS Status: Acute (9) Hypertension Code(s): I10 - ESSENTIAL (PRIMARY) HYPERTENSION Status: Chronic Qualifiers: Hypertension type: essential hypertension Qualified Code(s): I10 - Essential (primary) hypertension (10) Metabolic acidosis Code(s): E87.2 - ACIDOSIS Status: Chronic (11) Metastatic adenocarcinoma to prostate Code(s): C79.82 - SECONDARY MALIGNANT NEOPLASM OF GENITAL ORGANS Status: Chronic - Plan Plan: oncology unit Nephrology consultation, recommendations appreciated Continue flomax Continue Finasteride left lower extremity edema persists discontinue IV fluids ultrasound lower extremity ruled out DVT elevate the leg, compression stockings/david wraps as tolerated late stage malignancy of the prostate, patient wishes to continue chemotherapy in the subacute setting and continue rehabilitation PT/ OT eval and treat blood pressure control blood sugar control replace electrolytes as needed continue other home medications as able G.I. prophylaxis DVT prophylaxis: SQ heparin on board
--- NOTE | 2019-11-15 17:01 | PRG ---
DATE OF SERVICE: 11/15/2019 SUBJECTIVE: Patient was seen and examined at bedside and overnight events noted. Patient denies any shortness of breath or chest pain or palpitation. No history of nausea or vomiting or diarrhea or fever or chills or cramps. OBJECTIVE: GENERAL: This is an elderly male, in no apparent distress. VITAL SIGNS: Temperature 99.4. Heart rate 94. Respiratory rate 18. Blood pressure 125/71. HEENT: Atraumatic, normocephalic. Oral mucosa is moist NECK: Supple. CARDIOVASCULAR: S1, S2 heard. Rate and rhythm regular. RESPIRATORY: Clear to auscultation. GASTROINTESTINAL: Abdomen is soft. MUSCULOSKELETAL: No tenderness. No edema. DERMATOLOGIC: No skin rash. NEUROLOGIC: Alert and awake and oriented X3. No focal neurologic deficits. Moving all the extremities. PSYCHIATRIC: Mood and affect normal. LABORATORY DATA: Potassium 4.5, BUN is 40, and creatinine is 3.4. ASSESSMENT AND PLAN: 1. Acute kidney injury on chronic kidney disease, stage 4. Monitor labs. Labs are within the range. 2. Hypertension. 3. Edema. 4. Acidosis. 5. . We will continue supplements. We will monitor labs. Avoid nephrotoxins. Job ID: [id number]
[2019-11-15] MEDS: Atorvastatin Calcium 40 MG TAB PO SCH (20:53)
[2019-11-15] MEDS: HYDROcodone/Acetaminophen 5/325 mg Tablet PO PRN (20:53)
[2019-11-16] MEDS: Tamsulosin HCl 0.4 MG CAP PO SCH (09:18)
[2019-11-16] MEDS: predniSONE 5 MG TAB PO SCH ×2 (09:19→20:37)
[2019-11-16] MEDS: NIFEdipine XL 30 MG TAB PO SCH (09:19)
[2019-11-16] MEDS: Carvedilol 6.25 MG TAB PO SCH ×2 (09:19→20:37)
[2019-11-16] MEDS: Finasteride 5 MG TAB PO SCH (09:20)
[2019-11-16] MEDS: Cyanocobalamin (Vitamin B-12) 1,000 MCG TAB PO SCH (09:20)
[2019-11-16] MEDS: Folic Acid 1 MG TAB PO SCH (09:21)
[2019-11-16] MEDS: hydrALAZINE 25 MG TAB PO SCH ×4 (09:21→20:37)
[2019-11-16] MEDS: Calcium Carbonate 600 MG TAB PO SCH ×3 (09:21→20:37)
[2019-11-16] MEDS: Bicalutamide 50 MG TAB PO SCH (09:22)
[2019-11-16] MEDS: Aspirin 81 mg Enteric Coated Tablet PO SCH (09:22)
[2019-11-16] MEDS: Heparin 5,000 UNITS/ML VIAL SC SCH ×2 (09:23→20:21)
[2019-11-16] MEDS: Abiraterone Acetate [Zytiga] 1,000 MG PO SCH (10:48)
[2019-11-16] MEDS: HumaLOG 300 UNITS/3 ML VIAL SC PRN ×3 (12:18→20:39)
--- NOTE | 2019-11-16 13:42 | PDOC.HOSPP ---
- Subjective Subjective: Seen and examined. Family at bedside, many questions asked, all answered in detail. Patient and family are happy with plan of care. Persistent left leg edema though this has improved. We will continue to elevate the leg, compression stocking as tolerated, and symptomatic therapy. Continue to work with physical therapy and occupational therapy. - Objective Vital Signs & Weight: Vital Signs (12 hours) Temp Pulse Resp BP Pulse Ox 11/16/19 12:18 96 11/16/19 09:21 96 11/16/19 09:19 96 11/16/19 07:49 98.0 F 96 18 150/86 H 96 Weight Admit Weight 135 lb 5.76 oz Weight 135 lb 5.76 oz I&O: 11/15/19 11/16/19 11/17/19 06:59 06:59 06:59 Intake Total 660 1000 Output Total 700 870 Balance -40 130 Result Diagrams: 11/11/19 04:15 11/15/19 03:39 Additional Labs: Accuchecks 11/16/19 11/16/19 11/15/19 11:27 05:45 20:39 POC Glucose 201 H 211 H 351 H 11/15/19 11/15/19 15:54 10:53 POC Glucose 298 H 264 H Radiology Reviewed by me: Yes Hospitalist ROS - Review of Systems All other systems reviewed; all pertinent +/- noted in HPI/Subj - Medication Medications: Active Medications Generic Name Dose Route Start Last Admin Trade Name Freq PRN Reason Stop Dose Admin Acetaminophen 650 mg 11/01/19 11:19 11/11/19 16:56 Tylenol PO 650 mg Q4H PRN Administration Headache/Fever/Mild Pain (1-3) Hydrocodone Bitart/Acetaminophen 1 tab 11/01/19 11:19 11/15/19 20:53 [place] 5/325 PO 1 tab Q4H PRN Administration Moderate Pain (4-6) Aspirin 81 mg 11/02/19 09:00 11/16/19 09:22 Ecotrin PO 81 mg DAILY NEMO Administration Atorvastatin Calcium 40 mg 11/01/19 21:00 11/15/19 20:53 Lipitor PO 40 mg HS NEMO Administration Bicalutamide 50 mg 11/05/19 09:00 11/16/19 09:22 Casodex PO 50 mg DAILY NEMO Administration Calcium Carbonate 600 mg 11/09/19 15:00 11/16/19 09:21 Caltrate PO 600 mg TID NEMO Administration Carvedilol 25 mg 11/04/19 21:00 11/16/19 09:19 Coreg PO 25 mg BID NEMO Administration Cyanocobalamin 1,000 mcg 11/02/19 09:00 11/16/19 09:20 Vitamin B-12 PO 1,000 mcg DAILY NEMO Administration Finasteride 5 mg 11/14/19 09:00 11/16/19 09:20 Proscar PO 5 mg DAILY NEMO Administration Folic Acid 1 mg 11/02/19 09:00 11/16/19 09:21 Folvite PO 1 mg DAILY NEMO Administration Heparin Sodium (Porcine) 5,000 units 11/06/19 09:00 11/16/19 09:23 Heparin SC 5,000 units BID NEMO Administration Hydralazine HCl 25 mg 11/11/19 09:00 11/16/19 12:18 Apresoline PO 25 mg QID NEMO Administration Insulin Human Lispro 0 units 11/01/19 11:20 11/16/19 12:18 Humalog SC 3 unit .MILD SLIDING SCALE PRN Administration Mild Correctional Scale Insulin Human Lispro 0 units 11/01/19 11:20 11/15/19 20:52 Humalog SC 5 unit .BEDTIME SLIDING SC PRN Administration Bedtime Correctional Scale Labetalol HCl 20 mg 11/10/19 19:36 11/11/19 07:28 Normodyne SLOW IVP 20 mg Q4H PRN Administration Hypertension Nifedipine 30 mg 11/12/19 09:00 11/16/19 09:19 Procardia Xl PO 30 mg DAILY NEMO Administration Abiraterone Acetate 0 each 11/12/19 11:00 11/16/19 10:48 [Zytiga] 1,000 Mg PO 1 each 1100 NEMO Administration Prednisone 5 mg 11/04/19 21:00 11/16/19 09:19 Prednisone PO 5 mg BID NEMO Administration Sodium Chloride 10 ml 11/01/19 11:19 11/06/19 09:18 Flush - Normal Saline IVF 10 ml PRN PRN Administration Saline Flush Tamsulosin HCl 0.8 mg 11/14/19 07:10 11/16/19 09:18 Flomax PO 0.8 mg DAILY NEMO Administration - Exam General Appearance: NAD, awake alert Eye: anicteric sclera ENT: normocephalic atraumatic, moist mucosa Neck: supple, symmetric, no lymphadenopathy Heart: no murmur, no gallops, no rubs Respiratory: no wheezes, no rales, no ronchi, normal chest expansion Gastrointestinal: soft, non-tender, no palpable masses, no guarding, no rigidity Extremities: no clubbing, no edema Skin: no lesions Neurological: cranial nerve grossly intact, no focal deficits Musculoskeletal: generalized weakness, diffuse muscle atrophy Psychiatric: normal affect, normal behavior, A&O x 3 Hosp A/P (1) DM type 2 causing CKD stage 4 Code(s): E11.22 - TYPE 2 DIABETES MELLITUS W DIABETIC CHRONIC KIDNEY DISEASE; N18.4 - CHRONIC KIDNEY DISEASE, STAGE 4 (SEVERE) Status: Acute Qualifiers: Diabetes mellitus detention insulin use: with moth exterminator use Qualified Code( s): E11.22 - Type 2 diabetes mellitus with diabetic chronic kidney disease; N18.4 - Chronic kidney disease, stage 4 (severe); Z79.4 - skilled nursing (current) use of insulin (2) Left-sided weakness Code(s): R53.1 - WEAKNESS Status: Acute (3) Spinal stenosis of lumbar region at multiple levels Code(s): M48.061 - SPINAL STENOSIS, LUMBAR REGION WITHOUT NEUROGENIC MARCELO Status: Chronic (4) Hypoglycemia associated with type 2 diabetes mellitus Code(s): E11.649 - TYPE 2 DIABETES MELLITUS WITH HYPOGLYCEMIA WITHOUT COMA Status: Resolved (5) Pneumonia Code(s): J18.9 - PNEUMONIA, UNSPECIFIED ORGANISM Status: Resolved Qualifiers: Pneumonia type: due to unspecified organism Laterality: left Lung location: lower lobe of lung Qualified Code(s): J18.9 - Pneumonia, unspecified organism (6) KASSIDY (acute kidney injury) Code(s): N17.9 - ACUTE KIDNEY FAILURE, UNSPECIFIED Status: Acute (7) Hyperglycemia Code(s): R73.9 - HYPERGLYCEMIA, UNSPECIFIED Status: Acute (8) Weakness generalized Code(s): R53.1 - WEAKNESS Status: Acute (9) Hypertension Code(s): I10 - ESSENTIAL (PRIMARY) HYPERTENSION Status: Chronic Qualifiers: Hypertension type: essential hypertension Qualified Code(s): I10 - Essential (primary) hypertension (10) Metabolic acidosis Code(s): E87.2 - ACIDOSIS Status: Chronic (11) Metastatic adenocarcinoma to prostate Code(s): C79.82 - SECONDARY MALIGNANT NEOPLASM OF GENITAL ORGANS Status: Chronic - Plan Plan: oncology unit Nephrology consultation, recommendations appreciated Continue flomax Continue Finasteride left lower extremity edema persists, though improving discontinue IV fluids ultrasound lower extremity ruled out DVT elevate the leg, compression stockings/david wraps as tolerated late stage malignancy of the prostate, patient wishes to continue chemotherapy in the subacute setting and continue rehabilitation PT/ OT eval and treat blood pressure control blood sugar control replace electrolytes as needed continue other home medications as able G.I. prophylaxis DVT prophylaxis: SQ heparin on
--- NOTE | 2019-11-16 15:01 | PRG ---
DATE OF SERVICE: 11/16/2019 SUBJECTIVE: Patient was seen and examined at bedside and overnight events noted. Patient denies any shortness of breath or chest pain or palpitation. No history of nausea or vomiting or diarrhea or fever or chills or cramps. OBJECTIVE: GENERAL: This is a well-built male, in no apparent distress. VITAL SIGNS: Temperature 98.0. Heart rate 93. Respiratory rate 18. Blood pressure 150/86. HEENT: Atraumatic, normocephalic. Oral mucosa is moist NECK: Supple. CARDIOVASCULAR: S1, S2 heard. Rate and rhythm regular. RESPIRATORY: Clear to auscultation. GASTROINTESTINAL: Abdomen is soft. MUSCULOSKELETAL: No tenderness. No edema. DERMATOLOGIC: No skin rash. NEUROLOGIC: Alert and awake and oriented X3. No focal neurologic deficits. Moving all the extremities. PSYCHIATRIC: Mood and affect normal. LABORATORY DATA: Not done today. ASSESSMENT AND PLAN: 1. Acute kidney injury on chronic kidney disease. Monitor. 2. Hypertension. We will titrate medications. 3. Edema, controlled. 4. Acidosis. 5. Hypocalcemia. Continue supplements. 6. Hyperglycemia. We will continue to follow. Job ID: [id number]
[2019-11-16] MEDS: Atorvastatin Calcium 40 MG TAB PO SCH (20:37)
[2019-11-16] MEDS: HYDROcodone/Acetaminophen 5/325 mg Tablet PO PRN (21:19)
[2019-11-17 04:11] LABS: Anion Gap 11 mmol/L (10-20); BUN (Urea Nitrogen) 42 mg/dL (8.4-25.7); Calc. Creatinine Clearance 19 mL/min (70-130); Calcium 7.5 mg/dL (7.8-10.44); Carbon Dioxide 18 mmol/L (23-31); Chloride 113 mmol/L (98-107); Estimated GFR-MDRD 23; Glucose 220 mg/dL (80-115); Potassium 5.2 mmol/L (3.5-5.1); Sodium 137 mmol/L (136-145)
[2019-11-17] MEDS: HumaLOG 300 UNITS/3 ML VIAL SC PRN ×4 (06:23→20:14)
[2019-11-17] MEDS: Tamsulosin HCl 0.4 MG CAP PO SCH (08:40)
[2019-11-17] MEDS: Bicalutamide 50 MG TAB PO SCH (08:40)
[2019-11-17] MEDS: Folic Acid 1 MG TAB PO SCH (08:40)
[2019-11-17] MEDS: Carvedilol 6.25 MG TAB PO SCH ×2 (08:40→20:08)
[2019-11-17] MEDS: hydrALAZINE 25 MG TAB PO SCH ×4 (08:41→20:08)
[2019-11-17] MEDS: Heparin 5,000 UNITS/ML VIAL SC SCH ×2 (08:41→20:06)
[2019-11-17] MEDS: Finasteride 5 MG TAB PO SCH (08:41)
[2019-11-17] MEDS: NIFEdipine XL 30 MG TAB PO SCH (08:41)
[2019-11-17] MEDS: Cyanocobalamin (Vitamin B-12) 1,000 MCG TAB PO SCH (08:41)
[2019-11-17] MEDS: predniSONE 5 MG TAB PO SCH (08:41)
[2019-11-17] MEDS: Calcium Carbonate 600 MG TAB PO SCH ×3 (08:41→20:10)
[2019-11-17] MEDS: Aspirin 81 mg Enteric Coated Tablet PO SCH (08:41)
[2019-11-17] MEDS: Abiraterone Acetate [Zytiga] 1,000 MG PO SCH (10:21)
--- NOTE | 2019-11-17 13:44 | PDOC.HOSPP ---
- Subjective Subjective: Seen and examined. Patient breathing comfortably on room air. Less left lower extremity edema with compression stalking. Renal function stable and at his baseline. Family at bedside, all questions answered in detail. - Objective Vital Signs & Weight: Vital Signs (12 hours) Temp Pulse Resp BP BP Pulse Ox 11/17/19 13:28 89 131/73 11/17/19 08:41 91 141/76 H 11/17/19 08:40 141/76 H 11/17/19 08:00 98.7 F 91 18 141/76 H 99 Weight Admit Weight 135 lb 5.76 oz Weight 135 lb 5.76 oz I&O: 11/16/19 11/17/19 11/18/19 06:59 06:59 06:59 Intake Total 1000 1210 Output Total 870 Balance 130 1210 Result Diagrams: 11/11/19 04:15 11/17/19 03:35 Additional Labs: Accuchecks 11/17/19 11/16/19 11/16/19 11:15 20:42 15:52 POC Glucose 250 H 265 H 249 H Radiology Reviewed by me: Yes Hospitalist ROS - Review of Systems All other systems reviewed; all pertinent +/- noted in HPI/Subj - Medication Medications: Active Medications Generic Name Dose Route Start Last Admin Trade Name Freq PRN Reason Stop Dose Admin Acetaminophen 650 mg 11/01/19 11:19 11/11/19 16:56 Tylenol PO 650 mg Q4H PRN Administration Headache/Fever/Mild Pain (1-3) Hydrocodone Bitart/Acetaminophen 1 tab 11/01/19 11:19 11/16/19 21:19 [place] 5/325 PO 1 tab Q4H PRN Administration Moderate Pain (4-6) Aspirin 81 mg 11/02/19 09:00 11/17/19 08:41 Ecotrin PO 81 mg DAILY NEMO Administration Atorvastatin Calcium 40 mg 11/01/19 21:00 11/16/19 20:37 Lipitor PO 40 mg HS NEMO Administration Bicalutamide 50 mg 11/05/19 09:00 11/17/19 08:40 Casodex PO 50 mg DAILY NEMO Administration Calcium Carbonate 600 mg 11/09/19 15:00 11/17/19 08:41 Caltrate PO 600 mg TID NEMO Administration Carvedilol 25 mg 11/04/19 21:00 11/17/19 08:40 Coreg PO 25 mg BID NEMO Administration Cyanocobalamin 1,000 mcg 11/02/19 09:00 11/17/19 08:41 Vitamin B-12 PO 1,000 mcg DAILY NEMO Administration Finasteride 5 mg 11/14/19 09:00 11/17/19 08:41 Proscar PO 5 mg DAILY NEMO Administration Folic Acid 1 mg 11/02/19 09:00 11/17/19 08:40 Folvite PO 1 mg DAILY NEMO Administration Heparin Sodium (Porcine) 5,000 units 11/06/19 09:00 11/17/19 08:41 Heparin SC 5,000 units BID NEMO Administration Hydralazine HCl 25 mg 11/11/19 09:00 11/17/19 13:28 Apresoline PO 25 mg QID NEMO Administration Insulin Human Lispro 0 units 11/01/19 11:20 11/17/19 12:00 Humalog SC 3 unit .MILD SLIDING SCALE PRN Administration Mild Correctional Scale Insulin Human Lispro 0 units 11/01/19 11:20 11/16/19 20:39 Humalog SC 3 unit .BEDTIME SLIDING SC PRN Administration Bedtime Correctional Scale Labetalol HCl 20 mg 11/10/19 19:36 11/11/19 07:28 Normodyne SLOW IVP 20 mg Q4H PRN Administration Hypertension Nifedipine 30 mg 11/12/19 09:00 11/17/19 08:41 Procardia Xl PO 30 mg DAILY NEMO Administration Abiraterone Acetate 0 each 11/12/19 11:00 11/17/19 10:21 [Zytiga] 1,000 Mg PO 1 each 1100 NEMO Administration Prednisone 5 mg 11/17/19 09:00 11/17/19 08:41 Prednisone PO 5 mg DAILY NEMO Administration Sodium Chloride 10 ml 11/01/19 11:19 11/06/19 09:18 Flush - Normal Saline IVF 10 ml PRN PRN Administration Saline Flush Tamsulosin HCl 0.8 mg 11/14/19 07:10 11/17/19 08:40 Flomax PO 0.8 mg DAILY NEMO Administration - Exam General Appearance: NAD, awake alert Eye: anicteric sclera ENT: normocephalic atraumatic, moist mucosa Neck: supple, symmetric, no lymphadenopathy Heart: no murmur, no gallops, no rubs Respiratory: CTAB, no wheezes, no rales, no ronchi, normal chest expansion Gastrointestinal: soft, non-tender, no guarding, no rigidity Extremities: 1+ LE edema (improved left) Skin: no lesions, no rashes Neurological: cranial nerve grossly intact, no focal deficits Musculoskeletal: generalized weakness Psychiatric: normal affect, A&O x 3 Hosp A/P (1) DM type 2 causing CKD stage 4 Code(s): E11.22 - TYPE 2 DIABETES MELLITUS W DIABETIC CHRONIC KIDNEY DISEASE; N18.4 - CHRONIC KIDNEY DISEASE, STAGE 4 (SEVERE) Status: Acute Qualifiers: Diabetes mellitus group home insulin use: with group home use Qualified Code( s): E11.22 - Type 2 diabetes mellitus with diabetic chronic kidney disease; N18.4 - Chronic kidney disease, stage 4 (severe); Z79.4 - continuous churn buttermaker (current) use of insulin (2) Left-sided weakness Code(s): R53.1 - WEAKNESS Status: Acute (3) Spinal stenosis of lumbar region at multiple levels Code(s): M48.061 - SPINAL STENOSIS, LUMBAR REGION WITHOUT NEUROGENIC MARCELO Status: Chronic (4) Hypoglycemia associated with type 2 diabetes mellitus Code(s): E11.649 - TYPE 2 DIABETES MELLITUS WITH HYPOGLYCEMIA WITHOUT COMA Status: Resolved (5) Pneumonia Code(s): J18.9 - PNEUMONIA, UNSPECIFIED ORGANISM Status: Resolved Qualifiers: Pneumonia type: due to unspecified organism Laterality: left Lung location: lower lobe of lung Qualified Code(s): J18.9 - Pneumonia, unspecified organism (6) KASSIDY (acute kidney injury) Code(s): N17.9 - ACUTE KIDNEY FAILURE, UNSPECIFIED Status: Acute (7) Hyperglycemia Code(s): R73.9 - HYPERGLYCEMIA, UNSPECIFIED Status: Acute (8) Weakness generalized Code(s): R53.1 - WEAKNESS Status: Acute (9) Hypertension Code(s): I10 - ESSENTIAL (PRIMARY) HYPERTENSION Status: Chronic Qualifiers: Hypertension type: essential hypertension Qualified Code(s): I10 - Essential (primary) hypertension (10) Metabolic acidosis Code(s): E87.2 - ACIDOSIS Status: Chronic (11) Metastatic adenocarcinoma to prostate Code(s): C79.82 - SECONDARY MALIGNANT NEOPLASM OF GENITAL ORGANS Status: Chronic - Plan Plan: oncology unit Nephrology consultation, recommendations appreciated Continue flomax Continue Finasteride left lower extremity edema persists, though improving with conservative therapy discontinue IV fluids ultrasound lower extremity ruled out DVT elevate the leg, compression stockings/david wraps as tolerated late stage malignancy of the prostate, patient wishes to continue chemotherapy in the subacute setting and continue rehabilitation PT/ OT eval and treat blood pressure control blood sugar control replace electrolytes as needed continue other home medications as able G.I. prophylaxis DVT prophylaxis: SQ heparin on
[2019-11-17] MEDS ORDERED: Sodium Bicarbonate 150 MEQ in Dextrose 5% in Water 1,000 ML IV SCH (15:15)
--- NOTE | 2019-11-17 16:25 | PRG ---
DATE OF SERVICE: 11/17/2019 SUBJECTIVE: Patient was seen and examined at bedside and overnight events noted. Patient denies any shortness of breath or chest pain or palpitation. No history of nausea or vomiting or diarrhea or fever or chills or cramps. OBJECTIVE: GENERAL: This is a well-built male, in no apparent distress. VITAL SIGNS: Temperature 98.7, heart rate 89, respiratory rate 20, blood pressure 131/73 HEENT: Atraumatic, normocephalic. Oral mucosa is moist NECK: Supple. CARDIOVASCULAR: S1, S2 heard. Rate and rhythm regular. RESPIRATORY: Clear to auscultation. GASTROINTESTINAL: Abdomen is soft. MUSCULOSKELETAL: No tenderness. No edema. DERMATOLOGIC: No skin rash. NEUROLOGIC: Alert and awake and oriented X3. No focal neurologic deficits. Moving all the extremities. PSYCHIATRIC: Mood and affect normal. LABORATORY DATA: Potassium is 5.2, BUN is 42, and creatinine is 3.2. ASSESSMENT AND PLAN: 1. Acute kidney injury on chronic kidney disease stage 3, stable. 2. Hyperkalemia. 3. Acidosis. Plan is to start bicarb drip as tolerated. 4. Hypertension. 5. Hypocalcemia. 6. Chronic anemia. 7. Edema, controlled. 8. Plan is to give him 1 L of bicarb drip and we will follow. Job ID: [id number]
[2019-11-17] MEDS: Atorvastatin Calcium 40 MG TAB PO SCH (20:07)
[2019-11-17] MEDS: HYDROcodone/Acetaminophen 5/325 mg Tablet PO PRN (20:07)
[2019-11-18 04:30] LABS: Anion Gap 11 mmol/L (10-20); BUN (Urea Nitrogen) 40 mg/dL (8.4-25.7); Calc. Creatinine Clearance 20 mL/min (70-130); Calcium 7.6 mg/dL (7.8-10.44); Carbon Dioxide 20 mmol/L (23-31); Chloride 111 mmol/L (98-107); Estimated GFR-MDRD 24; Glucose 236 mg/dL (80-115); Potassium 4.4 mmol/L (3.5-5.1); Sodium 138 mmol/L (136-145)
[2019-11-18] MEDS: HumaLOG 300 UNITS/3 ML VIAL SC PRN ×4 (05:52→20:58)
[2019-11-18] MEDS: predniSONE 5 MG TAB PO SCH (08:39)
[2019-11-18] MEDS: Bicalutamide 50 MG TAB PO SCH (08:39)
[2019-11-18] MEDS: NIFEdipine XL 30 MG TAB PO SCH (08:39)
[2019-11-18] MEDS: Carvedilol 6.25 MG TAB PO SCH ×2 (08:40→21:02)
[2019-11-18] MEDS: Folic Acid 1 MG TAB PO SCH (08:41)
[2019-11-18] MEDS: hydrALAZINE 25 MG TAB PO SCH ×4 (08:41→21:03)
[2019-11-18] MEDS: Finasteride 5 MG TAB PO SCH (08:42)
[2019-11-18] MEDS: Tamsulosin HCl 0.4 MG CAP PO SCH (08:42)
[2019-11-18] MEDS: Cyanocobalamin (Vitamin B-12) 1,000 MCG TAB PO SCH (08:42)
[2019-11-18] MEDS: Aspirin 81 mg Enteric Coated Tablet PO SCH (08:42)
[2019-11-18] MEDS: Calcium Carbonate 600 MG TAB PO SCH ×3 (08:42→21:02)
[2019-11-18] MEDS: Heparin 5,000 UNITS/ML VIAL SC SCH ×2 (08:43→20:58)
[2019-11-18] MEDS: Abiraterone Acetate [Zytiga] 1,000 MG PO SCH (10:51)
--- NOTE | 2019-11-18 12:17 | PDOC.HOSPP ---
- Subjective Subjective: Seen and examined. Breathing well on room air. LE edema has improved with conservative therapy. Continues to improve. Stable for lower level of care. - Objective Vital Signs & Weight: Vital Signs (12 hours) Temp Pulse Resp BP BP Pulse Ox 11/18/19 08:41 88 147/75 H 11/18/19 08:40 147/75 H 11/18/19 08:39 147/75 H 11/18/19 08:36 97 11/18/19 07:19 98.3 F 92 16 147/76 H 97 Weight Admit Weight 135 lb 5.76 oz Weight 135 lb 5.76 oz I&O: 11/17/19 11/18/19 11/19/19 06:59 06:59 06:59 Intake Total 1210 1290 Output Total 1025 Balance 1210 265 Result Diagrams: 11/11/19 04:15 11/18/19 03:37 Additional Labs: Accuchecks 11/18/19 11/17/19 11/17/19 11:29 20:13 16:10 POC Glucose 190 H 320 H 308 H Radiology Reviewed by me: Yes Hospitalist ROS - Review of Systems All other systems reviewed; all pertinent +/- noted in HPI/Subj - Medication Medications: Active Medications Generic Name Dose Route Start Last Admin Trade Name Freq PRN Reason Stop Dose Admin Acetaminophen 650 mg 11/01/19 11:19 11/11/19 16:56 Tylenol PO 650 mg Q4H PRN Administration Headache/Fever/Mild Pain (1-3) Hydrocodone Bitart/Acetaminophen 1 tab 11/01/19 11:19 11/17/19 20:07 [place] 5/325 PO 1 tab Q4H PRN Administration Moderate Pain (4-6) Aspirin 81 mg 11/02/19 09:00 11/18/19 08:42 Ecotrin PO 81 mg DAILY NEMO Administration Atorvastatin Calcium 40 mg 11/01/19 21:00 11/17/19 20:07 Lipitor PO 40 mg HS NEMO Administration Bicalutamide 50 mg 11/05/19 09:00 11/18/19 08:39 Casodex PO 50 mg DAILY NEMO Administration Calcium Carbonate 600 mg 11/09/19 15:00 11/18/19 08:42 Caltrate PO 600 mg TID NEMO Administration Carvedilol 25 mg 11/04/19 21:00 11/18/19 08:40 Coreg PO 25 mg BID NEMO Administration Cyanocobalamin 1,000 mcg 11/02/19 09:00 11/18/19 08:42 Vitamin B-12 PO 1,000 mcg DAILY NEMO Administration Finasteride 5 mg 11/14/19 09:00 11/18/19 08:42 Proscar PO 5 mg DAILY NEMO Administration Folic Acid 1 mg 11/02/19 09:00 11/18/19 08:41 Folvite PO 1 mg DAILY NEMO Administration Heparin Sodium (Porcine) 5,000 units 11/06/19 09:00 11/18/19 08:43 Heparin SC 5,000 units BID NEOM Administration Hydralazine HCl 25 mg 11/11/19 09:00 11/18/19 08:41 Apresoline PO 25 mg QID NEMO Administration Insulin Human Lispro 0 units 11/01/19 11:20 11/18/19 05:52 Humalog SC 3 unit .MILD SLIDING SCALE PRN Administration Mild Correctional Scale Insulin Human Lispro 0 units 11/01/19 11:20 11/17/19 20:14 Humalog SC 4 unit .BEDTIME SLIDING SC PRN Administration Bedtime Correctional Scale Labetalol HCl 20 mg 11/10/19 19:36 11/11/19 07:28 Normodyne SLOW IVP 20 mg Q4H PRN Administration Hypertension Nifedipine 30 mg 11/12/19 09:00 11/18/19 08:39 Procardia Xl PO 30 mg DAILY NEMO Administration Abiraterone Acetate 0 each 11/12/19 11:00 11/18/19 10:51 [Zytiga] 1,000 Mg PO 1 each 1100 NEMO Administration Prednisone 5 mg 11/17/19 09:00 11/18/19 08:39 Prednisone PO 5 mg DAILY NEMO Administration Sodium Chloride 10 ml 11/01/19 11:19 11/06/19 09:18 Flush - Normal Saline IVF 10 ml PRN PRN Administration Saline Flush Tamsulosin HCl 0.8 mg 11/14/19 07:10 11/18/19 08:42 Flomax PO 0.8 mg DAILY NEMO Administration - Exam General Appearance: NAD, awake alert Eye: PERRL, anicteric sclera ENT: normocephalic atraumatic, no oropharyngeal lesions Neck: supple, no carotid bruit Heart: no murmur, no gallops, no rubs Respiratory: CTAB, no wheezes, no rales, no tachypnea, normal percussion Gastrointestinal: soft, non-tender, no guarding, no rigidity Extremities: no clubbing, no edema Skin: no lesions, no rashes Neurological: cranial nerve grossly intact, no focal deficits Musculoskeletal: generalized weakness Psychiatric: normal affect, normal behavior, A&O x 3 Hosp A/P (1) DM type 2 causing CKD stage 4 Code(s): E11.22 - TYPE 2 DIABETES MELLITUS W DIABETIC CHRONIC KIDNEY DISEASE; N18.4 - CHRONIC KIDNEY DISEASE, STAGE 4 (SEVERE) Status: Acute Qualifiers: Diabetes mellitus termite renewal inspector insulin use: with termite renewal inspector use Qualified Code( s): E11.22 - Type 2 diabetes mellitus with diabetic chronic kidney disease; N18.4 - Chronic kidney disease, stage 4 (severe); Z79.4 - retirement (current) use of insulin (2) Left-sided weakness Code(s): R53.1 - WEAKNESS Status: Acute (3) Spinal stenosis of lumbar region at multiple levels Code(s): M48.061 - SPINAL STENOSIS, LUMBAR REGION WITHOUT NEUROGENIC MARCELO Status: Chronic (4) Hypoglycemia associated with type 2 diabetes mellitus Code(s): E11.649 - TYPE 2 DIABETES MELLITUS WITH HYPOGLYCEMIA WITHOUT COMA Status: Resolved (5) Pneumonia Code(s): J18.9 - PNEUMONIA, UNSPECIFIED ORGANISM Status: Resolved Qualifiers: Pneumonia type: due to unspecified organism Laterality: left Lung location: lower lobe of lung Qualified Code(s): J18.9 - Pneumonia, unspecified organism (6) KASSIDY (acute kidney injury) Code(s): N17.9 - ACUTE KIDNEY FAILURE, UNSPECIFIED Status: Acute (7) Hyperglycemia Code(s): R73.9 - HYPERGLYCEMIA, UNSPECIFIED Status: Acute (8) Weakness generalized Code(s): R53.1 - WEAKNESS Status: Acute (9) Hypertension Code(s): I10 - ESSENTIAL (PRIMARY) HYPERTENSION Status: Chronic Qualifiers: Hypertension type: essential hypertension Qualified Code(s): I10 - Essential (primary) hypertension (10) Metabolic acidosis Code(s): E87.2 - ACIDOSIS Status: Chronic (11) Metastatic adenocarcinoma to prostate Code(s): C79.82 - SECONDARY MALIGNANT NEOPLASM OF GENITAL ORGANS Status: Chronic - Plan Plan: oncology unit Nephrology consultation, recommendations appreciated Continue flomax Continue Finasteride left lower extremity edema persists, though improving with conservative therapy discontinue IV fluids ultrasound lower extremity ruled out DVT elevate the leg, compression stockings/david wraps as tolerated late stage malignancy of the prostate, patient wishes to continue chemotherapy in the subacute setting and continue rehabilitation PT/ OT eval and treat blood pressure control blood sugar control replace electrolytes as needed continue other home medications as able G.I. prophylaxis DVT prophylaxis: SQ heparin on Disposition: Stable for SNF placement. CM consult placed.
[2019-11-18] MEDS: Sodium Bicarbonate Tab 325 MG TAB PO SCH ×2 (14:04→21:03)
--- NOTE | 2019-11-18 17:07 | PRG ---
DATE OF SERVICE: 11/18/2019 SUBJECTIVE: Patient was seen and examined at bedside and overnight events noted. Patient denies any shortness of breath or chest pain or palpitation. No history of nausea or vomiting or diarrhea or fever or chills or cramps. OBJECTIVE: GENERAL: This is a well-built male, in no apparent distress. VITAL SIGNS: Temperature 98.3. Pulse 84. Respiratory rate . Blood pressure 147/75. HEENT: Atraumatic, normocephalic. Oral mucosa is moist NECK: Supple. CARDIOVASCULAR: S1, S2 heard. Rate and rhythm regular. RESPIRATORY: Clear to auscultation. GASTROINTESTINAL: Abdomen is soft. MUSCULOSKELETAL: No tenderness. No edema. DERMATOLOGIC: No skin rash. NEUROLOGIC: Alert and awake and oriented X3. No focal neurologic deficits. Moving all the extremities. PSYCHIATRIC: Mood and affect normal. LABORATORY DATA: Potassium is 4.4, BUN is 40, and creatinine is 3.1. ASSESSMENT AND PLAN: 1. Acute kidney injury on chronic kidney disease, stage 4, stable. Creatinine is actually better. 2. Acidosis. We will start on sodium bicarb tablets. 3. Hypertension. 4. Hypocalcemia. 5. Chronic anemia. 6. Edema, controlled. We will start on sodium bicarb tablets and we will follow. Avoid nephrotoxins. Job ID: [id number]
[2019-11-18] MEDS: Insulin Glargine 8 UNITS in Pre-Filled Syringe 1 EACH SC SCH (20:57)
[2019-11-18] MEDS: Atorvastatin Calcium 40 MG TAB PO SCH (21:01)
[2019-11-18] MEDS: HYDROcodone/Acetaminophen 5/325 mg Tablet PO PRN (21:04)
[2019-11-19 05:06] LABS: Anion Gap 10 mmol/L (10-20); BUN (Urea Nitrogen) 40 mg/dL (8.4-25.7); Calc. Creatinine Clearance 20 mL/min (70-130); Calcium 7.7 mg/dL (7.8-10.44); Carbon Dioxide 23 mmol/L (23-31); Chloride 110 mmol/L (98-107); Estimated GFR-MDRD 25; Glucose 164 mg/dL (80-115); Potassium 4.3 mmol/L (3.5-5.1); Sodium 139 mmol/L (136-145)
[2019-11-19] MEDS: HumaLOG 300 UNITS/3 ML VIAL SC PRN ×3 (06:31→20:37)
[2019-11-19] MEDS: NIFEdipine XL 30 MG TAB PO SCH (09:08)
[2019-11-19] MEDS: Aspirin 81 mg Enteric Coated Tablet PO SCH (09:08)
[2019-11-19] MEDS: Heparin 5,000 UNITS/ML VIAL SC SCH ×2 (09:08→20:37)
[2019-11-19] MEDS: predniSONE 5 MG TAB PO SCH (09:09)
[2019-11-19] MEDS: Tamsulosin HCl 0.4 MG CAP PO SCH (09:09)
[2019-11-19] MEDS: Sodium Bicarbonate Tab 325 MG TAB PO SCH ×3 (09:09→20:38)
[2019-11-19] MEDS: Finasteride 5 MG TAB PO SCH (09:09)
[2019-11-19] MEDS: hydrALAZINE 25 MG TAB PO SCH ×4 (09:09→20:38)
[2019-11-19] MEDS: Carvedilol 6.25 MG TAB PO SCH ×2 (09:09→20:39)
[2019-11-19] MEDS: Bicalutamide 50 MG TAB PO SCH (09:10)
[2019-11-19] MEDS: Calcium Carbonate 600 MG TAB PO SCH ×3 (09:10→20:41)
[2019-11-19] MEDS: Cyanocobalamin (Vitamin B-12) 1,000 MCG TAB PO SCH (09:10)
[2019-11-19] MEDS: Folic Acid 1 MG TAB PO SCH (09:10)
[2019-11-19] MEDS: Abiraterone Acetate [Zytiga] 1,000 MG PO SCH (10:27)
--- NOTE | 2019-11-19 12:23 | PDOC.HOSPP ---
- Subjective Subjective: Seen and examined. Doing well this a.m. Breathing on room air. Left lower extremity does have slight increased edema on the foot, recommended compression stockings. Renal function continues to improve. Patient stable for lower level of care. Pending insurance approval. - Objective Vital Signs & Weight: Vital Signs (12 hours) Temp Pulse Resp BP BP Pulse Ox 11/19/19 09:09 86 136/80 11/19/19 09:08 86 11/19/19 07:51 99.5 F 86 16 144/79 H 96 Weight Admit Weight 135 lb 5.76 oz Weight 135 lb 5.76 oz I&O: 11/18/19 11/19/19 11/20/19 06:59 06:59 06:59 Intake Total 1290 1150 Output Total 1025 950 Balance 265 200 Result Diagrams: 11/11/19 04:15 11/19/19 03:47 Additional Labs: Accuchecks 11/19/19 11/18/19 11/18/19 10:50 20:36 17:13 POC Glucose 82 282 H 198 H 11/18/19 12:47 POC Glucose 208 H Hospitalist ROS - Review of Systems All other systems reviewed; all pertinent +/- noted in HPI/Subj - Medication Medications: Active Medications Generic Name Dose Route Start Last Admin Trade Name Freq PRN Reason Stop Dose Admin Acetaminophen 650 mg 11/01/19 11:19 11/11/19 16:56 Tylenol PO 650 mg Q4H PRN Administration Headache/Fever/Mild Pain (1-3) Aspirin 81 mg 11/02/19 09:00 11/19/19 09:08 Ecotrin PO 81 mg DAILY NEMO Administration Atorvastatin Calcium 40 mg 11/01/19 21:00 11/18/19 21:01 Lipitor PO 40 mg HS NEMO Administration Bicalutamide 50 mg 11/05/19 09:00 11/19/19 09:10 Casodex PO 50 mg DAILY NEMO Administration Calcium Carbonate 600 mg 11/09/19 15:00 11/19/19 09:10 Caltrate PO 600 mg TID NEMO Administration Carvedilol 25 mg 11/04/19 21:00 11/19/19 09:09 Coreg PO 25 mg BID NEMO Administration Cyanocobalamin 1,000 mcg 11/02/19 09:00 11/19/19 09:10 Vitamin B-12 PO 1,000 mcg DAILY NEMO Administration Finasteride 5 mg 11/14/19 09:00 11/19/19 09:09 Proscar PO 5 mg DAILY NEMO Administration Folic Acid 1 mg 11/02/19 09:00 11/19/19 09:10 Folvite PO 1 mg DAILY NEMO Administration Heparin Sodium (Porcine) 5,000 units 11/06/19 09:00 11/19/19 09:08 Heparin SC 5,000 units BID NEMO Administration Hydralazine HCl 25 mg 11/11/19 09:00 11/19/19 09:09 Apresoline PO 25 mg QID NEMO Administration Insulin Glargine 8 units/ 0.08 mls @ 0 mls/hr 11/18/19 21:00 11/18/19 20:57 Miscellaneous Medication SC 0.08 mls HS NEMO Administration Insulin Human Lispro 0 units 11/01/19 11:20 11/19/19 06:31 Humalog SC 2 unit .MILD SLIDING SCALE PRN Administration Mild Correctional Scale Insulin Human Lispro 0 units 11/01/19 11:20 11/18/19 20:58 Humalog SC 3 unit .BEDTIME SLIDING SC PRN Administration Bedtime Correctional Scale Labetalol HCl 20 mg 11/10/19 19:36 11/11/19 07:28 Normodyne SLOW IVP 20 mg Q4H PRN Administration Hypertension Nifedipine 30 mg 11/12/19 09:00 11/19/19 09:08 Procardia Xl PO 30 mg DAILY NEMO Administration Abiraterone Acetate 0 each 11/12/19 11:00 11/19/19 10:27 [Zytiga] 1,000 Mg PO 1 each 1100 NEMO Administration Prednisone 5 mg 11/17/19 09:00 11/19/19 09:09 Prednisone PO 5 mg DAILY NEMO Administration Sodium Bicarbonate 650 mg 11/18/19 15:00 11/19/19 09:09 Bicarbonate, Sodium PO 650 mg TID NEMO Administration Sodium Chloride 10 ml 11/01/19 11:19 11/06/19 09:18 Flush - Normal Saline IVF 10 ml PRN PRN Administration Saline Flush Tamsulosin HCl 0.8 mg 11/14/19 07:10 11/19/19 09:09 Flomax PO 0.8 mg DAILY NEMO Administration - Exam General Appearance: NAD, awake alert Eye: PERRL, anicteric sclera ENT: normocephalic atraumatic, moist mucosa Neck: supple, symmetric, no lymphadenopathy Heart: no murmur, no gallops, normal peripheral pulses Respiratory: CTAB, no wheezes, no rales, no ronchi Gastrointestinal: soft, non-tender, non-distended, no bruit Extremities: 1+ LE edema (left) Skin: no lesions, no rashes Neurological: cranial nerve grossly intact, no focal deficits Musculoskeletal: generalized weakness Psychiatric: normal affect, normal behavior, A&O x 3 Hosp A/P (1) DM type 2 causing CKD stage 4 Code(s): E11.22 - TYPE 2 DIABETES MELLITUS W DIABETIC CHRONIC KIDNEY DISEASE; N18.4 - CHRONIC KIDNEY DISEASE, STAGE 4 (SEVERE) Status: Acute Qualifiers: Diabetes mellitus custodial insulin use: with custodial use Qualified Code( s): E11.22 - Type 2 diabetes mellitus with diabetic chronic kidney disease; N18.4 - Chronic kidney disease, stage 4 (severe); Z79.4 - oysterman (current) use of insulin (2) Left-sided weakness Code(s): R53.1 - WEAKNESS Status: Acute (3) Spinal stenosis of lumbar region at multiple levels Code(s): M48.061 - SPINAL STENOSIS, LUMBAR REGION WITHOUT NEUROGENIC MARCELO Status: Chronic (4) Hypoglycemia associated with type 2 diabetes mellitus Code(s): E11.649 - TYPE 2 DIABETES MELLITUS WITH HYPOGLYCEMIA WITHOUT COMA Status: Resolved (5) Pneumonia Code(s): J18.9 - PNEUMONIA, UNSPECIFIED ORGANISM Status: Resolved Qualifiers: Pneumonia type: due to unspecified organism Laterality: left Lung location: lower lobe of lung Qualified Code(s): J18.9 - Pneumonia, unspecified organism (6) KASSIDY (acute kidney injury) Code(s): N17.9 - ACUTE KIDNEY FAILURE, UNSPECIFIED Status: Acute (7) Hyperglycemia Code(s): R73.9 - HYPERGLYCEMIA, UNSPECIFIED Status: Acute (8) Weakness generalized Code(s): R53.1 - WEAKNESS Status: Acute (9) Hypertension Code(s): I10 - ESSENTIAL (PRIMARY) HYPERTENSION Status: Chronic Qualifiers: Hypertension type: essential hypertension Qualified Code(s): I10 - Essential (primary) hypertension (10) Metabolic acidosis Code(s): E87.2 - ACIDOSIS Status: Chronic (11) Metastatic adenocarcinoma to prostate Code(s): C79.82 - SECONDARY MALIGNANT NEOPLASM OF GENITAL ORGANS Status: Chronic - Plan Plan: oncology unit Nephrology consultation, recommendations appreciated - renal function continues to improve Continue flomax Continue Finasteride left lower extremity edema persists, though improving with conservative therapy discontinue IV fluids ultrasound lower extremity ruled out DVT elevate the leg, compression stockings/david wraps as tolerated late stage malignancy of the prostate, patient wishes to continue chemotherapy in the subacute setting and continue rehabilitation PT/ OT eval and treat blood pressure control blood sugar control replace electrolytes as needed continue other home medications as able G.I. prophylaxis DVT prophylaxis: SQ heparin on Disposition: Stable for SNF placement. CM consult placed.
--- NOTE | 2019-11-19 12:49 | PRG ---
DATE OF SERVICE: 11/19/2019 SUBJECTIVE: Patient was seen and examined at bedside and overnight events noted. Patient denies any shortness of breath or chest pain or palpitation. No history of nausea or vomiting or diarrhea or fever or chills or cramps. OBJECTIVE: GENERAL: This is a well-build male, in no apparent distress. VITAL SIGNS: Temperature 99.5, pulse 86, respiratory rate 18, blood pressure 144/79. HEENT: Atraumatic, normocephalic. Oral mucosa is moist NECK: Supple. CARDIOVASCULAR: S1, S2 heard. Rate and rhythm regular. RESPIRATORY: Clear to auscultation. GASTROINTESTINAL: Abdomen is soft. MUSCULOSKELETAL: No tenderness. No edema. DERMATOLOGIC: No skin rash. NEUROLOGIC: Alert and awake and oriented X3. No focal neurologic deficits. Moving all the extremities. PSYCHIATRIC: Mood and affect normal. LABORATORY DATA: Potassium 4.3, BUN is 40, and creatinine is 3.02. ASSESSMENT AND PLAN: 1. Acute kidney injury on chronic kidney stage 4, stable. 2. Acidosis, stable. Continue sodium bicarb tablets. 3. Hypertension. 4. Hypocalcemia. 5. Chronic anemia. 6. Edema, controlled. Continue calcium supplements and avoid nephrotoxins. Labs are stable. Job ID: [id number]
[2019-11-19] MEDS: HYDROcodone/Acetaminophen 5/325 mg Tablet PO PRN (20:37)
[2019-11-19] MEDS: Insulin Glargine 8 UNITS in Pre-Filled Syringe 1 EACH SC SCH (20:37)
[2019-11-19] MEDS: Atorvastatin Calcium 40 MG TAB PO SCH (20:38)
[2019-11-20] MEDS: Heparin 5,000 UNITS/ML VIAL SC SCH ×2 (08:50→21:12)
[2019-11-20] MEDS: Sodium Bicarbonate Tab 325 MG TAB PO SCH ×3 (08:52→20:57)
[2019-11-20] MEDS: NIFEdipine XL 30 MG TAB PO SCH (08:52)
[2019-11-20] MEDS: Folic Acid 1 MG TAB PO SCH (08:53)
[2019-11-20] MEDS: Cyanocobalamin (Vitamin B-12) 1,000 MCG TAB PO SCH (08:53)
[2019-11-20] MEDS: Tamsulosin HCl 0.4 MG CAP PO SCH (08:53)
[2019-11-20] MEDS: Carvedilol 6.25 MG TAB PO SCH ×2 (08:53→20:57)
[2019-11-20] MEDS: Aspirin 81 mg Enteric Coated Tablet PO SCH (08:53)
[2019-11-20] MEDS: predniSONE 5 MG TAB PO SCH (08:54)
[2019-11-20] MEDS: hydrALAZINE 25 MG TAB PO SCH ×5 (08:54→21:00)
[2019-11-20] MEDS: Bicalutamide 50 MG TAB PO SCH (08:54)
[2019-11-20] MEDS: Finasteride 5 MG TAB PO SCH (08:54)
[2019-11-20] MEDS: Abiraterone Acetate [Zytiga] 1,000 MG PO SCH (08:54)
[2019-11-20] MEDS: Calcium Carbonate 600 MG TAB PO SCH ×3 (08:54→20:58)
--- NOTE | 2019-11-20 11:03 | PDOC.HOSPP ---
- Subjective Subjective: Seen and examined. Had a long discussion with patient and family about bowel habits. Patient states he feels the urge to deficate and knows when he needs to move his bowels. However I believe he feels like he is a burden and embarrassed and therfore asking less to have help get up to move his bowels. He will then occasionally move his bowels in the bed and not tell anyone and remain in his stool until someone comes to change him. I recommended scheduled bathroom times , frequent trips up to the commode, and as soon as he has the urge to move his bowels let someone know so we can help him. Otherwise patient remains stable for lower level of care. Pending insurance approval. - Objective Vital Signs & Weight: Vital Signs (12 hours) Temp Pulse Pulse Resp BP BP BP 11/20/19 09:10 104 H 154/78 H 11/20/19 08:54 101 H 11/20/19 08:53 117/65 11/20/19 08:52 101 H 11/20/19 08:00 11/20/19 07:47 98.6 F 101 H 16 145/76 H Pulse Ox 11/20/19 09:10 11/20/19 08:54 11/20/19 08:53 11/20/19 08:52 11/20/19 08:00 94 L 11/20/19 07:47 94 L Weight Admit Weight 135 lb 5.76 oz Weight 135 lb 5.76 oz I&O: 11/19/19 11/20/19 11/21/19 06:59 06:59 06:59 Intake Total 1150 970 Output Total 950 675 Balance 200 295 Result Diagrams: 11/11/19 04:15 11/19/19 03:47 Additional Labs: Accuchecks 11/20/19 11/19/19 11/19/19 05:24 20:10 15:54 POC Glucose 125 H 259 H 177 H 11/19/19 10:50 POC Glucose 82 Hospitalist ROS - Review of Systems All other systems reviewed; all pertinent +/- noted in HPI/Subj - Medication Medications: Active Medications Generic Name Dose Route Start Last Admin Trade Name Freq PRN Reason Stop Dose Admin Acetaminophen 650 mg 11/01/19 11:19 11/11/19 16:56 Tylenol PO 650 mg Q4H PRN Administration Headache/Fever/Mild Pain (1-3) Hydrocodone Bitart/Acetaminophen 1 tab 11/19/19 20:10 11/19/19 20:37 [place] 5/325 PO 1 tab Q4H PRN Administration Mild-Moderate Pain (1-6) Aspirin 81 mg 11/02/19 09:00 11/20/19 08:53 Ecotrin PO 81 mg DAILY NEMO Administration Atorvastatin Calcium 40 mg 11/01/19 21:00 11/19/19 20:38 Lipitor PO 40 mg HS NEMO Administration Bicalutamide 50 mg 11/05/19 09:00 11/20/19 08:54 Casodex PO 50 mg DAILY NEMO Administration Calcium Carbonate 600 mg 11/09/19 15:00 11/20/19 08:54 Caltrate PO 600 mg TID NEMO Administration Carvedilol 25 mg 11/04/19 21:00 11/20/19 08:53 Coreg PO 25 mg BID NEMO Administration Cyanocobalamin 1,000 mcg 11/02/19 09:00 11/20/19 08:53 Vitamin B-12 PO 1,000 mcg DAILY NEMO Administration Finasteride 5 mg 11/14/19 09:00 11/20/19 08:54 Proscar PO 5 mg DAILY NEMO Administration Folic Acid 1 mg 11/02/19 09:00 11/20/19 08:53 Folvite PO 1 mg DAILY NEMO Administration Heparin Sodium (Porcine) 5,000 units 11/06/19 09:00 11/20/19 08:50 Heparin SC 5,000 units BID NEMO Administration Hydralazine HCl 25 mg 11/11/19 09:00 11/20/19 08:54 Apresoline PO 25 mg QID NEMO Administration Insulin Glargine 8 units/ 0.08 mls @ 0 mls/hr 11/18/19 21:00 11/19/19 20:37 Miscellaneous Medication SC 0.08 mls HS NEMO Administration Insulin Human Lispro 0 units 11/01/19 11:20 11/19/19 16:11 Humalog SC 2 unit .MILD SLIDING SCALE PRN Administration Mild Correctional Scale Insulin Human Lispro 0 units 11/01/19 11:20 11/19/19 20:37 Humalog SC 3 unit .BEDTIME SLIDING SC PRN Administration Bedtime Correctional Scale Labetalol HCl 20 mg 11/10/19 19:36 11/11/19 07:28 Normodyne SLOW IVP 20 mg Q4H PRN Administration Hypertension Nifedipine 30 mg 11/12/19 09:00 11/20/19 08:52 Procardia Xl PO 30 mg DAILY NEMO Administration Abiraterone Acetate 0 each 11/12/19 11:00 11/20/19 08:54 [Zytiga] 1,000 Mg PO 1 each 1100 NEMO Administration Prednisone 5 mg 11/17/19 09:00 11/20/19 08:54 Prednisone PO 5 mg DAILY NEMO Administration Sodium Bicarbonate 650 mg 11/18/19 15:00 11/20/19 08:52 Bicarbonate, Sodium PO 650 mg TID NEMO Administration Sodium Chloride 10 ml 11/01/19 11:19 11/06/19 09:18 Flush - Normal Saline IVF 10 ml PRN PRN Administration Saline Flush Tamsulosin HCl 0.8 mg 11/14/19 07:10 11/20/19 08:53 Flomax PO 0.8 mg DAILY NEMO Administration - Exam General Appearance: NAD, awake alert Eye: PERRL ENT: normocephalic atraumatic, moist mucosa Neck: supple, symmetric, no lymphadenopathy Heart: no murmur, no gallops, no rubs Respiratory: CTAB, no wheezes, no rales, no ronchi, normal chest expansion, no tachypnea Gastrointestinal: soft, non-tender, non-distended, no guarding, no rigidity Extremities: no edema Skin: no lesions, no rashes Neurological: cranial nerve grossly intact, no new deficit Musculoskeletal: generalized weakness Psychiatric: normal affect, normal behavior, A&O x 3 Hosp A/P (1) DM type 2 causing CKD stage 4 Code(s): E11.22 - TYPE 2 DIABETES MELLITUS W DIABETIC CHRONIC KIDNEY DISEASE; N18.4 - CHRONIC KIDNEY DISEASE, STAGE 4 (SEVERE) Status: Acute Qualifiers: Diabetes mellitus residential insulin use: with rodent exterminator use Qualified Code( s): E11.22 - Type 2 diabetes mellitus with diabetic chronic kidney disease; N18.4 - Chronic kidney disease, stage 4 (severe); Z79.4 - FDC (current) use of insulin (2) Left-sided weakness Code(s): R53.1 - WEAKNESS Status: Acute (3) Spinal stenosis of lumbar region at multiple levels Code(s): M48.061 - SPINAL STENOSIS, LUMBAR REGION WITHOUT NEUROGENIC MARECLO Status: Chronic (4) Hypoglycemia associated with type 2 diabetes mellitus Code(s): E11.649 - TYPE 2 DIABETES MELLITUS WITH HYPOGLYCEMIA WITHOUT COMA Status: Resolved (5) Pneumonia Code(s): J18.9 - PNEUMONIA, UNSPECIFIED ORGANISM Status: Resolved Qualifiers: Pneumonia type: due to unspecified organism Laterality: left Lung location: lower lobe of lung Qualified Code(s): J18.9 - Pneumonia, unspecified organism (6) KASSIDY (acute kidney injury) Code(s): N17.9 - ACUTE KIDNEY FAILURE, UNSPECIFIED Status: Acute (7) Hyperglycemia Code(s): R73.9 - HYPERGLYCEMIA, UNSPECIFIED Status: Acute (8) Weakness generalized Code(s): R53.1 - WEAKNESS Status: Acute (9) Hypertension Code(s): I10 - ESSENTIAL (PRIMARY) HYPERTENSION Status: Chronic Qualifiers: Hypertension type: essential hypertension Qualified Code(s): I10 - Essential (primary) hypertension (10) Metabolic acidosis Code(s): E87.2 - ACIDOSIS Status: Chronic (11) Metastatic adenocarcinoma to prostate Code(s): C79.82 - SECONDARY MALIGNANT NEOPLASM OF GENITAL ORGANS Status: Chronic - Plan Plan: oncology unit Nephrology consultation, recommendations appreciated - renal function continues to improve Continue flomax Continue Finasteride left lower extremity edema improving with conservative therapy discontinue IV fluids ultrasound lower extremity ruled out DVT elevate the leg, compression stockings/david wraps as tolerated late stage malignancy of the prostate, patient wishes to continue chemotherapy in the subacute setting and continue rehabilitation PT/ OT eval and treat blood pressure control blood sugar control replace electrolytes as needed continue other home medications as able G.I. prophylaxis DVT prophylaxis: SQ heparin on Disposition: Stable for SNF placement. CM consult placed.
[2019-11-20] MEDS: HumaLOG 300 UNITS/3 ML VIAL SC PRN ×3 (11:22→21:12)
--- NOTE | 2019-11-20 18:59 | PRG ---
DATE OF SERVICE: 11/20/2019 SUBJECTIVE: Patient was seen and examined at bedside and overnight events noted. Patient denies any shortness of breath or chest pain or palpitation. No history of nausea or vomiting or diarrhea or fever or chills or cramps. OBJECTIVE: GENERAL: This is a well-built male, in no apparent distress. VITAL SIGNS: Temperature 98.6. Heart rate 101. Respiratory rate 18. Blood pressure 117/65. HEENT: Atraumatic, normocephalic. Oral mucosa is moist NECK: Supple. CARDIOVASCULAR: S1, S2 heard. Rate and rhythm regular. RESPIRATORY: Clear to auscultation. GASTROINTESTINAL: Abdomen is soft. MUSCULOSKELETAL: No tenderness. No edema. DERMATOLOGIC: No skin rash. NEUROLOGIC: Alert and awake and oriented X3. No focal neurologic deficits. Moving all the extremities. PSYCHIATRIC: Mood and affect normal. LABORATORY DATA: Not done today. ASSESSMENT AND PLAN: 1. Acute kidney injury on chronic kidney disease stage 4. We will monitor. 2. Acidosis. 3. Hypertension. 4. Hypocalcemia. 5. Chronic anemia. 6. Edema, controlled. Renal function is stable. We will follow. Job ID: [id number]
[2019-11-20] MEDS: Atorvastatin Calcium 40 MG TAB PO SCH (20:57)
[2019-11-20] MEDS: HYDROcodone/Acetaminophen 5/325 mg Tablet PO PRN (20:58)
[2019-11-20] MEDS: Insulin Glargine 8 UNITS in Pre-Filled Syringe 1 EACH SC SCH (21:00)
[2019-11-21] MEDS: Heparin 5,000 UNITS/ML VIAL SC SCH ×2 (09:23→20:22)
[2019-11-21] MEDS: Carvedilol 6.25 MG TAB PO SCH ×2 (09:24→20:13)
[2019-11-21] MEDS: Sodium Bicarbonate Tab 325 MG TAB PO SCH ×3 (09:24→20:13)
[2019-11-21] MEDS: Cyanocobalamin (Vitamin B-12) 1,000 MCG TAB PO SCH (09:24)
[2019-11-21] MEDS: predniSONE 5 MG TAB PO SCH (09:24)
[2019-11-21] MEDS: hydrALAZINE 25 MG TAB PO SCH ×4 (09:25→20:26)
[2019-11-21] MEDS: NIFEdipine XL 30 MG TAB PO SCH (09:25)
[2019-11-21] MEDS: Aspirin 81 mg Enteric Coated Tablet PO SCH (09:25)
[2019-11-21] MEDS: Finasteride 5 MG TAB PO SCH (09:25)
[2019-11-21] MEDS: Tamsulosin HCl 0.4 MG CAP PO SCH (09:25)
[2019-11-21] MEDS: Bicalutamide 50 MG TAB PO SCH (09:26)
[2019-11-21] MEDS: Abiraterone Acetate [Zytiga] 1,000 MG PO SCH (09:27)
[2019-11-21] MEDS: Calcium Carbonate 600 MG TAB PO SCH ×3 (09:27→20:14)
[2019-11-21] MEDS: Folic Acid 1 MG TAB PO SCH (09:32)
--- NOTE | 2019-11-21 11:36 | PDOC.HOSPP ---
- Subjective Subjective: Seen and examined. Continues to improve. Needs to get out of bed more. Left lower extremity edema has improved. He is having some edema on the back, recommended time out of bed to help with this. Patient's family working with insurance to look for rehabilitation placement. - Objective Vital Signs & Weight: Vital Signs (12 hours) Pulse Resp BP BP Pulse Ox 11/21/19 09:25 117/65 11/21/19 09:24 117/65 11/21/19 07:45 101 H 16 144/76 H 94 L Weight Admit Weight 135 lb 5.76 oz Weight 135 lb 5.76 oz I&O: 11/20/19 11/21/19 11/22/19 06:59 06:59 06:59 Intake Total 970 900 Output Total 675 800 Balance 295 100 Result Diagrams: 11/11/19 04:15 11/19/19 03:47 Additional Labs: Accuchecks 11/21/19 11/20/19 11/20/19 05:19 20:31 16:22 POC Glucose 147 H 291 H 224 H 11/20/19 11:15 POC Glucose 192 H Hospitalist ROS - Review of Systems All other systems reviewed; all pertinent +/- noted in HPI/Subj - Medication Medications: Active Medications Generic Name Dose Route Start Last Admin Trade Name Freq PRN Reason Stop Dose Admin Acetaminophen 650 mg 11/01/19 11:19 11/11/19 16:56 Tylenol PO 650 mg Q4H PRN Administration Headache/Fever/Mild Pain (1-3) Hydrocodone Bitart/Acetaminophen 1 tab 11/19/19 20:10 11/20/19 20:58 [place] 5/325 PO 1 tab Q4H PRN Administration Mild-Moderate Pain (1-6) Aspirin 81 mg 11/02/19 09:00 11/21/19 09:25 Ecotrin PO 81 mg DAILY NEMO Administration Atorvastatin Calcium 40 mg 11/01/19 21:00 11/20/19 20:57 Lipitor PO 40 mg HS NEMO Administration Bicalutamide 50 mg 11/05/19 09:00 11/21/19 09:26 Casodex PO 50 mg DAILY NEMO Administration Calcium Carbonate 600 mg 11/09/19 15:00 11/21/19 09:27 Caltrate PO 600 mg TID NEMO Administration Carvedilol 25 mg 11/04/19 21:00 11/21/19 09:24 Coreg PO 25 mg BID NEMO Administration Cyanocobalamin 1,000 mcg 11/02/19 09:00 11/21/19 09:24 Vitamin B-12 PO 1,000 mcg DAILY NEMO Administration Finasteride 5 mg 11/14/19 09:00 11/21/19 09:25 Proscar PO 5 mg DAILY NEMO Administration Folic Acid 1 mg 11/02/19 09:00 11/21/19 09:32 Folvite PO Not Given DAILY NEMO Heparin Sodium (Porcine) 5,000 units 11/06/19 09:00 11/21/19 09:23 Heparin SC 5,000 units BID NEMO Administration Hydralazine HCl 25 mg 11/11/19 09:00 11/21/19 09:25 Apresoline PO 25 mg QID NEMO Administration Insulin Glargine 8 units/ 0.08 mls @ 0 mls/hr 11/18/19 21:00 11/20/19 21:00 Miscellaneous Medication SC 0.08 mls HS NEMO Administration Insulin Human Lispro 0 units 11/01/19 11:20 11/20/19 16:35 Humalog SC 3 unit .MILD SLIDING SCALE PRN Administration Mild Correctional Scale Insulin Human Lispro 0 units 11/01/19 11:20 11/20/19 21:12 Humalog SC 3 unit .BEDTIME SLIDING SC PRN Administration Bedtime Correctional Scale Labetalol HCl 20 mg 11/10/19 19:36 11/11/19 07:28 Normodyne SLOW IVP 20 mg Q4H PRN Administration Hypertension Nifedipine 30 mg 11/12/19 09:00 11/21/19 09:25 Procardia Xl PO 30 mg DAILY NEMO Administration Abiraterone Acetate 0 each 11/12/19 11:00 11/21/19 09:27 [Zytiga] 1,000 Mg PO 1 each 1100 NEMO Administration Prednisone 5 mg 11/17/19 09:00 11/21/19 09:24 Prednisone PO 5 mg DAILY NEMO Administration Sodium Bicarbonate 650 mg 11/18/19 15:00 11/21/19 09:24 Bicarbonate, Sodium PO 650 mg TID NEMO Administration Sodium Chloride 10 ml 11/01/19 11:19 11/06/19 09:18 Flush - Normal Saline IVF 10 ml PRN PRN Administration Saline Flush Tamsulosin HCl 0.8 mg 11/14/19 07:10 11/21/19 09:25 Flomax PO 0.8 mg DAILY NEMO Administration - Exam General Appearance: NAD, awake alert Eye: anicteric sclera ENT: normocephalic atraumatic, moist mucosa Neck: supple, symmetric, no lymphadenopathy Heart: no murmur, no gallops, no rubs Respiratory: CTAB, no wheezes, no rales, no ronchi Gastrointestinal: soft, non-tender, no guarding, no rigidity Extremities - other findings: Trace LE edema Skin: no rashes Neurological: cranial nerve grossly intact, no focal deficits Musculoskeletal: generalized weakness Psychiatric: normal affect, normal behavior, A&O x 3 Hosp A/P (1) DM type 2 causing CKD stage 4 Code(s): E11.22 - TYPE 2 DIABETES MELLITUS W DIABETIC CHRONIC KIDNEY DISEASE; N18.4 - CHRONIC KIDNEY DISEASE, STAGE 4 (SEVERE) Status: Acute Qualifiers: Diabetes mellitus ad terminal makeup operator insulin use: with intermediate use Qualified Code( s): E11.22 - Type 2 diabetes mellitus with diabetic chronic kidney disease; N18.4 - Chronic kidney disease, stage 4 (severe); Z79.4 - ferry terminal supervisor (current) use of insulin (2) Left-sided weakness Code(s): R53.1 - WEAKNESS Status: Acute (3) Spinal stenosis of lumbar region at multiple levels Code(s): M48.061 - SPINAL STENOSIS, LUMBAR REGION WITHOUT NEUROGENIC MARCELO Status: Chronic (4) Hypoglycemia associated with type 2 diabetes mellitus Code(s): E11.649 - TYPE 2 DIABETES MELLITUS WITH HYPOGLYCEMIA WITHOUT COMA Status: Resolved (5) Pneumonia Code(s): J18.9 - PNEUMONIA, UNSPECIFIED ORGANISM Status: Resolved Qualifiers: Pneumonia type: due to unspecified organism Laterality: left Lung location: lower lobe of lung Qualified Code(s): J18.9 - Pneumonia, unspecified organism (6) KASSIDY (acute kidney injury) Code(s): N17.9 - ACUTE KIDNEY FAILURE, UNSPECIFIED Status: Acute (7) Hyperglycemia Code(s): R73.9 - HYPERGLYCEMIA, UNSPECIFIED Status: Acute (8) Weakness generalized Code(s): R53.1 - WEAKNESS Status: Acute (9) Hypertension Code(s): I10 - ESSENTIAL (PRIMARY) HYPERTENSION Status: Chronic Qualifiers: Hypertension type: essential hypertension Qualified Code(s): I10 - Essential (primary) hypertension (10) Metabolic acidosis Code(s): E87.2 - ACIDOSIS Status: Chronic (11) Metastatic adenocarcinoma to prostate Code(s): C79.82 - SECONDARY MALIGNANT NEOPLASM OF GENITAL ORGANS Status: Chronic - Plan Plan: oncology unit Nephrology consultation, recommendations appreciated - renal function continues to improve Continue flomax Continue Finasteride left lower extremity edema improving with conservative therapy discontinue IV fluids ultrasound lower extremity ruled out DVT elevate the leg, compression stockings/david wraps as tolerated late stage malignancy of the prostate, patient wishes to continue chemotherapy in the subacute setting and continue rehabilitation PT/ OT eval and treat blood pressure control blood sugar control replace electrolytes as needed continue other home medications as able G.I. prophylaxis DVT prophylaxis: SQ heparin on Disposition: Stable for SNF placement. CM consult placed.
--- NOTE | 2019-11-21 12:52 | PRG ---
DATE OF SERVICE: 11/21/2019 SUBJECTIVE: Patient was seen and examined at bedside and overnight events noted. Patient denies any shortness of breath or chest pain or palpitation. No history of nausea or vomiting or diarrhea or fever or chills or cramps. OBJECTIVE: GENERAL: This is a well-built male, in no apparent distress. VITAL SIGNS: Temperature 98.4. Pulse 101. . HEENT: Atraumatic, normocephalic. Oral mucosa is moist NECK: Supple. CARDIOVASCULAR: S1, S2 heard. Rate and rhythm regular. RESPIRATORY: Clear to auscultation. GASTROINTESTINAL: Abdomen is soft. MUSCULOSKELETAL: No tenderness. No edema. DERMATOLOGIC: No skin rash. NEUROLOGIC: Alert and awake and oriented X3. No focal neurologic deficits. Moving all the extremities. PSYCHIATRIC: Mood and affect normal. LABORATORY DATA: Not done today. ASSESSMENT AND PLAN: 1. Acute kidney injury on chronic kidney disease, stage 4. Monitor labs. 2. Acidosis. We will monitor. 3. Hypocalcemia. 4. Chronic anemia. 5. Edema. 6. Hypertension. We will monitor labs. Avoid nephrotoxins. Continue adequate hydration. We will follow. Job ID: [id number]
[2019-11-21] MEDS: HumaLOG 300 UNITS/3 ML VIAL SC PRN ×2 (17:26→20:22)
[2019-11-21] MEDS: Atorvastatin Calcium 40 MG TAB PO SCH (20:13)
[2019-11-21] MEDS: Insulin Glargine 8 UNITS in Pre-Filled Syringe 1 EACH SC SCH (20:14)
[2019-11-21] MEDS: HYDROcodone/Acetaminophen 5/325 mg Tablet PO PRN (20:24)
[2019-11-22 05:29] LABS: Anion Gap 11 mmol/L (10-20); BUN (Urea Nitrogen) 42 mg/dL (8.4-25.7); Calc. Creatinine Clearance 18 mL/min (70-130); Calcium 8.3 mg/dL (7.8-10.44); Carbon Dioxide 25 mmol/L (23-31); Chloride 110 mmol/L (98-107); Estimated GFR-MDRD 22; Glucose 115 mg/dL (80-115); Potassium 4.5 mmol/L (3.5-5.1); Sodium 141 mmol/L (136-145)
[2019-11-22 07:47] VITALS: TEMP 98.7
[2019-11-22] MEDS: Cyanocobalamin (Vitamin B-12) 1,000 MCG TAB PO SCH (08:12)
[2019-11-22] MEDS: Tamsulosin HCl 0.4 MG CAP PO SCH (08:12)
[2019-11-22] MEDS: Bicalutamide 50 MG TAB PO SCH (08:12)
[2019-11-22] MEDS: Aspirin 81 mg Enteric Coated Tablet PO SCH (08:13)
[2019-11-22] MEDS: Folic Acid 1 MG TAB PO SCH (08:13)
[2019-11-22] MEDS: Carvedilol 6.25 MG TAB PO SCH (08:13)
[2019-11-22] MEDS: NIFEdipine XL 30 MG TAB PO SCH (08:13)
[2019-11-22] MEDS: Finasteride 5 MG TAB PO SCH (08:13)
[2019-11-22] MEDS: Sodium Bicarbonate Tab 325 MG TAB PO SCH ×2 (08:13→14:39)
[2019-11-22] MEDS: Calcium Carbonate 600 MG TAB PO SCH ×2 (08:14→14:39)
[2019-11-22] MEDS: hydrALAZINE 25 MG TAB PO SCH ×2 (08:14→13:02)
[2019-11-22] MEDS: Heparin 5,000 UNITS/ML VIAL SC SCH (08:14)
[2019-11-22] MEDS: predniSONE 5 MG TAB PO SCH (08:14)
[2019-11-22] MEDS: Abiraterone Acetate [Zytiga] 1,000 MG PO SCH (11:04)
--- NOTE | 2019-11-22 11:56 | PDOC.HOSPP ---
- Subjective Subjective: Seen and examined. Moving bowels okay. Edema improved. Patient anxious to go to rehabilitation facility. Discuss case with case management who is working with insurance. - Objective Vital Signs & Weight: Vital Signs (12 hours) Temp Pulse Resp BP BP Pulse Ox 11/22/19 08:14 100 165/85 H 94 L 11/22/19 08:13 100 165/85 H 11/22/19 07:46 98.7 F 100 16 165/85 H 94 L Weight Admit Weight 135 lb 5.76 oz Weight 135 lb 5.76 oz I&O: 11/21/19 11/22/19 11/23/19 06:59 06:59 06:59 Intake Total 900 1050 Output Total 800 100 Balance 100 950 Result Diagrams: 11/11/19 04:15 11/22/19 04:38 Additional Labs: Accuchecks 11/22/19 11/21/19 11/21/19 10:48 19:52 17:05 POC Glucose 132 H 245 H 205 H 11/21/19 12:06 POC Glucose 153 H Hospitalist ROS - Review of Systems All other systems reviewed; all pertinent +/- noted in HPI/Subj - Medication Medications: Active Medications Generic Name Dose Route Start Last Admin Trade Name Freq PRN Reason Stop Dose Admin Acetaminophen 650 mg 11/01/19 11:19 11/11/19 16:56 Tylenol PO 650 mg Q4H PRN Administration Headache/Fever/Mild Pain (1-3) Hydrocodone Bitart/Acetaminophen 1 tab 11/19/19 20:10 11/21/19 20:24 [place] 5/325 PO 1 tab Q4H PRN Administration Mild-Moderate Pain (1-6) Aspirin 81 mg 11/02/19 09:00 11/22/19 08:13 Ecotrin PO 81 mg DAILY NEMO Administration Atorvastatin Calcium 40 mg 11/01/19 21:00 11/21/19 20:13 Lipitor PO 40 mg HS NEMO Administration Bicalutamide 50 mg 11/05/19 09:00 11/22/19 08:12 Casodex PO 50 mg DAILY NEMO Administration Calcium Carbonate 600 mg 11/09/19 15:00 11/22/19 08:14 Caltrate PO 600 mg TID NEMO Administration Carvedilol 25 mg 11/04/19 21:00 11/22/19 08:13 Coreg PO 25 mg BID NEMO Administration Cyanocobalamin 1,000 mcg 11/02/19 09:00 11/22/19 08:12 Vitamin B-12 PO 1,000 mcg DAILY NEMO Administration Finasteride 5 mg 11/14/19 09:00 11/22/19 08:13 Proscar PO 5 mg DAILY NEMO Administration Folic Acid 1 mg 11/02/19 09:00 11/22/19 08:13 Folvite PO 1 mg DAILY NEMO Administration Heparin Sodium (Porcine) 5,000 units 11/06/19 09:00 11/22/19 08:14 Heparin SC 5,000 units BID NEMO Administration Hydralazine HCl 25 mg 11/11/19 09:00 11/22/19 08:14 Apresoline PO 25 mg QID NEMO Administration Insulin Glargine 8 units/ 0.08 mls @ 0 mls/hr 11/18/19 21:00 11/21/19 20:14 Miscellaneous Medication SC 0.08 mls HS NEMO Administration Insulin Human Lispro 0 units 11/01/19 11:20 11/21/19 17:26 Humalog SC 4 unit .MILD SLIDING SCALE PRN Administration Mild Correctional Scale Insulin Human Lispro 0 units 11/01/19 11:20 11/21/19 20:22 Humalog SC 2 unit .BEDTIME SLIDING SC PRN Administration Bedtime Correctional Scale Labetalol HCl 20 mg 11/10/19 19:36 11/11/19 07:28 Normodyne SLOW IVP 20 mg Q4H PRN Administration Hypertension Nifedipine 30 mg 11/12/19 09:00 11/22/19 08:13 Procardia Xl PO 30 mg DAILY NEMO Administration Abiraterone Acetate 0 each 11/12/19 11:00 11/22/19 11:04 [Zytiga] 1,000 Mg PO 1 each 1100 NEMO Administration Prednisone 5 mg 11/17/19 09:00 11/22/19 08:14 Prednisone PO 5 mg DAILY NEMO Administration Sodium Bicarbonate 650 mg 11/18/19 15:00 11/22/19 08:13 Bicarbonate, Sodium PO 650 mg TID NEMO Administration Sodium Chloride 10 ml 11/01/19 11:19 11/06/19 09:18 Flush - Normal Saline IVF 10 ml PRN PRN Administration Saline Flush Tamsulosin HCl 0.8 mg 11/14/19 07:10 11/22/19 08:12 Flomax PO 0.8 mg DAILY NEMO Administration - Exam General Appearance: NAD, awake alert Eye: anicteric sclera ENT: normocephalic atraumatic, moist mucosa Neck: supple, symmetric, no lymphadenopathy Heart: no murmur, no gallops, no rubs Respiratory: CTAB, no wheezes, no rales Gastrointestinal: soft, non-tender, no guarding, no rigidity Extremities: 1+ LE edema (Trace left LE edema) Skin: no lesions, no rashes Neurological: cranial nerve grossly intact, no focal deficits Musculoskeletal: generalized weakness Psychiatric: normal affect, normal behavior, A&O x 3 Hosp A/P (1) DM type 2 causing CKD stage 4 Code(s): E11.22 - TYPE 2 DIABETES MELLITUS W DIABETIC CHRONIC KIDNEY DISEASE; N18.4 - CHRONIC KIDNEY DISEASE, STAGE 4 (SEVERE) Status: Acute Qualifiers: Diabetes mellitus terminal make up operator insulin use: with alf use Qualified Code( s): E11.22 - Type 2 diabetes mellitus with diabetic chronic kidney disease; N18.4 - Chronic kidney disease, stage 4 (severe); Z79.4 - terminal make up operator (current) use of insulin (2) Left-sided weakness Code(s): R53.1 - WEAKNESS Status: Acute (3) Spinal stenosis of lumbar region at multiple levels Code(s): M48.061 - SPINAL STENOSIS, LUMBAR REGION WITHOUT NEUROGENIC MARCELO Status: Chronic (4) Hypoglycemia associated with type 2 diabetes mellitus Code(s): E11.649 - TYPE 2 DIABETES MELLITUS WITH HYPOGLYCEMIA WITHOUT COMA Status: Resolved (5) Pneumonia Code(s): J18.9 - PNEUMONIA, UNSPECIFIED ORGANISM Status: Resolved Qualifiers: Pneumonia type: due to unspecified organism Laterality: left Lung location: lower lobe of lung Qualified Code(s): J18.9 - Pneumonia, unspecified organism (6) KASSIDY (acute kidney injury) Code(s): N17.9 - ACUTE KIDNEY FAILURE, UNSPECIFIED Status: Acute (7) Hyperglycemia Code(s): R73.9 - HYPERGLYCEMIA, UNSPECIFIED Status: Acute (8) Weakness generalized Code(s): R53.1 - WEAKNESS Status: Acute (9) Hypertension Code(s): I10 - ESSENTIAL (PRIMARY) HYPERTENSION Status: Chronic Qualifiers: Hypertension type: essential hypertension Qualified Code(s): I10 - Essential (primary) hypertension (10) Metabolic acidosis Code(s): E87.2 - ACIDOSIS Status: Chronic (11) Metastatic adenocarcinoma to prostate Code(s): C79.82 - SECONDARY MALIGNANT NEOPLASM OF GENITAL ORGANS Status: Chronic - Plan Plan: oncology unit Nephrology consultation, recommendations appreciated - renal function continues to improve Continue flomax Continue Finasteride left lower extremity edema improving with conservative therapy discontinue IV fluids ultrasound lower extremity ruled out DVT elevate the leg, compression stockings/david wraps as tolerated late stage malignancy of the prostate, patient wishes to continue chemotherapy in the subacute setting and continue rehabilitation PT/ OT eval and treat blood pressure control blood sugar control replace electrolytes as needed continue other home medications as able G.I. prophylaxis DVT prophylaxis: SQ heparin on Disposition: Stable for SNF placement. CM consult placed for D/c planning.
[2019-11-22 13:03] VITALS: BP 105/60
--- NOTE | 2019-11-22 14:39 | PRG ---
DATE OF SERVICE: 11/22/2019 SUBJECTIVE: Patient was seen and examined at bedside and overnight events noted. Patient denies any shortness of breath or chest pain or palpitation. No history of nausea or vomiting or diarrhea or fever or chills or cramps. OBJECTIVE: GENERAL: This is a well-built male, in no apparent distress. VITAL SIGNS: Temperature 98.7, pulse 93, respiratory rate 18, and blood pressure 105/60. HEENT: Atraumatic, normocephalic. Oral mucosa is moist NECK: Supple. CARDIOVASCULAR: S1, S2 heard. Rate and rhythm regular. RESPIRATORY: Clear to auscultation. GASTROINTESTINAL: Abdomen is soft. MUSCULOSKELETAL: No tenderness. No edema. DERMATOLOGIC: No skin rash. NEUROLOGIC: Alert and awake and oriented X3. No focal neurologic deficits. Moving all the extremities. PSYCHIATRIC: Mood and affect normal. LABORATORY DATA: Creatinine is 3.3. ASSESSMENT AND PLAN: 1. Chronic kidney disease, stage 4. Monitor. 2. Acidosis. 3. Anemia. 4. Edema. 5. Hypertension. Avoid nephrotoxins. We will follow. Job ID: [id number]
--- NOTE | 2019-11-22 21:00 | DIS ---
DATE OF ADMISSION: 11/01/2019 DATE OF DISCHARGE: 11/22/2019 REASON FOR HOSPITALIZATION: Generalized weakness and pneumonia. SIGNIFICANT FINDINGS: The patient was found to have community-acquired pneumonia and chronic changes to the lumbar spine with diffuse osseous metastatic disease from stage IV prostate cancer that is known and currently on therapy by Oncology. PROCEDURES PERFORMED AND TREATMENTS RENDERED: The patient was admitted to medical unit for maximum medical therapy. The patient was seen and evaluated by internal medicine physician-please see full history and physical, consultation notes, and progress notes for all details. The patient was seen and evaluated by Neurology, Dr. Villarreal-please see full consultation note from 11/02/2019, and all progress notes for details. With the patient having diffuse metastatic bony lesions, he was seen and evaluated by Neurosurgery, Dr. Prieto, who determined that he was not a surgical candidate-please see full consultation notes and progress notes for details. No surgical intervention was recommended or undergone on the patient's hospitalization. The patient was seen and evaluated by Oncology, Dr. Dumont-please see full consultation notes and progress notes for details. Dr. Dumont recommending if the patient would like to continue with cancer treatment, to follow up in the outpatient setting and no further medical recommendations were given by oncologist. The patient with acute on chronic renal insufficiency, was seen and evaluated throughout his hospitalization by Nephrology, Dr. Bright-please see full consultation notes and progress notes for details. The patient's medications were adjusted appropriately by all specialists. With the help of Nephrology, the patient's renal function did stabilize and downtrend throughout his hospitalization. The patient with generalized weakness to the left leg, was recommended inpatient physical therapy and occupational therapy with [facility] facility and he was transferred on 11/22/2019, after he was accepted. The patient is recommended safe for discharge by all specialists with close followup in the outpatient setting. CONDITION ON DISCHARGE: Stable. SPECIFIC INSTRUCTIONS FOR THE PATIENT/FAMILY: 1. The patient is recommended safe for transfer to [facility] facility and recommended to complete a full course of inpatient therapy to regain his strength and independence. 2. The patient is recommended to follow up with Oncologist in the next 1 to 2 weeks. 3. The patient is recommended to follow up with Nephrology in the next 1 to 2 weeks. 4. The patient is recommended to follow up with Neurosurgery in the next 2 to 4 weeks. 5. The patient is recommended to follow up with primary care physician in the next 5 to 7 days. 6. The patient is recommended to return to acute care hospital immediately if signs or symptoms return, worsen, or any other new symptoms occur. DISCHARGE MEDICATIONS: 1. Aspirin 81 mg one tablet p.o. daily. 2. Atorvastatin 40 mg one tablet p.o. at bedtime. 3. Zytiga 1000 mg p.o. q.a.m. before meals. 4. Tylenol 650 mg p.o. q.4 hours p.r.n. pain or fever. 5. Tylenol No. 3 with codeine p.o. q.8 hours p.r.n. pain-not to exceed 3000 mg of acetaminophen per day. 6. Artificial Tears two drops each eye p.r.n. dry eyes. 7. Casodex 50 mg p.o. q.a.m. 8. Calcium carbonate 600 mg two tablets p.o. b.i.d. p.r.n. indigestion. 9. Carvedilol 25 mg p.o. b.i.d. 10. Vitamin B12 of 1000 mcg p.o. daily. 11. Finasteride 5 mg p.o. daily. 12. Folic acid 1 mg p.o. daily. 13. Heparin 5000 units subcutaneous injection b.i.d. 14. Insulin sliding scale a.c. and at bedtime-low. 15. Hydralazine 25 mg p.o. 4 times per day. 16. Insulin glargine (Lantus) 8 units subcutaneous injection at bedtime. 17. Lupron Depot intramuscular q.30 days administered by Oncology. 18. Nifedipine 30 mg extended release p.o. daily. 19. Prednisone 5 mg p.o. b.i.d. 20. Sodium bicarbonate 650 mg p.o. t.i.d. 21. Flomax 0.4 mg p.o. daily. TIME SPENT: Greater than 36 minutes spent coordinating care and discharge process for this patient. Job ID: [id number]
== END 2019-11-22 15:48 | DRG 637 ==
LOC: ERS 06:41 → 2SE 09:49 → ONC 11-07 13:09
PROVIDERS: ADMIT Internal Medicine; ATTEND Internal Medicine
DX: E11.649 Type 2 diabetes mellitus with hypoglycemia without coma (principal); J18.9 Pneumonia, unspecified organism; G93.41 Metabolic encephalopathy; C79.51 Secondary malignant neoplasm of bone; C78.00 Secondary malignant neoplasm of unspecified lung; G81.94 Hemiplegia, unspecified affecting left nondominant side; E87.2 Acidosis; C61 Malignant neoplasm of prostate; N18.4 Chronic kidney disease, stage 4 (severe); N17.9 Acute kidney failure, unspecified; M54.5 Low back pain; G89.29 Other chronic pain; E11.22 Type 2 diabetes mellitus with diabetic chronic kidney disease; I12.9 Hypertensive chronic kidney disease with stage 1 through stage 4 chronic kidney disease, or unspecified chronic kidney disease; M48.061 Spinal stenosis, lumbar region without neurogenic claudication; E83.51 Hypocalcemia; Z79.4 Long term (current) use of insulin; Z79.82 Long term (current) use of aspirin; Z79.899 Other long term (current) drug therapy
CPT/HCPCS: 36415; 36416; 70450; 70551; 71045; 72148; 74018; 76770; 80048; 80053; 80061; 81015; 84484; 85025; 87040; 87086; 89190; 93005; 93306; 96365; 96367; J0360; J0456; J0696; J1644; J1650; J1815; J2920; J3490; J7070; J7512